=== PATIENT | male | born 1955 | race Caucasian/White ===

== ENCOUNTER → 2018-05-21 00:20 | Outpatient (CLI) | payer MEDICAID, SELFPAY ==
--- NOTE | 2018-05-21 10:00 | DI.REPORT_ITS ---
SYMPTOM/DIAGNOSIS: METATARSALGIA, RIGHT FOOT M77.41 RIGHT FOOT: Three views. No priors. Periarticular spurring is seen at the first metatarsal phalangeal joint. There do appear to be hammertoe deformities of the 2nd through 5th toes. There is periarticular spurring at the talonavicular joint and the articulation between the navicular cuneiforms. Spurs are seen at the posterior calcaneus. Vascular calcifications are seen. There does appear to be generalized soft tissue swelling of the foot. No acute fracture or dislocation is appreciated. There is joint space narrowing and periarticular spurring seen at the articulation between the medial sesamoid and the head of the first metatarsal. IMPRESSION: Mild to moderate degenerative changes seen at the right foot. 2. Generalized soft tissue swelling of the foot
== END ==
PROVIDERS: PCP Internal Medicine; Visit Provider Podiatrist Foot & Ankle Surgery
DX: M77.41 Metatarsalgia, right foot (principal); M19.071 Primary osteoarthritis, right ankle and foot; R22.41 Localized swelling, mass and lump, right lower limb; M79.89 Other specified soft tissue disorders
CPT/HCPCS: 73630

== ENCOUNTER 2018-11-20 08:49 | Outpatient (CLI) | payer MEDICAID, SELFPAY ==
[2018-11-20 09:28] LABS: HCT 36.6 % (40.0-50.0); HGB 11.1 g/dL (13.5-17.5); Mean Corp. HGB Concentration 30.3 g/dL (32.0-36.0); Mean Corpuscular Hemoglobin 24.7 pg (27.0-33.0); Mean Corpuscular Volume 81.5 fL (80-95); Mean Platelet Volume 9.1 fL (8.0-11.0); Platelet Count 296 x1000/uL (130-400); RBC 4.49 m/cumm (4.50-6.00); RBC Distribution Width 17.5 % (11.8-14.1); White Blood Cell Count 7.23 k/cumm (4.4-10.8)
[2018-11-20 09:55] LABS: COMMENT (LAB VIEW ONLY) 142.11 mg/dL; Microalb ug/mg Crea 150.4 ug/mg Cr
[2018-11-20 10:59] LABS: Anion Gap 10.6 mmol/L (3-11); BUN 16 mg/dL (7-18); CO2 29.4 mmol/L (21.0-32.0); CREATININE 1.12 mg/dL (0.70-1.30); Calcium 8.6 mg/dL (8.5-10.1); Chloride 103 mmol/L (98-107); Cholesterol 173 mg/dL (50-200); Glucose 107 mg/dL (70-100); HDL Cholesterol 52 mg/dL (40-60); LDL CHOLESTEROL 89 mg/dL (<100); Potassium 3.7 mmol/L (3.5-5.1); Sodium 143 mmol/L (136-145); TSH 2.19 uIU/mL (0.358-3.74); Triglyceride 143 mg/dL (30-150); Vitamin B12 617 pg/mL (193-986)
== END 2018-11-20 09:09 ==
PROVIDERS: PCP Internal Medicine; Visit Provider Internal Medicine
DX: E11.9 Type 2 diabetes mellitus without complications (principal); D51.9 Vitamin B12 deficiency anemia, unspecified; I10 Essential (primary) hypertension; E78.00 Pure hypercholesterolemia, unspecified; R60.9 Edema, unspecified; I50.810 Right heart failure, unspecified; N20.0 Calculus of kidney
CPT/HCPCS: 36415; 80048; 80061; 83721; 85027; 82043; 82570; 82607; 84443

== ENCOUNTER 2019-02-12 10:50 | Outpatient (CLI) | payer MEDICAID, SELFPAY ==
--- NOTE | 2019-02-12 10:36 | DI.RAD_ITS ---
SYMPTOMS/DIAGNOSIS: PAIN RIGHT HAND: Two views. No acute or healing fracture or dislocation is present. The articular surfaces are well maintained. The bones appear normally mineralized. There does appear to be some soft tissue swelling of the index finger. IMPRESSION: 1. No acute bone or joint abnormality. 2. Soft tissue swelling of the right index finger.
== END 2019-02-12 11:10 ==
PROVIDERS: PCP Internal Medicine; Visit Provider Physician Assistant Surgical
DX: M79.641 Pain in right hand (principal); M79.89 Other specified soft tissue disorders
CPT/HCPCS: 73120

== ENCOUNTER 2019-03-20 09:52 | Outpatient (CLI) | payer MEDICAID, SELFPAY ==
--- NOTE | 2019-03-20 15:00 | W.PREOPHP ---
Date of service: 03/20/19 Time of Service: 09:01 Assessment and Plan (1) Morbid obesity: Current visit: Yes Status: Chronic (2) Radial styloid tenosynovitis [de quervain]: Current visit: Yes Status: Acute First dorsal extensor compartment release hopefully to be done under IV regional anesthesia secondary to the patient's multiple medical problems to include sleep apnea cor pulmonale with massive lower leg edema hypertension with a story of ICU stay after simple outpatient procedure of a knee arthroscopy found in old charts and written notes by former anesthesiologist Dr. Kishore Gaxiola. the choice of anesthesia was discussed today with nurse multiple drum sander helper Maria Del Carmen Perkins about some of the issues regarding luls habitus with a large upper arrm with super morbid obese classification with maria del carmen feeling he can adequately do the procedure under IV regional to minimize any sleep apnea issues and chronic dyspnea issues that the patient has with no past history of ischemic cardiac disease or cerebrovascular disease reviewing his computerized chart. Patient is well aware of the surgical procedure and the need to stop his chronic anticoagulation with Coumadin for his peripheral vascular disease which he has already done at this time. History of Present Illness Chief Complaint: right thumb pain Narrative: lul is a [id number] super morbidly obese diabetic male with a past history of lower leg DVTs and acute PE maintained on chronic Coumadin who presented to orthopedics with a one-month history of atraumatic base of thumb pain not improved after 1 month trial of thumb spica splinting. With his lack of improvement with conservative measures release of first dorsal extensor compartment under IV regional anesthesia arm size permitting was recommended by Dr. De La Fuente. The patient relates a history of CPAP use for sleep apnea along with a story of a [address] De La Fuente with general anesthesia with him winding up in ICU after the procedure per the direction of anesthesiologist Dr. Kishore Gaxiola where he was discharged the next day. The patient is unaware of any difficulty during the intubation but just winding up in ICU post the simple procedure. Review of his computerized record here does show an EGD and colonoscopy performed by Dr. Marvin in 7-14under mac Because of his large size fallon stone retrieval and planned umbilical hernia are scheduled to be done down at [facility]. Dr. De La Fuente is hoping lul's surgery can be a simple procedure done under IV regional to avoid some of the aforementioned issues. Pertinent Surgical Information Denies previous medical history of: stroke, TIA, [place], use of sublingual nitroglycerin,, thyroid disease, liver disease, hepatitis, hematologic disorders Denies previous complications from surgery or anesthesic agents with respect to high fever, prolonged vomiting and difficulty waking up Review of Systems Constitutional Denies fever(s) and Denies headache(s) ENT Denies headache(s), Denies nasal congestion, Denies nasal discharge and Denies sore throat Cardiovascular Denies chest pain, Denies chest pain with activity, Denies palpitations, Reports dyspnea on exertion ( has chronic exertional dyspneaespecially with incline walking), Denies orthopnea and Denies paroxysmal nocturnal dyspnea Respiratory Reports change in phlegm color, Denies cough, Denies excessive phlegm production, Denies pain on inspiration, Reports dyspnea on exertion ( has chronic exertional dyspneaespecially with incline walking) and Denies wheezing Gastrointestinal Denies abdominal pain, Denies melena, Denies hematochezia, Denies nausea and Denies vomiting Genitourinary Denies hematuria and Denies dysuria Comments: Denies burning sensation with urination Musculoskeletal Reports as per HPI Neurologic Denies headache(s) Psychiatric Denies anxiety and Denies depression Endocrine Denies palpitations Comments: Denies any unplanned weight changes Allergic/Immunologic Denies wheezing PFSH Medical History Right-sided heart failure (Chronic) GERD (gastroesophageal reflux disease) (Chronic) Hypertension (Chronic) Umbilical hernia (Acute) Uric acid urolithiasis (Acute) Hernia (Chronic) Morbid obesity (Chronic) Diabetes mellitus (Chronic) Hyperlipidemia (Chronic) Obstructive sleep apnea (Chronic) Anticoagulation goal of INR 2 to 3 Coronary artery disease Surgical History History of extraction of renal calculus (Acute) History of colonoscopy (Chronic) History of esophagogastroduodenoscopy (EGD) (Chronic) History of trigger finger (Inactive) FORESKIN SLIT KNEE SURGERIES flexible laryngoscopy (04/12/15) Family History Mother Hypertensive disorder, systemic arterial Diabetes Personal history of malignant neoplasm Sister Diabetes Mental disorder Brother Diabetes Social History Smoking/Tobacco Use Status: Former Tobacco Use Smokeless tobacco user: chewing tobacco Alcohol Intake: never Drug use: Never Substance use type: does not use Household members: other Details: roomate Housing: apartment What type of physical activity do you participate in: none Seatbelt use: always Drive intox or ride w/intox pack train driver: No Water heater temp set <120 deg: Yes Fire extinguisher in home: Yes Carbon monox detector in home: Yes Do you feel safe at home: Yes Do you feel safe in your relationship?: Yes Meds Home Medications Medication Instructions Recorded Confirmed Type polyethylene glycol 3350 17 g PO PRN PRN packet 12/13/12 03/20/19 History ammonium lactate 1 applic TOPICAL BID PRN #1 bottle 12/01/13 03/20/19 History lancets #350 ea 03/16/14 03/18/19 History modafinil [Provigil] 200 mg PO BID 01/27/15 03/20/19 History zolpidem [Ambien CR] 12.5 mg PO HS 03/05/17 03/20/19 History pen needle, diabetic [BD #300 07/20/17 03/18/19 Rx Ultra-Fine Orig Pen Needle] diaper,brief,adult,disposable #120 ea 02/26/18 03/18/19 Rx [Brief] simvastatin 40 mg PO DAILY #90 tab-cap 05/10/18 03/20/19 Rx potassium citrate ER 10 mEq (1,080 20 meq PO BID #360 tab 06/25/18 03/20/19 Rx mg) tablet,extended release insulin glargine (U- 100) 100 See Rx Instructions SUB-Q HS #8 07/04/18 03/18/19 Rx unit/mL subcutaneous solution vial furosemide 80 mg tablet 80 mg PO DAILY #135 tab-cap 08/28/18 03/20/19 Rx cyanocobalamin (vit B-12) 1,000 1,000 mcg IJ monthly #1 vial 09/03/18 03/20/19 Rx mcg/mL injection solution syringe with cannula, disposable #12 syringe 09/03/18 03/18/19 Rx 17 x 3 mL blood sugar diagnostic strips #450 strip 09/04/18 03/18/19 Rx triamcinolone acetonide 0.5 % 1 applic TP BID PRN #15 gm 09/04/18 03/20/19 Rx topical cream insulin syringe U-100 with needle #10 each 09/06/18 03/18/19 History 0.5 mL 30 gauge x 5/16 insulin syringe U-100 with needle #400 each 09/06/18 03/18/19 Rx 1 mL 31 gauge x 5/16 omeprazole 20 mg capsule,delayed 20 mg PO HS #90 tab-cap 09/27/18 03/20/19 Rx release insulin U- 100 regular human 100 33 unit SUBCUT AC & HS #18 vial 10/31/18 03/20/19 Rx unit/mL injection solution MDD 200u lisinopril 10 mg tablet 10 mg PO DAILY #90 tab-cap 12/10/18 03/20/19 Rx warfarin 5 mg tablet See Rx Instructions PO DAILY #200 12/10/18 03/18/19 Rx tab metformin 1,000 mg tablet 1,000 mg PO BID #180 tab-cap 01/10/19 03/20/19 Rx loratadine 10 mg tablet 10 mg PO DAILY #90 tab 01/28/19 03/20/19 Rx tramadol 50 mg tablet 100 mg PO BID #360 tab 03/05/19 03/20/19 Rx atenolol 25 mg tablet 50 mg PO DAILY tab-cap 03/20/19 03/20/19 History nystatin 1 applic TP BID PRN 03/20/19 03/20/19 History Allergies Allergy/AdvReac Type Severity Reaction Status Date / Time zaleplon [From [facility]] Allergy Severe Swelling/Ed Verified 03/20/19 09:02 mark Exam Const General: cooperative HENMT Throat: posterior oropharynx normal Eyes General: appearance normal, both eyes and all related structures Conjunctivae: conjunctivae normal Sclera: sclerae normal Neck Neck: no JVD Carotids: normal carotid upstroke and no bruits Resp Effort & Inspection: normal respiratory effort and able to speak in complete sentences Auscultation: clear to auscultation bilaterally, no rales, no rhonchi and no wheezes Cardio Rate: regular rate Heart Sounds: S1 normal, S2 normal and no murmurs Bruits: no abdominal aortic bruits Pulses: normal peripheral pulses Other: No pulsatile mass noted with palpation over the abdominal aorta morbid obesity makes palpation subotimal GI Palpation: soft and no hepatosplenomegaly Auscultation: normal bowel sounds General: No CVA tenderness Extrem General: edema Right lower extremity: edema Left lower extremity: edema Other: right thumb with tenderness of distal end of first dorsal extensor compartment with +finkelsteins test. no metacarpal grind pain or cmc joint tenderness.nl sensation
--- NOTE | 2019-03-20 15:15 | HPE_ITS ---
Date of service: 03/20/19 Time of Service: 09:01 Assessment and Plan (1) Morbid obesity: Current visit: Yes Status: Chronic (2) Radial styloid tenosynovitis [de quervain]: Current visit: Yes Status: Acute First dorsal extensor compartment release hopefully to be done under IV regional anesthesia secondary to the patient's multiple medical problems to include sleep apnea cor pulmonale with massive lower leg edema hypertension with a story of ICU stay after simple outpatient procedure of a knee arthroscopy found in old charts and written notes by former anesthesiologist Dr. Kishore Gaxiola. the choice of anesthesia was discussed today with nurse electron beam welding machine operator Maria Del Carmen Perkins about some of the issues regarding luls habitus with a large upper arrm with super morbid obese classification with maria del carmen feeling he can adequately do the procedure under IV regional to minimize any sleep apnea issues and chronic dyspnea issues that the patient has with no past history of ischemic cardiac disease or cerebrovascular disease reviewing his computerized chart. Patient is well aware of the surgical procedure and the need to stop his chronic anticoagulation with Coumadin for his peripheral vascular disease which he has already done at this time. History of Present Illness Chief Complaint: right thumb pain Narrative: lul is a [id number] super morbidly obese diabetic male with a past history of lower leg DVTs and acute PE maintained on chronic Coumadin who presented to orthopedics with a one- month history of atraumatic base of thumb pain not improved after 1 month trial of thumb spica splinting. With his lack of improvement with conservative measures release of first dorsal extensor compartment under IV regional anesthesia arm size permitting was recommended by Dr. De La Fuente. The patient relates a history of CPAP use for sleep apnea along with a story of a [address] De La Fuente with general anesthesia with him winding up in ICU after the procedure per the direction of anesthesiologist Dr. Kishore Gaxiola where he was discharged the next day. The patient is unaware of any difficulty during the intubation but just winding up in ICU post the simple procedure. Review of his computerized record here does show an EGD and colonoscopy performed by Dr. Marvin in 7-14under mac Because of his large size fallon stone retrieval and planned umbilical hernia are scheduled to be done down at [facility]. Dr. De La Fuente is hoping lul's surgery can be a simple procedure done under IV regional to avoid some of the aforementioned issues. Pertinent Surgical Information Denies previous medical history of: stroke, TIA, [place], use of sublingual nitroglycerin,, thyroid disease, liver disease, hepatitis, hematologic disorders Denies previous complications from surgery or anesthesic agents with respect to high fever, prolonged vomiting and difficulty waking up Review of Systems Constitutional Denies fever(s) and Denies headache(s) ENT Denies headache(s), Denies nasal congestion, Denies nasal discharge and Denies sore throat Cardiovascular Denies chest pain, Denies chest pain with activity, Denies palpitations, Reports dyspnea on exertion ( has chronic exertional dyspneaespecially with incline walking), Denies orthopnea and Denies paroxysmal nocturnal dyspnea Respiratory Reports change in phlegm color, Denies cough, Denies excessive phlegm production, Denies pain on inspiration, Reports dyspnea on exertion ( has chronic exertional dyspneaespecially with incline walking) and Denies wheezing Gastrointestinal Denies abdominal pain, Denies melena, Denies hematochezia, Denies nausea and Denies vomiting Genitourinary Denies hematuria and Denies dysuria Comments: Denies burning sensation with urination Musculoskeletal Reports as per HPI Neurologic Denies headache(s) Psychiatric Denies anxiety and Denies depression Endocrine Denies palpitations Comments: Denies any unplanned weight changes Allergic/Immunologic Denies wheezing PFSH Medical History Right-sided heart failure (Chronic) GERD (gastroesophageal reflux disease) (Chronic) Hypertension (Chronic) Umbilical hernia (Acute) Uric acid urolithiasis (Acute) Hernia (Chronic) Morbid obesity (Chronic) Diabetes mellitus (Chronic) Hyperlipidemia (Chronic) Obstructive sleep apnea (Chronic) Anticoagulation goal of INR 2 to 3 Coronary artery disease Surgical History History of extraction of renal calculus (Acute) History of colonoscopy (Chronic) History of esophagogastroduodenoscopy (EGD) (Chronic) History of trigger finger (Inactive) FORESKIN SLIT KNEE SURGERIES flexible laryngoscopy (04/12/15) Family History Mother Hypertensive disorder, systemic arterial Diabetes Personal history of malignant neoplasm Sister Diabetes Mental disorder Brother Diabetes Social History Smoking/Tobacco Use Status: Former Tobacco Use Smokeless tobacco user: chewing tobacco Alcohol Intake: never Drug use: Never Substance use type: does not use Household members: other Details: roomate Housing: apartment What type of physical activity do you participate in: none Seatbelt use: always Drive intox or ride w/intox regional flatbed truck driver: No Water heater temp set <120 deg: Yes Fire extinguisher in home: Yes Carbon monox detector in home: Yes Do you feel safe at home: Yes Do you feel safe in your relationship?: Yes Meds Home Medications Medication Instructions Recorded Confirmed Type polyethylene glycol 3350 17 g PO PRN PRN packet 12/13/12 03/20/19 History ammonium lactate 1 applic TOPICAL BID PRN #1 bottle 12/01/13 03/20/19 History lancets #350 ea 03/16/14 03/18/19 History modafinil [Provigil] 200 mg PO BID 01/27/15 03/20/19 History zolpidem [Ambien CR] 12.5 mg PO HS 03/05/17 03/20/19 History pen needle, diabetic [BD #300 07/20/17 03/18/19 Rx Ultra-Fine Orig Pen Needle] diaper,brief,adult,disposable #120 ea 02/26/18 03/18/19 Rx [Brief] simvastatin 40 mg PO DAILY #90 tab-cap 05/10/18 03/20/19 Rx potassium citrate ER 10 mEq (1,080 20 meq PO BID #360 tab 06/25/18 03/20/19 Rx mg) tablet,extended release insulin glargine (U- 100) 100 See Rx Instructions SUB-Q HS #8 07/04/18 03/18/19 Rx unit/mL subcutaneous solution vial furosemide 80 mg tablet 80 mg PO DAILY #135 tab-cap 08/28/18 03/20/19 Rx cyanocobalamin (vit B-12) 1,000 1,000 mcg IJ monthly #1 vial 09/03/18 03/20/19 Rx mcg/mL injection solution syringe with cannula, disposable #12 syringe 09/03/18 03/18/19 Rx 17 x 3 mL blood sugar diagnostic strips #450 strip 09/04/18 03/18/19 Rx triamcinolone acetonide 0.5 % 1 applic TP BID PRN #15 gm 09/04/18 03/20/19 Rx topical cream insulin syringe U-100 with needle #10 each 09/06/18 03/18/19 History 0.5 mL 30 gauge x 5/16 insulin syringe U-100 with needle #400 each 09/06/18 03/18/19 Rx 1 mL 31 gauge x 5/16 omeprazole 20 mg capsule,delayed 20 mg PO HS #90 tab-cap 09/27/18 03/20/19 Rx release insulin U- 100 regular human 100 33 unit SUBCUT AC & HS #18 vial 10/31/18 03/20/19 Rx unit/mL injection solution MDD 200u lisinopril 10 mg tablet 10 mg PO DAILY #90 tab-cap 12/10/18 03/20/19 Rx warfarin 5 mg tablet See Rx Instructions PO DAILY #200 12/10/18 03/18/19 Rx tab metformin 1,000 mg tablet 1,000 mg PO BID #180 tab-cap 01/10/19 03/20/19 Rx loratadine 10 mg tablet 10 mg PO DAILY #90 tab 01/28/19 03/20/19 Rx tramadol 50 mg tablet 100 mg PO BID #360 tab 03/05/19 03/20/19 Rx atenolol 25 mg tablet 50 mg PO DAILY tab-cap 03/20/19 03/20/19 History nystatin 1 applic TP BID PRN 03/20/19 03/20/19 History Allergies Allergy/AdvReac Type Severity Reaction Status Date / Time zaleplon [From [facility]] Allergy Severe Swelling/Ed Verified 03/20/19 09:02 mark Exam Const General: cooperative HENMT Throat: posterior oropharynx normal Eyes General: appearance normal, both eyes and all related structures Conjunctivae: conjunctivae normal Sclera: sclerae normal Neck Neck: no JVD Carotids: normal carotid upstroke and no bruits Resp Effort & Inspection: normal respiratory effort and able to speak in complete sentences Auscultation: clear to auscultation bilaterally, no rales, no rhonchi and no wheezes Cardio Rate: regular rate Heart Sounds: S1 normal, S2 normal and no murmurs Bruits: no abdominal aortic bruits Pulses: normal peripheral pulses Other: No pulsatile mass noted with palpation over the abdominal aorta morbid obesity makes palpation subotimal GI Palpation: soft and no hepatosplenomegaly Auscultation: normal bowel sounds General: No CVA tenderness Extrem General: edema Right lower extremity: edema Left lower extremity: edema Other: right thumb with tenderness of distal end of first dorsal extensor compartment with +finkelsteins test. no metacarpal grind pain or cmc joint tenderness.nl sensation
== END 2019-03-20 10:12 ==
PROVIDERS: PCP Internal Medicine; Visit Provider Orthopaedic Surgery
DX: Z01.818 Encounter for other preprocedural examination (principal)

== ENCOUNTER 2019-03-24 11:15 | Day surgery (SDC) | payer MEDICAID, SELFPAY ==
[2019-03-24 11:32] VITALS: BP 160/81; PULSE 80; RESP 22; TEMP 36.9; O2SAT 95
[2019-03-24] MEDS: Lactated Ringers 1,000 ML 80 ML IV (12:05)
--- NOTE | 2019-03-24 12:17 | HOME_ITS ---
Home Ventilator Equipment Home care company [facility] Reason: Obstructive Sleep Apnea Make: Respironics Model: Dreamstation Mask type: Nasal mask Mask size: Mode: BiPAP Settings: PS 4.0 Oxygen bleed in (lpm): 0 Condition: Fair Date last checked: 03/24/19 Year of last sleep study: Compliance Daily Comments:
--- NOTE | 2019-03-24 14:47 | W.PM.DSUDISC ---
Discharge Plan Disposition Patient Disposition: HOME Condition: Good Discharge Details Reason For Visit: Release 1st dorsal extensor compartment R wrist Attending Provider: Rex De La Fuente Primary Care Provider: Nasra Sheehan Home Meds and New Rx's Prescriptions: New hydrocodone-acetaminophen 5-325 mg tablet 1 tab PO Q6H PRN (Reason: pain) Qty: 7 RF: 0 Continued potassium citrate 10 mEq (1,080 mg) tablet extended release 20 meq PO BID Qty: 360 RF: 2 tramadol 50 mg tablet 100 mg PO BID Qty: 360 RF: 5 atenolol 25 mg tablet 50 mg PO DAILY RF: 0 cyanocobalamin (vitamin B-12) 1,000 mcg/mL solution 1,000 mcg IJ monthly Qty: 1 RF: 11 BD Blunt Plastic Cannula 17 x 3 mL syringe 1 ea Miscellaneous monthly Qty: 12 RF: 1 triamcinolone acetonide 0.5 % cream 1 applic TP BID PRN (Reason: dyshidrotic eczema) Qty: 15 RF: 2 polyethylene glycol 3350 17 GM powder in packet 17 g PO PRN PRNRF: 0 ammonium lactate 225 GM lotion 1 applic Topical BID PRNQty: 1 RF: 11 lancets 1 EACH misc 1 ea Miscellaneous QID Qty: 350 RF: 4 modafinil [Provigil] 200 MG tablet 200 mg PO BID RF: 0 zolpidem [Ambien CR] 12.5 MG tablet,ext release multiphase 12.5 mg PO HS RF: 0 pen needle, diabetic [BD Ultra-Fine Orig Pen Needle] 1 EACH needle 1 ea Miscellaneous DAILY Qty: 300 RF: 12 Entrust Plus Briefs 1 EACH misc 1 ea Miscellaneous Q6H PRN Qty: 120 RF: 12 simvastatin 40 MG tablet 40 mg PO DAILY Qty: 90 RF: 3 Lantus U-100 Insulin 100 unit/mL solution See Rx Instructions Sub-Q HS Qty: 8 RF: 3 furosemide 80 mg tablet 80 mg PO DAILY Qty: 135 RF: 3 FreeStyle Lite Strips strip 1 ea Miscellaneous 5 X daily Qty: 450 RF: 3 insulin syringe-needle U-100 [Advocate Syringes] 0.5 mL 30 gauge x 5/16 syringe .ROUTE .MEDSUPPLY Qty: 10 RF: 0 insulin syringe-needle U-100 [Ultra-Thin II (Short) Ins Syr] 1 mL 31 gauge x 5/16 syringe 1 ea Miscellaneous QID Qty: 400 RF: 3 omeprazole 20 mg capsule,delayed release(DR/EC) 20 mg PO HS Qty: 90 RF: 3 Novolin R Regular U-100 Insuln 100 unit/mL solution 33 unit subcut AC & HS MDD 200u Qty: 18 RF: 11 lisinopril 10 mg tablet 10 mg PO DAILY Qty: 90 RF: 3 warfarin 5 mg tablet See Rx Instructions PO DAILY Qty: 200 RF: 3 metformin 1,000 mg tablet 1,000 mg PO BID Qty: 180 RF: 3 loratadine 10 mg tablet 10 mg PO DAILY Qty: 90 RF: 3 nystatin 100,000 unit/gram powder 1 applic TP BID PRNRF: 0 Discharge Instructions Additional Instructions: Elevate R hand above heart level as much as possible for next 24-48 hours. Keep dressings and splint dry and intact for 5 days. After 5 days, remove splint AND dressings and begin to move R wrist and thumb. May use R hand as much as your discomfort allows. After you remove the dressings, you may shower and get the incision wet. May leave incision uncovered when it is dry and sealed. Take tylenol or ibuprofen for mild pain. Take hydrocodone for breakthru pain, if needed. Follow up with in 2 weeks. Referrals: Rex De La Fuente MD [ [facility] STAFF PHYSICIAN] - (f/u in 2 weeks.) Equipment/Supplies: Splint Activity:: Activity as Tolerated Shower/Bathe:: Cover Diet:: As Tolerated Discharge Orders Discharge Orders: Discharge Order (Routine); Ordered 03/24/19 Ordered By: Rex De La Fuente
[2019-03-24 15:10] VITALS: BP 161/77; PULSE 75; RESP 18; TEMP 36.8; O2SAT 99
--- NOTE | 2019-03-25 06:54 | ROE_ITS ---
REPORT OF OPERATIVE PROCEDURE DATE OF SURGERY March 24, 2019 PREOPERATIVE DIAGNOSIS De Quervain's tendinitis of the first dorsal extensor compartment, right wrist. POSTOPERATIVE DIAGNOSIS De Quervain's tendinitis of the first dorsal extensor compartment, right wrist. PROCEDURES Tendon sheath incision at the radial styloid for de Quervain's disease. Application of radial thumb spica splint. SURGEON Rex De La Fuente M.D. ANESTHESIA MAC with local infiltration using 2% Xylocaine solution and 0.5% Marcaine with epinephrine solution, By Luis Enrique Webber C.R.N.A. INDICATIONS This is a morbidly obese 63-year-old white male with De Quervain's tendinitis of his right wrist. Thi s has been resistant to nonoperative treatment including prolonged splinting and antiinflammatory med ications. Because of failure of conservative treatment to alleviate his symptoms, surgery was recomme nded. The risks and complications of the procedure were explained to the patient in detail preoperati vely. DESCRIPTION OF PROCEDURE The patient was taken to the Operating Room on 03/24/19. He was placed supine on the operating table. An attempt at IV regional anesthetic was performed. Unfortunately, due to his obesity, large size, there was heavy bleeding due to venous back pressure. I infiltrated his skin and subcu over the first dorsal extensor compartment with 0.5% Marcaine with e pinephrine solution. Applied pressure to the wound and deflated the tourniquet. With simple pressure and elimination of the back pressure from the tourniquet most of the bleeding stopped. Small bleeder s were then cauterized and a dry wound was obtained. Because of his obesity, the incision was longer than usual, probably measuring about 4 inches. The first dorsal extensor compartment was identified a nd then the sheath of the first dorsal extensor compartment was longitudinally incised. There were mu ltiple tendon slips within the first dorsal extensor compartment. One tiny slip was in a separate com partment and the separate compartment was excised. Upon incising the capsule, there was a small gush of synovial fluid. There was some hypertrophic synovium, this was excised using a rongeur. The wound was irrigated with Betadine and saline solution. I further infiltrated the wound margins with 0.5% Ma rcaine with epinephrine solution. The skin and subcu was then approximated with interrupted 3-0 Nylon sutures. The wound was dressed with Xeroform gauze, sterile gauze, 4x4 with ABD Pad, wrapped with a Kerlix bandage and then a radial thumb spica fiberglass short-arm splint was applied with a 3-inch Ac e bandage. The patient tolerated the procedure well and was discharged to the Day Surgery unit in goo d condition. The patient was discharged home from the Day Surgery Unit when his sedation has worn off. He was give n instructions to keep his dressings and splint intact and dry for the next five days. He may use his right hand as much as discomfort allows. Try to elevate his right hand above heart level as much as possible for the next 24 to 48 hours. After five days, he will remove his splint and dressings. Start to move his thumb and wrist. He may shower and get his incision wet after the dressings are removed. He can leave his incision uncovered when it is dry and sealed. He will take Tylenol or ibuprofen for pain. He is given a prescription for breakthrough pain of hydro codone with APAP 5/325. He will followup with Dr. De La Fuente in two weeks.
== END 2019-03-24 15:52 | disposition home or self-care (01) ==
PROVIDERS: PCP Internal Medicine; Visit Provider Orthopaedic Surgery
PROC: (CPT 25000; principal; 2019-03-24 13:15)
DX: M65.4 Radial styloid tenosynovitis [de Quervain] (principal); E11.9 Type 2 diabetes mellitus without complications; G47.33 Obstructive sleep apnea (adult) (pediatric); Z79.4 Long term (current) use of insulin; K21.9 Gastro-esophageal reflux disease without esophagitis; E66.01 Morbid (severe) obesity due to excess calories; Z68.43 Body mass index [BMI] 50.0-59.9, adult
CPT/HCPCS: 25000; J2250; J3010

== ENCOUNTER 2019-07-29 02:00 | Outpatient (CLI) | payer MEDICAID, SELFPAY ==
--- NOTE | 2019-07-29 09:00 | DIABASSESS_ITS ---
DESCRIPTION:? Nico Moeller presents for diabetes self management support. His A1c has decreased to 9. Continues to document food, insulin dosing and blood sugars daily.? ? First meal is Meals on Wheels at 10AM; fixes supper for 5PM varying pizza, mac and cheese, or chicken and vegetables.? States he has gained weight recently.? States he watches his sodium; cant have certain foods because he needs to put salt on it, but he will eat pizza, mac and cheese and states he puts cheese in many foods.?? Monitors blood sugars and takes Novolin R insulin 2-3 hours prior to eating the meal on a correction scale starting at 24 units.? Blood sugars fasting 174-210? over the past week; pre-supper 107-308, bedtime 194-355.? He happened to test blood sugar 4:30AM at 490mg/dl. He has an appointment for sleep apnea scheduled. INTERVENTION:? Discussed carbohydrate portions; suggested no bread or pizza.? Suggested cooking regular food and adding a sprinkle of salt and cut cheese intake.? He denies eating sweets although he does still bake. Looked at insulin dosing scale and balance of basal/bolus insulin.? Suggest increase of Lantus to 90units.? Increased insulin dosing scale 1 unit every 20mg/dl.?? Instructed to take blood sugar and mealtime insulin 1/2 hour prior to eating the meal. Discussed injection sites and he will continue to use the back of his arm. He denies any skin changes; declines using stomach secondary to history of bruising. PLAN:? Nico will document food more carefully and blood sugars using increased insulin scale and follow up in 1 week.
== END 2019-07-29 02:20 ==
PROVIDERS: PCP Internal Medicine; Visit Provider Dietitian, Registered
DX: E11.9 Type 2 diabetes mellitus without complications (principal); Z79.4 Long term (current) use of insulin; Z71.3 Dietary counseling and surveillance
CPT/HCPCS: G0108

== ENCOUNTER 2019-08-19 01:58 | Outpatient (CLI) | payer MEDICAID, SELFPAY ==
--- NOTE | 2019-08-19 12:00 | DIABASSESS_ITS ---
DESCRIPTION/ASSESSMENT: Follow up visit with Nico and his daughter to assess/review the current insulin dosing regimen.We increased his Lantus dose to 96units nightly. His blood sugar/insulin/food log indicates improved fasting blood sugars now 125-180 with one outlier of 248mg/dl. Blood sugar before supper 100-200 with 2 outliers above 200. Bedtime blood sugar 140-319 with 8 out of 13 above 200mg/dl. Nico states he takes his Novolog when he ests his blood sugar in the morning; 2-3 hours before he eats his first meal. He usually injects using his arms. INTERVENTION: Blood sugars clearly highest before bed indicating inadequate insulin dosing for his supper meal. Increased his supper insulin dose by 3-5 units at each insulin correction level. Discussed weight loss by cutting portions and he agrees to try to do this. Discussed insulin administration. He agrees to take his blood sugar and insulin just before he eats his first meal of the day. ACTION PLAN: He will continue documenting using the new insulin dosing scale: Mealtime Insulin Dosing for Nico Degreenia Blood MOW Supper bedtime sugar Insulin insulin Insulin 80-100 25units 30 101-120 26 31 121-140 30 33 141-150 32 35 151-160 34 37 161-170 36 39 171-180 38 42 181-190 40 45 2 191-200 42 47 3 201-210 45 50 4 211-220 47 54 5 221-230 50 57 6 231-240 53 60 8 241-250 56 63 10 251-260 59 66 12 261-270 61 13 96 units Lantus nightly R 08/19/19 Individual DSME/T __1__ units billed for 40 minutes face to face No DM group education series being offered at this time. 02/24/19 TC to Nico. Fasting blood sugar 128, 85, 121, 136, 116, 119,106, 139 before supper 85, 99, 134, 102, 77, 124, 76, 82, 131. Bedtime blood sugars 160- 200. He is pleased with these results and is happy to continue with this insulin dosing scale at this time. PRAVEENA Quijano, CDE
== END 2019-08-19 02:18 ==
PROVIDERS: PCP Internal Medicine; Visit Provider Dietitian, Registered
DX: E11.9 Type 2 diabetes mellitus without complications (principal); Z79.84 Long term (current) use of oral hypoglycemic drugs; Z71.3 Dietary counseling and surveillance
CPT/HCPCS: G0108

== ENCOUNTER 2019-12-26 10:17 | Outpatient (REF) | payer MEDICAID, SELFPAY ==
[2019-12-26 10:55] LABS: Anion Gap 11.6 mmol/L (3-11); BUN 15 mg/dL (7-18); CO2 27.4 mmol/L (21.0-32.0); Calcium 7.8 mg/dL (8.5-10.1); Calculated LDL 84 mg/dL (<100); Chloride 104 mmol/L (98-107); Cholesterol 151 mg/dL (<200); Glucose 149 mg/dL (74-106); HDL Cholesterol 44 mg/dL (40-60); Potassium 4.1 mmol/L (3.5-5.1); Sodium 143 mmol/L (136-145); Triglyceride 118 mg/dL (<150)
[2019-12-26 11:51] LABS: COMMENT (LAB VIEW ONLY) 127.91 mg/dL; Microalb ug/mg Crea 27.4 ug/mg Cr
== END 2019-12-26 10:37 ==
LOC: LBN 10:17
PROVIDERS: PCP Internal Medicine; Visit Provider Internal Medicine
DX: I10 Essential (primary) hypertension (principal); E11.69 Type 2 diabetes mellitus with other specified complication; E78.00 Pure hypercholesterolemia, unspecified; E66.9 Obesity, unspecified
CPT/HCPCS: 80048; 80061; 82043; 82570

== ENCOUNTER 2020-03-30 11:16 | Outpatient (REF) | payer MEDICAID, SELFPAY ==
[2020-03-30 12:18] LABS: Anion Gap 10.5 mmol/L (3-11); BUN 18 mg/dL (7-18); CO2 27.5 mmol/L (21.0-32.0); CREATININE 1.22 mg/dL (0.70-1.30); Calcium 8.4 mg/dL (8.5-10.1); Chloride 103 mmol/L (98-107); Estimated GFR 59.99 (mL/min/1.73m2); Glucose 78 mg/dL (74-106); Potassium 3.9 mmol/L (3.5-5.1); Sodium 141 mmol/L (136-145)
== END 2020-03-30 11:36 ==
LOC: LBN 11:16
PROVIDERS: PCP Internal Medicine; Visit Provider Internal Medicine
DX: E11.22 Type 2 diabetes mellitus with diabetic chronic kidney disease (principal); R60.0 Localized edema; I13.0 Hypertensive heart and chronic kidney disease with heart failure and stage 1 through stage 4 chronic kidney disease, or unspecified chronic kidney disease; E66.9 Obesity, unspecified
CPT/HCPCS: 80048

== ENCOUNTER 2021-03-02 13:51 | Outpatient (REF) | payer MEDICAID, SELFPAY | END 2021-03-02 13:52 | disposition home or self-care (01) | LOC: LBN 13:51 | PROVIDERS: PCP Internal Medicine; Visit Provider Internal Medicine | DX: L02.611 Cutaneous abscess of right foot (principal); L98.8 Other specified disorders of the skin and subcutaneous tissue | CPT/HCPCS: 87077; 87070; 87186; 87205 ==

== ENCOUNTER 2021-06-03 11:02 | Emergency (ER) | payer MEDICAID, SELFPAY ==
[2021-06-03 11:05] VITALS: BP 134/71; PULSE 80; RESP 18; TEMP 36.7; O2SAT 94
--- NOTE | 2021-06-03 11:15 | DI.RAD_ITS ---
Exam(s) XR FOOT RT COMPLETE EXAM: XR FOOT RT COMPLETE CLINICAL HISTORY: right foot pain, hx of osteomyelitis. TECHNIQUE: 2D digital imaging was performed. COMPARISON: CR RIGHT FOOT COMPLETE from 05/21/2018 FINDINGS: BONES: No acute fracture is present. No bony destructive lesion is seen. The bones are osteopenic. JOINTS: No dislocation present. Degenerative changes are seen in the foot, particularly at the artic ulation of the navicular and the cuneiform. SOFT TISSUE: There are 3 linear densities, the longest measuring 7 mm, in the patient's subcutaneous tissues on the plantar surface of the foot. These are consistent with foreign bodies. There is diff use soft tissue thickening of the foot. IMPRESSION: 1. No radiographic evidence of osteomyelitis. 2. Diffuse soft tissue thickening of the foot. 3. Three linear foreign bodies in the subcutaneous tissues of the plantar surface of the foot. 4. Results of this exam have been verbally communicated with provider. DATA REPOSITORY: RADIATION DOSE DELIVERED:
--- NOTE | 2021-06-03 11:23 | W.ED.GENAD ---
Discharge Plan Disposition Patient Disposition: HOME Condition: Stable Discharge Details Clinical Impression: Acute foot pain Primary Care Provider: Nasra Sheehan ED Provider: Rebecca Elizondo Home Meds and New Rx's Prescriptions: New cephalexin 500 mg capsule 500 mg PO QID 7 Days Qty: 28 RF: 0 Saccharomyces boulardii [Florastor] 250 mg capsule 250 mg PO BID Qty: 14 RF: 0 Continued triazolam 0.25 mg tablet 0.25 mg PO QHS PRNRF: 0 doxepin 10 mg capsule 10 mg PO QHS RF: 0 potassium citrate 10 mEq (1,080 mg) tablet extended release 20 meq PO BID Qty: 360 RF: 4 Myrbetriq 50 mg tablet extended release 24 hr 50 mg PO Q24H Qty: 90 RF: 4 Humulin R U-500 (Conc) Kwikpen 500 unit/mL (3 mL) insulin pen See Rx Instructions subcut ONCE Qty: 10 RF: 3 Trulicity 1.5 mg/0.5 mL pen injector 1.5 mg subcut QWEEK Qty: 12 RF: 3 (DME) insulin syringe-needle U-100 [Ultra-Thin II (Short) Ins Syr] 1 mL 31 gauge x 5/16 syringe 1 ea Miscellaneous QID Qty: 200 RF: 3 atorvastatin 20 mg tablet 20 mg PO DAILY Qty: 90 RF: 3 lisinopril 40 mg tablet 40 mg PO DAILY Qty: 90 RF: 3 triamcinolone acetonide 0.5 % cream 1 applic TP BID PRN (Reason: dyshidrotic eczema) Qty: 15 RF: 2 furosemide 80 mg tablet 80 mg PO DAILY RF: 0 Anoro Ellipta 62.5-25 mcg/actuation blister with device 1 inh IH DAILY RF: 0 polyethylene glycol 3350 17 GM powder in packet 17 g PO PRN PRNRF: 0 ammonium lactate 225 GM lotion 1 applic Topical BID PRNQty: 1 RF: 11 (DME) lancets 1 EACH misc 1 ea Miscellaneous QID Qty: 350 RF: 4 modafinil [Provigil] 200 MG tablet 200 mg PO BID RF: 0 (DME) Entrust Plus Briefs Misc 1 ea Miscellaneous Q6H PRN Qty: 120 RF: 12 atenolol 100 mg tablet 100 mg PO DAILY Qty: 90 RF: 3 doxazosin 4 mg tablet 4 mg PO DAILY Qty: 90 RF: 3 amlodipine 5 mg tablet 5 mg PO DAILY Qty: 90 RF: 3 (DME) FreeStyle Lite Strips Strip 1 ea Miscellaneous 5 X daily Qty: 450 RF: 3 metformin 1,000 mg tablet 1,000 mg PO BID Qty: 180 RF: 3 nystatin 100,000 unit/gram powder 1 applic TP BID PRN (Reason: rash) Qty: 30 RF: 0 Lantus U-100 Insulin 100 unit/mL solution See Rx Instructions Sub-Q HS Qty: 9 RF: 3 cyanocobalamin (vitamin B-12) 1,000 mcg/mL solution 1,000 mcg IJ monthly Qty: 1 RF: 11 omeprazole 20 mg capsule,delayed release(DR/EC) 20 mg PO HS Qty: 90 RF: 3 (DME) BD Blunt Plastic Cannula 17 x 3 mL syringe 1 ea Miscellaneous monthly Qty: 12 RF: 1 warfarin 5 mg tablet See Rx Instructions mg PO DAILY Qty: 200 RF: 3 tramadol 50 mg tablet 100 mg PO BID Qty: 28 RF: 3 tramadol 50 mg tablet 100 mg PO BID Qty: 28 RF: 3 tramadol 50 mg tablet 100 mg PO BID Qty: 28 RF: 3 tramadol 50 mg tablet 100 mg PO BID Qty: 28 RF: 3 tramadol 50 mg tablet 100 mg PO BID Qty: 28 RF: 3 tramadol 50 mg tablet 100 mg PO BID Qty: 28 RF: 3 loratadine 10 mg tablet 10 mg PO DAILY Qty: 90 RF: 1 (DME) pen needle, diabetic [BD Ultra-Fine Edwige Pen Needle] 32 gauge x 5/32 needle See Rx Instructions .ROUTE .MEDSUPPLY Qty: 200 RF: 3 (DME) trapeze See Rx Instructions .Route .MEDSUPPLY Qty: 1 RF: 0 (DME) hospital bed mattress See Rx Instructions .Route .MEDSUPPLY Qty: 1 RF: 0 Discharge Instructions Instructions: Leg Pain (ED) Additional Instructions: Please take antibiotics as prescribed Take Florastor daily so you do not develop a stool infection Elevate your leg and wear compression stockings Recheck in 48 hours I am unsure as to whether or not you are developing new infection or if this is strain secondary to your fall, there is no evidence of fracture on your x-ray Please return should you have difficulty ambulating, fever, chills, spreading redness, or with any new or worsening complaints Discharge Data Discharge Date/Time-TO BE ENTERED AT DEPARTURE: 06/03/21 13:01 Medical Decision Making Patient appears well, his diagnostic labs are within normal limits He does have 3 lucencies in his right foot, there is no obvious erythema over these areas and they are not uncomfortable or patient He is aware with him that there is no need for intervention at this time He is instructed to wear shoes and socks when he is walking around his house He is placed on Keflex He will need recheck in 48 hours No clinical evidence of necrotizing fasciitis, when compared to contralateral foot, no evidence of erythema, not necessarily convinced that this is bacterial infection, however given patient's comorbidities I will trial a course of antibiotics Podiatry follow-up recommended Early return precautions discussed and patient expressed understanding, ambulatory with steady gait Feels comfortable discharge home at this time Medical Records Medical records reviewed: Yes I reviewed the patient's medical records. Lab Data Lab results reviewed: Yes I reviewed the patient's lab results. HPI General Mode of arrival: ambulatory. Date/Time Provider Initiated Documentation: 06/03/21 11:15. Limitations to Documentation: no limitations. Information obtained by: patient. HPI Narrative: 65-year-old gentleman with history of hypertension, hypercholesterolemia, chronic anticoagulation, pulmonary embolism, right-sided heart failure insulin-dependent diabetes presents with right toe pain. He states he fell 2 days ago. He was washing his floors and. He landed in a split position twisting his right knee and required some back pain with immediately thereafter. He is concerned because this was the other was being treated for infection. He states is more swollen and red. He denies any fever or chills. He states he is able to ambulate at his baseline but pain has increased. He is worried about infection. He denies any chest pain or shortness of breath. He assures me that the fall was mechanical. He denies any additional complaints this time. Related Data Home Medications Medication Instructions Recorded Confirmed polyethylene glycol 3350 17 g PO PRN PRN packet 12/13/12 06/03/21 ammonium lactate 1 applic TOPICAL BID PRN #1 bottle 12/01/13 06/03/21 lancets #350 ea 03/16/14 06/03/21 modafinil [Provigil] 200 mg PO BID 01/27/15 06/03/21 triamcinolone acetonide 0.5 % 1 applic TP BID PRN #15 gm 09/04/18 06/03/21 topical cream furosemide 80 mg tablet 80 mg PO DAILY tab-cap 09/16/19 06/03/21 umeclidinium 62.5 mcg-vilanterol 1 inh IH DAILY 09/16/19 06/03/21 25 mcg/actuation powdr for inhalation doxepin 10 mg capsule 10 mg PO QHS 09/30/19 06/03/21 triazolam 0.25 mg tablet 0.25 mg PO QHS PRN 09/30/19 06/03/21 diaper,brief,adult,disposable #120 ea 06/09/20 06/03/21 atenolol 100 mg tablet 100 mg PO DAILY #90 tab 06/11/20 06/03/21 doxazosin 4 mg tablet 4 mg PO DAILY #90 tab 06/22/20 06/03/21 potassium citrate 10 mEq (1,080 20 meq PO BID #360 tab 07/23/20 06/03/21 mg) tablet,extended release amlodipine 5 mg tablet 5 mg PO DAILY #90 tab 07/27/20 06/03/21 blood sugar diagnostic #450 strip 07/31/20 06/03/21 metformin 1,000 mg tablet 1,000 mg PO BID #180 tab-cap 08/12/20 06/03/21 mirabegron 50 mg tablet,extended 50 mg PO Q24H #90 tab 08/20/20 06/03/21 release 24 hr nystatin 100,000 unit/gram topical 1 applic TP BID PRN #30 gm 08/20/20 06/03/21 powder insulin glargine 100 unit/mL See Rx Instructions SUB-Q HS #9 08/31/20 06/03/21 subcutaneous solution vial cyanocobalamin (vitamin B-12) 1,000 mcg IJ monthly #1 vial 09/13/20 06/03/21 1,000 mcg/mL injection solution omeprazole 20 mg capsule,delayed 20 mg PO HS #90 tab-cap 09/23/20 06/03/21 release syringe with cannula,disposabl 17 #12 syringe 09/28/20 06/03/21 x 3 mL warfarin 5 mg tablet See Rx Instructions PO DAILY #200 01/27/21 06/03/21 tab tramadol 50 mg tablet 100 mg PO BID #28 tab 02/02/21 06/03/21 tramadol 50 mg tablet 100 mg PO BID #28 tab 02/02/21 06/03/21 tramadol 50 mg tablet 100 mg PO BID #28 tab 02/02/21 06/03/21 tramadol 50 mg tablet 100 mg PO BID #28 tab 02/02/21 06/03/21 tramadol 50 mg tablet 100 mg PO BID #28 tab 02/02/21 06/03/21 tramadol 50 mg tablet 100 mg PO BID #28 tab 02/02/21 06/03/21 loratadine 10 mg tablet 10 mg PO DAILY #90 tab 02/05/21 06/03/21 dulaglutide 1.5 mg/0.5 mL 1.5 mg SUBCUT QWEEK #12 syrg 03/23/21 06/03/21 subcutaneous pen injector insulin regular hum U-500 conc See Rx Instructions SUBCUT ONCE 03/23/21 06/03/21 #10 syrg pen needle, diabetic 32 gauge x #200 ea 05/03/21 06/03/21 atorvastatin 20 mg tablet 20 mg PO DAILY #90 tab-cap 05/11/21 06/03/21 insulin syringe-needle U-100 1 mL #200 ea 05/11/21 06/03/21 31 gauge x 02/27 lisinopril 40 mg tablet 40 mg PO DAILY #90 tab 05/11/21 06/03/21 trapeze #1 ea 05/11/21 06/03/21 hospital bed mattress #1 ea 05/30/21 06/03/21 Saccharomyces boulardii [Florastor] 250 mg PO BID #14 cap 06/03/21 cephalexin 500 mg PO QID 7 Days #28 cap 06/03/21 Previous Rx's Medication Instructions Recorded triamcinolone acetonide 0.5 % 1 applic TP BID PRN #15 gm 09/04/18 topical cream diaper,brief,adult,disposable #120 ea 06/09/20 atenolol 100 mg tablet 100 mg PO DAILY #90 tab 06/11/20 doxazosin 4 mg tablet 4 mg PO DAILY #90 tab 06/22/20 potassium citrate 10 mEq (1,080 20 meq PO BID #360 tab 07/23/20 mg) tablet,extended release amlodipine 5 mg tablet 5 mg PO DAILY #90 tab 07/27/20 blood sugar diagnostic #450 strip 07/31/20 metformin 1,000 mg tablet 1,000 mg PO BID #180 tab-cap 08/12/20 mirabegron 50 mg tablet,extended 50 mg PO Q24H #90 tab 08/20/20 release 24 hr nystatin 100,000 unit/gram topical 1 applic TP BID PRN #30 gm 08/20/20 powder insulin glargine 100 unit/mL See Rx Instructions SUB-Q HS #9 08/31/20 subcutaneous solution vial cyanocobalamin (vitamin B-12) 1,000 mcg IJ monthly #1 vial 09/13/20 1,000 mcg/mL injection solution omeprazole 20 mg capsule,delayed 20 mg PO HS #90 tab-cap 09/23/20 release syringe with cannula,disposabl 17 #12 syringe 09/28/20 x 3 mL warfarin 5 mg tablet See Rx Instructions PO DAILY #200 01/27/21 tab tramadol 50 mg tablet 100 mg PO BID #28 tab 02/02/21 tramadol 50 mg tablet 100 mg PO BID #28 tab 02/02/21 tramadol 50 mg tablet 100 mg PO BID #28 tab 02/02/21 tramadol 50 mg tablet 100 mg PO BID #28 tab 02/02/21 tramadol 50 mg tablet 100 mg PO BID #28 tab 02/02/21 tramadol 50 mg tablet 100 mg PO BID #28 tab 02/02/21 loratadine 10 mg tablet 10 mg PO DAILY #90 tab 02/05/21 dulaglutide 1.5 mg/0.5 mL 1.5 mg SUBCUT QWEEK #12 syrg 03/23/21 subcutaneous pen injector insulin regular hum U-500 conc See Rx Instructions SUBCUT ONCE 03/23/21 #10 syrg pen needle, diabetic 32 gauge x #200 ea 05/03/21 atorvastatin 20 mg tablet 20 mg PO DAILY #90 tab-cap 05/11/21 insulin syringe-needle U-100 1 mL #200 ea 05/11/21 31 gauge x 02/27 lisinopril 40 mg tablet 40 mg PO DAILY #90 tab 05/11/21 trapeze #1 ea 05/11/21 hospital bed mattress #1 ea 05/30/21 Saccharomyces boulardii [Florastor] 250 mg PO BID #14 cap 06/03/21 cephalexin 500 mg PO QID 7 Days #28 cap 06/03/21 Allergies Allergy/AdvReac Type Severity Reaction Status Date / Time zaleplon [From Sonata] Allergy Severe Swelling/Ed Verified 06/03/21 11:16 mark General Stated Complaint: Cellulitis RAGHAVENDRA: 3 Review of Systems All systems reviewed & are unremarkable except as noted in HPI and below PFSH Medical History (Updated 06/03/21 @ 12:39 by BRINDA Geiger) Acute meniscal tear, lateral (01/29/13) Acute meniscal tear, medial (01/29/13) Acute on chronic renal insufficiency Anticoagulation goal of INR 2 to 3 hx of lower extremity dvts andacute pe Benign gastric polyp (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) EGD 05-01-14 Coronary artery disease Diabetes mellitus relates bloodsugars in am typically [id number] ,lasts a1c 9.3 range Hernia Hyperlipidemia Kidney stones (10/19/17) Morbid obesity 50-59.9 super morbid obesity classification Obstructive sleep apnea Umbilical hernia Urgency incontinence Uric acid stone in urine Uric acid urolithiasis managed with hydration and citrates Surgical History (Updated 03/08/21 @ 18:29 by Nasra Sheehan MD) flexible laryngoscopy (04/12/15) [facility] History of colonoscopy History of esophagogastroduodenoscopy (EGD) History of extraction of renal calculus [facility] [place] 02/13/18 History of trigger finger lt thumb KNEE SURGERIES arthroscopy with documented knee djd Radial styloid tenosynovitis [de quervain] s/p release on 03/24/2019 Dr. De La Fuente Family History Mother Hypertensive disorder, systemic arterial Diabetes Personal history of malignant neoplasm BREAST Sister Diabetes Mental disorder Brother Diabetes Social History (Updated 12/24/19 @ 13:23 by Nehal Villarreal LPN) Smoking/Tobacco Use Status: Former Tobacco Use Quit Date: 03/15/09 Smokeless tobacco user: chewing tobacco Smoking risk assessment performed?: Yes Alcohol Intake: never Drug use: Never Substance use type: does not use Household members: other Details: roomate Housing: apartment Number of Children: 0 Communication Needs: Corrective Lenses current occupation: disabled Current gender identity: male How often do you talk on the phone with friends or family?: three or more times per week How often do you get together with friends or relatives?: three or more times per week Panel score (0-1 are the most socially isolated patients): 1 What type of physical activity do you participate in: none Seatbelt use: always Drive intox or ride w/intox service parts driver: No Water heater temp set <120 deg: Yes Working smoke detector in home: Yes Fire extinguisher in home: Yes Carbon monox detector in home: Yes Do you feel safe at home: Yes Do you feel safe in your relationship?: Yes Exam Const General: cooperative, comfortable and no acute distress Eyes Sclera: sclerae normal Chest Chest: normal inspection of the chest Resp Effort & Inspection: normal respiratory effort Cardio Rate: regular rate Skin Other: Mild pink discoloration to the right foot, no erythema, no tenderness, no induration, no fluctuance Neuro General: patient alert and patient oriented x3 Extrem Other: Neurovascularly intact bilateral lower extremities Course Vital Signs Vital signs: Vital Signs Temperature 36.7 C 06/03/21 11:05 Pulse 80 06/03/21 11:05 Respiratory Rate 18 06/03/21 11:05 Blood Pressure 134/71 06/03/21 11:05 Pulse Oximetry 94 06/03/21 11:05 Temperature 36.7 C 06/03/21 11:05 Temperature Source Skin 06/03/21 11:05 Pulse 80 06/03/21 11:05 Respiratory Rate 18 06/03/21 11:05 Blood Pressure 134/71 06/03/21 11:05 Blood Pressure Position Sitting 06/03/21 11:05 Pulse Oximetry 94 06/03/21 11:05 Oxygen Delivery Method Room Air 06/03/21 11:05 Oxygen Flow Rate 0 06/03/21 11:05 Pain Level 5 06/03/21 11:05
[2021-06-03 11:38] LABS: Abs Immature Grans 0.02 10^3/uL (0.0-0.06); Absolute Basophil Count 0.03 10^3/uL (0.0-0.2); Absolute Eosinophil Count 0.18 10^3/uL (0.0-0.7); Absolute Lymphocyte Count 0.91 10^3/uL (1.2-3.4); Absolute Monocyte Count 0.68 10^3/uL (0.1-0.8); Absolute Neutrophil Count 4.83 10^3/uL (1.2-6.7); Basophils % 0.5; Eosinophils % 2.7; HCT 35.3 % (40.0-50.0); HGB 10.3 g/dL (13.5-17.5); Immature Grans % 0.3; Lymphocytes % 13.7; MCH 23.4 pg (27.0-33.0); MCHC 29.2 % (32.0-36.0); Monocytes % 10.2; Neutrophils % 72.6; Nucleated RBC 0 %; Platelet Count 213 10^3/uL (130-400); RBC 4.41 10^6/uL (4.36-5.78); RDW 19.4 % (11.8-14.1); RDW-SD 56.6 fL; WBC 6.65 10^3/uL (4.4-10.8)
[2021-06-03 11:52] LABS: INR 2.6 (0.9-1.1); Prothrombin Time 25.8 sec (9.3-11.0)
[2021-06-03 11:53] LABS: ALT 25 U/L (16-63); AST 22 U/L (15-37); Albumin 3.4 g/dL (3.4-5.0); Alkaline Phosphatase 136 U/L (46-116); Anion Gap 8.8 mmol/L (3-11); BUN 17 mg/dL (7-18); Bilirubin, Total 0.2 mg/dL (0.2-1.0); C-Reactive Protein 1.89 mg/dL (0.0-0.3); CO2 31.2 mmol/L (21.0-32.0); CREATININE 1.2 mg/dL (0.70-1.30); Calcium 8.1 mg/dL (8.5-10.1); Chloride 104 mmol/L (98-107); Glucose 112 mg/dL (74-106); Potassium 3.6 mmol/L (3.5-5.1); Sodium 144 mmol/L (136-145); Total Protein 7.5 g/dL (6.4-8.2)
[2021-06-03 12:31] VITALS: BP 144/65; PULSE 73; RESP 20; TEMP 36.5; O2SAT 94
[2021-06-03 12:56] VITALS: BP 144/65; PULSE 73; RESP 20; TEMP 36.5; O2SAT 94
--- NOTE | 2021-06-05 13:04 | NUR.NOTE ---
Nursing Note: Accessed patient record to assist provider acetone recovery worker with a question in regards to the prescriptions that were prescribed. Dr. Quinn helped with this also. Kirti Garcia
== END 2021-06-03 13:01 | disposition home or self-care (01) ==
PROVIDERS: Emergency Provider Physician Assistant; PCP Internal Medicine
DX: M79.671 Pain in right foot (principal); W18.39XA Other fall on same level, initial encounter
CPT/HCPCS: 36415; 80053; 99283; 73630; 85025; 85610; 86140

== ENCOUNTER 2021-07-12 13:23 | Outpatient (CLI) | payer MEDICAID, SELFPAY ==
--- NOTE | 2021-07-12 13:15 | RT.EKG_ITS ---
APPROVED REPORT Exam: Resting ECG Reason for Exam: unusually low bp 10 lb wt gain Patient Location: O HR:80 bpm ECG Measurements Heart Rate 80 AXIS IA 194 P 11 QRSd 133 QRS 21 QT 406 T 14 QTc 468 Conclusion Sinus rhythm...normal P axis, V-rate 60- 99 IVCD, consider RBBB...QRSd>120mS, terminal axis(90,270)
== END 2021-07-12 13:24 | disposition home or self-care (01) ==
LOC: DI.KIM 13:24
PROVIDERS: PCP Internal Medicine; Visit Provider Internal Medicine
DX: I10 Essential (primary) hypertension (principal)
CPT/HCPCS: 93010

== ENCOUNTER 2021-10-21 20:00 | Outpatient (REF) | payer MEDICARE, MEDICAID, SELFPAY ==
[2021-10-23 20:12] LABS: COVID-19 RT-PCR UVMMC Result Positive (Negative)
== END 2021-10-21 20:01 | disposition home or self-care (01) ==
LOC: LBN 20:00
PROVIDERS: PCP Internal Medicine; Visit Provider Internal Medicine
DX: Z20.822 Contact with and (suspected) exposure to COVID-19 (principal); U07.1 COVID-19
CPT/HCPCS: U0003

== ENCOUNTER 2021-10-26 01:41 | Outpatient (CLI) | payer MEDICARE, MEDICAID, SELFPAY ==
[2021-10-26 12:54] VITALS: BP 122/68; PULSE 81; RESP 24; TEMP 37.1; O2SAT 96
[2021-10-26 13:10] VITALS: BP 122/54; PULSE 74; RESP 24; TEMP 36.4; O2SAT 94
[2021-10-26] MEDS: Normal Saline 250 ML 30 ML IV (13:10)
[2021-10-26] MEDS: Normal Saline Flush 10 ML SYR IVP (13:10)
[2021-10-26 14:15] VITALS: BP 132/70; PULSE 70; RESP 22; TEMP 36.8; O2SAT 93
== END 2021-10-26 01:42 | disposition home or self-care (01) ==
LOC: INF 01:42
PROVIDERS: PCP Internal Medicine; Visit Provider Family Medicine
DX: U07.1 COVID-19 (principal); R53.81 Other malaise
CPT/HCPCS: 96365; Q0047

== ENCOUNTER → 2021-12-12 13:24 | Outpatient (BNVA) | payer MEDICARE, MEDICAID, SELFPAY | PROVIDERS: PCP Internal Medicine; Visit Provider Urology | DX: E11.9 Type 2 diabetes mellitus without complications; E66.9 Obesity, unspecified; Z68.44 Body mass index [BMI] 60.0-69.9, adult; N39.41 Urge incontinence | CPT/HCPCS: 99213 ==

== ENCOUNTER 2022-05-19 16:28 | Outpatient (REF) | payer MEDICARE, MEDICAID, SELFPAY ==
[2022-05-19 10:38] LABS: HGB 9.3 g/dL (13.5-17.5); MCH 23.3 pg (27.0-33.0); MCHC 29.1 % (32.0-36.0); MCV 80 fL (80-95); MPV 10.8 fL (8.0-11.0); Platelet Count 190 10^3/uL (130-400); RBC 3.99 10^6/uL (4.36-5.78); RDW 19.3 % (11.8-14.1); RDW-SD 55.8 fL; WBC 6.78 10^3/uL (4.4-10.8)
[2022-05-19 11:26] LABS: ALT 24 U/L (16-63); AST 17 U/L (15-37); Albumin 3.3 g/dL (3.4-5.0); Alkaline Phosphatase 113 U/L (46-116); Anion Gap 7.2 mmol/L (3-11); BUN 26 mg/dL (7-18); Bilirubin, Total 0.2 mg/dL (0.2-1.0); CO2 28.8 mmol/L (21.0-32.0); Calcium 7.9 mg/dL (8.5-10.1); Calculated LDL 78 mg/dL (<100); Chloride 104 mmol/L (98-107); Cholesterol 150 mg/dL (<200); Glucose 189 mg/dL (74-106); HDL Cholesterol 42 mg/dL (40-60); Potassium 4.2 mmol/L (3.5-5.1); Sodium 140 mmol/L (136-145); TSH 2.49 uIU/mL (0.36-3.74); Total Protein 6.7 g/dL (6.4-8.2); Triglyceride 153 mg/dL (<150); Vitamin B12 1590 pg/mL (193-986)
[2022-05-19 20:17] LABS: Reticulocyte 1.6 % (0.5-2.4)
[2022-05-19 20:41] LABS: Iron 26 ug/dL (65-175); Total Iron Binding Capacity 404 ug/dL (250-450); Transferrin Sat 6 % (20-55)
[2022-05-19 20:48] LABS: Ferritin 16 ng/mL (26-388)
[2022-05-22 09:21] LABS: Transferrin 304 mg/dL (201-352)
== END 2022-05-19 16:29 | disposition home or self-care (01) ==
LOC: LBN 16:28
PROVIDERS: PCP Internal Medicine; Visit Provider Internal Medicine
DX: D64.9 Anemia, unspecified (principal); D51.9 Vitamin B12 deficiency anemia, unspecified; E78.00 Pure hypercholesterolemia, unspecified; E11.69 Type 2 diabetes mellitus with other specified complication; I10 Essential (primary) hypertension; I50.812 Chronic right heart failure; R60.0 Localized edema; E66.9 Obesity, unspecified
CPT/HCPCS: 80053; 80061; 85027; 82043; 82570; 82607; 82728; 83540; 83550; 84443; 84466; 85045

== ENCOUNTER → 2022-06-07 13:45 | Outpatient (BNVA) | payer MEDICARE, MEDICAID, SELFPAY | PROVIDERS: PCP Internal Medicine; Referring Provider Internal Medicine; Visit Provider Surgery | DX: R60.0 Localized edema (principal); R06.02 Shortness of breath; E66.01 Morbid (severe) obesity due to excess calories; E11.65 Type 2 diabetes mellitus with hyperglycemia; G47.33 Obstructive sleep apnea (adult) (pediatric); I50.810 Right heart failure, unspecified; D50.9 Iron deficiency anemia, unspecified | CPT/HCPCS: 99215 ==

== ENCOUNTER 2023-01-01 18:57 | Inpatient (IN) | payer MEDICARE, MEDICAID, SELFPAY ==
[2023-01-01] VITALS (42 sets, daily range): BP systolic 112–169; BP diastolic 24–119; PULSE 96–184; RESP 17–54; TEMP 36.7–38.3; O2SAT 84–98
--- NOTE | 2023-01-01 18:45 | RT.EKG_ITS ---
APPROVED REPORT Exam: Resting ECG Reason for Exam: short of breath Patient Location: E HR:113 bpm ECG Measurements Heart Rate 113 AXIS GA 155 P 59 QRSd 129 QRS -43 QT 345 T 82 QTc 475 Conclusion Sinus tachycardia...rate> 99 Probable lateral infarct, age indeterminate...Q >35mS, T neg, V5-V6 I aVL no stemi
--- NOTE | 2023-01-01 19:00 | DI.RAD_ITS ---
Exam(s) XR PORTABLE CHEST AP EXAM: XR PORTABLE CHEST AP CLINICAL HISTORY: cough TECHNIQUE: 2D digital imaging was performed of the chest. Two images were obtained. AP views were obtained. COMPARISON: CR PORTABLE CHEST ONE VIEW from 12/06/2015 FINDINGS: Examination limited by patient body habitus and poor inspiration. MEDIASTINUM: Normal. HEART: Normal. PULMONARY VASCULATURE: Normal. LUNGS: There is an opacity with air bronchograms in the left upper lobe. PLEURAL SPACE: No pleural effusion or pneumothorax. BONE:Within normal limits for the patient's age. OTHER FINDINGS:Normal. IMPRESSION: Opacity in the left upper lobe with air bronchograms most consistent with pneumonia. A follow-up michele st x-ray is recommended following treatment to document complete resolution and to exclude underlying mass. DATA REPOSITORY: RADIATION DOSE DELIVERED:
--- NOTE | 2023-01-01 19:11 | ED.GENADUL_ITS ---
Discharge Plan Disposition Patient Disposition: Admit to [facility] Discharge Details Clinical Impression: Sepsis, Pneumonia Primary Care Provider: aDnny Frost ED Provider: Higinio Warren Home Meds and New Rx's Prescriptions: No Action triazolam 0.25 mg tablet 0.25 mg PO QHS PRN Patient Comments: 1-[address] De La Torre doxepin 10 mg capsule 10 mg PO QHS Patient Comments: Dr Rossi Jardiance 10 mg tablet 10 mg PO DAILY Qty: 90 3RF tramadol 50 mg tablet 100 mg PO BID MDD 200 mg Qty: 28 5RF tramadol 50 mg tablet 100 mg PO BID MDD 200 mg PRN (Reason: pain) Qty: 28 5RF (DME) insulin syringe-needle U-100 [Ultra-Thin II (Short) Ins Syr] 1 mL 31 gauge x 5/16 syringe 1 ea Miscellaneous QID Qty: 200 3RF Rx Instructions: E11.9; for insulin adminstration 5x/day; AIC goal <7 triamcinolone acetonide 0.5 % cream 1 applic TP BID PRN (Reason: dyshidrotic eczema) Qty: 15 2RF Rx Instructions: Apply thin film to area between fingers of right hand twice a day as needed for rash (DME) BD Blunt Plastic Cannula 17 x 3 mL syringe 1 ea Miscellaneous monthly Qty: 12 1RF Rx Instructions: 12 needles & syringes for B12 injections. Trulicity 4.5 mg/0.5 mL pen injector 4.5 mg subcut QWEEK Qty: 2 3RF insulin glargine [Lantus U-100 Insulin] 100 unit/mL solution See Rx Instructions Sub-Q BID Qty: 9 3RF Patient Comments: 80 units every night. Rx Instructions: 60 units QAM and 50 units QHS subcutaneously twice a day; ammonium lactate 225 GM lotion 1 applic Topical BID PRNQty: 1 Rx Instructions: apply to feet BID (DME) trapeze See Rx Instructions .Route .MEDSUPPLY Qty: 1 0RF Rx Instructions: As directed (DME) hospital bed mattress See Rx Instructions .Route .MEDSUPPLY Qty: 1 0RF Rx Instructions: replace with a heavy duty mattress (DME) Entrust Plus Briefs Misc 1 ea Miscellaneous Q6H PRN Qty: 120 12RF Rx Instructions: as directed (DME) pen needle, diabetic [BD Ultra-Fine Edwige Pen Needle] 32 gauge x 5/32 needle See Rx Instructions .ROUTE .MEDSUPPLY Qty: 400 3RF Rx Instructions: Use with Soniya QID warfarin 5 mg tablet See Rx Instructions PO DAILY Qty: 200 3RF Protocol: Dose Management Condition: Sunday Dose/Route: 10 mg Instruction: 2 x 5 mg tablets Condition: Sunday Dose/Route: 10 mg Instruction: 2 x 5 mg tablets Condition: Sunday Dose/Route: 15 mg Instruction: 3 x 5 mg tablets Condition: Sunday Dose/Route: 10 mg Instruction: 2 x 5 mg tablets Condition: Dose/Route: 10 mg Instruction: 2 x 5 mg tablets Condition: Sunday Dose/Route: 10 mg Instruction: 2 x 5 mg tablets Condition: Sunday Dose/Route: 10 mg Instruction: 2 x 5 mg tablets Protocol Text: Adjustment Start Date: Sunday12/26/22 INR Value: 1.7 INR Date: 12/26/22 Recheck Date: 01/02/23 Additional Instructions: no missed doses. Had finished the Paxlovid on 12/20. Reviewed dosing/recheck instructions per TM. LH Dose Instruction: 10mg 5 days a week, 15mg & PO DAILY; Rx Instructions: 10mg 6 days a week, 5 mg once a week (DME) blood-glucose meter [Accu-Chek Guide Glucose Meter] Misc See Rx Instructions .Route Qty: 1 0RF Rx Instructions: to test blood sugars 5x's daily Dx E11.9 to maintain INR below 8. (DME) Accu-Chek Guide test strips Strip See Rx Instructions .Route Qty: 450 3RF Rx Instructions: to test blood sugars 5x's daily Dx E11.9 to maintain INR below 8. (DME) lancets [Accu-Chek Fastclix Lancet Drum] Misc See Rx Instructions .Route Qty: 200 12RF Rx Instructions: For E11.9 to maintain A1C< 7. 5X a day testing amlodipine 5 mg tablet 5 mg PO DAILY Qty: 90 3RF atenolol 100 mg tablet 100 mg PO DAILY Qty: 90 3RF atorvastatin 20 mg tablet 20 mg PO DAILY Qty: 90 3RF doxazosin 4 mg tablet 4 mg PO DAILY Qty: 90 3RF metformin 1,000 mg tablet 1,000 mg PO BID Qty: 180 3RF potassium citrate 10 mEq (1,080 mg) tablet extended release 20 meq PO BID Qty: 360 4RF lisinopril 40 mg tablet See Rx Instructions .ROUTE .COMPLEX Qty: 90 3RF Dose Instruction: TAKE ONE TABLET BY MOUTH EVERY DAY Rx Instructions: TAKE ONE TABLET BY MOUTH EVERY DAY furosemide 80 mg tablet 80 mg PO DAILY Qty: 90 1RF cyanocobalamin (vitamin B-12) 1,000 mcg/mL solution 1,000 mcg IJ monthly Qty: 1 11RF Rx Instructions: pt self injects monthly. Myrbetriq 50 mg tablet extended release 24 hr 50 mg PO Q24H Qty: 90 4RF omeprazole 20 mg capsule,delayed release(DR/EC) 20 mg PO HS Qty: 90 3RF polyethylene glycol 3350(bulk) [Base B,Polyethylene [id number]] Granules See Rx Instructions .ROUTE .COMPLEX PRN (Reason: constipation) Qty: 1 6RF Rx Instructions: 17 gm po daily PRN; Dispense one jar/bottle. loratadine 10 mg tablet 10 mg PO DAILY Qty: 90 3RF Rx Instructions: for antihistamine Paxlovid (EUA) 300 mg (150 mg x 2)-100 mg tablets,dose pack See Rx Instructions PO .COMPLEX Qty: 30 0RF Rx Instructions: follow dose-pk directions; HOLD statin; HOLD terzpm; CHECK INR DAILY. Humulin R U-500 (Conc) Kwikpen 500 unit/mL (3 mL) insulin pen See Rx Instructions subcut ONCE Qty: 10 3RF Rx Instructions: inject subcu three times a day PRN; per sliding scale: 30-50 units QAM, 50 units with lunch, 50-60 units q PM benzonatate 100 mg capsule 100 mg PO BID PRN (Reason: cough) Qty: 30 0RF Medical Decision Making 67 yo male who has a hx of pe on warfarin, htn, hld, who comes in with chief complaint of cough and shortness of breath for 2 months. He states just over 2 months ago he tested positive for covid for the 3rd time and since has had continued cough and general malaise. HE denies chest pain, abdominal pain, ra shes, vomiting, fevers/chills. HE arrives febrile and hypoxic in the high 80's with rhonchi in both lower lobes on lung exam, pitting edema of both lower extremities to the knee which he states is chronic and unchanged for him. Concern for pneumonia, sepsis, covid, will obtain cbc, cmp, procalcitonin, troponin/ekg, portable chest, vbg and trial duoneb and saline and reassess. HE does appear mildly dehydrated on exam with dry mucous membranes lab called, patient with elevated bands, will treat empirically with vanc and zosyn as procalcitonin also 2, he feels mildly better after duoneb Pt's xray shows left upper lobe consildation which fits with his clinicaly picture of pneumonia. He is hemodyncamillys stable. HE is stillr equiring 2L NC. His cmp does show anion gap of 16, glucose is over 400 but suspect anion gap is from his septic picture and less likely dka. Will discuss with hospitalist about admission pt also positive for covid, states he tested positive 2-3 months ago so unsure if this is an acute problem or if he is testing positive still from 2-3 months ago. Differential Diagnosis Differential Diagnosis: pneumonia, covid, sepsis, anemia Medical Records Medical records reviewed: Yes I reviewed the patient's medical records. Imaging Data Radiologic Study: Attestation: I personally reviewed and interpreted this imaging study as follows: Imaging: X-Ray Radiologist's impression: IMPRESSION: 1. Dense consolidation in the left upper lobe with air bronchograms consistent with pneumonia. Recommend follow-up to complete resolution to rule out an underlying mass. 2. Heart size is normal. Lab Data Lab results reviewed: Yes I reviewed the patient's lab results. ECG Data Attestation: I personally reviewed and interpreted this ECG (s) as follows: Prior ECG tracings: available for review Interpretation: sinus tachycardia, rate of 113, pr 155, no stemi HPI General Mode of arrival: EMS . Date/Time Provider Initiated Documentation: 01/01/23 19:04 . Limitations to Documentation: no limitations . Information obtained by: patient . History of Present Illness 67 year old M presents to the emergency department with the chief complaint of cough, described as moderate, Patient started experiencing this week(s) (2) and it has been constant. No relieving factors improve symptom(s), No exacerbating factors reported . Patient notes cough, shortness of breath and weakness; denies fever/chills and nausea/vomiting. Patient did receive the following treatments prior to arrival, none Related Data Home Medications Medication Instructions Recorded Confirmed ammonium lactate 12 % lotion 1 applic topical BID PRN ##1 12/01/13 08/03/22 triamcinolone acetonide 0.5 % 1 applic topical BID PRN 09/04/18 08/03/22 topical cream dyshidrotic eczema #15 grams doxepin 10 mg capsule 10 mg PO QHS 09/30/19 08/03/22 triazolam 0.25 mg tablet 0.25 mg PO QHS PRN 09/30/19 08/03/22 trapeze #1 ea 05/11/21 08/03/22 hospital bed mattress #1 ea 05/30/21 08/03/22 diaper,brief,adult,disposable #120 ea 06/14/21 08/03/22 (Entrust Plus Briefs) pen needle, diabetic 32 gauge x #400 ea 08/31/21 08/03/2232 (BD Ultra-Fine Edwige Pen Needle) dulaglutide 4.5 mg/0.5 mL 4.5 mg (0.5 mL) subcut QWEEK #2 mL 01/03/22 08/03/22 subcutaneous pen injector (MD2U) syringe with cannula,disposabl 17 #12 SYRGS 01/03/22 08/03/22 x 3 mL (BD Blunt Plastic Cannula) warfarin 5 mg tablet See Rx Instructions PO DAILY #200 02/21/22 08/03/22 tabs blood sugar diagnostic (Accu-Chek #450 ea 03/22/22 08/03/22 Guide test strips) blood-glucose meter (Accu-Chek #1 ea 03/22/22 08/03/22 Guide Glucose Meter) lancets (Accu-Chek Fastclix Lancet #200 ea 03/27/22 08/03/22 Drum) amlodipine 5 mg tablet 5 mg PO DAILY #90 tabs 05/17/22 08/03/22 atenolol 100 mg tablet 100 mg PO DAILY #90 tabs 05/17/22 08/03/22 atorvastatin 20 mg tablet 20 mg PO DAILY #90 tab-caps 05/17/22 08/03/22 doxazosin 4 mg tablet 4 mg PO DAILY #90 tabs 05/17/22 08/03/22 metformin 1,000 mg tablet 1,000 mg PO BID #180 tab-caps 05/17/22 08/03/22 potassium citrate 10 mEq (1,080 20 meq PO BID #360 tabs 05/17/22 08/03/22 mg) tablet,extended release lisinopril 40 mg tablet See Rx Instructions .Route 06/20/22 08/03/22 .COMPLEX #90 tabs insulin glargine 100 unit/mL See Rx Instructions subcut BID #9 08/03/22 08/03/22 subcutaneous solution (Lantus vials U-100 Insulin) furosemide 80 mg tablet 80 mg PO DAILY #90 tabs 08/10/22 cyanocobalamin (vitamin B-12) 1,000 mcg IJ monthly #1 vial 09/12/22 1,000 mcg/mL injection solution mirabegron 50 mg tablet,extended 50 mg PO Q24H urgency #90 tabs 10/02/22 release 24 hr (Myrbetriq) omeprazole 20 mg capsule,delayed 20 mg PO HS #90 tab-caps 10/19/22 release empagliflozin 10 mg tablet 10 mg PO DAILY #90 tabs 11/03/22 11/03/22 (Jardiance) insulin syringe-needle U-100 1 mL #200 ea 11/03/22 11/03/22 31 gauge x 5/16 (Ultra-Thin II (Short) Insulin syringe) tramadol 50 mg tablet 100 mg PO BID PRN pain #28 tabs 11/03/22 11/03/22 tramadol 50 mg tablet 100 mg PO BID pain #28 tabs 11/03/22 11/03/22 polyethylene glycol 3350(bulk) See Rx Instructions .Route 11/09/22 (Base B, Polyethylene Glycol 3350 .COMPLEX PRN constipation #1 g granules) loratadine 10 mg tablet 10 mg PO DAILY #90 tabs 11/27/22 insulin regular hum U-500 conc 500 See Rx Instructions subcut ONCE 12/15/22 unit/mL(3 mL) subcut pen (Humulin #10 SYRGS R U-500 (Conc) Insulin Kwikpen) nirmatrelvir 300 mg (150 mg See Rx Instructions PO .COMPLEX 12/15/22 x2)-ritonavir 100 mg tablet,dose #30 dose pk pack(EUA) (Paxlovid) benzonatate 100 mg capsule 100 mg PO BID PRN cough #30 caps 12/29/22 Previous Rx's Medication Instructions Recorded triamcinolone acetonide 0.5 % 1 applic topical BID PRN 09/04/18 topical cream dyshidrotic eczema #15 grams trapeze #1 ea 05/11/21 hospital bed mattress #1 ea 05/30/21 diaper,brief,adult,disposable #120 ea 06/14/21 (Entrust Plus Briefs) pen needle, diabetic 32 gauge x #400 ea 08/31/21 (BD Ultra-Fine Edwige Pen Needle) dulaglutide 4.5 mg/0.5 mL 4.5 mg (0.5 mL) subcut QWEEK #2 mL 01/03/22 subcutaneous pen injector (MD2U) syringe with cannula,disposabl 17 #12 SYRGS 01/03/22 x 3 mL (BD Blunt Plastic Cannula) warfarin 5 mg tablet See Rx Instructions PO DAILY #200 02/21/22 tabs blood sugar diagnostic (Accu-Chek #450 ea 03/22/22 Guide test strips) blood-glucose meter (Accu-Chek #1 ea 03/22/22 Guide Glucose Meter) lancets (Accu-Chek Fastclix Lancet #200 ea 03/27/22 Drum) amlodipine 5 mg tablet 5 mg PO DAILY #90 tabs 05/17/22 atenolol 100 mg tablet 100 mg PO DAILY #90 tabs 05/17/22 atorvastatin 20 mg tablet 20 mg PO DAILY #90 tab-caps 05/17/22 doxazosin 4 mg tablet 4 mg PO DAILY #90 tabs 05/17/22 metformin 1,000 mg tablet 1,000 mg PO BID #180 tab-caps 05/17/22 potassium citrate 10 mEq (1,080 20 meq PO BID #360 tabs 05/17/22 mg) tablet,extended release lisinopril 40 mg tablet See Rx Instructions .Route 06/20/22 .COMPLEX #90 tabs insulin glargine 100 unit/mL See Rx Instructions subcut BID #9 08/03/22 subcutaneous solution (Lantus vials U-100 Insulin) furosemide 80 mg tablet 80 mg PO DAILY #90 tabs 08/10/22 cyanocobalamin (vitamin B-12) 1,000 mcg IJ monthly #1 vial 09/12/22 1,000 mcg/mL injection solution mirabegron 50 mg tablet,extended 50 mg PO Q24H urgency #90 tabs 10/02/22 release 24 hr (Myrbetriq) omeprazole 20 mg capsule,delayed 20 mg PO HS #90 tab-caps 10/19/22 release empagliflozin 10 mg tablet 10 mg PO DAILY #90 tabs 11/03/22 (Jardiance) insulin syringe-needle U-100 1 mL #200 ea 11/03/22 31 gauge x 5/16 (Ultra-Thin II (Short) Insulin syringe) tramadol 50 mg tablet 100 mg PO BID PRN pain #28 tabs 11/03/22 tramadol 50 mg tablet 100 mg PO BID pain #28 tabs 11/03/22 polyethylene glycol 3350(bulk) See Rx Instructions .Route 11/09/22 (Base B, Polyethylene Glycol 3350 .COMPLEX PRN constipation #1 g granules) loratadine 10 mg tablet 10 mg PO DAILY #90 tabs 11/27/22 insulin regular hum U-500 conc 500 See Rx Instructions subcut ONCE 12/15/22 unit/mL(3 mL) subcut pen (Humulin #10 SYRGS R U-500 (Conc) Insulin Kwikpen) nirmatrelvir 300 mg (150 mg See Rx Instructions PO .COMPLEX 12/15/22 x2)-ritonavir 100 mg tablet,dose #30 dose pk pack(EUA) (Paxlovid) benzonatate 100 mg capsule 100 mg PO BID PRN cough #30 caps 12/29/22 Allergies Allergy/AdvReac Type Severity Reaction Status Date / Time zaleplon [From Sonata] Allergy Severe Swelling/Ed Verified 11/03/22 14:10 mark General Stated Complaint: SOB RAGHAVENDRA: 3 Review of Systems All systems reviewed & are unremarkable except as noted in HPI and below Constitutional Constitutional: Denies chills and Denies fever(s) Cardiovascular Cardiovascular: Denies chest pain Gastrointestinal Gastrointestinal: Denies abdominal pain, Denies nausea and Denies vomiting Genitourinary Genitourinary: Denies dysuria Musculoskeletal Musculoskeletal: Denies joint swelling Integumentary/Breasts Skin/Breast: Denies rash PFSH All Active Problems 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) Sleep apnea (Chronic 01/29/13) Mod/severe sleep apnea GERD with apnea (Chronic 04/12/15) Insomnia (Chronic 07/06/16) Restrictive lung disease (Chronic) PFT's 09/10/19 Right-sided heart failure (Chronic 01/06/15) Edema (Chronic 01/29/13) Urgency incontinence (Acute) Lower urinary tract symptoms (LUTS) (Acute 06/29/16) renal u/s: incomplete emptying Uric acid stone in urine (Acute) Bladder stones (Acute 10/29/17) Lumbar radiculopathy, right (Acute) B12 deficiency anemia (Acute 09/23/14) Osteoarthritis of knee (Acute 01/29/13) Chronic pain (Chronic) Pain medication agreement (Acute 03/25/15) Umbilical hernia without obstruction or gangrene (Acute 04/03/18) Dyshidrotic eczema (Chronic) Medical History Acute meniscal tear, lateral (01/29/13) Acute meniscal tear, medial (01/29/13) Acute on chronic renal insufficiency Anticoagulation goal of INR 2 to 3 hx of lower extremity dvts andacute pe Benign gastric polyp (05/01/14) EGD 05-01-14 Coronary artery disease Diabetes mellitus relates bloodsugars in am typically [id number] ,lasts a1c 9.3 range Hernia Hyperlipidemia Kidney stones (10/19/17) Morbid obesity 50-59.9 super morbid obesity classification MRSA cellulitis of right foot Obstructive sleep apnea Umbilical hernia Uric acid urolithiasis managed with hydration and citrates Surgical History flexible laryngoscopy (04/12/15) [facility] SLIT History of colonoscopy History of esophagogastroduodenoscopy (EGD) History of extraction of renal calculus [facility] 02/13/18 History of trigger finger lt thumb KNEE SURGERIES arthroscopy with documented knee djd Radial styloid tenosynovitis [de quervain] s/p release on 03/24/2019 Dr. De La Fuente Family History Mother Hypertensive disorder, systemic arterial Diabetes Personal history of malignant neoplasm BREAST Sister Diabetes Mental disorder Brother Diabetes Social History Smoking/Tobacco Use Status: Former Tobacco Use Quit Date: 03/15/09 Smokeless tobacco user: chewing tobacco Smoking risk assessment performed?: Yes Alcohol Intake: never Drug use: Never Substance use type: does not use Household members: other Details: roomate Housing: apartment Number of Children: 0 Communication Needs: Corrective Lenses current occupation: disabled Current gender identity: male How often do you talk on the phone with friends or family?: three or more times per week How often do you get together with friends or relatives?: three or more times per week Panel score (0-1 are the most socially isolated patients): 1 What type of physical activity do you participate in: none Seatbelt use: always Drive intox or ride w/intox hack driver: No Water heater temp set <120 deg: Yes Working smoke detector in home: Yes Fire extinguisher in home: Yes Carbon monox detector in home: Yes Do you feel safe at home: Yes Do you feel safe in your relationship?: Yes Exam Const General: no acute distress Orientation: alert HENOH Head: normal to inspection Ears: external ears normal General nose exam: external nose normal Mouth: oral mucosa abnormal (dry) Eyes General: appearance normal, both eyes and all related structures Neck Neck: normal visual inspection Resp Effort & Inspection: normal respiratory effort, able to speak in complete sentences, cough and no tracheal deviation Auscultation: wheezes Cardio Jugular venous pressure: no JVD Rate: regular rate Heart Sounds: no murmurs GI Palpation: nontender Skin General skin exam: no rashes or lesions noted Neuro General: patient alert and patient oriented x3 Extrem General: pedal edema Psych Mental Status: mental status grossly normal Course Vital Signs Vital signs: Vital Signs Temperature 38.3 C H 01/01/23 18:55 Pulse 117 H 01/01/23 18:55 Respiratory Rate 49 H 01/01/23 18:55 Blood Pressure 149/59 H 01/01/23 18:55 Pulse Oximetry 87 L 01/01/23 18:55 Temperature 38.3 C H 01/01/23 18:55 Temperature Source Oral 01/01/23 18:55 Pulse 117 H 01/01/23 18:55 Respiratory Rate 49 H 01/01/23 18:55 Respiratory Effort Short of Breath, Labored 01/01/23 19:04 Blood Pressure 149/59 H 01/01/23 18:55 Pulse Oximetry 87 L 01/01/23 18:55 Oxygen Delivery Method Room Air 01/01/23 18:55 Oxygen Flow Rate 0 01/01/23 18:55 Pain Level 0 01/01/23 18:55 Lab/Test Results Lab/Test Results: 01/01/23 19:04 Blood Blood Culture - Pending 01/01/23 19:04 Blood Blood Culture - Pending
[2023-01-01 19:17] LABS: BE (Venous) -10 mmol/L (-2-3); HCO3 (Venous) 17 mmol/L (23-28); O2 Sat (Venous) 94 %; TCO2 (Venous) 16 mmol/L (24-29); pCO2 (Venous) 36 mmHg (41-51); pH (Venous) 7.28 (7.31-7.41); pO2 (Venous) 81 mmHg
[2023-01-01 19:19] LABS: Abs Immature Grans 0.72 10^3/uL (0.0-0.06); HCT 26.3 % (40.0-50.0); HGB 8.1 g/dL (13.5-17.5); MCHC 30.8 % (32.0-36.0); MCV 88 fL (80-95); RDW 22.4 % (11.8-14.1); RDW-SD 70.8 fL; WBC 6.24 10^3/uL (4.4-10.8)
[2023-01-01] MEDS: Albuterol/Ipratropium 3 ML UPD VIAL UPD (19:20)
[2023-01-01] MEDS: Normal Saline 1,000 ML 1000 ML IV (19:20)
[2023-01-01 19:37] LABS: INR 1.4 (0.9-1.1); PTT Activated 29.9 sec (21.5-31.9)
[2023-01-01 19:46] LABS: Platelet Count 46 10^3/uL (130-400)
[2023-01-01 19:47] LABS: ALT 42 U/L (16-63); AST 42 U/L (15-37); Absolute Monocyte Count 0.06 10^3/uL (0.1-0.8); Absolute Neutrophil Count 4.74 10^3/uL (1.2-6.7); Albumin 2.7 g/dL (3.4-5.0); Alkaline Phosphatase 118 U/L (46-116); Anion Gap 16.4 mmol/L (3-11); BUN 46 mg/dL (7-18); Bands % 13; Bilirubin, Total 0.8 mg/dL (0.2-1.0); CO2 18.6 mmol/L (21.0-32.0); CREATININE 1.9 mg/dL (0.70-1.30); Calcium 8.4 mg/dL (8.5-10.1); Chloride 94 mmol/L (98-107); Estimated GFR 38.42 (mL/min/1.73m2); Glucose 425 mg/dL (74-106); Lipase 225 U/L (16-77); Magnesium 2.6 mg/dL (1.8-2.4); Metamyelocytes % 3; Myelocytes % 3; NT-proBNP 968 pg/mL (<300); Potassium 5.5 mmol/L (3.5-5.1); Sodium 129 mmol/L (136-145); TSH (W/Ref FT4) 0.58 uIU/mL (0.36-3.74); Total Protein 7.7 g/dL (6.4-8.2); Troponin I < 50 ng/L (<or=60)
[2023-01-01 19:48] LABS: Other Cells % 9
[2023-01-01 19:49] LABS: Anisocytosis 2+; Diff Comment Manual Differential; Poikilocytes 1+; Polychromasia Present
[2023-01-01] MEDS: PIPERACILLIN/TAZO 4.5 GM in Normal Saline 100 ML IVPB (20:14)
--- NOTE | 2023-01-01 20:22 | DI.VRAD_ITS ---
PROCEDURE INFORMATION: Exam: XR Chest Exam date and time: 01/01/2023 7:27 PM Age: 67 years old Clinical indication: Shortness of breath TECHNIQUE: Imaging protocol: Radiologic exam of the chest. Views: 1 view. Total images: 2 COMPARISON: CT RENAL COLIC WO CONTRAST 01/22/2018 5:53 AM FINDINGS: Lungs: Dense consolidation in the left upper lobe with air bronchograms consistent with pneumonia. Recommend follow-up to complete resolution to rule out an underlying mass. Lungs are otherwise clear. No pulmonary masses. Pulmonary vascularity is normal. Pleural spaces: No pleural effusion or pneumothorax. Heart/Mediastinum: Heart size is normal. Bones/joints: No acute osseous abnormalities. Mild degenerative change of the spine. IMPRESSION: 1. Dense consolidation in the left upper lobe with air bronchograms consistent with pneumonia. Recommend follow-up to complete resolution to rule out an underlying mass. 2. Heart size is normal. Dictated and Authenticated by: Miesha Castro MD. Ordering:RADHA Sylvester MD
[2023-01-01 20:56] LABS: Influenza A PCR Negative (Negative); Influenza B PCR Negative (Negative); RSV PCR Negative (Negative)
[2023-01-01 20:57] LABS: COVID-19 PCR Positive (Negative); Source Nasopharynx
[2023-01-01 21:04] LABS: BE (Venous) -10 mmol/L (-2-3); HCO3 (Venous) 17 mmol/L (23-28); O2 Sat (Venous) 92 %; TCO2 (Venous) 17 mmol/L (24-29); pCO2 (Venous) 40 mmHg (41-51); pH (Venous) 7.24 (7.31-7.41); pO2 (Venous) 70 mmHg
[2023-01-01 21:05] LABS: Lactate 1.1 mmol/L (0.6-1.4)
[2023-01-01] MEDS: VANCOMYCIN 1,000 MG in Normal Saline 250 ML 166.6666 MG IVPB (21:08)
--- NOTE | 2023-01-01 21:09 | HPE_ITS ---
Date of service: 01/01/23 Time of Service: 21:09 Assessment and Plan Assessment and plan (1) Pneumonia: Status: Acute Assessment and plan: Pneumonia, with multiple intersecting complicating co-conditions 1. Pneumonia: I think this is likely bacterial, not at all the presentation of COVID, which is likely residual three weeks out Continue Zosyn, add Zithro 2. COVID: as above likely residual from recent, not an acute infection. No specific treatment required 3. Metabolic acidosis, with failure of respiratory compensation (obesity;hypoventialtion): not likely DKA in type 2 diabetic, may be element of lactic acidosis from either hypoxia or perhaps has had episodes of hypotension in setting of pneumonia; also element of starvation ketosis check lactate, urinary ketones, and will begin insulin qtt regardless (see below) 4. DM: as above probably not DKA but regardless will begin insulin qtt for more acute control at least 5. Anemia: chronic but worse, r/o bleed on Coumadin. Unable to perform rectal exam secondary to body habitus, will hold Coumadin tonight and check stools. In setting of thrombocytopenia concern for DIC (but no schizocytes noted) or marrow process. check fibrinogen, check stools, trend 6. Thrombocytopenia: unknown etiology, perhaps marrow suppression to infection, 7. h/O PE with subtherapeutic INR (1.4): as above need to first rule out GI bleeding, then resume with increased dosing of Coumadin History of Present Illness History of Present Illness Chief Complaint: weakness Narrative: 67 male with multoiple problems, including type 2 DM, morbid obesity, PE, chronic anemia and recurrent COVId. States he is fully vaccinated. 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 Here with continuing cough, SOB and now more generalized weakness and lassitude, with poor PO intake, and inability to care for self with urinary and bowel incontinence. In ER findings of note for temp 38.3, white count 6.2 with 13% bands; Hct 26, platelet 46; Na 129, K 5.5, BUN 46, Cr 1.9, sugar 425, AG 16, HCO3 18 and pH 7.24. CXR shows dens KEVIN consolidation and COVID is positive. 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) Sleep apnea (Chronic 01/29/13) Mod/severe sleep apnea GERD with apnea (Chronic 04/12/15) Insomnia (Chronic 07/06/16) Restrictive lung disease (Chronic) PFT's 09/10/19 Right-sided heart failure (Chronic 01/06/15) Edema (Chronic 01/29/13) Urgency incontinence (Acute) Lower urinary tract symptoms (LUTS) (Acute 06/29/16) renal u/s: incomplete emptying Uric acid stone in urine (Acute) Bladder stones (Acute 10/29/17) Lumbar radiculopathy, right (Acute) B12 deficiency anemia (Acute 09/23/14) Osteoarthritis of knee (Acute 01/29/13) Chronic pain (Chronic) Pain medication agreement (Acute 03/25/15) Umbilical hernia without obstruction or gangrene (Acute 04/03/18) Dyshidrotic eczema (Chronic) Medical History Acute meniscal tear, lateral (01/29/13) Acute meniscal tear, medial (01/29/13) Acute on chronic renal insufficiency Anticoagulation goal of INR 2 to 3 hx of lower extremity dvts andacute pe Benign gastric polyp (05/01/14) EGD 05-01-14 Coronary artery disease Diabetes mellitus relates bloodsugars in am typically [id number] ,lasts a1c 9.3 range Hernia Hyperlipidemia Kidney stones (10/19/17) Morbid obesity 50-59.9 super morbid obesity classification MRSA cellulitis of right foot Obstructive sleep apnea Umbilical hernia Uric acid urolithiasis managed with hydration and citrates Surgical History flexible laryngoscopy (04/12/15) FORESKIN SLIT History of colonoscopy History of esophagogastroduodenoscopy (EGD) History of extraction of renal calculus [facility] [place] 02/13/18 History of trigger finger lt thumb KNEE SURGERIES arthroscopy with documented knee djd Radial styloid tenosynovitis [de quervain] s/p release on 03/24/2019 Dr. De La Fuente Family History Mother Hypertensive disorder, systemic arterial Diabetes Personal history of malignant neoplasm BREAST Sister Diabetes Mental disorder Brother Diabetes Social History Smoking/Tobacco Use Status: Former Tobacco Use Quit Date: 03/15/09 Smokeless tobacco user: chewing tobacco Smoking risk assessment performed?: Yes Alcohol Intake: never Drug use: Never Substance use type: does not use Household members: other Details: roomate Housing: apartment Number of Children: 0 Communication Needs: Corrective Lenses current occupation: disabled Current gender identity: male How often do you talk on the phone with friends or family?: three or more times per week How often do you get together with friends or relatives?: three or more times per week Panel score (0-1 are the most socially isolated patients): 1 What type of physical activity do you participate in: none Seatbelt use: always Drive intox or ride w/intox 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: No Water heater temp set <120 deg: Yes Working smoke detector in home: Yes Fire extinguisher in home: Yes Carbon monox detector in home: Yes Do you feel safe at home: Yes Do you feel safe in your relationship?: Yes Meds Allergies and Home Medications Allergies Allergy/AdvReac Type Severity Reaction Status Date / Time yobani [From Miguelina] Allergy Severe Swelling/Ed Verified 11/03/22 14:10 mark Home Medications Medication Instructions Recorded Confirmed Type ammonium lactate 12 % lotion 1 applic topical BID PRN ##1 12/01/13 08/03/22 History triamcinolone acetonide 0.5 % 1 applic topical BID PRN 09/04/18 08/03/22 Rx topical cream dyshidrotic eczema #15 grams doxepin 10 mg capsule 10 mg PO QHS 09/30/19 08/03/22 History triazolam 0.25 mg tablet 0.25 mg PO QHS PRN 09/30/19 08/03/22 History trapeze #1 ea 05/11/21 08/03/22 Rx hospital bed mattress #1 ea 05/30/21 08/03/22 Rx diaper,brief,adult,disposable #120 ea 06/14/21 08/03/22 Rx (Entrust Plus Briefs) pen needle, diabetic 32 gauge x #400 ea 08/31/21 08/03/22 Rx 5/32 (BD Ultra-Fine Edwige Pen Needle) dulaglutide 4.5 mg/0.5 mL 4.5 mg (0.5 mL) subcut QWEEK #2 mL 01/03/22 08/03/22 Rx subcutaneous pen injector (Deanslist) syringe with cannula,disposabl 17 #12 SYRGS 01/03/22 08/03/22 Rx x 3 mL (BD Blunt Plastic Cannula) warfarin 5 mg tablet See Rx Instructions PO DAILY #200 02/21/22 08/03/22 Rx tabs blood sugar diagnostic (Accu-Chek #450 ea 03/22/22 08/03/22 Rx Guide test strips) blood-glucose meter (Accu-Chek #1 ea 03/22/22 08/03/22 Rx Guide Glucose Meter) lancets (Accu-Chek Fastclix Lancet #200 ea 03/27/22 08/03/22 Rx Drum) amlodipine 5 mg tablet 5 mg PO DAILY #90 tabs 05/17/22 08/03/22 Rx atenolol 100 mg tablet 100 mg PO DAILY #90 tabs 05/17/22 08/03/22 Rx atorvastatin 20 mg tablet 20 mg PO DAILY #90 tab-caps 05/17/22 08/03/22 Rx doxazosin 4 mg tablet 4 mg PO DAILY #90 tabs 05/17/22 08/03/22 Rx metformin 1,000 mg tablet 1,000 mg PO BID #180 tab-caps 05/17/22 08/03/22 Rx potassium citrate 10 mEq (1,080 20 meq PO BID #360 tabs 05/17/22 08/03/22 Rx mg) tablet,extended release lisinopril 40 mg tablet See Rx Instructions .Route 06/20/22 08/03/22 Rx .COMPLEX #90 tabs insulin glargine 100 unit/mL See Rx Instructions subcut BID #9 08/03/22 08/03/22 Rx subcutaneous solution (Lantus vials U-100 Insulin) furosemide 80 mg tablet 80 mg PO DAILY #90 tabs 08/10/22 Rx cyanocobalamin (vitamin B-12) 1,000 mcg IJ monthly #1 vial 09/12/22 Rx 1,000 mcg/mL injection solution mirabegron 50 mg tablet,extended 50 mg PO Q24H urgency #90 tabs 10/02/22 Rx release 24 hr (Myrbetriq) omeprazole 20 mg capsule,delayed 20 mg PO HS #90 tab-caps 10/19/22 Rx release empagliflozin 10 mg tablet 10 mg PO DAILY #90 tabs 11/03/22 11/03/22 Rx (Jardiance) insulin syringe-needle U-100 1 mL #200 ea 11/03/22 11/03/22 Rx 31 gauge x 5/16 (Ultra-Thin II (Short) Insulin syringe) tramadol 50 mg tablet 100 mg PO BID PRN pain #28 tabs 11/03/22 11/03/22 Rx tramadol 50 mg tablet 100 mg PO BID pain #28 tabs 11/03/22 11/03/22 Rx polyethylene glycol 3350(bulk) See Rx Instructions .Route 11/09/22 Rx (Base B, Polyethylene Glycol 3350 .COMPLEX PRN constipation #1 g granules) loratadine 10 mg tablet 10 mg PO DAILY #90 tabs 11/27/22 Rx insulin regular hum U-500 conc 500 See Rx Instructions subcut ONCE 12/15/22 Rx unit/mL(3 mL) subcut pen (Humulin #10 SYRGS R U-500 (Conc) Insulin Kwikpen) nirmatrelvir 300 mg (150 mg See Rx Instructions PO .COMPLEX 12/15/22 Rx x2)-ritonavir 100 mg tablet,dose #30 dose pk pack(EUA) (Paxlovid) benzonatate 100 mg capsule 100 mg PO BID PRN cough #30 caps 12/29/22 Rx Exam Narrative Exam Narrative: 149/59, 117, 38.3, 49 (last recorded, 28 during visit), 87% RA. HEENT atraumayic; neck supple; lungs severely diminished; heart distant, tachy/ regular; abdomen protruberant, nontender; extremities 2-+ pedal edema; neuro Ox3, lucid, moves all 4s Results Labs 01/01/23 19:05 01/01/23 19:05 Labs: Laboratory Results - last 24 hr 01/01/23 01/01/23 01/01/23 19:05 19:05 19:05 WBC RBC Hgb Hct MCV MCH MCHC RDW Plt Count MPV Immature Gran % Neutrophils % Band Neutrophils % Lymphocytes % Monocytes % Eosinophils % Basophils % Metamyelocytes % Myelocytes % Other Cells % Nucleated RBC % Absolute Neutrophils Absolute Lymphocytes Absolute Monocytes Absolute Eosinophils Absolute Basophils RBC Morphology Polychromasia Poikilocytosis Anisocytosis PT INR APTT VBG pH VBG pCO2 VBG pO2 VBG HCO3 VBG Total CO2 VBG O2 Saturation VBG Base Excess VBG Lactate Sodium 129 L Potassium 5.5 H Chloride 94 L Carbon Dioxide 18.6 L Anion Gap 16.4 H BUN 46 H Creatinine 1.9 H Est GFR (CKD-EPI 2020) 38.42 Glucose 425 H Calcium 8.4 L Magnesium 2.6 H Total Bilirubin 0.8 AST 42 H ALT 42 Alkaline Phosphatase 118 H Troponin I < 50 NT-Pro-B Natriuret Pep 968 H Total Protein 7.7 Albumin 2.7 L Lipase 225 H Procalcitonin 2.0 TSH 0.58 COVID-19 Source Nasopharynx SARS-CoV-2 (PCR) Positive A Influenza Type A (PCR) Negative Influenza Type B (PCR) Negative RSV (PCR) Negative 01/01/23 01/01/23 01/01/23 19:05 19:05 19:05 WBC 6.24 RBC 3.00 L Hgb 8.1 L Hct 26.3 L MCV 88 MCH 27.0 MCHC 30.8 L RDW 22.4 H Plt Count 46 L MPV Immature Gran % 0.0 Neutrophils % 63.0 Band Neutrophils % 13 Lymphocytes % 8.0 Monocytes % 1.0 Eosinophils % 0.0 Basophils % 0.0 Metamyelocytes % 3 Myelocytes % 3 Other Cells % 9 Nucleated RBC % 2.0 H Absolute Neutrophils 4.74 Absolute Lymphocytes 0.50 L Absolute Monocytes 0.06 L Absolute Eosinophils 0.00 Absolute Basophils 0.00 RBC Morphology See Below Polychromasia Present Poikilocytosis 1+ Anisocytosis 2+ PT 14.0 H INR 1.4 H APTT 29.9 VBG pH 7.28 L VBG pCO2 36 L VBG pO2 81 VBG HCO3 17 L VBG Total CO2 16 L VBG O2 Saturation 94 VBG Base Excess -10 L VBG Lactate Sodium Potassium Chloride Carbon Dioxide Anion Gap BUN Creatinine Est GFR (CKD-EPI 2020) Glucose Calcium Magnesium Total Bilirubin AST ALT Alkaline Phosphatase Troponin I NT-Pro-B Natriuret Pep Total Protein Albumin Lipase Procalcitonin TSH COVID-19 Source SARS-CoV-2 (PCR) Influenza Type A (PCR) Influenza Type B (PCR) RSV (PCR) 01/01/23 01/01/23 20:55 20:55 WBC RBC Hgb Hct MCV MCH MCHC RDW Plt Count MPV Immature Gran % Neutrophils % Band Neutrophils % Lymphocytes % Monocytes % Eosinophils % Basophils % Metamyelocytes % Myelocytes % Other Cells % Nucleated RBC % Absolute Neutrophils Absolute Lymphocytes Absolute Monocytes Absolute Eosinophils Absolute Basophils RBC Morphology Polychromasia Poikilocytosis Anisocytosis PT INR APTT VBG pH 7.24 L VBG pCO2 40 L VBG pO2 70 VBG HCO3 17 L VBG Total CO2 17 L VBG O2 Saturation 92 VBG Base Excess -10 L VBG Lactate 1.1 Sodium Potassium Chloride Carbon Dioxide Anion Gap BUN Creatinine Est GFR (CKD-EPI 2020) Glucose Calcium Magnesium Total Bilirubin AST ALT Alkaline Phosphatase Troponin I NT-Pro-B Natriuret Pep Total Protein Albumin Lipase Procalcitonin TSH COVID-19 Source SARS-CoV-2 (PCR) Influenza Type A (PCR) Influenza Type B (PCR) RSV (PCR) Last Vital Signs Temp 38.3 C H 01/01/23 18:55 Pulse 117 H 01/01/23 18:55 Resp 49 H 01/01/23 18:55 BP 149/59 H 01/01/23 18:55 Pulse Ox 87 L 01/01/23 18:55 Time Spent Time spent with Patient: >75 minutes Time was spent: preparing to see the patient(eg.review tests), obtaining and/or reviewing separately otained hiistory, ordering medications,tests, procedures and indepentently interpreting results
[2023-01-01] MEDS: Insulin REGULAR-Human 100 UNITS/ML UNIT 10 UNITS IV (22:29)
[2023-01-01] MEDS: Normal Saline 1,000 ML 150 ML IV (23:08)
[2023-01-01] MEDS: INSULIN REGULAR IN 0.9 % NACL 100 UNIT/100 ML BAG IV (23:09)
[2023-01-02] VITALS (86 sets, daily range): BP systolic 111–175; BP diastolic 44–99; PULSE 66–115; RESP 0–48; TEMP 36.8–39.4; O2SAT 80–98
[2023-01-02] MEDS: AZITHROMYCIN 500 MG in Normal Saline 250 ML 250 MG IVPB (00:32)
[2023-01-02] MEDS: Normal Saline 50 ML (01:07)
[2023-01-02] MEDS: PIPERACILLIN/TAZO 3.375 GM in Normal Saline 50 ML IVPB ×4 (02:10→21:12)
[2023-01-02 02:29] LABS: BUN 43 mg/dL (7-18); CREATININE 1.8 mg/dL (0.70-1.30); Calcium 7.7 mg/dL (8.5-10.1); Chloride 101 mmol/L (98-107); Glucose 287 mg/dL (74-106); Potassium 4.4 mmol/L (3.5-5.1); Sodium 135 mmol/L (136-145)
[2023-01-02] MEDS: Benzonatate 100 MG CAP PO (03:57)
[2023-01-02] MEDS: POTASSIUM CHLORIDE/0.9% NACL 1,000 ML 125 MEQ IV (04:11)
[2023-01-02 04:45] LABS: Bilirubin Small (Negative); Blood Moderate (Negative); Clarity Clear (Clear); Glucose 500 mg/dL (Negative); Ketones 15 mg/dL (Negative); Leukocyte Esterase Negative (Negative); Nitrite Negative (Negative); pH 5.5 (5-8)
[2023-01-02 05:09] LABS: Bacteria Few HPF (Negative); C & S Indicated? No; Casts Negative LPF (Negative); Crystals Moderate Amorphous HPF (Negative); Epithelial Cells Rare HPF (Negative); Mucus Negative (Negative); RBC 0-2 HPF (0-2); WBC 0-2 HPF (0-5)
[2023-01-02 05:59] LABS: HCT 24.4 % (40.0-50.0); HGB 7.6 g/dL (13.5-17.5); MCH 27.4 pg (27.0-33.0); MCHC 31.1 % (32.0-36.0); MCV 88 fL (80-95); RDW-SD 72.4 fL; WBC 4.68 10^3/uL (4.4-10.8)
[2023-01-02 06:17] LABS: BUN 41 mg/dL (7-18); CREATININE 1.8 mg/dL (0.70-1.30); Chloride 102 mmol/L (98-107); Glucose 244 mg/dL (74-106); Potassium 4.4 mmol/L (3.5-5.1); Sodium 137 mmol/L (136-145)
[2023-01-02 06:29] LABS: INR 1.4 (0.9-1.1)
[2023-01-02 06:37] LABS: Platelet Count 44 10^3/uL (130-400)
[2023-01-02 06:38] LABS: RDW 22.5 % (11.8-14.1)
[2023-01-02 06:40] LABS: RBC 2.77 10^6/uL (4.36-5.78)
[2023-01-02 09:08] LABS: Lab Add On Test DONE
[2023-01-02 09:09] LABS: Lab Add On Test DONE
[2023-01-02] MEDS: Insulin Glargine 300 UNITS/3 ML PEN 25 UNITS SC ×2 (09:11→21:18)
[2023-01-02 09:28] LABS: BE (Venous) -2 mmol/L (-2-3); HCO3 (Venous) 24 mmol/L (23-28); O2 Sat (Venous) 94 %; TCO2 (Venous) 24 mmol/L (24-29); pCO2 (Venous) 52 mmHg (41-51); pH (Venous) 7.28 (7.31-7.41); pO2 (Venous) 71 mmHg
[2023-01-02 09:30] LABS: LDH 311 U/L (85-227)
[2023-01-02 09:31] LABS: Hemoglobin A1C 9.3 % (<5.7)
[2023-01-02 09:34] LABS: Troponin I < 50 ng/L (<or=60)
--- NOTE | 2023-01-02 09:34 | INITIAL_ITS ---
- If Service Date Differs Date of service: 01/02/23 Time of Service: 09:34 Care Management Initial Assess REASON FOR HOSPITALIZATION:: Pneumonia PAST MEDICAL HISTORY/PAST SURGICAL HISTORY:: Medical History . Acute meniscal tear, lateral (01/29/13). Acute meniscal tear, medial (01/29/13). Acute on chronic renal insufficiency. Anticoagulation goal of INR 2 to 3. hx of lower extremity dvts andacute pe. Benign gastric polyp (05/01/14). EGD 05-01-14. Coronary artery disease. Diabetes mellitus. relates bloodsugars in am typically [id number] ,lasts a1c 9.3 range. Hernia. Hyperlipidemia. Kidney stones (10/19/17). Morbid obesity. 50-59.9 super morbid obesity classification. MRSA cellulitis of right foot. Obstructive sleep apnea. Umbilical hernia. Uric acid urolithiasis. managed with hydration and citrates. Surgical History . flexible laryngoscopy (04/12/15). FORESKIN SLIT. History of colonoscopy. History of esophagogastroduodenoscopy (EGD). History of extraction of renal calculus. [facility] [place] 02/13/18. History of trigger finger. lt thumb. KNEE SURGERIES. arthroscopy with documented knee djd. Radial styloid tenosynovitis [de quervain]. s/p release on 03/24/2019. Dr. De La Fuente Has patient been provided with info about the portal/API?: Yes Did the patient sign up for the portal?: Yes CODE STATUS:: Full Code INSURANCE COVERAGE / FINANCIAL ISSUES:: UHC, Medicaid CURRENT HOME/COMMUNITY SERVICES/EQUIPMENT:: VNA SN, [employer] Moderate, Home BIPAP (daughter bringing to [facility]) PRIMARY CARE PHYSICIAN:: Danny Frost POTENTIAL DISCHARGE NEEDS:: Evaluation for increased needs-possible PT eval. PATIENT/FAMILY EDUCATION NEEDS:: Review discharge instructions, discuss Ask Me Three. ANTICIPATED BARRIERS TO DISCHARGE:: None identified at this time. TRANSPORTATION:: Via private vehicle PLAN:: Anticipate Welcome will return home when ready per MD. He will follow up with his PCP and plan of care as prescribed and transport via private vehicle with family. CM continues to follow.
[2023-01-02 10:28] LABS: Bilirubin Small (Negative); Blood Moderate (Negative); Clarity Sl Cloudy (Clear); Glucose 500 mg/dL (Negative); Ketones Negative (Negative); Leukocyte Esterase Negative (Negative); Nitrite Negative (Negative); Specific Gravity >= 1.030 (1.005-1.025); pH 5.5 (5-8)
[2023-01-02 10:42] LABS: Crystals Few Amorphous HPF (Negative)
--- NOTE | 2023-01-02 10:43 | PGE_ITS ---
Date of Service Date of service: 01/02/23 Time of Service: 10:43 Assessment and Plan Assessment and plan (1) Sepsis: Status: Acute Assessment and plan: secondary to GPC bacteremia, pneumonia (probable Strep pneumonia but awaiting culture results and urine antigen testing); Hemodynamically stable. continue supportive care. I confirmed w/ his daughter that he is a full code. His advance directive on file is from 2012 and indicatd DNR/DNI status back then but his daughter who is his DPOA indicated that he would want life support for short term if a reversible cause can be treated. I have added Vancomcyin pending his MRSA screen (which I ordered) and if BC is strep and MRSA is negative then we can dc his vancomycin. I have asked RT to put him HFNC but if his CO2 climbs then he may need BIPAP. At home his daughter says that he uses CPAP at night but lately has been using it through the day to help w/ his dyspnea. Critical care time spent interviewing and examining the patient, reviewing studies, discussing case with patient's nurse and consulting physicians was 60 minutes (2) Gram-positive bacteremia: Status: Acute Assessment and plan: On Zosyn and azithromycin. vancomycin added pending I.D. of his bacteremia and MRSA (3) Pneumonia: Status: Acute Assessment and plan: as above (4) Diabetes mellitus type 2 in obese: Status: Acute Assessment and plan: glucose changed to q6hr along w/ SSI; I added lantus 25 units q12h (half his u sual dose). he was in DKA but this has resolved. will monitor gluocse and repeat BMP to be sure he does not go back into DKA. I added D5LR w/ KCL to his IV as he is NPO and we want to avoid hyoglycemia or starvation. (5) Anticoagulation monitoring, INR range 2-3: Status: Chronic Assessment and plan: subtherapeutic INR but as he is NPO he will need heparin drip until able to transition back to warfarin. Apparently he has been chronically on warfarin for prior P.E. (6) Acute pulmonary embolism: Start date: 12/07/15 Status: Resolved Assessment and plan: hx of P.E. in 2016; chronically on warfarin; while (7) COVID: Status: Acute Assessment and plan: PCR is postive however, daughter says that he has tested on home test negative repeatedly. he did complete 5 days of Paxlovid at home two weeks ago. I think that we can take him out of postive covid status. I would still wear masks given his pneumonia. (8) Hypertension: Status: Chronic Assessment and plan: I have changed his atenolol to iv lopressor. If needed we can add vasotec IV for bp control Qualifiers: Hypertension type: essential hypertension Qualified Code(s): I10 - Essential (primary) hypertension Subjective Subjective Interval history since last seen: 67 yr old male w/ PMH of DM type II on insulin (poorly controlled w/ recent A1c of 10%), morbid obesity (BMI 55), YAMIL (wears BIPAP at home and has been using even during the day per his daughter's report) who presented w/ progressive dyspnea and cough. He tested positive for covid over 2 months and reportedly was treated w/ Paxlovid. Per his daughter she has repeatedly tested him over the past week and he has been negative on home testing. Repeat PCR last night demonstrated positive for SARS-COV2 but negative for influenza, CXR demonstrated KEVIN infiltrate w/ air bronchogram c/w pneumonia. He was admitted to ICU on Zosyn and azithromycin after getting one time dose of Vancomycin while in the ED. He was maintained on oxygen at 4 lpm w/ marginal oxygen levels in the high 80's. He was also found to have DKA w/ glucose 425, AG 16.4, HCO3 18, glycosurea 500, 15 mg/dL ketones. He was put on iv fluids and put on insulin drip per [facility] protocol and overnight his AG has normalized to 10, HCO3 25 and his repeat urinalysis did not show ketones this morning. Glucose has come down to 244 on a.m. labs and MBS have been 177 to 244. However, he is obtunded and not safe to take po fluids or meds. I have put him on basal bolus insulin w/ coverage but he may need to go back on insulin drip overnight until he is more awake and can take po meds. I did add glucose to his iv fluids and he is now on D5LR w/ 20 meq KCl/liter @ 125 mL/hr. He is being put on BIPAP to try to drive down his CO2. On his VBG his pH is 7.28 and CO2 is 52. Lactate last night was normal. Exam Narrative Exam Narrative: Morbidly bearded white male who is obtunded he does arouse to tactile stimulation does not follow commands and opens eyes but does not follow and speak with eyes. HEENT is remarkable for dry mucous membranes. He has some crusting of his eyelashes and some drainage from his conjunctiva. Neck is obese difficult to discern JVD. Lungs with coarse bilateral upper lobe rhonchi and expiratory wheezes Abdomen: obese, soft, nontender Legs: [place] on both legs. toes are pink, good capillary refill Objective Last Vital Signs Temp 38.1 C H 01/02/23 06:26 Pulse 107 H 01/02/23 10:01 Resp 27 H 01/02/23 10:01 BP 175/99 H 01/02/23 10:01 Pulse Ox 91 L 01/02/23 10:01 Laboratory Results - last 24 hr 01/01/23 01/01/23 01/01/23 19:05 19:05 19:05 WBC RBC Hgb Hct MCV MCH MCHC RDW Plt Count MPV Immature Gran % Neutrophils % Band Neutrophils % Lymphocytes % Monocytes % Eosinophils % Basophils % Metamyelocytes % Myelocytes % Other Cells % Nucleated RBC % Absolute Neutrophils Absolute Lymphocytes Absolute Monocytes Absolute Eosinophils Absolute Basophils RBC Morphology Polychromasia Poikilocytosis Anisocytosis PT INR APTT VBG pH VBG pCO2 VBG pO2 VBG HCO3 VBG Total CO2 VBG O2 Saturation VBG Base Excess VBG Lactate Sodium 129 L Potassium 5.5 H Chloride 94 L Carbon Dioxide 18.6 L Anion Gap 16.4 H BUN 46 H Creatinine 1.9 H Est GFR (CKD-EPI 2020) 38.42 Glucose 425 H Hemoglobin A1c Calcium 8.4 L Magnesium 2.6 H Total Bilirubin 0.8 AST 42 H ALT 42 Alkaline Phosphatase 118 H Lactate Dehydrogenase Troponin I < 50 NT-Pro-B Natriuret Pep 968 H Total Protein 7.7 Albumin 2.7 L Lipase 225 H Procalcitonin 2.0 TSH 0.58 Urine Color Urine Clarity Urine pH Ur Specific [place] Urine Protein Urine Ketones Urine Blood Urine Nitrite Urine Bilirubin Urine Urobilinogen Ur Leukocyte Esterase Urine RBC Urine WBC Ur Epithelial Cells Urine Crystals Urine Bacteria Urine Casts Urine Mucus Ur Culture Indicated? Urine Glucose COVID-19 Source Nasopharynx SARS-CoV-2 (PCR) Positive A Influenza Type A (PCR) Negative Influenza Type B (PCR) Negative RSV (PCR) Negative Add-On Test Request 01/01/23 01/01/23 01/01/23 19:05 19:05 19:05 WBC 6.24 RBC 3.00 L Hgb 8.1 L Hct 26.3 L MCV 88 MCH 27.0 MCHC 30.8 L RDW 22.4 H Plt Count 46 L MPV Immature Gran % 0.0 Neutrophils % 63.0 Band Neutrophils % 13 Lymphocytes % 8.0 Monocytes % 1.0 Eosinophils % 0.0 Basophils % 0.0 Metamyelocytes % 3 Myelocytes % 3 Other Cells % 9 Nucleated RBC % 2.0 H Absolute Neutrophils 4.74 Absolute Lymphocytes 0.50 L Absolute Monocytes 0.06 L Absolute Eosinophils 0.00 Absolute Basophils 0.00 RBC Morphology See Below Polychromasia Present Poikilocytosis 1+ Anisocytosis 2+ PT 14.0 H INR 1.4 H APTT 29.9 VBG pH 7.28 L VBG pCO2 36 L VBG pO2 81 VBG HCO3 17 L VBG Total CO2 16 L VBG O2 Saturation 94 VBG Base Excess -10 L VBG Lactate Sodium Potassium Chloride Carbon Dioxide Anion Gap BUN Creatinine Est GFR (CKD-EPI 2020) Glucose Hemoglobin A1c Calcium Magnesium Total Bilirubin AST ALT Alkaline Phosphatase Lactate Dehydrogenase Troponin I NT-Pro-B Natriuret Pep Total Protein Albumin Lipase Procalcitonin TSH Urine Color Urine Clarity Urine pH Ur Specific [place] Urine Protein Urine Ketones Urine Blood Urine Nitrite Urine Bilirubin Urine Urobilinogen Ur Leukocyte Esterase Urine RBC Urine WBC Ur Epithelial Cells Urine Crystals Urine Bacteria Urine Casts Urine Mucus Ur Culture Indicated? Urine Glucose COVID-19 Source SARS-CoV-2 (PCR) Influenza Type A (PCR) Influenza Type B (PCR) RSV (PCR) Add-On Test Request 01/01/23 01/01/23 01/01/23 20:55 20:55 22:04 WBC RBC Hgb Hct MCV MCH MCHC RDW Plt Count MPV Immature Gran % Neutrophils % Band Neutrophils % Lymphocytes % Monocytes % Eosinophils % Basophils % Metamyelocytes % Myelocytes % Other Cells % Nucleated RBC % Absolute Neutrophils Absolute Lymphocytes Absolute Monocytes Absolute Eosinophils Absolute Basophils RBC Morphology Polychromasia Poikilocytosis Anisocytosis PT INR APTT VBG pH 7.24 L VBG pCO2 40 L VBG pO2 70 VBG HCO3 17 L VBG Total CO2 17 L VBG O2 Saturation 92 VBG Base Excess -10 L VBG Lactate 1.1 Sodium Potassium Chloride Carbon Dioxide Anion Gap BUN Creatinine Est GFR (CKD-EPI 2020) Glucose Hemoglobin A1c Calcium Magnesium Total Bilirubin AST ALT Alkaline Phosphatase Lactate Dehydrogenase Troponin I Cancelled NT-Pro-B Natriuret Pep Total Protein Albumin Lipase Procalcitonin TSH Urine Color Urine Clarity Urine pH Ur Specific [place] Urine Protein Urine Ketones Urine Blood Urine Nitrite Urine Bilirubin Urine Urobilinogen Ur Leukocyte Esterase Urine RBC Urine WBC Ur Epithelial Cells Urine Crystals Urine Bacteria Urine Casts Urine Mucus Ur Culture Indicated? Urine Glucose COVID-19 Source SARS-CoV-2 (PCR) Influenza Type A (PCR) Influenza Type B (PCR) RSV (PCR) Add-On Test Request 01/01/23 01/02/23 01/02/23 Unknown 02:05 02:05 WBC RBC Hgb Hct MCV MCH MCHC RDW Plt Count MPV Immature Gran % Neutrophils % Band Neutrophils % Lymphocytes % Monocytes % Eosinophils % Basophils % Metamyelocytes % Myelocytes % Other Cells % Nucleated RBC % Absolute Neutrophils Absolute Lymphocytes Absolute Monocytes Absolute Eosinophils Absolute Basophils RBC Morphology Polychromasia Poikilocytosis Anisocytosis PT INR APTT VBG pH VBG pCO2 VBG pO2 VBG HCO3 VBG Total CO2 VBG O2 Saturation VBG Base Excess VBG Lactate Cancelled Sodium 135 L Potassium 4.4 D Chloride 101 Carbon Dioxide 22.0 Anion Gap 12.0 H BUN 43 H Creatinine 1.8 H Est GFR (CKD-EPI 2020) 41.00 Glucose 287 H Hemoglobin A1c Calcium 7.7 L Magnesium Total Bilirubin AST ALT Alkaline Phosphatase Lactate Dehydrogenase Troponin I NT-Pro-B Natriuret Pep Total Protein Albumin Lipase Procalcitonin TSH Urine Color Urine Clarity Urine pH Ur Specific [place] Urine Protein Urine Ketones Urine Blood Urine Nitrite Urine Bilirubin Urine Urobilinogen Ur Leukocyte Esterase Urine RBC Urine WBC Ur Epithelial Cells Urine Crystals Urine Bacteria Urine Casts Urine Mucus Ur Culture Indicated? Urine Glucose COVID-19 Source SARS-CoV-2 (PCR) Influenza Type A (PCR) Influenza Type B (PCR) RSV (PCR) Add-On Test Request DONE 01/02/23 01/02/23 01/02/23 02:05 04:37 05:35 WBC 4.68 RBC 2.77 L Hgb 7.6 L Hct 24.4 L MCV 88 MCH 27.4 MCHC 31.1 L RDW 22.5 H Plt Count 44 L MPV Immature Gran % Neutrophils % Band Neutrophils % Lymphocytes % Monocytes % Eosinophils % Basophils % Metamyelocytes % Myelocytes % Other Cells % Nucleated RBC % Absolute Neutrophils Absolute Lymphocytes Absolute Monocytes Absolute Eosinophils Absolute Basophils RBC Morphology Polychromasia Poikilocytosis Anisocytosis PT INR APTT VBG pH VBG pCO2 VBG pO2 VBG HCO3 VBG Total CO2 VBG O2 Saturation VBG Base Excess VBG Lactate Sodium Potassium Chloride Carbon Dioxide Anion Gap BUN Creatinine Est GFR (CKD-EPI 2020) Glucose Hemoglobin A1c Calcium Magnesium Total Bilirubin AST ALT Alkaline Phosphatase Lactate Dehydrogenase Troponin I < 50 NT-Pro-B Natriuret Pep Total Protein Albumin Lipase Procalcitonin TSH Urine Color Yellow Urine Clarity Clear Urine pH 5.5 Ur Specific [place] 1.020 Urine Protein 100 H Urine Ketones 15 H Urine Blood Moderate H Urine Nitrite Negative Urine Bilirubin Small H Urine Urobilinogen 1.0 H Ur Leukocyte Esterase Negative Urine RBC 0-2 Urine WBC 0-2 Ur Epithelial Cells Rare Urine Crystals Moderate Amorphous Urine Bacteria Few Urine Casts Negative Urine Mucus Negative Ur Culture Indicated? No Urine Glucose 500 H COVID-19 Source SARS-CoV-2 (PCR) Influenza Type A (PCR) Influenza Type B (PCR) RSV (PCR) Add-On Test Request 01/02/23 01/02/23 01/02/23 05:35 05:35 05:35 WBC RBC Hgb Hct MCV MCH MCHC RDW Plt Count MPV Immature Gran % Neutrophils % Band Neutrophils % Lymphocytes % Monocytes % Eosinophils % Basophils % Metamyelocytes % Myelocytes % Other Cells % Nucleated RBC % Absolute Neutrophils Absolute Lymphocytes Absolute Monocytes Absolute Eosinophils Absolute Basophils RBC Morphology Polychromasia Poikilocytosis Anisocytosis PT 14.0 H INR 1.4 H APTT VBG pH VBG pCO2 VBG pO2 VBG HCO3 VBG Total CO2 VBG O2 Saturation VBG Base Excess VBG Lactate Sodium 137 Potassium 4.4 Chloride 102 Carbon Dioxide 25.0 Anion Gap 10.0 BUN 41 H Creatinine 1.8 H Est GFR (CKD-EPI 2020) 41.00 Glucose 244 H Hemoglobin A1c Calcium 8.0 L Magnesium Total Bilirubin AST ALT Alkaline Phosphatase Lactate Dehydrogenase Troponin I NT-Pro-B Natriuret Pep Total Protein Albumin Lipase Procalcitonin TSH Urine Color Urine Clarity Urine pH Ur Specific [place] Urine Protein Urine Ketones Urine Blood Urine Nitrite Urine Bilirubin Urine Urobilinogen Ur Leukocyte Esterase Urine RBC Urine WBC Ur Epithelial Cells Urine Crystals Urine Bacteria Urine Casts Urine Mucus Ur Culture Indicated? Urine Glucose COVID-19 Source SARS-CoV-2 (PCR) Influenza Type A (PCR) Influenza Type B (PCR) RSV (PCR) Add-On Test Request DONE 01/02/23 01/02/23 01/02/23 05:35 05:35 09:19 WBC RBC Hgb Hct MCV MCH MCHC RDW Plt Count MPV Immature Gran % Neutrophils % Band Neutrophils % Lymphocytes % Monocytes % Eosinophils % Basophils % Metamyelocytes % Myelocytes % Other Cells % Nucleated RBC % Absolute Neutrophils Absolute Lymphocytes Absolute Monocytes Absolute Eosinophils Absolute Basophils RBC Morphology Polychromasia Poikilocytosis Anisocytosis PT INR APTT VBG pH 7.28 L VBG pCO2 52 H VBG pO2 71 VBG HCO3 24 VBG Total CO2 24 VBG O2 Saturation 94 VBG Base Excess -2 VBG Lactate Sodium Potassium Chloride Carbon Dioxide Anion Gap BUN Creatinine Est GFR (CKD-EPI 2020) Glucose Hemoglobin A1c 9.3 H Calcium Magnesium Total Bilirubin AST ALT Alkaline Phosphatase Lactate Dehydrogenase 311 H Troponin I NT-Pro-B Natriuret Pep Total Protein Albumin Lipase Procalcitonin TSH Urine Color Urine Clarity Urine pH Ur Specific [place] Urine Protein Urine Ketones Urine Blood Urine Nitrite Urine Bilirubin Urine Urobilinogen Ur Leukocyte Esterase Urine RBC Urine WBC Ur Epithelial Cells Urine Crystals Urine Bacteria Urine Casts Urine Mucus Ur Culture Indicated? Urine Glucose COVID-19 Source SARS-CoV-2 (PCR) Influenza Type A (PCR) Influenza Type B (PCR) RSV (PCR) Add-On Test Request 01/02/23 10:10 WBC RBC Hgb Hct MCV MCH MCHC RDW Plt Count MPV Immature Gran % Neutrophils % Band Neutrophils % Lymphocytes % Monocytes % Eosinophils % Basophils % Metamyelocytes % Myelocytes % Other Cells % Nucleated RBC % Absolute Neutrophils Absolute Lymphocytes Absolute Monocytes Absolute Eosinophils Absolute Basophils RBC Morphology Polychromasia Poikilocytosis Anisocytosis PT INR APTT VBG pH VBG pCO2 VBG pO2 VBG HCO3 VBG Total CO2 VBG O2 Saturation VBG Base Excess VBG Lactate Sodium Potassium Chloride Carbon Dioxide Anion Gap BUN Creatinine Est GFR (CKD-EPI 2020) Glucose Hemoglobin A1c Calcium Magnesium Total Bilirubin AST ALT Alkaline Phosphatase Lactate Dehydrogenase Troponin I NT-Pro-B Natriuret Pep Total Protein Albumin Lipase Procalcitonin TSH Urine Color Yellow Urine Clarity Sl Cloudy Urine pH 5.5 Ur Specific [place] >= 1.030 H Urine Protein 100 H Urine Ketones Negative Urine Blood Moderate H Urine Nitrite Negative Urine Bilirubin Small H Urine Urobilinogen 1.0 H Ur Leukocyte Esterase Negative Urine RBC Urine WBC Ur Epithelial Cells Urine Crystals Urine Bacteria Urine Casts Urine Mucus Ur Culture Indicated? Urine Glucose 500 H COVID-19 Source SARS-CoV-2 (PCR) Influenza Type A (PCR) Influenza Type B (PCR) RSV (PCR) Add-On Test Request Time Spent with Patient Time Spent with Patient: >50 minutes Time was spent: preparing to see the patient(eg.review tests), obtaining and/or reviewing separately otained hiistory, ordering medications,tests, procedures, referring, communicating with other health career developer, indepentently interpreting results, counseling the patient (counseling of patient's daughter) and care coordination
[2023-01-02 10:45] LABS: Bacteria Rare HPF (Negative); C & S Indicated? C&S Done As Ordered; Casts Negative LPF (Negative); Epithelial Cells Rare HPF (Negative); Mucus Negative (Negative); RBC 0-2 HPF (0-2); WBC Negative HPF (0-5)
[2023-01-02 13:07] LABS: Anion Gap 8.8 mmol/L (3-11); BUN 39 mg/dL (7-18); CO2 23.2 mmol/L (21.0-32.0); CREATININE 1.7 mg/dL (0.70-1.30); Calcium 8.3 mg/dL (8.5-10.1); Chloride 105 mmol/L (98-107); Estimated GFR 43.91 (mL/min/1.73m2); Glucose 229 mg/dL (74-106); Potassium 5.2 mmol/L (3.5-5.1); Sodium 137 mmol/L (136-145)
[2023-01-02] MEDS: Insulin Aspart 300 UNITS/3 ML PEN SC ×2 (13:15→17:47)
--- NOTE | 2023-01-02 13:35 | RESPIRATORY ---
RT spoke with Cony Murillo concerning bringing patient device in for us at the hospital. Patients daughter is planning to clean the device due to him having COVID and than bring it in today for use. Daughter was instructed to bring device to the main entrance and have RT paged.
[2023-01-02 13:38] LABS: BE (Venous) -4 mmol/L (-2-3); HCO3 (Venous) 22 mmol/L (23-28); O2 Sat (Venous) 98 %; TCO2 (Venous) 21 mmol/L (24-29); pCO2 (Venous) 44 mmHg (41-51); pH (Venous) 7.31 (7.31-7.41); pO2 (Venous) 109 mmHg
[2023-01-02] MEDS: Metoprolol 5 MG/5 ML VIAL IVP ×2 (13:46→21:16)
[2023-01-02] MEDS: Normal Saline Flush 10 ML SYR IVP ×3 (13:51→21:27)
[2023-01-02] MEDS: VANCOMYCIN/WATER (PEG) 1.75 GM/350 ML BAG IV (14:03)
--- NOTE | 2023-01-02 14:32 | NUR.NOTE ---
Synopsis. Remains lethargic. Answers yes or no questions with no elaboration. Declines to answer when asked where he is. Decreased O2 sats persists with O2 sats 84 to 92%. Tachypniec shallow respirations with head bobbing. Hob elevated with bed placed in semi cardiac position. Nasal tracheal suctioning done for sputum specimen. Sputum thick and tenacious. Sputum culture obtained. Dr. Haas in to discuss further respiratory interventions. Remains in sinus rhythm to sinus tachycardia. Increased BP persists. Unable to swallow pills. PO meds held. IV meds ordered. IV fluid changed to D5LR with 20 meq KCL at 125 ml/hr. Insuline drip off and replaced with q6 hr finger sticks sliding scale and bid lantus. Febrile to 39.3. Dr Haas made aware. IV Tylenol ordered. Incontinent of urine with inner thigh excoriation. Straight cathed for urine culture. Skin under breasts excoriated. Areas cleansed. Nursing Note:
[2023-01-02] MEDS: ACETAMINOPHEN 1,000 MG/100 ML BTL 400 MG IVPB (14:45)
[2023-01-02] MEDS: Albuterol/Ipratropium 3 ML UPD VIAL UPD ×2 (17:20→21:11)
[2023-01-02 17:41] LABS: Anion Gap 10.4 mmol/L (3-11); BUN 38 mg/dL (7-18); CO2 23.6 mmol/L (21.0-32.0); CREATININE 1.8 mg/dL (0.70-1.30); Calcium 8.2 mg/dL (8.5-10.1); Chloride 107 mmol/L (98-107); Glucose 306 mg/dL (74-106); Potassium 5.1 mmol/L (3.5-5.1); Sodium 141 mmol/L (136-145)
[2023-01-02] MEDS: Nystatin POWDER 60 GM JAR TP (17:47)
[2023-01-02 17:49] LABS: Fibrinogen 919 mg/dL (171-384)
[2023-01-02] MEDS: Pantoprazole 40 MG VIAL IVP (17:50)
[2023-01-02] MEDS: DEXTROSE 5%-LACTATED RINGERS 1,000 ML 80 ML IV (18:49)
[2023-01-02] MEDS: Ciprofloxacin 0.3% 2.5 ML BTL OU (21:15)
[2023-01-02] MEDS: AZITHROMYCIN 250 MG in Normal Saline 250 ML IVPB (21:26)
[2023-01-02 23:32] LABS: Legionella Ag Detection Urine Negative (Negative)
[2023-01-03] VITALS (70 sets, daily range): BP systolic 100–181; BP diastolic 40–159; PULSE 0–190; RESP 7–46; TEMP 37.3–39.2; O2SAT 81–96
[2023-01-03] MEDS: Metoprolol 5 MG/5 ML VIAL IVP ×2 (00:13→06:09)
[2023-01-03] MEDS: Insulin Aspart 300 UNITS/3 ML PEN SC ×5 (00:23→17:24)
[2023-01-03] MEDS: Ciprofloxacin 0.3% 2.5 ML BTL OU ×9 (01:07→22:00)
[2023-01-03 02:02] LABS: PTT Activated 46.3 sec (21.5-31.9)
[2023-01-03] MEDS: PIPERACILLIN/TAZO 3.375 GM in Normal Saline 50 ML IVPB ×3 (02:44→12:35)
[2023-01-03 06:50] LABS: BE (Venous) 0 mmol/L (-2-3); HCO3 (Venous) 26 mmol/L (23-28); O2 Sat (Venous) 57 %; TCO2 (Venous) 26 mmol/L (24-29); pCO2 (Venous) 51 mmHg (41-51); pH (Venous) 7.32 (7.31-7.41); pO2 (Venous) 31 mmHg
[2023-01-03 06:57] LABS: HCT 24.3 % (40.0-50.0); HGB 7.1 g/dL (13.5-17.5); MCH 26.5 pg (27.0-33.0); MCHC 29.2 % (32.0-36.0); MCV 91 fL (80-95); RBC 2.68 10^6/uL (4.36-5.78); RDW 23.4 % (11.8-14.1); RDW-SD 77.7 fL; WBC 4.34 10^3/uL (4.4-10.8)
[2023-01-03 07:05] LABS: INR 1.7 (0.9-1.1); Prothrombin Time 17.6 sec (9.3-11.0)
[2023-01-03 07:09] LABS: PTT Activated 61.6 sec (21.5-31.9)
[2023-01-03 07:10] LABS: ALT 37 U/L (16-63); AST 83 U/L (15-37); Albumin 2.1 g/dL (3.4-5.0); Alkaline Phosphatase 104 U/L (46-116); Anion Gap 5.5 mmol/L (3-11); BUN 32 mg/dL (7-18); Bilirubin, Total 0.5 mg/dL (0.2-1.0); CO2 27.5 mmol/L (21.0-32.0); CREATININE 1.5 mg/dL (0.70-1.30); Calcium 8.5 mg/dL (8.5-10.1); Chloride 111 mmol/L (98-107); Estimated GFR 51.03 (mL/min/1.73m2); Glucose 304 mg/dL (74-106); Potassium 5.1 mmol/L (3.5-5.1); Sodium 144 mmol/L (136-145); Total Protein 6.8 g/dL (6.4-8.2)
[2023-01-03] MEDS: DEXTROSE 5%-LACTATED RINGERS 1,000 ML 80 ML IV (07:23)
[2023-01-03 07:27] LABS: C-Reactive Protein > 25.00 mg/dL (0.0-0.3)
[2023-01-03 07:44] LABS: Absolute Lymphocyte Count 0.48 10^3/uL (1.2-3.4); Absolute Neutrophil Count 3.21 10^3/uL (1.2-6.7); Bands % 8
[2023-01-03 07:45] LABS: Metamyelocytes % 2; Myelocytes % 4; Other Cells % 9
[2023-01-03 07:46] LABS: Anisocytosis 3+; Diff Comment Manual Differential; Poikilocytes 1+; Polychromasia Present
[2023-01-03 07:47] LABS: Platelet Count 41 10^3/uL (130-400)
[2023-01-03] MEDS: Insulin Glargine 300 UNITS/3 ML PEN 25 UNITS SC ×2 (08:28→10:42)
[2023-01-03] MEDS: Nystatin POWDER 60 GM JAR TP ×3 (08:43→19:00)
--- NOTE | 2023-01-03 08:43 | CMPROGNOTE_ITS ---
- If Service Date Differs Date of service: 01/03/23 Time of Service: 08:43 Care Management Progress Note S/O: Nico is being closely monitored and treated in the ICU. He is awake and lying in bed, visiting with his daughter Cony and his friend. Nico's ability to engage in conversation is limited due to his respiratory status. Cony shares with CM that her Dad looks much better today. She is pleased to be able to visit and see that he is awake and talking. Nico currently requires total assistance with his ADL's and is too weak and sob to work with PT. A: 67 year old male admitted to [facility] on 12/05/22 for pneumonia P: Anticipate Nico will return home with resumption of [facility] RN (add PT, OT) and CFC Moderate when ready per MD. He will follow up with his PCP and plan of care as prescribed and transport via private vehicle with family. CM continues to follow.
[2023-01-03 09:42] LABS: Haptoglobin 480 mg/dL (32-197)
--- NOTE | 2023-01-03 09:51 | PGE_ITS ---
Date of Service Date of service: 01/03/23 Time of Service: 10:40 Assessment and Plan Assessment and plan (1) Sepsis: Status: Acute Assessment and plan: BC 1st set 01/01/23 + Strep species , 2nd set +Staph, non-aureus (2/2 bottles); sputum 01/01/23 normal kavya CXR w/ KEVIN pneumonia. His renal function and cognition are improving. He is currently on Zosyn and Vancomycin. I have changed his Zosyn to the slow infusion. I will get repeat blood cultures to see if his bacteremia is clearing. Will also get echocardiogram in light of his bactferemia. Hopefully the Staph is a contaminant Critical care time spent interviewing and examining the patient, reviewing studies, discussing case with patient's nurse and consulting physicians was 30 minutes (2) Gram-positive bacteremia: Status: Acute Assessment and plan: On Zosyn and azithromycin. vancomycin added pending I.D. of his bacteremia and MRSA (3) Pneumonia: Status: Acute Assessment and plan: as above will change his DuoNeb to scheduled every 4 hr while awake; add percussion and postural drainage (4) Acute kidney injury (nontraumatic): Status: Acute Assessment and plan: improving. BUN and creatinine down to 46>32 and 1.9>1.5 (5) DKA (diabetic ketoacidoses): Status: Resolved Assessment and plan: patient readily came out of DKA w/ hydration and insulin drip. he remains out of DKA but his glucose is rising therefore I have adjusted his insulin as noted below under DM management (6) Diabetes mellitus type 2 in obese: Status: Acute Assessment and plan: changed his insulin to ac/hs and will give him carbohydrate coverage and will increase his lantus to his prior dose of 50 units bid (7) Anticoagulation monitoring, INR range 2-3: Status: Chronic Assessment and plan: patient had subtherapeutic INR and needs lifetime anticoagulation from his prior PE. He lost his 2nd iv and therefore has been off heparin drip since 6 am. Now that he is taking PO, I will change him to apixaban 5 mg bid. (8) Acute pulmonary embolism: Start date: 12/07/15 Status: Resolved Assessment and plan: hx of P.E. in 2016; chronically on warfarin; will change to apixaban as he has been subtherapeutic anyway (9) COVID: Status: Acute Assessment and plan: PCR is postive however, daughter says that he has tested on home test negative repeatedly. he did complete 5 days of Paxlovid at home two weeks ago. I think that we can take him out of postive covid status. I would still wear masks given his pneumonia. per [facility] policy he is not considered infectious and has been taken out of isolation (10) Hypertension: Status: Chronic Assessment and plan: will resume his atenolol. will hold his amlodipine for one more day but will resume once his BP has remained stable for 24hr Qualifiers: Hypertension type: essential hypertension Qualified Code(s): I10 - Essential (primary) hypertension Subjective Subjective Interval history since last seen: Nico is more alert and interactive this morning. He knows that he is in the hospital but thinks that he is in [facility] in [place]. He does reorient. He has had a lot of coughing but unable to mobilize this. Exam Narrative Exam Narrative: Morbidly obese white male who is alert, oriented to person, knows that he is in the hospital but thought he was in [place]. He responds to directions. He is very weak and is a two person assist Lungs: w/ coarse bilateral diffuse rhonchi and wheezes Heart: regular Abdomen: obese, soft, normal bowel sounds, nontender Legs: obese, no pitting edema, skin appears to be intact, no cyanosis, good capillary refill Objective Last Vital Signs Temp 37.3 C 01/03/23 07:34 Pulse 103 H 01/03/23 06:39 Resp 20 01/03/23 07:34 BP 144/88 H 01/03/23 06:09 Pulse Ox 90 L 01/03/23 08:00 Laboratory Results - last 24 hr 01/01/23 01/01/23 01/02/23 19:05 19:05 10:10 WBC RBC Hgb Hct MCV MCH MCHC RDW Plt Count MPV Immature Gran % Neutrophils % Band Neutrophils % Lymphocytes % Monocytes % Eosinophils % Basophils % Metamyelocytes % Myelocytes % Other Cells % Nucleated RBC % Absolute Neutrophils Absolute Lymphocytes Absolute Monocytes Absolute Eosinophils Absolute Basophils RBC Morphology Polychromasia Poikilocytosis Anisocytosis PT INR APTT Fibrinogen 919 H VBG pH VBG pCO2 VBG pO2 VBG HCO3 VBG Total CO2 VBG O2 Saturation VBG Base Excess Sodium Potassium Chloride Carbon Dioxide Anion Gap BUN Creatinine Est GFR (CKD-EPI 2020) Glucose Calcium Total Bilirubin AST ALT Alkaline Phosphatase C-Reactive Protein Total Protein Albumin Urine Color Yellow Urine Clarity Sl Cloudy Urine pH 5.5 Ur Specific [place] >= 1.030 H Urine Protein 100 H Urine Ketones Negative Urine Blood Moderate H Urine Nitrite Negative Urine Bilirubin Small H Urine Urobilinogen 1.0 H Ur Leukocyte Esterase Negative Urine RBC 0-2 Urine WBC Negative Ur Epithelial Cells Rare Urine Crystals Few Amorphous Urine Bacteria Rare Urine Casts Negative Urine Mucus Negative Ur Culture Indicated? C&S Done As Ordered Urine Glucose 500 H Urine Legionella Ag Path Cons Comment SEE COMMENT 01/02/23 01/02/23 01/02/23 10:10 12:00 13:25 WBC RBC Hgb Hct MCV MCH MCHC RDW Plt Count MPV Immature Gran % Neutrophils % Band Neutrophils % Lymphocytes % Monocytes % Eosinophils % Basophils % Metamyelocytes % Myelocytes % Other Cells % Nucleated RBC % Absolute Neutrophils Absolute Lymphocytes Absolute Monocytes Absolute Eosinophils Absolute Basophils RBC Morphology Polychromasia Poikilocytosis Anisocytosis PT INR APTT Fibrinogen VBG pH 7.31 VBG pCO2 44 VBG pO2 109 VBG HCO3 22 L VBG Total CO2 21 L VBG O2 Saturation 98 VBG Base Excess -4 L Sodium 137 Potassium 5.2 H Chloride 105 Carbon Dioxide 23.2 Anion Gap 8.8 BUN 39 H Creatinine 1.7 H Est GFR (CKD-EPI 2020) 43.91 Glucose 229 H Calcium 8.3 L Total Bilirubin AST ALT Alkaline Phosphatase C-Reactive Protein Total Protein Albumin Urine Color Urine Clarity Urine pH Ur Specific [place] Urine Protein Urine Ketones Urine Blood Urine Nitrite Urine Bilirubin Urine Urobilinogen Ur Leukocyte Esterase Urine RBC Urine WBC Ur Epithelial Cells Urine Crystals Urine Bacteria Urine Casts Urine Mucus Ur Culture Indicated? Urine Glucose Urine Legionella Ag Negative Path Cons Comment 01/02/23 01/03/23 01/03/23 17:07 01:30 06:35 WBC RBC Hgb Hct MCV MCH MCHC RDW Plt Count MPV Immature Gran % Neutrophils % Band Neutrophils % Lymphocytes % Monocytes % Eosinophils % Basophils % Metamyelocytes % Myelocytes % Other Cells % Nucleated RBC % Absolute Neutrophils Absolute Lymphocytes Absolute Monocytes Absolute Eosinophils Absolute Basophils RBC Morphology Polychromasia Poikilocytosis Anisocytosis PT INR APTT 46.3 H Fibrinogen VBG pH VBG pCO2 VBG pO2 VBG HCO3 VBG Total CO2 VBG O2 Saturation VBG Base Excess Sodium 141 144 Potassium 5.1 5.1 Chloride 107 111 H Carbon Dioxide 23.6 27.5 Anion Gap 10.4 5.5 BUN 38 H 32 H Creatinine 1.8 H 1.5 H Est GFR (CKD-EPI 2020) 41.00 51.03 Glucose 306 H 304 H Calcium 8.2 L 8.5 Total Bilirubin 0.5 AST 83 H ALT 37 Alkaline Phosphatase 104 C-Reactive Protein > 25.00 H Total Protein 6.8 Albumin 2.1 L Urine Color Urine Clarity Urine pH Ur Specific [place] Urine Protein Urine Ketones Urine Blood Urine Nitrite Urine Bilirubin Urine Urobilinogen Ur Leukocyte Esterase Urine RBC Urine WBC Ur Epithelial Cells Urine Crystals Urine Bacteria Urine Casts Urine Mucus Ur Culture Indicated? Urine Glucose Urine Legionella Ag Path Cons Comment 01/03/23 01/03/23 01/03/23 06:35 06:35 06:35 WBC 4.34 L RBC 2.68 L Hgb 7.1 L Hct 24.3 L MCV 91 MCH 26.5 L MCHC 29.2 L RDW 23.4 H Plt Count 41 L MPV Immature Gran % See Differential Neutrophils % 66.0 Band Neutrophils % 8 Lymphocytes % 11.0 Monocytes % 0.0 Eosinophils % 0.0 Basophils % 0.0 Metamyelocytes % 2 Myelocytes % 4 Other Cells % 9 Nucleated RBC % 3.0 H Absolute Neutrophils 3.21 Absolute Lymphocytes 0.48 L Absolute Monocytes 0.00 L Absolute Eosinophils 0.00 Absolute Basophils 0.00 RBC Morphology See Below Polychromasia Present Poikilocytosis 1+ Anisocytosis 3+ PT 17.6 H INR 1.7 H APTT Fibrinogen VBG pH 7.32 VBG pCO2 51 VBG pO2 31 VBG HCO3 26 VBG Total CO2 26 VBG O2 Saturation 57 VBG Base Excess 0 Sodium Potassium Chloride Carbon Dioxide Anion Gap BUN Creatinine Est GFR (CKD-EPI 2020) Glucose Calcium Total Bilirubin AST ALT Alkaline Phosphatase C-Reactive Protein Total Protein Albumin Urine Color Urine Clarity Urine pH Ur Specific [place] Urine Protein Urine Ketones Urine Blood Urine Nitrite Urine Bilirubin Urine Urobilinogen Ur Leukocyte Esterase Urine RBC Urine WBC Ur Epithelial Cells Urine Crystals Urine Bacteria Urine Casts Urine Mucus Ur Culture Indicated? Urine Glucose Urine Legionella Ag Path Cons Comment 01/03/23 06:35 WBC RBC Hgb Hct MCV MCH MCHC RDW Plt Count MPV Immature Gran % Neutrophils % Band Neutrophils % Lymphocytes % Monocytes % Eosinophils % Basophils % Metamyelocytes % Myelocytes % Other Cells % Nucleated RBC % Absolute Neutrophils Absolute Lymphocytes Absolute Monocytes Absolute Eosinophils Absolute Basophils RBC Morphology Polychromasia Poikilocytosis Anisocytosis PT INR APTT 61.6 H Fibrinogen VBG pH VBG pCO2 VBG pO2 VBG HCO3 VBG Total CO2 VBG O2 Saturation VBG Base Excess Sodium Potassium Chloride Carbon Dioxide Anion Gap BUN Creatinine Est GFR (CKD-EPI 2020) Glucose Calcium Total Bilirubin AST ALT Alkaline Phosphatase C-Reactive Protein Total Protein Albumin Urine Color Urine Clarity Urine pH Ur Specific [place] Urine Protein Urine Ketones Urine Blood Urine Nitrite Urine Bilirubin Urine Urobilinogen Ur Leukocyte Esterase Urine RBC Urine WBC Ur Epithelial Cells Urine Crystals Urine Bacteria Urine Casts Urine Mucus Ur Culture Indicated? Urine Glucose Urine Legionella Ag Path Cons Comment Time Spent with Patient Time Spent with Patient: 25-34 minutes Time was spent: preparing to see the patient(eg.review tests), referring, communicating with other health career services representative, indepentently interpreting results, counseling the patient (and family, daughter and room mate) and care coordination
[2023-01-03] MEDS: Apixaban 5 MG TAB PO (11:10)
[2023-01-03] MEDS: Atorvastatin 20 MG TAB PO (11:10)
[2023-01-03] MEDS: Atenolol 50 MG TAB 100 MG PO (11:10)
[2023-01-03] MEDS: Doxazosin 2 MG TAB 4 MG PO (11:12)
[2023-01-03] MEDS: Mirabegron 50 MG TABCR PO (11:18)
[2023-01-03] MEDS: ACETAMINOPHEN 1,000 MG/100 ML BTL 400 MG IVPB (15:07)
[2023-01-03] MEDS: VANCOMYCIN/WATER (PEG) 1.75 GM/350 ML BAG IV (15:10)
--- NOTE | 2023-01-03 15:17 | PGE_ITS ---
Patient se4en for wound care only by Shiloh Rocha Date of Service Date of service: 01/03/23 Time of Service: 15:18 Assessment and Plan Assessment and plan (1) Diabetes mellitus type 2 in obese: Status: Acute Assessment and plan: 2 layer compression dressings were applied to bilateral lower extremities. Patient tolerated application well. Discussed with him that if he starts to have any lower extremity discomfort numbness tingling or feelings of constriction he should notify the nurse immediately for further evaluation if these need to be removed. (2) BMI 60.0-69.9, adult: Status: Chronic (3) Gram-positive bacteremia: Status: Acute (4) DKA (diabetic ketoacidoses): Status: Resolved Subjective Subjective Interval history since last seen: Arrived with the patient resting in bed. Patient reports that he was having home health nurses coming to his home and apply Unna boot dressings every 2 to 3 days. He states this was to manage his lower extremity swelling. Exam Const General: cooperative and comfortable Orientation: alert and awake Resp Effort & Inspection: normal respiratory effort, no audible wheezes and no cough Skin Other: Mild bilateral lower extremity swelling. Excoriations noted on the anterior thighs. No other wounds or skin lesions were noted. Objective Last Vital Signs Temp 39.1 C H 01/03/23 12:17 Pulse 112 H 01/03/23 11:26 Resp 35 H 01/03/23 11:26 BP 132/62 01/03/23 10:17 Pulse Ox 92 01/03/23 11:26 Laboratory Results - last 24 hr 01/01/23 01/02/23 01/02/23 19:05 05:35 10:10 WBC RBC Hgb Hct MCV MCH MCHC RDW Plt Count MPV Immature Gran % Neutrophils % Band Neutrophils % Lymphocytes % Monocytes % Eosinophils % Basophils % Metamyelocytes % Myelocytes % Other Cells % Nucleated RBC % Absolute Neutrophils Absolute Lymphocytes Absolute Monocytes Absolute Eosinophils Absolute Basophils RBC Morphology Polychromasia Poikilocytosis Anisocytosis Haptoglobin 480 H PT INR APTT Fibrinogen 919 H VBG pH VBG pCO2 VBG pO2 VBG HCO3 VBG Total CO2 VBG O2 Saturation VBG Base Excess Sodium Potassium Chloride Carbon Dioxide Anion Gap BUN Creatinine Est GFR (CKD-EPI 2020) Glucose Calcium Total Bilirubin AST ALT Alkaline Phosphatase C-Reactive Protein Total Protein Albumin Urine Legionella Ag Negative 0301/02/23 01/03/23 12:00 17:07 01:30 WBC RBC Hgb Hct MCV MCH MCHC RDW Plt Count MPV Immature Gran % Neutrophils % Band Neutrophils % Lymphocytes % Monocytes % Eosinophils % Basophils % Metamyelocytes % Myelocytes % Other Cells % Nucleated RBC % Absolute Neutrophils Absolute Lymphocytes Absolute Monocytes Absolute Eosinophils Absolute Basophils RBC Morphology Polychromasia Poikilocytosis Anisocytosis Haptoglobin PT INR APTT 46.3 H Fibrinogen VBG pH VBG pCO2 VBG pO2 VBG HCO3 VBG Total CO2 VBG O2 Saturation VBG Base Excess Sodium 137 141 Potassium 5.2 H 5.1 Chloride 105 107 Carbon Dioxide 23.2 23.6 Anion Gap 8.8 10.4 BUN 39 H 38 H Creatinine 1.7 H 1.8 H Est GFR (CKD-EPI 2020) 43.91 41.00 Glucose 229 H 306 H Calcium 8.3 L 8.2 L Total Bilirubin AST ALT Alkaline Phosphatase C-Reactive Protein Total Protein Albumin Urine Legionella Ag 01/03/23 01/03/23 01/03/23 06:35 06:35 06:35 WBC 4.34 L RBC 2.68 L Hgb 7.1 L Hct 24.3 L MCV 91 MCH 26.5 L MCHC 29.2 L RDW 23.4 H Plt Count 41 L MPV Immature Gran % See Differential Neutrophils % 66.0 Band Neutrophils % 8 Lymphocytes % 11.0 Monocytes % 0.0 Eosinophils % 0.0 Basophils % 0.0 Metamyelocytes % 2 Myelocytes % 4 Other Cells % 9 Nucleated RBC % 3.0 H Absolute Neutrophils 3.21 Absolute Lymphocytes 0.48 L Absolute Monocytes 0.00 L Absolute Eosinophils 0.00 Absolute Basophils 0.00 RBC Morphology See Below Polychromasia Present Poikilocytosis 1+ Anisocytosis 3+ Haptoglobin PT INR APTT Fibrinogen VBG pH 7.32 VBG pCO2 51 VBG pO2 31 VBG HCO3 26 VBG Total CO2 26 VBG O2 Saturation 57 VBG Base Excess 0 Sodium 144 Potassium 5.1 Chloride 111 H Carbon Dioxide 27.5 Anion Gap 5.5 BUN 32 H Creatinine 1.5 H Est GFR (CKD-EPI 2020) 51.03 Glucose 304 H Calcium 8.5 Total Bilirubin 0.5 AST 83 H ALT 37 Alkaline Phosphatase 104 C-Reactive Protein > 25.00 H Total Protein 6.8 Albumin 2.1 L Urine Legionella Ag 01/03/23 01/03/23 06:35 06:35 WBC RBC Hgb Hct MCV MCH MCHC RDW Plt Count MPV Immature Gran % Neutrophils % Band Neutrophils % Lymphocytes % Monocytes % Eosinophils % Basophils % Metamyelocytes % Myelocytes % Other Cells % Nucleated RBC % Absolute Neutrophils Absolute Lymphocytes Absolute Monocytes Absolute Eosinophils Absolute Basophils RBC Morphology Polychromasia Poikilocytosis Anisocytosis Haptoglobin PT 17.6 H INR 1.7 H APTT 61.6 H Fibrinogen VBG pH VBG pCO2 VBG pO2 VBG HCO3 VBG Total CO2 VBG O2 Saturation VBG Base Excess Sodium Potassium Chloride Carbon Dioxide Anion Gap BUN Creatinine Est GFR (CKD-EPI 2020) Glucose Calcium Total Bilirubin AST ALT Alkaline Phosphatase C-Reactive Protein Total Protein Albumin Urine Legionella Ag Time Spent with Patient Time Spent with Patient: 25-34 minutes Time was spent: ordering medications,tests, procedures, counseling the patient and other (applying dressings to legs)
[2023-01-03 15:19] LABS: HCO3 (Venous) 27 mmol/L (23-28); TCO2 (Venous) 27 mmol/L (24-29); pCO2 (Venous) 52 mmHg (41-51); pH (Venous) 7.33 (7.31-7.41); pO2 (Venous) 73 mmHg
[2023-01-03 15:20] LABS: BE (Venous) 1 mmol/L (-2-3); O2 Sat (Venous) 95 %
--- NOTE | 2023-01-03 15:58 | PT.INNT ---
Date of service: 01/03/23 Time of Service: 15:58 PT Notes Visit Reasons: Pneumonia Patient obtunded. Will recheck tomorrow morning and determine appropriateness for PT services.
--- NOTE | 2023-01-03 16:08 | STREC_ITS ---
Date of service: 01/03/23 Time of Service: 16:08 Speech Therapy Recommendations Report ST Recommendations: Attempting to complete Clinical Swallow Evaluation, per RN patient is obtunded and not fully rousable at this time. Will continue to follow and perform evalu ation when appropriate. Coding
--- NOTE | 2023-01-03 16:27 | W.EVENT ---
Date of service: 01/03/23 Time of Service: 16:27 Event Note: CTSP d/t acute hypoxemia (SPO2 in 70%'s), tachypnea (30-40), HR 110's, stable BP. Patient w/ severe wheezing and rales and was diaphoretic and confused. I performed quick exam and did POCUS of his lungs and heart to assess his volume status and pneumonia. I concluded that he is volume overloaded (dilated IVC, noncollapsable c/w RAP 15 cm, and IVS bows toward LV during diastole c/w volume overload. Overall LV function appears preserved and RV is dilated but seems to have adequate systolic excursion. Patient was put back on BIPAP and given lasix and continous DuoNeb treatment. Given his ISIS, I will change his Zosyn to Ceftriaxone 2 gm daily, discontinue the Vancomycin and continue the azithromycin. His blood cultures are growing both Staph non-aureus and Strep species. High dose Rocephin should cover both w/out renal implications. I will continue the azithromycin pending his atypical studies. Time Spent with Patient Time spent in critical care(minutes): 75 minutes (not counting time performing POCUS which was separate 32 minutes) Time Spent Included: Coordination of care, Documenting critically ill care, Time at immediate bedside and Discussing critically ill care with other medical staff
[2023-01-03] MEDS: Furosemide 40 MG/4 ML VIAL IVP (16:40)
[2023-01-03] MEDS: Pantoprazole 40 MG VIAL IVP (16:40)
--- NOTE | 2023-01-03 16:47 | W.POCUS ---
Pocus Exam Limited Thoracic Lung Exam DATE OF EXAM: 01/03/23 TIME OF EXAM: 15:37 PROVIDER THAT PERFORMED THE STUDY: James Haas REASON FOR EXAM: Hypoxia, Pneumonia and Shortness ofBreath PERTINENT FINDINGS/IMPRESSION: B-lines/left side thoracis location: anterior, lateral and posterior, B-lines/right side thoracis location: anterior, lateral and posterior, Pneumonia (left and right lower lobe consolidations and subpleural consolidations) and Left pleural effusion DIFFERENTIAL DIAGNOSES: pneumonia complicated by pulmonary edema
--- NOTE | 2023-01-03 16:53 | W.POCUS ---
Pocus Exam Limited Cardiac Exam DATE OF EXAM: 01/03/23 TIME OF EXAM: 15:45 PROVIDER THAT PERFORMED THE STUDY: James Haas IS THIS A REPEAT EXAM DURING THIS ENCOUNTER: no REASON FOR EXAM: Dyspnea and Hypoxia VISUALIZED STRUCTURES: four chambers, mitral valve, Interventricular septum and IVC VIEW OBTAINED: Apical 4-Chamber, Parasternal long-axis (poor images limited by body habitus, and lung shadow, inability to position patient on his side), Parasternal short-axis (poor windows, off axis but able to obtain LV at mid ventricular and mitral valve level, image degraded by lung shadows) and Subxiphoid PERTINENT FINDINGS/IMPRESSION: Plethoric IVC and RV dilation; no IVC inspiratory collapsability (IVC measures 2.55 cm max diameter w/ 16% inspiratory collapsability), No LV dysfunction (MAPSE 17.4 mm, thickened LV w/ good systolic contraction and thickening best seen in parasternal short axis and 4 chamber apical view and subxiphoid views) and No RV dysfunction (TAPSE 32 mm, good systolic excursion best seen in subxiphoid view) Did not tolerate exam
[2023-01-03] MEDS: Albuterol/Ipratropium 3 ML UPD VIAL UPD ×4 (17:33→18:25)
[2023-01-03] MEDS: cefTRIAXone 2 GM/50 ML BAG IVPB (20:00)
[2023-01-03] MEDS: Insulin Glargine 300 UNITS/3 ML PEN 50 UNITS SC (21:00)
[2023-01-03] MEDS: AZITHROMYCIN 250 MG in Normal Saline 250 ML IVPB (23:00)
[2023-01-04] VITALS (56 sets, daily range): BP systolic 95–155; BP diastolic 42–70; PULSE 68–85; RESP 5–39; TEMP 36.8–38.1; O2SAT 81–95
[2023-01-04] MEDS: Ciprofloxacin 0.3% 2.5 ML BTL OU ×10 (01:35→22:12)
[2023-01-04 06:42] LABS: INR 1.5 (0.9-1.1); Prothrombin Time 15.3 sec (9.3-11.0)
[2023-01-04] MEDS: Albuterol/Ipratropium 3 ML UPD VIAL UPD ×2 (08:20→15:54)
--- NOTE | 2023-01-04 08:36 | W.PM.PROGNOT ---
Date of Service Date of service: 01/04/23 Time of Service: 08:36 Assessment and Plan Assessment and plan (1) Sepsis: Status: Acute Assessment and plan: BC 1st set 01/01/23 + Strep species , 2nd set +Staph, non-aureus (2/2 bottles); sputum 01/01/23 normal kavya CXR w/ KEVIN pneumonia. His renal function and cognition are improving, despite his setback yesterday afternoon/evening. I dc'ed his Zosyn and vancomycin yesterday afternoon for high dose Rocephin but continued his azithromycin given he blood cultures did not demonstrate MRSA. Urine legionella antigen was negative. Strep antigen and mycoplasma studies are still pending. Continue Rocephin and azithromycin. I discussed steroids w/ Dr. Lal, I have concerns about his sepsis/bacteremia and therefore have held on steroids although this may help w/ his pneumonia inflammation. Despite his sepsis, he has not required vasopressors. Clinically he seems to be responding to antibiotic treatment. I think his ongoing resp failure is combination of his underlying YAMIL/OHS along w/ some volume overload d/t fluids given in resuscitation. He had dose of lasix yesterday when he was in acute respiratory distress and was found to have RAP and dilated RV w/ signs of fluid overload (abnormal IV septal wall motion). He remains full code per my discussion w/ his daughter yesterday who is his DPOA. Now that Welcome is more alert, and appropriate, he can participate in this discussion. Palliative care will be consulted to discuss w/ the patient and his family goals of care. Critical care time spent interviewing and examining the patient, reviewing studies, discussing case with patient's nurse and consulting physicians was 45 minutes (2) Gram-positive bacteremia: Status: Acute Assessment and plan: atypical strep; Strep mitis/oralis, repeat cultures from 01/03 are pending. His other blood cultures from admission grew Staph epidermis; both should respond to high dose Ceftriaxone. (3) Pneumonia: Status: Acute Assessment and plan: as above will change his DuoNeb to scheduled every 4 hr while awake; add percussion and postural drainage. continue antibiotics as above. (4) Pancytopenia: Status: Acute Assessment and plan: patient has pancytopenia probably d/t sepsis, DIC; however he has some blast cells on his peripheral smear (as well as ovalocytes and teardrop cells). His fibrinogen level as normal yesterday. LDH was slightly elevated. I have ordered leukemia/lymphoma panel. If his dyscrasia does not improve w/ resolution of his sepsis then he should have a bone marrow but for now will monitor his response to treatment. he is on GI protection w/ protonix. No signs of acute bleeding. He was typed an screened yesterday. (5) Acute kidney injury (nontraumatic): Status: Acute Assessment and plan: improving. BUN and creatinine down to 46>32 and 1.9>1.5, stable at 1.5 today. (6) DKA (diabetic ketoacidoses): Status: Resolved Assessment and plan: patient presented w/ mild DKA that quickly resolved. glucose being monitored q6h w/ sliding scale insulin and he remains on basal insulin Lantus. glucose readings are in the high 200's to 300's. He may need to go back on low rate insulin drip to control his glucose particularly if we can not anticipate his ability to take in po foods. I will increase his sliding scale to resistant scale, have nursing monitor and cover glucose q4h, if glucose continues to rise then will change to insulin drip. He is not currently in DKA. (7) Diabetes mellitus type 2 in obese: Status: Acute Assessment and plan: as above (8) Anticoagulation monitoring, INR range 2-3: Status: Chronic Assessment and plan: patient had subtherapeutic INR and needs lifetime anticoagulation from his prior PE. I stopped his heparin yesterday. apixaban was ordered yesterday. (9) Acute pulmonary embolism: Start date: 12/07/15 Status: Resolved Assessment and plan: hx of P.E. in 2016; chronically on warfarin; will change to apixaban as he has been subtherapeutic anyway (10) COVID: Status: Acute Assessment and plan: PCR is postive however, daughter says that he has tested on home test negative repeatedly. he did complete 5 days of Paxlovid at home two weeks ago. I think that we can take him out of postive covid status. I would still wear masks given his pneumonia. per [facility] policy he is not considered infectious and has been taken out of isolation (11) Hypertension: Status: Chronic Assessment and plan: will resume his atenolol. will hold his amlodipine for one more day but will resume once his BP has remained stable for 24hr Qualifiers: Hypertension type: essential hypertension Qualified Code(s): I10 - Essential (primary) hypertension Subjective Subjective Interval history since last seen: Nico was on BIPAP overnight but has been pulling off his mask. This morning he is more alert, answering questions appropriately and cooperating w/ wearing his BIPAP mask this morning. he has moist cough but trouble mobilizing. He lost his iv access this morning. I have asked Dr. Doss, from surgery to put in CVP. Dr. Lal saw the patient w/ me this morning Exam Narrative Exam Narrative: Morbidly obese male (BMI 54), bearded white male, he awakens easily and will engage in conversation and answers my questions appropriately He is oriented to person/place [facility], and to year but was off on the month (thought it was November) Chest barrel chested Lungs: coarse rhonchi and expiratory wheezing Heart: regular (tele review reveals sinus rhythm) Abdomen: obese, soft, nontender Legs: 1+ edema bilaterally Neuro: normal ROM and strength, no facial asymmetry, normal speech, cognition seems to be intact Objective Last Vital Signs Temp 37.5 C 01/04/23 04:45 Pulse 84 01/04/23 08:15 Resp 21 01/04/23 05:00 BP 136/68 01/04/23 06:01 Pulse Ox 94 01/04/23 08:20 Laboratory Results - last 24 hr 01/01/23 01/02/23 01/02/23 19:05 05:35 10:10 Haptoglobin 480 H PT INR Fibrinogen 919 H VBG pH VBG pCO2 VBG pO2 VBG HCO3 VBG Total CO2 VBG O2 Saturation VBG Base Excess Urine Legionella Ag Negative 01/03/23 01/04/23 15:10 05:16 Haptoglobin PT 15.3 H INR 1.5 H Fibrinogen VBG pH 7.33 VBG pCO2 52 H VBG pO2 73 VBG HCO3 27 VBG Total CO2 27 VBG O2 Saturation 95 VBG Base Excess 1 Urine Legionella Ag Time Spent with Patient Time Spent with Patient: 35-49 minutes Time was spent: preparing to see the patient(eg.review tests), ordering medications,tests, procedures, referring, communicating with other health patient care technician (Dr. Lal and Dr. Doss), indepentently interpreting results and care coordination
--- NOTE | 2023-01-04 08:43 | CMPROGNOTE_ITS ---
- If Service Date Differs Date of service: 01/04/23 Time of Service: 08:43 Care Management Progress Note S/O: Nico continues to require close monitoring and treatment in the ICU. He had a central line placed today and remains on hi flow O2. Dr. Esparza is consulted. Palliative consult is ordered to discuss goals of care, currently he is a full code. Nico requires max assist at this time and may require SNF for STR, when medically ready for discharge. A: 67 year old male admitted to [facility] on 12/05/22 for pneumonia P: Anticipate Nico will return home with resumption of [facility] RN (add PT, OT) and CFC Moderate when ready per MD. He will follow up with his PCP and plan of care as prescribed and transport via private vehicle with family. CM continues to follow.
[2023-01-04 09:03] LABS: BE (Venous) 1 mmol/L (-2-3); HCO3 (Venous) 27 mmol/L (23-28); O2 Sat (Venous) 97 %; TCO2 (Venous) 26 mmol/L (24-29); pCO2 (Venous) 48 mmHg (41-51); pH (Venous) 7.36 (7.31-7.41); pO2 (Venous) 90 mmHg
[2023-01-04 09:05] LABS: HCT 25.3 % (40.0-50.0); HGB 7.4 g/dL (13.5-17.5); MCH 26.9 pg (27.0-33.0); MCHC 29.2 % (32.0-36.0); MCV 92 fL (80-95); RBC 2.75 10^6/uL (4.36-5.78); RDW 23.9 % (11.8-14.1); RDW-SD 79.1 fL; WBC 3.23 10^3/uL (4.4-10.8)
[2023-01-04] MEDS: Benzonatate 100 MG CAP PO (09:14)
[2023-01-04] MEDS: Atenolol 50 MG TAB 100 MG PO (09:14)
[2023-01-04] MEDS: Potassium Citrate 1080 MG TABCR 2160 MG PO (09:14)
[2023-01-04] MEDS: Apixaban 5 MG TAB PO (09:14)
[2023-01-04] MEDS: Doxazosin 2 MG TAB 4 MG PO (09:15)
[2023-01-04] MEDS: Mirabegron 50 MG TABCR PO (09:15)
[2023-01-04] MEDS: Atorvastatin 20 MG TAB PO (09:15)
[2023-01-04] MEDS: Nystatin POWDER 60 GM JAR TP ×3 (09:16→20:29)
[2023-01-04] MEDS: Insulin Glargine 300 UNITS/3 ML PEN 50 UNITS SC ×2 (09:18→20:31)
[2023-01-04 09:20] LABS: ALT 41 U/L (16-63); AST 83 U/L (15-37); Alkaline Phosphatase 112 U/L (46-116); Anion Gap 6.5 mmol/L (3-11); BUN 30 mg/dL (7-18); Bilirubin, Total 0.4 mg/dL (0.2-1.0); CO2 28.5 mmol/L (21.0-32.0); CREATININE 1.5 mg/dL (0.70-1.30); Calcium 8.8 mg/dL (8.5-10.1); Chloride 114 mmol/L (98-107); Estimated GFR 51.03 (mL/min/1.73m2); Glucose 266 mg/dL (74-106); Potassium 4.5 mmol/L (3.5-5.1); Sodium 149 mmol/L (136-145); Total Protein 7.2 g/dL (6.4-8.2)
[2023-01-04] MEDS: Insulin Aspart 300 UNITS/3 ML PEN SC ×5 (09:21→22:13)
--- NOTE | 2023-01-04 09:39 | PUCC_ITS ---
General Date of Service Date of service: 01/04/23 Time of Service: 08:30 Reason for Admission to ICU: This is a chronically ill 67 yo who had COVID 3 week prior to admission (has had multiple infections) and received Paxlovid. He developed worsening cough and dyspnea. He was found to have a mild respiratory acidosis and placed on BiPAP. His CXR shows a dense KEVIN consolidation. He had a CVC placed today as he lost IV access, which does show worsening of this consolidaiton. He did not have a D- dimer on admission, but now one is pending. He does have an ISIS, but this does seem to be improving. His procalcitonin has been elevated (in the setting of renal failure). His blood cultures are significant for: one bottle staph epi, once bottle strep mitis/oralis. MRSA screen is negative. Negative legionall antigen, strep antigen is pending. His COVID PCR continues to be positive. It is challenging to interview the patient with the BiPAP mask on. He is only on 30%. Assessment and Plan Assessment and plan (1) Gram-positive bacteremia: Status: Acute (2) Sepsis: Status: Acute (3) Pneumonia: Status: Acute (4) COVID: Status: Acute (5) Acute kidney injury (nontraumatic): Status: Acute (6) Sleep apnea: Status: Chronic (7) Right-sided heart failure: Status: Chronic Qualifiers: Heart failure chronicity: chronic Qualified Code(s): I50.812 - Chronic right heart failure (8) Respiratory failure with hypoxia: Status: Acute Assessment and plan: This is a 67 yo admitted for pneumonia and bacteremia to the ICU due to necessity for BiPAP. The consolidation is very dense, and certainly a component of mucus plugging is contributing to his respiratory status. Steroids may assist with both treeatment of the pneumonia and treatment of the mucus. He has two cultures each with a different bacteria known to be contaminant. It is possible both of these are, however agree with treating them for now. There are repeat cultures pending. He is only requiring 30% FiO2 on BiPAP, ideally we could wean him to high flow nasal cannula (with a high flow rate - 60LPM) in order to work on aggressive airway clearance. He is on appropriate antibiotics. I do think a CT will be helpful. If his dimer is high then a CTPE would be appropriate, if it is low, then a normal non contrasted CT will be sufficient. Recommendations Pulmonary: Hypoxic respiratory failure - recommend BiPAP at night/naps - HFNC at 60LPM, FiO2 for sats >90% - recommend aggressive airway clearance - Acapella, IS and KEVIN percussor YAMIL - on BiPAP at home - unable to tolerate his own machine as of yet Cardiac: Right heart failure - diuresis to euvolemia Renal: ISIS - improving - continue to monitor I&O: Intake & Output 01/01/23 01/02/23 01/03/23 01/04/23 23:59 23:59 23:59 23:59 Intake Total 1350 / 1350 3968.851 / 3968.851 2895.283 / 2895.283 420 / 420 Output Total 1600 / 1975 3950 / 3950 1250 / 1250 Balance 1350 / 1350 2368.851 / 1993.851 -1054.717 / -1054.717 -830 / -830 Weight 173.9 kg 174.8 kg 173 kg 171.6 kg Daily Fluid Goal:: even to negative 1 L GI Nutrition: NPO for now Date of Last Bowel Movement: 01/02/23 Infectious Disease: KEVIN Pneumonia with sepsis - agree with ceftriaxone and azithromycin - strep urine antigen pending - aggressive airway clearance as above - recommend adjuvant steroids - recommend chest CT: CTPE is dimer high, otherwise CT without Non-resolving COVID - steroids as above - HIV and immunoglobulins ordered Bacteremia - possible contaminant? - repeat cultures pending Hematologic: Pancytopenia - no acute concerns Neurologic: No acute concerns - history of mental illness Endocrine: Diabetes - on insulin - no acute conerns Lines: CVC placed today Bello Prophylaxis: Eliquis and PPI - home meds Code Status: Resuscitation Status Full Code Exam Narrative Exam Narrative: Gen: NAD, increased respiratory effort, obese HENT: PERRL Chest: Mild respiratory distress, left sided crackles Heart: regular rate and rhythym, no murmurs, rubs or gallops Abdomen: Non-distended, soft, non tender Extremities: No clubbing, + edema, no cyanosis, no rashes Neuro: AAOx3 , non focal Psych: cooperative, appropriate mental affect Most Recent VS/Results Last Vital Signs Temp 37.5 C 01/04/23 04:45 Pulse 84 01/04/23 08:15 Resp 23 01/04/23 08:01 BP 155/60 H 01/04/23 08:01 Pulse Ox 94 01/04/23 09:01 Laboratory Results - last 24 hr 01/02/23 01/03/23 01/04/23 05:35 15:10 05:16 Haptoglobin 480 H PT 15.3 H INR 1.5 H VBG pH 7.33 VBG pCO2 52 H VBG pO2 73 VBG HCO3 27 VBG Total CO2 27 VBG O2 Saturation 95 VBG Base Excess 1 Sodium Potassium Chloride Carbon Dioxide Anion Gap BUN Creatinine Est GFR (CKD-EPI 2020) Glucose Calcium Total Bilirubin AST ALT Alkaline Phosphatase Total Protein Albumin 01/04/23 01/04/23 08:55 08:55 Haptoglobin PT INR VBG pH 7.36 VBG pCO2 48 VBG pO2 90 VBG HCO3 27 VBG Total CO2 26 VBG O2 Saturation 97 VBG Base Excess 1 Sodium 149 H Potassium 4.5 Chloride 114 H Carbon Dioxide 28.5 Anion Gap 6.5 BUN 30 H Creatinine 1.5 H Est GFR (CKD-EPI 2020) 51.03 Glucose 266 H Calcium 8.8 Total Bilirubin 0.4 AST 83 H ALT 41 Alkaline Phosphatase 112 Total Protein 7.2 Albumin 2.0 L Review of Systems Unobtainable due to (obstruction from BiPAP) Time spent with patient Time spent in Critical Care: 60 Time spent in Critical care included: Coordination of care, Chart review, Documenting critically ill care, Time at immediate bedside and Discussing critically ill care with other medical staff Multi-Disciplinary Checklist Lines/Tubes CENTRAL LINE: yes, Central Line Day#: 0 ARTERIAL LINE: no BELLO: yes, Bello Day#: 3 ENDOTRACHEAL TUBE: no ICU Maintenance GLUCOSE 140-180mg/dL: no, Reason/Intervention: hyperglycemia - on insulin NUTRITION AT GOAL: no, Reason/Intervention: on BiPAP PRESSURE ULCER: no RESTRAINTS: no ANTIBIOTICS(if yes, consider Stewardship): Yes Social Issues FAMILY UPDATED: no, PT/OT: no, 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
[2023-01-04 09:40] LABS: Procalcitonin 0.7 ng/mL
[2023-01-04 09:41] LABS: Platelet Count 41 10^3/uL (130-400)
[2023-01-04 09:42] LABS: Absolute Lymphocyte Count 0.78 10^3/uL (1.2-3.4); Absolute Monocyte Count 0.29 10^3/uL (0.1-0.8); Absolute Neutrophil Count 1.68 10^3/uL (1.2-6.7); Bands % 10; Metamyelocytes % 3
[2023-01-04 09:43] LABS: Anisocytosis 3+; Diff Comment Manual Differential; Myelocytes % 2; Other Cells % 10
[2023-01-04 09:44] LABS: C-Reactive Protein > 25.00 mg/dL (0.0-0.3); Poikilocytes 1+; Polychromasia Present
--- NOTE | 2023-01-04 10:13 | DI.RAD_ITS ---
Exam(s) XR LINE PLACEMENT PICC/CVA EXAM: XR LINE PLACEMENT PICC/CVA CLINICAL HISTORY: verify central line placement TECHNIQUE: 2D digital imaging was performed of the chest. One image was obtained. An AP view was ob tained. COMPARISON: CR,XR XR PORTABLE CHEST AP from 01/01/2023 FINDINGS: Examination limited by body habitus and poor inspiration. MEDIASTINUM: Normal. HEART: Normal. PULMONARY VASCULATURE: Normal. LUNGS: There is a persistent opacity in the left upper lobe. It is unchanged. PLEURAL SPACE: No pleural effusion or pneumothorax. BONE:Within normal limits for the patient's age. OTHER FINDINGS:The tip of the right IJ catheter is in good position at the junction of the superior v paige cava and right atrium. IMPRESSION: Tip of the right IJ catheter is in good position at the cavoatrial junction. DATA REPOSITORY: RADIATION DOSE DELIVERED:
[2023-01-04] MEDS: dexmedeTOMidine IN 0.9 % NACL 400 MCG/100 ML BTL 8.58 MCG IV (11:10)
[2023-01-04] MEDS: Normal Saline Flush 10 ML SYR IVP ×2 (11:40→15:54)
--- NOTE | 2023-01-04 12:03 | W.PM.PROGNOT ---
Date of Service Date of service: 01/04/23 Time of Service: 10:15 Subjective Subjective Interval history since last seen: I was consulted this morning for insertion of a central line because the patient lost his intravenous access and requires multiple intravenous medications. I discussed the risks and benefits of central venous insertion with Mr. Floyd, and he provided informed consent. Objective Last Vital Signs Temp 99.5 F 01/04/23 04:45 Pulse 75 01/04/23 11:08 Resp 23 01/04/23 08:01 BP 155/60 H 01/04/23 08:01 Pulse Ox 92 01/04/23 11:08 Laboratory Results - last 24 hr 01/03/23 01/04/23 01/04/23 15:10 05:16 08:55 WBC RBC Hgb Hct MCV MCH MCHC RDW Plt Count MPV Immature Gran % Neutrophils % Band Neutrophils % Lymphocytes % Monocytes % Eosinophils % Basophils % Metamyelocytes % Myelocytes % Other Cells % Nucleated RBC % Absolute Neutrophils Absolute Lymphocytes Absolute Monocytes Absolute Eosinophils Absolute Basophils RBC Morphology Polychromasia Poikilocytosis Anisocytosis PT 15.3 H INR 1.5 H VBG pH 7.33 VBG pCO2 52 H VBG pO2 73 VBG HCO3 27 VBG Total CO2 27 VBG O2 Saturation 95 VBG Base Excess 1 Sodium 149 H Potassium 4.5 Chloride 114 H Carbon Dioxide 28.5 Anion Gap 6.5 BUN 30 H Creatinine 1.5 H Est GFR (CKD-EPI 2020) 51.03 Glucose 266 H Calcium 8.8 Total Bilirubin 0.4 AST 83 H ALT 41 Alkaline Phosphatase 112 C-Reactive Protein > 25.00 H Total Protein 7.2 Albumin 2.0 L Procalcitonin 01/04/23 01/04/23 01/04/23 08:55 08:55 08:55 WBC 3.23 L RBC 2.75 L Hgb 7.4 L Hct 25.3 L MCV 92 MCH 26.9 L MCHC 29.2 L RDW 23.9 H Plt Count 41 L MPV Immature Gran % Neutrophils % 42.0 Band Neutrophils % 10 Lymphocytes % 24.0 Monocytes % 9.0 Eosinophils % 0.0 Basophils % 0.0 Metamyelocytes % 3 Myelocytes % 2 Other Cells % 10 Nucleated RBC % 2.0 H Absolute Neutrophils 1.68 Absolute Lymphocytes 0.78 L Absolute Monocytes 0.29 Absolute Eosinophils 0.00 Absolute Basophils 0.00 RBC Morphology See Below Polychromasia Present Poikilocytosis 1+ Anisocytosis 3+ PT INR VBG pH 7.36 VBG pCO2 48 VBG pO2 90 VBG HCO3 27 VBG Total CO2 26 VBG O2 Saturation 97 VBG Base Excess 1 Sodium Potassium Chloride Carbon Dioxide Anion Gap BUN Creatinine Est GFR (CKD-EPI 2020) Glucose Calcium Total Bilirubin AST ALT Alkaline Phosphatase C-Reactive Protein Total Protein Albumin Procalcitonin 0.7 Procedures Central Line Placement Right IJ: Time out performed: Yes Patient placed on monitor/pulse ox: Yes MD prep: mask, gown and gloves Central line prep: Chlorhexidine scrub Local anesthesia used: lidocaine 1% Amount of anesthesia used (ml): 3 Ultrasound used for placement: Yes Central line lumen inserted: triple Post procedure: sutured in place, good blood return, all ports aspirated, flushed, capped and sterile dressing applied Post procedure x-ray: tip of catheter in good position and no pneumothorax seen Patient tolerated procedure: well and no complications Complications: none Additional comments: Using sterile technique, and real-time ultrasound guidance, I inserted a 20 cm triple-lumen central venous catheter. I advanced over a guidewire in the usual fashion. It was secured at 16 cm at the skin. Time Spent with Patient Time Spent with Patient: 25-34 minutes Time was spent: preparing to see the patient(eg.review tests) and counseling the patient
[2023-01-04 12:15] LABS: D-Dimer 4516 ng/mlFEU (<500)
--- NOTE | 2023-01-04 12:17 | W.DIABETESNO ---
Date of service: 01/04/23 Time of Service: 12:17 Diabetes Note Reason for Visit: dm2 NOTE: Diabetes education consult received. Will provide education prn. Most recent A1C: 9.3%- not at glycemic target. Home DM meds: trulicity 4.5 mg q week, 10 mg jardiance qd, 100 u glargine q hs, 1000 mg metformin BID. Recommend concentrated basal insulin for better coverage at discharge. Would benefit from a CGM, eligible with multiple insulin injections qd. Time Spent in Nutritional Counseling and Treatment: 0
[2023-01-04 12:22] LABS: Ammonia 13 umol/L (11-32)
[2023-01-04] MEDS: dexmedeTOMidine IN 0.9 % NACL 400 MCG/100 ML BTL 21.4 MCG IV (14:04)
[2023-01-04 15:06] LABS: Streptococcus Pneumoniae Ag, U Negative (Negative)
[2023-01-04] MEDS: Pantoprazole 40 MG VIAL IVP (15:53)
[2023-01-04] MEDS: cefTRIAXone 2 GM/50 ML BAG IVPB (17:52)
[2023-01-04] MEDS: dexmedeTOMidine IN 0.9 % NACL 400 MCG/100 ML BTL 21.5 MCG IV ×2 (18:25→22:43)
--- NOTE | 2023-01-04 19:04 | PT.INNT ---
Date of service: 01/04/23 Time of Service: 08:30 PT Notes Visit Reasons: Pneumonia Hold per nursing. Will reassess tomorrow morning.
[2023-01-04] MEDS: AZITHROMYCIN 250 MG in Normal Saline 250 ML IVPB (22:02)
[2023-01-05] VITALS (68 sets, daily range): BP systolic 96–137; BP diastolic 29–87; PULSE 64–105; RESP 2–44; TEMP 30–38.6; O2SAT 86–98
--- NOTE | 2023-01-05 | DI.CT_ITS ---
Exam(s) CT CHEST PE CTA EXAM: CT CHEST PE CTA CLINICAL HISTORY: pneumonia, elevated dimer. TECHNIQUE: Imaging Protocol: Axial CT angiography was performed with multi-slice acquisition and mu lti-planar reconstructions as well as axial, coronal and sagittal MIP reconstructions. CONTRAST MATERIAL: Intravenous: Omnipaque 350 Contrast volume:100 ml COMPARISON: CT RENAL COLIC WO CONTRAST from 01/22/2018 CR XR PORTABLE CHEST AP POST LINE from 01/05/2023 FINDINGS: Exam limited by patient motion and body habitus. Pulmonary Arteries: Evaluation emboli extremely limited due to motion. No large pulmonary emboli see n prior. Question of emboli in distal segmental branches versus motion artifact. Tracheobronchial tree: Patent where visualized. Mediastinum and Barbara: No dominant adenopathy or fluid collection. Pulmonary parenchyma: Large area of dense consolidation in the left upper lobe. Left lower lobe infi ltrate and/or atelectasis. Pleura: Small left pleural effusion. Heart: Four-chamber dilatation. coronary artery calcifications are seen. Aorta: Thoracic aorta non-dilated. No aneurysm. No dissection. Upper abdomen: Degraded by motion artifact. Bones: Unremarkable for age. Tubes, Catheters, and Lines: None IMPRESSION: Exam extremely limited by motion artifact. Dense right upper lobe consolidation. Small left pleural effusion as well as left basilar infiltrates and/or atelectasis. Evaluation of pulmonary arteries limited by motion. Question of segmental pulmonary emboli in the lo wer lobes. RADIATION DOSE DELIVERED: 843.25mGy.cm Total DLP DATA REPOSITORY: All CT scans at this facility are submitted to the National Radiology Data Registry (NRDR) Dose Index Registry (DIR) with the [employer] ([employer]). RADIATION OPTIMIZATION: All CT scans at this facility use at least one of these dose optimization te chniques: automated exposure control; mA and/or kV adjustment per patient size (includes targeted exa ms where dose is matched to clinical indication); or iterative reconstruction.
[2023-01-05] MEDS: Ciprofloxacin 0.3% 2.5 ML BTL OU ×9 (00:07→21:20)
[2023-01-05] MEDS: Insulin Aspart 300 UNITS/3 ML PEN SC ×3 (01:57→21:26)
[2023-01-05] MEDS: traMADol 50 MG TAB 100 MG PO ×2 (02:19→21:18)
[2023-01-05 05:34] LABS: BE (Venous) 5 mmol/L (-2-3); HCO3 (Venous) 30 mmol/L (23-28); O2 Sat (Venous) 93 %; TCO2 (Venous) 30 mmol/L (24-29); pCO2 (Venous) 56 mmHg (41-51); pH (Venous) 7.35 (7.31-7.41); pO2 (Venous) 65 mmHg
[2023-01-05 05:51] LABS: INR 1.4 (0.9-1.1); Prothrombin Time 14.2 sec (9.3-11.0)
[2023-01-05 06:10] LABS: ALT 38 U/L (16-63); AST 97 U/L (15-37); Albumin 1.9 g/dL (3.4-5.0); Alkaline Phosphatase 102 U/L (46-116); Anion Gap 3.4 mmol/L (3-11); BUN 30 mg/dL (7-18); Bilirubin, Total 0.3 mg/dL (0.2-1.0); CO2 31.6 mmol/L (21.0-32.0); CREATININE 1.5 mg/dL (0.70-1.30); Calcium 8.5 mg/dL (8.5-10.1); Chloride 114 mmol/L (98-107); Estimated GFR 51.03 (mL/min/1.73m2); Glucose 161 mg/dL (74-106); Potassium 4.3 mmol/L (3.5-5.1); Sodium 149 mmol/L (136-145); Total Protein 6.7 g/dL (6.4-8.2)
[2023-01-05] MEDS: dexmedeTOMidine IN 0.9 % NACL 400 MCG/100 ML BTL 25.8 MCG IV (06:39)
--- NOTE | 2023-01-05 07:07 | PUCC_ITS ---
General Date of Service Date of service: 01/05/23 Time of Service: 07:07 Reason for Admission to ICU: Respiratory failure PNA Assessment and Plan Assessment and plan (1) Gram-positive bacteremia: Status: Acute (2) Sepsis: Status: Acute (3) Pneumonia: Status: Acute (4) COVID: Status: Acute (5) Acute kidney injury (nontraumatic): Status: Acute (6) Sleep apnea: Status: Chronic (7) Right-sided heart failure: Status: Chronic Qualifiers: Heart failure chronicity: chronic Qualified Code(s): I50.812 - Chronic right heart failure (8) Respiratory failure with hypoxia: Status: Acute Assessment and plan: This is a 67 yo admitted for pneumonia and bacteremia to the ICU due to necessity for BiPAP. The consolidation is very dense, and certainly a component of mucus plugging is contributing to his respiratory status. Steroids may assist with both treeatment of the pneumonia and treatment of the mucus. He has two cultures each with a different bacteria known to be contaminant. It is possible both of these are, however agree with treating them for now. There are repeat cultures with no growth to date. He is only requiring 30% FiO2 on BiPAP, ideally we could wean him to high flow nasal cannula (with a high flow rate - 60LPM) in order to work on aggressive airway clearance. He is on appropriate antibiotics. I do think a CT will be helpful. Hi D-dimer was elevated so I have ordered a CTPE. Recommendations Pulmonary: Hypoxic respiratory failure - recommend BiPAP at night/naps - if he tolerates his home unit today he can wear this overnight as well - HFNC at 60LPM, FiO2 for sats >90% - recommend aggressive airway clearance - Acapella, IS and KEVIN percussor YAMIL - on BiPAP at home - trial of home unit today Cardiac: Right heart failure - diuresis to euvolemia Renal: ISIS - improving - continue to monitor I&O: Intake & Output 01/02/23 01/03/23 01/04/23 01/05/23 23:59 23:59 23:59 23:59 Intake Total 3968.851 / 3968.851 2895.283 / 2895.283 1083.875 / 1083.875 278.858 / 278.858 Output Total 1600 / 1975 3950 / 3950 2500 / 2500 625 / 625 Balance 2368.851 / 1993.851 -1054.717 / -1054.717 -1416.125 / -1416.125 -346.142 / -346.142 Weight 174.8 kg 173 kg 171.6 kg 171.6 kg Daily Fluid Goal:: even to negative 1 L GI Nutrition: OK for diet today Date of Last Bowel Movement: 01/05/23 Infectious Disease: KEVIN Pneumonia with sepsis - agree with ceftriaxone and azithromycin - urine antigens negative - aggressive airway clearance as above - recommend adjuvant steroids - recommend chest CT: CTPE is dimer high, otherwise CT without Non-resolving COVID - steroids as above - HIV and immunoglobulins ordered - pending Bacteremia - possible contaminant? - repeat cultures pending Hematologic: Pancytopenia - no acute concerns Neurologic: No acute concerns - history of mental illness Endocrine: Diabetes - on insulin - no acute conerns Lines: CVC placed today Bello Prophylaxis: Eliquis and PPI - home meds Code Status: Resuscitation Status Full Code Subjective Critical and life-threatening events over the past 24 hours: Welcome seems to be turning a corner today. We were able to get him off BiPAP and on to HFNC. He will go for a CTPE today. He complains of a sore bottom from laying in the bed. Exam Narrative Exam Narrative: Gen: NAD, increased respiratory effort, obese HENT: PERRL Chest: Mild respiratory distress, left sided crackles Heart: regular rate and rhythym, no murmurs, rubs or gallops Abdomen: Non-distended, soft, non tender Extremities: No clubbing, + edema, no cyanosis, no rashes Neuro: AAOx3 , non focal Psych: cooperative, appropriate mental affect Most Recent VS/Results Last Vital Signs Temp 37.5 C 01/05/23 06:00 Pulse 68 01/05/23 06:01 Resp 29 H 01/05/23 06:26 BP 118/53 L 01/05/23 06:01 Pulse Ox 93 01/05/23 06:26 Laboratory Results - last 24 hr 01/02/23 01/04/23 01/04/23 10:10 08:55 08:55 WBC 3.23 L RBC 2.75 L Hgb 7.4 L Hct 25.3 L MCV 92 MCH 26.9 L MCHC 29.2 L RDW 23.9 H Plt Count 41 L MPV Immature Gran % Neutrophils % 42.0 Band Neutrophils % 10 Lymphocytes % 24.0 Monocytes % 9.0 Eosinophils % 0.0 Basophils % 0.0 Metamyelocytes % 3 Myelocytes % 2 Other Cells % 10 Nucleated RBC % 2.0 H Absolute Neutrophils 1.68 Absolute Lymphocytes 0.78 L Absolute Monocytes 0.29 Absolute Eosinophils 0.00 Absolute Basophils 0.00 RBC Morphology See Below Polychromasia Present Poikilocytosis 1+ Anisocytosis 3+ PT INR D-Dimer VBG pH VBG pCO2 VBG pO2 VBG HCO3 VBG Total CO2 VBG O2 Saturation VBG Base Excess Sodium 149 H Potassium 4.5 Chloride 114 H Carbon Dioxide 28.5 Anion Gap 6.5 BUN 30 H Creatinine 1.5 H Est GFR (CKD-EPI 2020) 51.03 Glucose 266 H Calcium 8.8 Total Bilirubin 0.4 AST 83 H ALT 41 Alkaline Phosphatase 112 Ammonia C-Reactive Protein > 25.00 H Total Protein 7.2 Albumin 2.0 L Procalcitonin Ur Strep pneumoniae Ag Negative 01/04/23 01/04/23 01/04/23 08:55 08:55 10:50 WBC RBC Hgb Hct MCV MCH MCHC RDW Plt Count MPV Immature Gran % Neutrophils % Band Neutrophils % Lymphocytes % Monocytes % Eosinophils % Basophils % Metamyelocytes % Myelocytes % Other Cells % Nucleated RBC % Absolute Neutrophils Absolute Lymphocytes Absolute Monocytes Absolute Eosinophils Absolute Basophils RBC Morphology Polychromasia Poikilocytosis Anisocytosis PT INR D-Dimer 4516 H VBG pH 7.36 VBG pCO2 48 VBG pO2 90 VBG HCO3 27 VBG Total CO2 26 VBG O2 Saturation 97 VBG Base Excess 1 Sodium Potassium Chloride Carbon Dioxide Anion Gap BUN Creatinine Est GFR (CKD-EPI 2020) Glucose Calcium Total Bilirubin AST ALT Alkaline Phosphatase Ammonia C-Reactive Protein Total Protein Albumin Procalcitonin 0.7 Ur Strep pneumoniae Ag 01/04/23 01/05/23 01/05/23 11:42 05:15 05:15 WBC RBC Hgb Hct MCV MCH MCHC RDW Plt Count MPV Immature Gran % Neutrophils % Band Neutrophils % Lymphocytes % Monocytes % Eosinophils % Basophils % Metamyelocytes % Myelocytes % Other Cells % Nucleated RBC % Absolute Neutrophils Absolute Lymphocytes Absolute Monocytes Absolute Eosinophils Absolute Basophils RBC Morphology Polychromasia Poikilocytosis Anisocytosis PT 14.2 H INR 1.4 H D-Dimer VBG pH VBG pCO2 VBG pO2 VBG HCO3 VBG Total CO2 VBG O2 Saturation VBG Base Excess Sodium 149 H Potassium 4.3 Chloride 114 H Carbon Dioxide 31.6 Anion Gap 3.4 BUN 30 H Creatinine 1.5 H Est GFR (CKD-EPI 2020) 51.03 Glucose 161 H Calcium 8.5 Total Bilirubin 0.3 AST 97 H ALT 38 Alkaline Phosphatase 102 Ammonia 13 C-Reactive Protein Total Protein 6.7 Albumin 1.9 L Procalcitonin Ur Strep pneumoniae Ag 01/05/23 05:15 WBC RBC Hgb Hct MCV MCH MCHC RDW Plt Count MPV Immature Gran % Neutrophils % Band Neutrophils % Lymphocytes % Monocytes % Eosinophils % Basophils % Metamyelocytes % Myelocytes % Other Cells % Nucleated RBC % Absolute Neutrophils Absolute Lymphocytes Absolute Monocytes Absolute Eosinophils Absolute Basophils RBC Morphology Polychromasia Poikilocytosis Anisocytosis PT INR D-Dimer VBG pH 7.35 VBG pCO2 56 H VBG pO2 65 VBG HCO3 30 H VBG Total CO2 30 H VBG O2 Saturation 93 VBG Base Excess 5 H Sodium Potassium Chloride Carbon Dioxide Anion Gap BUN Creatinine Est GFR (CKD-EPI 2020) Glucose Calcium Total Bilirubin AST ALT Alkaline Phosphatase Ammonia C-Reactive Protein Total Protein Albumin Procalcitonin Ur Strep pneumoniae Ag Review of Systems All systems reviewed & are unremarkable except as noted in HPI and below Time spent with patient Time spent in Critical Care: 45 Time spent in Critical care included: Chart review, Documenting critically ill care, Time at immediate bedside and Discussing critically ill care with other medical staff Multi-Disciplinary Checklist Lines/Tubes CENTRAL LINE: yes, Central Line Day#: 1 ARTERIAL LINE: no BELLO: yes, Bello Day#: 4 ENDOTRACHEAL TUBE: no ICU Maintenance GLUCOSE 140-180mg/dL: no, Reason/Intervention: hyperglycemia - on insulin NUTRITION AT GOAL: no, Reason/Intervention: will have diet today PRESSURE ULCER: no RESTRAINTS: no ANTIBIOTICS(if yes, consider Stewardship): Yes Social Issues FAMILY UPDATED: no, PT/OT: no, GOALS/DISPOSITION/HOME VISIT FIELD CARE MANAGER: yes CODE STATUS: Full Prophylaxis DVT PROPHYLAXIS: yes GI PROPHYLAXIS: yes, Indication: home med
[2023-01-05 07:11] LABS: HGB 7.1 g/dL (13.5-17.5); MCH 26.6 pg (27.0-33.0); MCHC 28.4 % (32.0-36.0); MCV 94 fL (80-95); RBC 2.67 10^6/uL (4.36-5.78); RDW-SD 83.5 fL
[2023-01-05] MEDS: Insulin Glargine 300 UNITS/3 ML PEN 50 UNITS SC (07:38)
[2023-01-05] MEDS: Nystatin POWDER 60 GM JAR TP ×3 (07:38→21:27)
[2023-01-05] MEDS: Normal Saline Flush 10 ML SYR IVP ×2 (07:44→12:59)
[2023-01-05 08:28] LABS: Absolute Lymphocyte Count 1.27 10^3/uL (1.2-3.4); Absolute Monocyte Count 0.11 10^3/uL (0.1-0.8); Absolute Neutrophil Count 0.81 10^3/uL (1.2-6.7); Atypical Lymphocytes % 2; Bands % 4
[2023-01-05 08:29] LABS: Metamyelocytes % 3; Myelocytes % 2; Other Cells % 14
[2023-01-05 08:30] LABS: Anisocytosis 3+; Diff Comment Manual Differential
[2023-01-05 08:33] LABS: Poikilocytes 1+; Polychromasia Present
[2023-01-05 08:38] LABS: Platelet Count 34 10^3/uL (130-400)
[2023-01-05 09:23] LABS: C-Reactive Protein 22.87 mg/dL (0.0-0.3)
[2023-01-05 09:38] LABS: IgE 6 IU/mL (<158)
[2023-01-05] MEDS: Albuterol/Ipratropium 3 ML UPD VIAL UPD ×3 (09:53→20:42)
[2023-01-05] MEDS: Doxazosin 2 MG TAB 4 MG PO (10:00)
[2023-01-05] MEDS: Benzonatate 100 MG CAP PO ×3 (10:14→21:18)
[2023-01-05] MEDS: Potassium Citrate 1080 MG TABCR 2160 MG PO ×2 (10:14→21:18)
[2023-01-05] MEDS: Atenolol 50 MG TAB 100 MG PO (10:15)
[2023-01-05] MEDS: methylPREDNISolone SUCC 40 MG VIAL IVP (10:16)
[2023-01-05] MEDS: Mirabegron 50 MG TABCR PO (10:16)
[2023-01-05] MEDS: guaiFENesin 600 MG TABCR PO ×2 (10:20→21:18)
[2023-01-05 10:35] LABS: IgA 283 mg/dL (85-499); IgG 1190 mg/dL (610-1616); IgM 138 mg/dL (35-242)
--- NOTE | 2023-01-05 10:35 | PT.INIE ---
Date of service: 01/05/23 Time of Service: 10:08 PT Notes Visit Reasons: Pneumonia Physical Therapy Inpatient Initial Evaluation Date: 01/05/2023 Referring Doctor: James Haas MD PT Orders: PT CONSULT: Limited ability Precautions: Fall. Standard. Activity as tolerated. Impaired safety awareness. No longer on COVID precautions per hospitalist. Patient Profile/Admitting Diagnosis: History 67-year-old male who presented to the ED on 01/01/2023 due to cough, shortness of breath, fever, and generalized weakness. Patient is admitted for close monitoring in the ICU and for management of pneumonia, metabolic acidosis, DKA, anemia, thrombocytopenia, sepsis, gram-positive bacteremia, acute kidney injury longstanding COVID and hypertension. PMHX: All Active Problems? 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) Sleep apnea (Chronic 01/29/13) Mod/severe sleep apnea GERD with apnea (Chronic 04/12/15) Insomnia (Chronic 07/06/16) Restrictive lung disease (Chronic) PFT's 09/10/19Right-sided heart failure (Chronic 01/06/15) Edema (Chronic 01/29/13) Urgency incontinence (Acute) Lower urinary tract symptoms (LUTS) (Acute 06/29/16) renal u/s: incomplete emptying Uric acid stone in urine (Acute) Bladder stones (Acute 10/29/17) Lumbar radiculopathy, right (Acute) B12 deficiency anemia (Acute 09/23/14) Osteoarthritis of knee (Acute 01/29/13) Chronic pain (Chronic) Pain medication agreement (Acute 03/25/15) Umbilical hernia without obstruction or gangrene (Acute 04/03/18) Dyshidrotic eczema (Chronic) Medical History? Acute meniscal tear, lateral (01/29/13) Acute meniscal tear, medial (01/29/13) Acute on chronic renal insufficiency Anticoagulation goal of INR 2 to 3 hx of lower extremity dvts andacute pe Benign gastric polyp (05/01/14) EGD 05-01-14 Coronary artery disease Diabetes mellitus relates bloodsugars in am typically [id number] ,lasts a1c 9.3 range Hernia Hyperlipidemia Kidney stones (10/19/17) Morbid obesity 50-59.9 super morbid obesity classification MRSA cellulitis of right foot Obstructive sleep apnea Umbilical hernia Uric acid urolithiasis managed with hydration and citrates Surgical History? flexible laryngoscopy (04/12/15) [facility]IT History of colonoscopy History of esophagogastroduodenoscopy (EGD) History of extraction of renal calculus [facility] [place]History of trigger finger lt thumb KNEE SURGERIES arthroscopy with documented knee djd Radial styloid tenosynovitis [de quervain] s/p release on 03/24/2019 Dr. De La Fuente Social History/Home Situation: Please see care management notes for further information. Equipment Owned/DME: FWW Subjective: Agreeable to doing some light exercise while in bed. Easily distractible, complained of too much happening all at once with PT giving instructions and nurse Stokes giving out medications. PT held off and waited until meds were done. Per Nurse Stokes, patient's Hgb is 7.1 and patient may require bllod transfusion today. Objective: General Observation: Supine in bed. On HF 60 L/min with FiO2 of 51%, saturating at 90% via NC. High BMI. Swelling in B feet, B legs in unna boot. HOB at 50 degrees. Mental Status: In and out of alertness, unable to keep eyes open. Unable to focus to task. Needed maximal verbal cueing to complete activities for today's very light session. Pain: Generalized discomfort with small tasks Vital Signs: On HF 60 L/min with FiO2 of 51%, saturating at 90% via NC ROM: Right Upper Extremity: Shoulder Flexion lacks 50% of AROM. Shoulder abduction lacks 50% of AROM. Elbow flexion WFL. Wrist flexion WFL. Functional opening and closing of hand WFL. Left Upper Extremity: Shoulder Flexion lacks 50% of AROM. Shoulder abduction lacks 50% of AROM. Elbow flexion WFL. Wrist flexion WFL. Functional opening and closing of hand WFL. Right Lower Extremity: Hip flexion unable. Hip abduction unable. Knee flexion unable. Ankle dorsiflexion 10 degrees. Ankle plantarflexion 10 degrees. Left Lower Extremity: Hip flexion unable. Hip abduction unable. Knee flexion unable. Ankle dorsiflexion 10 degrees. Ankle plantarflexion 10 degrees. Strength: Right Upper Extremity: Shoulder flexors 3-/5. Shoulder abductors 3-/5. Elbow flexors 3-/5. Elbow extensors 3-/5. Public Bath Attendant weak but functional. Left Upper Extremity: Shoulder flexors 3-/5. Shoulder abductors 3-/5. Elbow flexors 3-/5. Elbow extensors 3-/5. Public Bath Attendant weak but functional. Right Lower Extremity: Hip flexors 1/5. Hip abductors 1/5. Knee flexors 1/5. Knee extensors 1/5. Ankle dorsiflexors 2-/5. Ankle plantarflexors 2-/5. Left Lower Extremity: Hip flexors 1/5. Hip abductors 1/5. Knee flexors 1/5. Knee extensors 1/5. Ankle dorsiflexors 2-/5. Ankle plantarflexors 2-/5. Bed Mobility/Transfers: Unable. Deferred for today due to low Hgb and altered mental status. Gait: Unable. Deferred for today due to low Hgb and altered mental status. Balance: Unable. Deferred for today due to low Hgb and altered mental status. Special Tests: Mobility Limitations Standardized Measure [facility] 6 clicks Basic Mobility Inpatient Short Form: Raw Score: 6 CMS Score: 100% deficit Informed Consent/Education: Patient was instructed in purpose of PT consult and plan of care. Agreeable to proceed with established PT POC to achieve personal goals. LARA EX: L UE to R shoulder x 10 R UE to L shoulder x 10 Ankle DF/PF x 10 Unable to move at the hip and knee at this time due to fatigue and altered mental status Assessment: Needed maximal verbal cueing to stay on task for today's session. Mobility assessment deferred due to continued altered mental status, weakness, low activity tolerance, and low hemoglobin level. Planned with Nurse Stokes for the possibility of sitting patient either at edge of bed and or on a chair depending on patient's alertness level but highly doubt it will happen today in light of new finding of low hemoglobin. Will reassess as needed. Patient presents with clinical signs and symptoms consistent with current/admitting diagnoses that have resulted to mobility limitations, gait instability, generalized weakness, and overall ADL decline as demonstrated by the following impairment level findings: 1. Decreased strength to B UE/LE major muscle groups 2. Unable to tolerate bed mobility/sitting/standing tasks 3. Impaired activity tolerance 4. Limitation of joint range of motion in B shoulders, B hips and knees 5. Shortness of breath 6. Swelling in B legs 7. Altered sensorium, unable to safely follow instructions 8. Poor safety awareness Impairments are contributing to the following functional limitations: 1. Unable to safely perform bed mobility skills at this time 2. Unable to safely perform transfer skills at this time 3. Unable to safely perform ambulation at this eladio 4. Increased risk for skin breakdown 5. Increased risk for falls Patient is assessed as a [id number] high complexity based on the following: History: 67-year-old male with past medical history as indicated above Examination: Demonstrable impairment in strength, balance, and mobility level with underlying impairments and functional limitations as exhibited above as well as deficit score of 100% utilizing the [facility] Mobility Inpatient Short Form Presentation: Evolving Decision Makin high complexity Goals: Goals X1 week 1. Supine-Sit minimal assist of 2 2. Sit-Supine minimal assist of 2 3. Sit-Stand minimal assist of 2 4. Stand-Sit minimal assist of 2 with FWW 5. Bed-Chair minimal assist of 2 with FWW 6. Chair-Bed minimal assist of 2 with FWW 7. Minimal assist of 2 with gait on level surface with use of FWW for at least 15 feet without report of pain nor dyspnea 8. Minimal assist of 2 stair negotiation while holding onto [] rails for at least [] steps without report of pain nor dyspnea 9. Fair static and dynamic standing balance/tolerance Plan of Care/Treatment Plan: 1-2x/day, 7 days/week x 1 week. Plan of care has been reviewed with the MACHINE ETCHER providing the service under Physical Therapy direction. Initiate Physical Therapy intervention for pain management as needed, strengthening, bed mobility, transfers, gait, stairs, balance training, and use of assistive device. DISCHARGE RECOMMENDATIONS: [] Home with no services [] [] Home with services [specify] [] Home with outpatient PT [] [] SNF for continued rehabilitation [] [] Custodial Care [] [] SNF versus LTC based on ability to participate and progress [] [X] SNF vs LTC depending on progress towards goals TREATMENT CODE/TIME: [id number] x 23 minutes beginning to 10:08 AM. Thank you for the opportunity to participate in the care of this patient. Ericka Mayers PT, DPT, CLT [facility] [place], [place]
[2023-01-05 10:51] LABS: HIV-1/2 Ag & Ab Screen Negative (Negative)
[2023-01-05 12:01] LABS: Bilirubin Negative (Negative); Blood Large (Negative); Clarity Cloudy (Clear); Glucose 100 mg/dL (Negative); Ketones Negative (Negative); Leukocyte Esterase Negative (Negative); Nitrite Negative (Negative); Specific Gravity 1.025 (1.005-1.025); pH 5.5 (5-8)
[2023-01-05 12:14] LABS: Bacteria Rare HPF (Negative); C & S Indicated? No; Casts Negative LPF (Negative); Crystals Few Uric Acid HPF (Negative); Epithelial Cells Rare HPF (Negative); Mucus Trace (Negative); RBC >50 HPF (0-2); WBC Negative HPF (0-5)
[2023-01-05] MEDS: Atorvastatin 20 MG TAB PO (12:39)
--- NOTE | 2023-01-05 13:04 | W.SPSTE ---
Date of service: 01/05/23 Time of Service: 13:04 Subjective Clinical (Bedside) Swallow Evaluation Speech Language Pathology Patient referred for Clinical Swallow Evaluation from Dr Haas given hypoxia. Precautions: Full Code. Standard. HPI: Pt is a 67 year old male admitted with sepsis, pneumonia and gram positive bacteremia with necessity for BiPAP, weaned to HFNC this morning. Also with ISIS, pancytopenia, DM2, recent COVID infection, noting new evidence of myeloblast with consideration of possible leukemia dx. Predisposing dysphagia risk factors: GERD, YAMIL, Precipitating dysphagia risk factors / triggering event: PNA, hypoxia, need for continues BIPAP until this AM. PFSH All Active Problems? 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) Sleep apnea (Chronic 01/29/13) Mod/severe sleep apnea GERD with apnea (Chronic 04/12/15) Insomnia (Chronic 07/06/16) Restrictive lung disease (Chronic) PFT's 09/10/19Right-sided heart failure (Chronic 01/06/15) Edema (Chronic 01/29/13) Urgency incontinence (Acute) Lower urinary tract symptoms (LUTS) (Acute 06/29/16) renal u/s: incomplete emptying Uric acid stone in urine (Acute) Bladder stones (Acute 10/29/17) Lumbar radiculopathy, right (Acute) B12 deficiency anemia (Acute 09/23/14) Osteoarthritis of knee (Acute 01/29/13) Chronic pain (Chronic) Pain medication agreement (Acute 03/25/15) Umbilical hernia without obstruction or gangrene (Acute 04/03/18) Dyshidrotic eczema (Chronic) Medical History? Acute meniscal tear, lateral (01/29/13) Acute meniscal tear, medial (01/29/13) Acute on chronic renal insufficiency Anticoagulation goal of INR 2 to 3 hx of lower extremity dvts andacute peBenign gastric polyp (05/01/14) EGD 05-01-14 Coronary artery disease Diabetes mellitus relates bloodsugars in am typically [id number] ,lasts a1c 9.3 rangeHernia Hyperlipidemia Kidney stones (10/19/17) Morbid obesity 50-59.9 super morbid obesity classificationMRSA cellulitis of right foot Obstructive sleep apnea Umbilical hernia Uric acid urolithiasis managed with hydration and citrates Surgical History? flexible laryngoscopy (04/12/15) FORESKIN SLIT History of colonoscopy History of esophagogastroduodenoscopy (EGD) History of extraction of renal calculus [facility] [place]18History of trigger finger lt thumbKNEE SURGERIES arthroscopy with documented knee djdRadial styloid tenosynovitis [de quervain] s/p release on 03/24/2019 Dr. De La Fuente Subjective: Patient unable to provide subjective at this time . Per RN he was noted taking pills with thin liquids earlier this date without s/sx aspiration. He is currently on a regular diet but hasn't had food due to being on continuous BIPAP until this morning. Objective Objective Objective/Subjective Respiratory: Appearing quite out of breath, open mouth breathing/gasping with food in mouth while on high flow nasal cannula, though admittedly some of this may have been in context of what appeared to be severe pain and discomfort. Taken off BiPAP approx 4 hours ago. Speech: WFL Language: Difficult to assess - patient extremely distracted by discomfort and with limited output. Able to make simple wants/needs known and able to respond to some of my questions but with difficulty following many of my instructions. Clinical swallow exam: Limited assessment. Oral motor exam very limited due to patient difficulty following instructions. Fair oral care, mildly dry pink mucosa. Unable to easily palpate larynx in setting of obesity. PO trials: Patient seen for lunch taking single, consecutive sips of both thin and mildly thickened liquids, noted with prolonged congested coughing after puree and liquid PO trials, especially after sequential thin liquid sips. Unable to fully differentiate from reported baseline coughing per RN report, though this clinician noting no baseline coughing prior to PO trials this session. Patient very distracted by pain, discomfort, almost convulsing, according to RN he is febrile. Keeping eyes closed, able to follow simple commands only. Refuses PO trials after several bites potato. Unable to fully position upright due to patient size, discomfort. Patient then needing to have blood drawn, etc. Impressions/Plan Likely high risk of aspiration across textures at this time given HFNC and acute medical/mental status. Unclear if this risk is acute vs [id number]. Refusing more than a few bites at this time. Recommended to RN to hold all PO for several hours except free water by mouth OK, only if thorough oral care provided prior. If patient status improves and he is able to stay calm, maintain more upright position, and follow instructions, PO may be given. Recommend start with conservative puree diet/thin liquids and upgrade only if patient requests and proves tolerate over the course of 2 meals. Unable to return to re-assess patient in the afternoon due to PIC line placement, transport to radiology, etc. Contact CUSTOMER EXPERIENCE CONSULTANT via telephone if remote recommendations are needed over the weekend, otherwise will return to reevaluate patient status on Sunday. Recommendations: Give PO only if the following conditions are met: Patient consistently meeting oxygenation targets. Able to respond to 2-step instructions and participate in several conversational turns. Able to maintain eyes open and maintain focus on task at hand (e.g., not overly distracted by pain, discomfort, etc). Able to tolerate fully upright or close to it positioning during meal and for ~30 min following. 1:1 feeding assist can be provided Thorough oral care provided immediately prior to PO intake. When PO is appropriate per prerequisites above, the following recommendation should be followed: Diet Texture Modification(s): IDDSI Level(s) SOLIDS 4-Pureed Solids LIQUIDS 0-Thin Liquids - downgrade to mildly thick if he appears to tolerate this better over the weekend. Medication Intake: Whole or crushed, as able with tsp puree, Alter medications only as advised by MD or Pharmacist RISK MANAGEMENT: HOB upright as tolerated; upright for all PO intake. Q2-3hrs, before/after PO intake, using friction with toothbrush on all oral structures as tolerated, suction PRN ? Level of Assistance/Supervision: Assistive feeding only by trained staff/family PO intake only when awake/alert? Strategies/Adaptations/Assistive Equipment: Reduce auditory and/or visual distractions when eating, Provide verbal and/or visual cues to use recommended strategies, Small sips and bites when eating, (enforce single sips with straw pinch) Slow rate of intake, Swallow between bites, Small+frequent meals throughout day for energy conservation, reflux mgmt Posture/Positioning Needs: Maintain upright position at least 30 minutes after meals, Avoid meals/snacks 2-3 hours prior to reclining/sleeping, Sleep with head of bed elevated to reduce likelihood of nocturnal reflux Total time: 30 min Coding Diagnoses CPT Codes EVALUATE SWALLOWING FUNCTION - [id number] ([id number])
[2023-01-05] MEDS: ACETAMINOPHEN 1,000 MG/100 ML BTL 400 MG IVPB (13:50)
[2023-01-05] MEDS: LORazepam 2 MG/ML VIAL 0.5 MG IVP (14:10)
--- NOTE | 2023-01-05 14:19 | CMPROGNOTE_ITS ---
- If Service Date Differs Date of service: 01/05/23 Time of Service: 14:19 Care Management Progress Note S/O: Nico continues to require close monitoring and treatment in the ICU. He had a central line placed today and remains on hi flow O2. Dr. Esparza is consulted. Palliative consult is ordered to discuss goals of care, currently he is a full code. Nico requires max assist at this time and may require SNF for STR, when medically ready for discharge. A: 67 year old male admitted to [facility] on 12/05/22 for pneumonia P: Anticipate Nico will return home with resumption of [facility] RN (add PT, OT) and [facility] Moderate when ready per MD. He will follow up with his PCP and plan of care as prescribed and transport via private vehicle with family. CM continues to follow.
[2023-01-05] MEDS: LORazepam 2 MG/1 ML Oral Concentrate 1 MG PO (14:21)
--- NOTE | 2023-01-05 14:32 | UCONE_ITS ---
Date of service: 01/05/23 Time of Service: 15:30 Assessment and Plan Assessment and plan (1) Uric acid stone in urine: Status: Acute Assessment and plan: In the past, his kidney stones have been 100% uric acid. This type of stone cannot be seen on plain x-ray. They are easily seen on noncontrast CT scan. Larger stones may be seen on ultrasound. Given the patient's body habitus, it may be quite difficult to gain adequate imaging studies to assess his kidneys. To assess the bladder, we generally recommend cystoscopy. We may be able to offer a bedside cystoscopy with no anesthesia, but he certainly would not be a candidate for surgical intervention at our facility given his comorbidities. For the time being, it is reassuring that his urine culture shows no sign of infection. He is not passing clots, so I do not believe he needs continuous bladder irrigation at this point. Hopefully, he will begin to improve clinically and we may be able to do a hematuria work-up as an outpatient. I would not be able to do any type of surgical procedure on him here given his medical comorbidities. (2) Hematuria: History of Present Illness History of Present Illness Chief Complaint: Hematuria Narrative: This is a 67-year-old gentleman who is well-known to our practice. He has a history of uric acid kidney stones which were treated surgically (bilateral staged ureteroscopy) at [facility] in 2018. We have been seeing him for urinary frequency and incontinence. His symptoms have been relatively well controlled with a maximum dose of Myrbetriq. He is currently hospitalized with gram positive bacteremia and pancytopenia. He has history of an unprovoked PE and is anticoagulated. He currently has a low serum hemoglobin of 7.0. Based on a review of his medical records, he has a negative urine culture from a straight cath specimen. He currently has an indwelling Glass catheter. His mental status is currently compromised, so he is not able to provide any significant history for me right now. The staff has noticed gross hematuria in his catheter. He has not been passing any clots. Review of Systems Unobtainable due to mental status PFSH All Active Problems (Updated 01/08/23 @ 17:03 by Yeni Randall NP) Palliative care encounter (Acute) Discharge planning issues (Acute) Pulmonary hypertension (Acute) Pulmonary emboli (Chronic) Respiratory failure with hypoxia (Acute) Pancytopenia (Acute) Acute kidney injury (nontraumatic) (Acute) Gram-positive bacteremia (Acute) 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) Sleep apnea (Chronic 01/29/13) Mod/severe sleep apnea GERD with apnea (Chronic 04/12/15) Insomnia (Chronic 07/06/16) Restrictive lung disease (Chronic) PFT's 09/10/19 Right-sided heart failure (Chronic 01/06/15) Edema (Chronic 01/29/13) Urgency incontinence (Acute) Lower urinary tract symptoms (LUTS) (Acute 06/29/16) renal u/s: incomplete emptying Uric acid stone in urine (Acute) Bladder stones (Acute 10/29/17) Lumbar radiculopathy, right (Acute) B12 deficiency anemia (Acute 09/23/14) Osteoarthritis of knee (Acute 01/29/13) Chronic pain (Chronic) Pain medication agreement (Acute 03/25/15) Umbilical hernia without obstruction or gangrene (Acute 04/03/18) Dyshidrotic eczema (Chronic) Medical History Acute meniscal tear, lateral (01/29/13) Acute meniscal tear, medial (01/29/13) Acute on chronic renal insufficiency Anticoagulation goal of INR 2 to 3 hx of lower extremity dvts andacute pe Benign gastric polyp (05/01/14) EGD 05-01-14 Coronary artery disease Diabetes mellitus relates bloodsugars in am typically [id number] ,lasts a1c 9.3 range Hematuria Hernia Hyperlipidemia Kidney stones (10/19/17) Morbid obesity 50-59.9 super morbid obesity classification MRSA cellulitis of right foot Obstructive sleep apnea Umbilical hernia Uric acid urolithiasis managed with hydration and citrates Surgical History flexible laryngoscopy (04/12/15) FORESKIN SLIT History of colonoscopy History of esophagogastroduodenoscopy (EGD) History of extraction of renal calculus [facility] [place] 02/13/18 History of trigger finger lt thumb KNEE SURGERIES arthroscopy with documented knee djd Radial styloid tenosynovitis [de quervain] s/p release on 03/24/2019 Dr. De La Fuente Family History Mother Hypertensive disorder, systemic arterial Diabetes Personal history of malignant neoplasm BREAST Sister Diabetes Mental disorder Brother Diabetes Social History Smoking/Tobacco Use Status: Former Tobacco Use Quit Date: 03/15/09 Smokeless tobacco user: chewing tobacco Smoking risk assessment performed?: Yes Alcohol Intake: never Drug use: Never Substance use type: does not use Household members: other Details: roomate Housing: apartment Number of Children: 0 Communication Needs: Corrective Lenses current occupation: disabled Current gender identity: male How often do you talk on the phone with friends or family?: three or more times per week How often do you get together with friends or relatives?: three or more times per week Panel score (0-1 are the most socially isolated patients): 1 What type of physical activity do you participate in: none Seatbelt use: always Drive intox or ride w/intox commercial relief driver: No Water heater temp set <120 deg: Yes Working smoke detector in home: Yes Fire extinguisher in home: Yes Carbon monox detector in home: Yes Do you feel safe at home: Yes Do you feel safe in your relationship?: Yes Exam Narrative Exam Narrative: I reviewed his previous renal imaging studies. His last CT scan was from 2018 (when he required his surgical intervention). He had bilateral ureteral stones on our CT scan. He had a subsequent renal ultrasound after his procedure (done down at [facility]) and there was no remaining hydronephrosis. The renal ultrasound ordered during this admission has not yet been accomplished. Const General: ill appearing Nutritional Appearance: obese Other: Glass catheter with dark-tinged urine but no clots Results Last Vital Signs Temp 38.6 C H 01/05/23 12:00 Pulse 74 01/05/23 13:25 Resp 24 01/05/23 13:25 BP 96/67 L 01/05/23 12:01 Pulse Ox 92 01/05/23 13:25 Labs 01/05/23 06:55 01/05/23 05:15 Labs: Laboratory Results - last 24 hr 01/02/23 01/04/23 01/04/23 10:10 05:16 10:50 WBC RBC Hgb Hct MCV MCH MCHC RDW Plt Count MPV Immature Gran % Neutrophils % Band Neutrophils % Lymphocytes % Atypical Lymphs % Monocytes % Eosinophils % Basophils % Metamyelocytes % Myelocytes % Other Cells % Nucleated RBC % Absolute Neutrophils Absolute Lymphocytes Absolute Monocytes Absolute Eosinophils Absolute Basophils RBC Morphology Polychromasia Poikilocytosis Anisocytosis PT INR VBG pH VBG pCO2 VBG pO2 VBG HCO3 VBG Total CO2 VBG O2 Saturation VBG Base Excess Sodium Potassium Chloride Carbon Dioxide Anion Gap BUN Creatinine Est GFR (CKD-EPI 2020) Glucose Calcium Total Bilirubin AST ALT Alkaline Phosphatase C-Reactive Protein Total Protein Albumin Urine Color Urine Clarity Urine pH Ur Specific Wendell Urine Protein Urine Ketones Urine Blood Urine Nitrite Urine Bilirubin Urine Urobilinogen Ur Leukocyte Esterase Urine RBC Urine WBC Ur Epithelial Cells Urine Crystals Urine Bacteria Urine Casts Urine Mucus Ur Culture Indicated? Urine Glucose IgG 1190 IgA 283 IgM 138 IgE 6 HIV 1&2 Ag/Ab, 4th Gen Negative Ur Strep pneumoniae Ag Negative Patient ABO/Rh Antibody Screen Crossmatch 01/05/23 01/05/23 01/05/23 05:15 05:15 05:15 WBC RBC Hgb Hct MCV MCH MCHC RDW Plt Count MPV Immature Gran % Neutrophils % Band Neutrophils % Lymphocytes % Atypical Lymphs % Monocytes % Eosinophils % Basophils % Metamyelocytes % Myelocytes % Other Cells % Nucleated RBC % Absolute Neutrophils Absolute Lymphocytes Absolute Monocytes Absolute Eosinophils Absolute Basophils RBC Morphology Polychromasia Poikilocytosis Anisocytosis PT 14.2 H INR 1.4 H VBG pH 7.35 VBG pCO2 56 H VBG pO2 65 VBG HCO3 30 H VBG Total CO2 30 H VBG O2 Saturation 93 VBG Base Excess 5 H Sodium 149 H Potassium 4.3 Chloride 114 H Carbon Dioxide 31.6 Anion Gap 3.4 BUN 30 H Creatinine 1.5 H Est GFR (CKD-EPI 2020) 51.03 Glucose 161 H Calcium 8.5 Total Bilirubin 0.3 AST 97 H ALT 38 Alkaline Phosphatase 102 C-Reactive Protein 22.87 H Total Protein 6.7 Albumin 1.9 L Urine Color Urine Clarity Urine pH Ur Specific Wendell Urine Protein Urine Ketones Urine Blood Urine Nitrite Urine Bilirubin Urine Urobilinogen Ur Leukocyte Esterase Urine RBC Urine WBC Ur Epithelial Cells Urine Crystals Urine Bacteria Urine Casts Urine Mucus Ur Culture Indicated? Urine Glucose IgG IgA IgM IgE HIV 1&2 Ag/Ab, 4th Gen Ur Strep pneumoniae Ag Patient ABO/Rh Antibody Screen Crossmatch 01/05/23 01/05/23 01/05/23 06:55 10:30 11:40 WBC 2.70 L RBC 2.67 L Hgb 7.1 L Hct 25.0 L MCV 94 MCH 26.6 L MCHC 28.4 L RDW 24.0 H Plt Count 34 L MPV Immature Gran % Neutrophils % 26.0 Band Neutrophils % 4 Lymphocytes % 45.0 Atypical Lymphs % 2 Monocytes % 4.0 Eosinophils % 0.0 Basophils % 0.0 Metamyelocytes % 3 Myelocytes % 2 Other Cells % 14 Nucleated RBC % 1.0 H Absolute Neutrophils 0.81 L Absolute Lymphocytes 1.27 Absolute Monocytes 0.11 Absolute Eosinophils 0.00 Absolute Basophils 0.00 RBC Morphology See Below Polychromasia Present Poikilocytosis 1+ Anisocytosis 3+ PT INR VBG pH VBG pCO2 VBG pO2 VBG HCO3 VBG Total CO2 VBG O2 Saturation VBG Base Excess Sodium Potassium Chloride Carbon Dioxide Anion Gap BUN Creatinine Est GFR (CKD-EPI 2020) Glucose Calcium Total Bilirubin AST ALT Alkaline Phosphatase C-Reactive Protein Total Protein Albumin Urine Color Yellow Urine Clarity Cloudy Urine pH 5.5 Ur Specific Wendell 1.025 Urine Protein 100 H Urine Ketones Negative Urine Blood Large H Urine Nitrite Negative Urine Bilirubin Negative Urine Urobilinogen 1.0 H Ur Leukocyte Esterase Negative Urine RBC >50 H Urine WBC Negative Ur Epithelial Cells Rare Urine Crystals Few Uric Acid Urine Bacteria Rare Urine Casts Negative Urine Mucus Trace Ur Culture Indicated? No Urine Glucose 100 H IgG IgA IgM IgE HIV 1&2 Ag/Ab, 4th Gen Ur Strep pneumoniae Ag Patient ABO/Rh A Positive Antibody Screen NEGATIVE Crossmatch See Detail
[2023-01-05] MEDS: MORPHine 4 MG/ML SYR IVP ×2 (14:40→14:50)
--- NOTE | 2023-01-05 15:30 | DI.RAD_ITS ---
Exam(s) XR PORTABLE CHEST AP POST LINE EXAM: XR PORTABLE CHEST AP POST LINE CLINICAL HISTORY: Picc Line Insertion TECHNIQUE: 2D digital imaging was performed of the chest. Two images were obtained. AP views were obtained. COMPARISON: CR,XR XR PORTABLE CHEST AP from 01/01/2023 CR XR LINE PLACEMENT PICC/CVA from 01/04/2023 FINDINGS: MEDIASTINUM: Normal. HEART: Normal. PULMONARY VASCULATURE: Normal. LUNGS: There is a left hilar opacity again seen. This appears stable. PLEURAL SPACE: No pleural effusion or pneumothorax. BONE:Within normal limits for the patient's age. OTHER FINDINGS:There is a right PICC line. The tip is seen near the cavoatrial junction on the final film. IMPRESSION: 1. Interval placement of a right PICC line. Its tip appears just at the cavoatrial junction. 2. Stable left hilar/central opacity. DATA REPOSITORY: RADIATION DOSE DELIVERED:
--- NOTE | 2023-01-05 18:07 | DI.VRAD_ITS ---
PROCEDURE INFORMATION: Exam: CTA Chest With Contrast Exam date and time: 01/05/2023 5:07 PM Age: 67 years old Clinical indication: Other: Pneumonia, elevated dimer TECHNIQUE: Imaging protocol: Computed tomographic angiography of the chest with contrast. 3D rendering (Not supervised by radiologist): MIP and/or 3D reconstructed images were created by the technologist. Contrast material: 350; Contrast volume: 100 ml; Contrast route: INTRAVENOUS (IV); COMPARISON: CR XR PORTABLE CHEST AP POST LINE 01/05/2023 3:24 PM FINDINGS: Limitations: Motion. Pulmonary arteries: There emboli within distal segmental and subsegmental pulmonary arteries in the right lower lobe and distal subsegmental arteries in the left lower lobe. Aorta: Unremarkable. No aortic aneurysm. No aortic dissection. Lungs: Dense consolidation by motion of the left upper lobe is unchanged from prior plain film examinations. There is probable compressive atelectasis in the posteromedial aspect of the left small left pleural effusion and probable compressive atelectatic findings in the left lower lobe although these may be due to transbronchial spread of infection. Pleural spaces: Small left pleural effusion. No pneumothorax. Heart: Mild multi chamber cardiac enlargement. No pericardial effusion. No definite coronary artery calcifications. RV/LV ratio: 1. Lymph nodes: Unremarkable. No enlarged lymph nodes. Bones/joints: Mild degenerative changes of the osseous structures. No acute fracture. Soft tissues: Unremarkable. IMPRESSION: 1. Pulmonary emboli in the [id number]-[id number]-left lower lobes. 2. Left upper lobe pneumonia. 3. Small left pleural effusion with either atelectasis or transbronchial spread of pneumonia to the left lower lobe. Dictated and Authenticated by: Dio Spangler MD. Ordering:TREVIN Montiel MD
[2023-01-05] MEDS: Pantoprazole 40 MG VIAL IVP (19:35)
[2023-01-05] MEDS: cefTRIAXone 2 GM/50 ML BAG IVPB (19:35)
--- NOTE | 2023-01-05 20:25 | W.PM.PROGNOT ---
Date of Service Date of service: 01/05/23 Time of Service: 20:25 Assessment and Plan Assessment and plan (1) Sepsis: Status: Acute Assessment and plan: BC 1st set 01/01/23 + Strep species , 2nd set +Staph, non-aureus (2/2 bottles); sputum 01/01/23 normal kavya CXR w/ KEVIN pneumonia. His renal function is improving. Cognition waxing/waning but overall trajectory is improving. Cont high dose Rocephin and azithromycin. Urine legionella antigen was negative. Strep antigen neg. Mycoplasm studies pending. Despite his sepsis, he has not required vasopressors. Clinically he seems to be responding to antibiotic treatment. Ongoing resp failure is combination of his underlying YAMIL/OHS along w/ some volume overload d/t fluids given in resuscitation. He had dose of lasix on 01/04 when he was in acute respiratory distress and was found to have RAP and dilated RV w/ signs of fluid overload (abnormal IV septal wall motion). He remains full code per previous discussion w/ his daughter yesterday who is his DPOA. Now that Welcome is more alert, and appropriate, he can participate in this discussion. Palliative care consulted to discuss w/ the patient and his family goals of care. (2) Gram-positive bacteremia: Status: Acute Assessment and plan: atypical strep; Strep mitis/oralis, repeat cultures from 01/03 are pending. His other blood cultures from admission grew Staph epidermis; both should respond to high dose Ceftriaxone. (3) Pneumonia: Status: Acute Assessment and plan: as above Cont Duonebs; were recently changed to Q4H while awake. (4) Pancytopenia: Status: Acute Assessment and plan: patient has pancytopenia probably d/t sepsis, DIC and given blast cells on his peripheral smear (as well as ovalocytes and teardrop cells) likely a myelodysplastic disorder. His fibrinogen level as normal. . LDH was slightly elevated. leukemia/lymphoma panel pending. If his dyscrasia does not improve w/ resolution of his sepsis then he should have a bone marrow but for now will monitor his response to treatment. No signs of acute bleeding. Hgb did decrease to 7.1 and he was transfused 1 unit. Plts 34. (5) Acute kidney injury (nontraumatic): Status: Acute Assessment and plan: improving. BUN and creatinine down to 46>32 and 1.9>1.5, stable at 1.5 today. (6) DKA (diabetic ketoacidoses): Status: Resolved Assessment and plan: patient presented w/ mild DKA that quickly resolved. glucose being monitored q6h w/ sliding scale insulin and he remains on basal insulin Lantus. Will need adjustments as he recovers and begins to eat more. (7) Diabetes mellitus type 2 in obese: Status: Acute Assessment and plan: as above (8) Acute pulmonary embolism: Start date: 12/07/15 Status: Resolved Assessment and plan: CTA 01/05/23 shows pulmonary emboli. PreviouslP.E. in 2016 and has been on coumadin since then. Presented with subtherapeutic coumadin. Now on treatment dose of apixiban. (9) COVID: Status: Acute Assessment and plan: PCR is postive however, daughter says that he has tested on home test negative repeatedly. he did complete 5 days of Paxlovid at home two weeks ago. Now out of postive covid status. per [facility] policy he is not considered infectious and has been taken out of isolation (10) Hypertension: Status: Chronic Assessment and plan: will resume his atenolol. will hold his amlodipine until BP warrants restarting. Qualifiers: Hypertension type: essential hypertension Qualified Code(s): I10 - Essential (primary) hypertension Subjective Subjective Patient reports: shortness of breath and afebrile; denies nausea or vomiting Interval history since last seen: Pt requires significant assist to the commode. Sleeping much of the time. Exam Narrative Exam Narrative: Morbidly obese male (BMI 54), bearded white male. Lethargic. Wakens to verbal commands. Falls asleep readily. Lungs: coarse rhonchi and expiratory wheezing Heart: RRR Abdomen: obese, soft, nontender Legs: 1+ edema bilaterally Neuro: normal ROM and strength, no facial asymmetry. Objective Last Vital Signs Temp 35.5 C L 01/05/23 19:00 Pulse 66 01/05/23 19:00 Resp 24 01/05/23 19:00 BP 110/67 01/05/23 19:00 Pulse Ox 92 01/05/23 19:00 Laboratory Results - last 24 hr 01/04/23 01/04/23 01/05/23 05:16 10:50 05:15 WBC RBC Hgb Hct MCV MCH MCHC RDW Plt Count MPV Immature Gran % Neutrophils % Band Neutrophils % Lymphocytes % Atypical Lymphs % Monocytes % Eosinophils % Basophils % Metamyelocytes % Myelocytes % Other Cells % Nucleated RBC % Absolute Neutrophils Absolute Lymphocytes Absolute Monocytes Absolute Eosinophils Absolute Basophils RBC Morphology Polychromasia Poikilocytosis Anisocytosis PT INR VBG pH VBG pCO2 VBG pO2 VBG HCO3 VBG Total CO2 VBG O2 Saturation VBG Base Excess Sodium 149 H Potassium 4.3 Chloride 114 H Carbon Dioxide 31.6 Anion Gap 3.4 BUN 30 H Creatinine 1.5 H Est GFR (CKD-EPI 2020) 51.03 Glucose 161 H Calcium 8.5 Total Bilirubin 0.3 AST 97 H ALT 38 Alkaline Phosphatase 102 C-Reactive Protein 22.87 H Total Protein 6.7 Albumin 1.9 L Urine Color Urine Clarity Urine pH Ur Specific [place] Urine Protein Urine Ketones Urine Blood Urine Nitrite Urine Bilirubin Urine Urobilinogen Ur Leukocyte Esterase Urine RBC Urine WBC Ur Epithelial Cells Urine Crystals Urine Bacteria Urine Casts Urine Mucus Ur Culture Indicated? Urine Glucose IgG 1190 IgG Total 1230 IgG1 535 IgG2 464 IgG3 48.2 IgG4 82.4 IgA 283 IgM 138 IgE 6 HIV 1&2 Ag/Ab, 4th Gen Negative Patient ABO/Rh Antibody Screen Crossmatch 01/05/23 01/05/23 01/05/23 05:15 05:15 06:55 WBC 2.70 L RBC 2.67 L Hgb 7.1 L Hct 25.0 L MCV 94 MCH 26.6 L MCHC 28.4 L RDW 24.0 H Plt Count 34 L MPV Immature Gran % Neutrophils % 26.0 Band Neutrophils % 4 Lymphocytes % 45.0 Atypical Lymphs % 2 Monocytes % 4.0 Eosinophils % 0.0 Basophils % 0.0 Metamyelocytes % 3 Myelocytes % 2 Other Cells % 14 Nucleated RBC % 1.0 H Absolute Neutrophils 0.81 L Absolute Lymphocytes 1.27 Absolute Monocytes 0.11 Absolute Eosinophils 0.00 Absolute Basophils 0.00 RBC Morphology See Below Polychromasia Present Poikilocytosis 1+ Anisocytosis 3+ PT 14.2 H INR 1.4 H VBG pH 7.35 VBG pCO2 56 H VBG pO2 65 VBG HCO3 30 H VBG Total CO2 30 H VBG O2 Saturation 93 VBG Base Excess 5 H Sodium Potassium Chloride Carbon Dioxide Anion Gap BUN Creatinine Est GFR (CKD-EPI 2020) Glucose Calcium Total Bilirubin AST ALT Alkaline Phosphatase C-Reactive Protein Total Protein Albumin Urine Color Urine Clarity Urine pH Ur Specific [place] Urine Protein Urine Ketones Urine Blood Urine Nitrite Urine Bilirubin Urine Urobilinogen Ur Leukocyte Esterase Urine RBC Urine WBC Ur Epithelial Cells Urine Crystals Urine Bacteria Urine Casts Urine Mucus Ur Culture Indicated? Urine Glucose IgG IgG Total IgG1 IgG2 IgG3 IgG4 IgA IgM IgE HIV 1&2 Ag/Ab, 4th Gen Patient ABO/Rh Antibody Screen Crossmatch 01/05/23 01/05/23 10:30 11:40 WBC RBC Hgb Hct MCV MCH MCHC RDW Plt Count MPV Immature Gran % Neutrophils % Band Neutrophils % Lymphocytes % Atypical Lymphs % Monocytes % Eosinophils % Basophils % Metamyelocytes % Myelocytes % Other Cells % Nucleated RBC % Absolute Neutrophils Absolute Lymphocytes Absolute Monocytes Absolute Eosinophils Absolute Basophils RBC Morphology Polychromasia Poikilocytosis Anisocytosis PT INR VBG pH VBG pCO2 VBG pO2 VBG HCO3 VBG Total CO2 VBG O2 Saturation VBG Base Excess Sodium Potassium Chloride Carbon Dioxide Anion Gap BUN Creatinine Est GFR (CKD-EPI 2020) Glucose Calcium Total Bilirubin AST ALT Alkaline Phosphatase C-Reactive Protein Total Protein Albumin Urine Color Yellow Urine Clarity Cloudy Urine pH 5.5 Ur Specific [place] 1.025 Urine Protein 100 H Urine Ketones Negative Urine Blood Large H Urine Nitrite Negative Urine Bilirubin Negative Urine Urobilinogen 1.0 H Ur Leukocyte Esterase Negative Urine RBC >50 H Urine WBC Negative Ur Epithelial Cells Rare Urine Crystals Few Uric Acid Urine Bacteria Rare Urine Casts Negative Urine Mucus Trace Ur Culture Indicated? No Urine Glucose 100 H IgG IgG Total IgG1 IgG2 IgG3 IgG4 IgA IgM IgE HIV 1&2 Ag/Ab, 4th Gen Patient ABO/Rh A Positive Antibody Screen NEGATIVE Crossmatch See Detail Time Spent with Patient Time Spent with Patient: 25-34 minutes Time was spent: preparing to see the patient(eg.review tests), obtaining and/or reviewing separately otained hiistory, ordering medications,tests, procedures, referring, communicating with other health respiratory care practitioner and indepentently interpreting results
[2023-01-05] MEDS: Insulin Glargine 300 UNITS/3 ML PEN 25 UNITS SC (21:19)
[2023-01-05] MEDS: AZITHROMYCIN 250 MG in Normal Saline 250 ML IVPB (22:32)
[2023-01-06] VITALS (30 sets, daily range): BP systolic 103–154; BP diastolic 42–64; PULSE 57–79; RESP 4–35; TEMP 31–36.2; O2SAT 90–99
[2023-01-06] MEDS: Ciprofloxacin 0.3% 2.5 ML BTL OU ×6 (00:04→21:23)
[2023-01-06] MEDS: Insulin Aspart 300 UNITS/3 ML PEN SC ×8 (04:00→21:25)
[2023-01-06 05:30] LABS: Abs Immature Grans 0.74 10^3/uL (0.0-0.06); HCT 26.2 % (40.0-50.0); HGB 7.6 g/dL (13.5-17.5); MCH 26.6 pg (27.0-33.0); MCV 92 fL (80-95); RBC 2.86 10^6/uL (4.36-5.78); RDW 23.1 % (11.8-14.1); RDW-SD 77.4 fL; WBC 2.92 10^3/uL (4.4-10.8)
[2023-01-06 05:41] LABS: INR 1.4 (0.9-1.1); Prothrombin Time 14.3 sec (9.3-11.0)
[2023-01-06 06:12] LABS: Absolute Lymphocyte Count 0.47 10^3/uL (1.2-3.4); Absolute Monocyte Count 0.29 10^3/uL (0.1-0.8); Absolute Neutrophil Count 1.52 10^3/uL (1.2-6.7); Bands % 2
[2023-01-06 06:13] LABS: Metamyelocytes % 3; Myelocytes % 3
[2023-01-06 06:14] LABS: Anisocytosis 2+; Diff Comment Manual Differential; Hypochromasia 2+; Other Cells % 14
[2023-01-06 06:15] LABS: Platelet Count 28 10^3/uL (130-400); Poikilocytes 1+
[2023-01-06] MEDS: traMADol 50 MG TAB 100 MG PO ×2 (06:43→21:26)
[2023-01-06 07:48] LABS: Mycoplasma Pneumoniae PCR Negative; Specimen source Sputum
[2023-01-06] MEDS: Albuterol/Ipratropium 3 ML UPD VIAL UPD ×3 (07:52→20:22)
[2023-01-06] MEDS: Atenolol 50 MG TAB 100 MG PO (10:19)
[2023-01-06] MEDS: Doxazosin 2 MG TAB 4 MG PO (10:19)
[2023-01-06] MEDS: methylPREDNISolone SUCC 40 MG VIAL IVP (10:19)
[2023-01-06] MEDS: Mirabegron 50 MG TABCR PO (10:19)
[2023-01-06] MEDS: Benzonatate 100 MG CAP PO ×2 (10:19→21:26)
[2023-01-06] MEDS: Apixaban 5 MG TAB 10 MG PO (10:19)
[2023-01-06] MEDS: Nystatin POWDER 60 GM JAR TP ×3 (10:19→21:26)
[2023-01-06] MEDS: guaiFENesin 600 MG TABCR PO ×2 (10:19→21:26)
[2023-01-06] MEDS: Atorvastatin 20 MG TAB PO (10:19)
[2023-01-06] MEDS: Potassium Citrate 1080 MG TABCR 2160 MG PO ×2 (10:20→21:26)
[2023-01-06] MEDS: Insulin Glargine 300 UNITS/3 ML PEN 25 UNITS SC (10:24)
--- NOTE | 2023-01-06 11:20 | PTTR_ITS ---
PT Notes Visit Reasons: Pneumonia Date: 01/06/2023 PRECAUTIONS: Activity as tolerated, Fall SUBJECTIVE: Pt awake and alert this morning, agreed to participating with therapy OBJECTIVE:? BED MOBILITY/TRANSFERS? Sit-stand: max A with cueing for safety ? Stand-sit: max A with cueing for safety Therapeutic Activity 17319 25mins: pt chair mobility scooting forward, side to side sitting without backrest for 5mins, sit to stand from recliner to FWW max A with cue for hand placement and leaning body forward for proper leverage, static standing with trunk leaning forward on FWW 1min, stand to sit max A with cue for reaching behind to facilitate controlled descent. Patient was instructed with LE strengthening program, completed in a seated position, to include: ankle pumps, heel raises, LAQ, hip flexion and hip abduction.? Patient requires visual and verbal cueing for proper exercise performance, as well as cueing for re- orientation to task.? ASSESSMENT: Pt refused further engagement after standing activity due to fatigue. pt stayed in recliner post therapy session PLAN: Continue with global UE and LE strengthening, as tolerated, for improved safety with mobility. TREATMENT CODE/TIME: Session 1: 25 minutes; [id number] x2?(10:35-11:00am)
[2023-01-06] MEDS: cefTRIAXone 2 GM/50 ML BAG IVPB (17:45)
--- NOTE | 2023-01-06 19:15 | W.PM.PROGNOT ---
Date of Service Date of service: 01/06/23 Time of Service: 19:15 Assessment and Plan Assessment and plan (1) Sepsis: Status: Acute Assessment and plan: BC 1st set 01/01/23 + Strep species , 2nd set +Staph, non-aureus (2/2 bottles); sputum 01/01/23 normal kavya CXR w/ KEVIN pneumonia. His renal function is improving. Cognition waxing/waning but overall trajectory is improving. Cont high dose Rocephin and azithromycin. Urine legionella antigen was negative. Strep antigen neg. Mycoplasm studies pending. Despite his sepsis, he has not required vasopressors. He has responded and sepsis resolved. Ongoing resp failure is combination of his underlying YAMIL/OHS along w/ some volume overload d/t fluids given in resuscitation. He had dose of lasix on 01/04 when he was in acute respiratory distress and was found to have RAP and dilated RV w/ signs of fluid overload (abnormal IV septal wall motion). He remains full code per previous discussion w/ his daughter yesterday who is his DPOA. Now that Welcome is more alert, and appropriate, he can participate in this discussion. Palliative care consulted to discuss w/ the patient and his family goals of care. (2) Gram-positive bacteremia: Status: Acute Assessment and plan: atypical strep; Strep mitis/oralis, repeat cultures from 01/03 are pending. His other blood cultures from admission grew Staph epidermis; both should respond to high dose Ceftriaxone. (3) Pneumonia: Status: Acute Assessment and plan: as above Cont Duonebs TID. (4) Pancytopenia: Status: Acute Assessment and plan: patient has pancytopenia probably d/t sepsis, DIC and given blast cells on his peripheral smear (as well as ovalocytes and teardrop cells) likely a myelodysplastic disorder. His fibrinogen level as normal. . LDH was slightly elevated. leukemia/lymphoma panel pending. If his dyscrasia does not improve w/ resolution of his sepsis then he should have a bone marrow but for now will monitor his response to treatment. No signs of acute bleeding. Hgb did decrease to 7.1 and he was transfused 1 unit. Plts 28. Concerning combination of need for AC along with increased risk of bleeding d/t thrombocytopenia. (5) Acute kidney injury (nontraumatic): Status: Acute Assessment and plan: improving. BUN and creatinine down to 46>32 and 1.9>1.5, stable at 1.5. (6) DKA (diabetic ketoacidoses): Status: Resolved Assessment and plan: patient presented w/ mild DKA that quickly resolved. glucose being monitored q6h w/ sliding scale insulin and he remains on basal insulin Lantus. Will need adjustments as he recovers and begins to eat more. (7) Diabetes mellitus type 2 in obese: Status: Acute Assessment and plan: as above (8) Acute pulmonary embolism: Start date: 12/07/15 Status: Resolved Assessment and plan: CTA 01/05/23 shows pulmonary emboli. PreviouslP.E. in 2016 and has been on coumadin since then. Presented with subtherapeutic coumadin. Now on treatment dose of apixiban. (9) COVID: Status: Acute Assessment and plan: PCR is postive however, daughter says that he has tested on home test negative repeatedly. he did complete 5 days of Paxlovid at home two weeks ago. Now out of postive covid status. per [facility] policy he is not considered infectious and has been taken out of isolation (10) Hypertension: Status: Chronic Assessment and plan: will resume his atenolol. will hold his amlodipine until BP warrants restarting. Qualifiers: Hypertension type: essential hypertension Qualified Code(s): I10 - Essential (primary) hypertension Subjective Subjective Patient reports: no new complaints, feels better and afebrile; denies nausea or vomiting Interval history since last seen: Pt transferring to and from commode with only standby assist. More alert and conversant. Exam Narrative Exam Narrative: Morbidly obese male (BMI 54), bearded white male. Alert and conversant. NAD. Lungs: Clear with distant breath sounds. Heart: RRR Abdomen: obese, soft, nontender Legs: 1+ edema bilaterally Neuro: normal ROM and strength, no facial asymmetry. Objective Last Vital Signs Temp 36.1 C L 01/06/23 16:06 Pulse 71 01/06/23 16:06 Resp 16 01/06/23 16:06 BP 103/55 L 01/06/23 07:02 Pulse Ox 95 01/06/23 16:06 Laboratory Results - last 24 hr 01/06/23 01/06/23 05:00 05:00 WBC 2.92 L RBC 2.86 L Hgb 7.6 L Hct 26.2 L MCV 92 MCH 26.6 L MCHC 29.0 L RDW 23.1 H Plt Count 28 L* MPV Immature Gran % Neutrophils % 50.0 Band Neutrophils % 2 Lymphocytes % 16.0 Monocytes % 10.0 Eosinophils % 0.0 Basophils % 0.0 Metamyelocytes % 3 Myelocytes % 3 Other Cells % 14 Nucleated RBC % 2.0 H Absolute Neutrophils 1.52 Absolute Lymphocytes 0.47 L Absolute Monocytes 0.29 Absolute Eosinophils 0.00 Absolute Basophils 0.00 RBC Morphology See Below Hypochromasia 2+ Poikilocytosis 1+ Anisocytosis 2+ PT 14.3 H INR 1.4 H Time Spent with Patient Time Spent with Patient: 25-34 minutes Time was spent: preparing to see the patient(eg.review tests), ordering medications,tests, procedures and indepentently interpreting results
[2023-01-06] MEDS: AZITHROMYCIN 250 MG in Normal Saline 250 ML IVPB (21:22)
[2023-01-06] MEDS: Insulin Glargine 300 UNITS/3 ML PEN 40 UNITS SC (21:24)
[2023-01-06] MEDS: Omeprazole 20 MG CAPCR PO (21:26)
[2023-01-07] VITALS (34 sets, daily range): BP systolic 91–139; BP diastolic 45–68; PULSE 66–90; RESP 1–32; TEMP 36.3–36.7; O2SAT 89–97
[2023-01-07 07:10] LABS: INR 1.4 (0.9-1.1); Prothrombin Time 14.5 sec (9.3-11.0)
[2023-01-07] MEDS: Albuterol/Ipratropium 3 ML UPD VIAL UPD (08:40)
[2023-01-07] MEDS: Potassium Citrate 1080 MG TABCR 2160 MG PO ×2 (09:01→20:30)
[2023-01-07] MEDS: Mirabegron 50 MG TABCR PO (09:02)
[2023-01-07] MEDS: Atenolol 50 MG TAB 100 MG PO (09:02)
[2023-01-07] MEDS: Doxazosin 2 MG TAB 4 MG PO (09:02)
[2023-01-07] MEDS: Apixaban 5 MG TAB 10 MG PO ×2 (09:02→21:14)
[2023-01-07] MEDS: Atorvastatin 20 MG TAB PO (09:02)
[2023-01-07] MEDS: Normal Saline Flush 10 ML SYR IVP (09:03)
[2023-01-07] MEDS: methylPREDNISolone SUCC 40 MG VIAL IVP (09:03)
[2023-01-07] MEDS: Insulin Aspart 300 UNITS/3 ML PEN SC ×4 (09:05→21:16)
[2023-01-07] MEDS: Insulin Glargine 300 UNITS/3 ML PEN 40 UNITS SC (09:20)
[2023-01-07] MEDS: Benzonatate 100 MG CAP PO ×3 (09:21→20:31)
[2023-01-07] MEDS: Nystatin POWDER 60 GM JAR TP ×3 (09:22→21:16)
[2023-01-07] MEDS: guaiFENesin 600 MG TABCR PO ×2 (09:22→20:31)
[2023-01-07] MEDS: Ciprofloxacin 0.3% 2.5 ML BTL OU (10:06)
[2023-01-07 10:50] LABS: HCT 26.6 % (40.0-50.0); HGB 8.1 g/dL (13.5-17.5); MCH 26.7 pg (27.0-33.0); MCHC 30.5 % (32.0-36.0); MCV 88 fL (80-95); RBC 3.03 10^6/uL (4.36-5.78); RDW 22.5 % (11.8-14.1); RDW-SD 71.6 fL
[2023-01-07 11:21] LABS: Atypical Lymphocytes % 2; Bands % 4; Metamyelocytes % 5; Myelocytes % 3; Other Cells % 4
[2023-01-07 11:22] LABS: Anisocytosis 2+; Diff Comment Manual Differential
[2023-01-07 11:23] LABS: Platelet Count 26 10^3/uL (130-400)
--- NOTE | 2023-01-07 12:10 | PT.INTREAT ---
PT Notes Visit Reasons: Pneumonia Date: 01/07/2023 PRECAUTIONS: Activity as tolerated, Fall SUBJECTIVE: Pt sitting on the EOB when approached for therapy this morning, pt very sleepy and requested to go in bed. OBJECTIVE:? BED MOBILITY/TRANSFERS? Sit-stand: max A? with cueing for safety ? Stand-sit: max A with cueing for safety EOB to supine max A+2 Upward Movement in bed max A+2 Side to side movement max A+2 Therapeutic Activity 34012 15mins: Instruction in dynamic activities with one on one patient contact by the provider to improve functional performance?as follows: Pt cue for hand placement during transition from EOB to supine, cue for timing to allow for pt participation during transfer with pt able to provide maximum effort during pulling and pushing while using handrails, trapeze and push with LE on the bed to push upwards during bed mobility activity. ASSESSMENT: Pt refused further engagement after getting situated in bed and requested to be left alone to be able to go to sleep. PLAN: Continue with global UE and LE strengthening, as tolerated, for improved safety with mobility. TREATMENT CODE/TIME: Session 1: 15 minutes; [id number] x1?(10:40-11:55am)
--- NOTE | 2023-01-07 12:33 | PGE_ITS ---
Date of Service Date of service: 01/07/23 Time of Service: 12:33 Assessment and Plan Assessment and plan (1) Sepsis: Status: Acute Assessment and plan: BC 1st set 01/01/23 + Strep species , 2nd set +Staph, non-aureus (2/2 bottles); sputum 01/01/23 normal kavya CXR w/ KEVIN pneumonia. His renal function is improving. Cognition waxing/waning but overall trajectory is improving. Cont high dose Rocephin and azithromycin. Urine legionella antigen was negative. Strep antigen neg. Mycoplasm studies pending. Despite his sepsis, he has not required vasopressors. He has responded and sepsis resolved. Ongoing resp failure is combination of his underlying YAMIL/OHS along w/ some volume overload d/t fluids given in resuscitation. He had dose of lasix on 01/04 when he was in acute respiratory distress and was found to have RAP and dilated RV w/ signs of fluid overload (abnormal IV septal wall motion). He remains full code per previous discussion w/ his daughter yesterday who is his DPOA. Now that Welcome is more alert, and appropriate, he can participate in this discussion. Palliative care consulted to discuss w/ the patient and his family goals of care. (2) Gram-positive bacteremia: Status: Acute Assessment and plan: atypical strep; Strep mitis/oralis, repeat cultures from 01/03 are negative. His other blood cultures from admission grew Staph epidermis; both should respond to high dose Ceftriaxone. Both organisms could have been contaminants. (3) Pneumonia: Status: Acute Assessment and plan: as above Cont Duonebs TID. (4) Pancytopenia: Status: Acute Assessment and plan: patient has pancytopenia probably d/t sepsis, DIC and given blast cells on his peripheral smear (as well as ovalocytes and teardrop cells) likely a myelodysplastic disorder. His fibrinogen level as normal. . LDH was slightly elevated. leukemia/lymphoma panel pending. If his dyscrasia does not improve w/ resolution of his sepsis then he should have a bone marrow but for now will monitor his response to treatment. No signs of acute bleeding. Hgb did decrease to 7.1 and he was transfused 1 unit. Plts 26. Concerning combination of need for AC along with increased risk of bleeding d/t thrombocytopenia. (5) Acute kidney injury (nontraumatic): Status: Acute Assessment and plan: improving. BUN and creatinine down to 46>32 and 1.9>1.5, stable at 1.5. (6) DKA (diabetic ketoacidoses): Status: Resolved Assessment and plan: patient presented w/ mild DKA that quickly resolved. glucose being monitored q6h w/ sliding scale insulin and he remains on basal insulin Lantus. Adjusting insulin as needed. (7) Diabetes mellitus type 2 in obese: Status: Acute Assessment and plan: as above (8) Acute pulmonary embolism: Start date: 12/07/15 Status: Resolved Assessment and plan: CTA 01/05/23 shows pulmonary emboli. PreviouslP.E. in 2016 and has been on coumadin since then. Presented with subtherapeutic coumadin. Now on treatment dose of apixiban. (9) COVID: Status: Acute Assessment and plan: PCR is postive however, daughter says that he has tested on home test negative repeatedly. he did complete 5 days of Paxlovid at home two weeks ago. Now out of postive covid status. per [facility] policy he is not considered infectious and has been taken out of isola tion (10) Hypertension: Status: Chronic Assessment and plan: will resume his atenolol. will hold his amlodipine until BP warrants restarting. Qualifiers: Hypertension type: essential hypertension Qualified Code(s): I10 - Essential (primary) hypertension Subjective Subjective Patient reports: no new complaints, feels better, tolerating a regular diet (on pureed diet thin liquids. ) and afebrile; denies nausea or vomiting Exam Narrative Exam Narrative: Morbidly obese male (BMI 54), bearded white male. Alert and conversant. NAD. Eating breakfast. Lungs: Clear with distant breath sounds. Heart: RRR Abdomen: obese, soft, nontender Legs: 1+ edema bilaterally Neuro: normal ROM and strength, no facial asymmetry. Objective Last Vital Signs Temp 36.1 C L 01/06/23 16:06 Pulse 71 01/07/23 10:59 Resp 15 01/07/23 10:59 BP 113/66 01/07/23 10:59 Pulse Ox 97 01/07/23 10:17 Laboratory Results - last 24 hr 01/07/23 01/07/23 05:25 10:38 WBC 2.50 L RBC 3.03 L Hgb 8.1 L Hct 26.6 L MCV 88 D MCH 26.7 L MCHC 30.5 L RDW 22.5 H Plt Count 26 L* MPV Immature Gran % 0.0 Neutrophils % 48.0 Band Neutrophils % 4 Lymphocytes % 34.0 Atypical Lymphs % 2 Monocytes % 0.0 Eosinophils % 0.0 Basophils % 0.0 Metamyelocytes % 5 Myelocytes % 3 Other Cells % 4 Nucleated RBC % 2.0 H Absolute Neutrophils 1.30 Absolute Lymphocytes 0.90 L Absolute Monocytes 0.00 L Absolute Eosinophils 0.00 Absolute Basophils 0.00 RBC Morphology See Below Anisocytosis 2+ PT 14.5 H INR 1.4 H Time Spent with Patient Time Spent with Patient: 25-34 minutes Time was spent: preparing to see the patient(eg.review tests), ordering medications,tests, procedures and indepentently interpreting results
[2023-01-07] MEDS: Ipratropium 0.5 MG/2.5 ML UPD VIAL UPD ×2 (14:32→20:26)
[2023-01-07] MEDS: Albuterol 2.5 MG/3 ML INH SOLN VIAL UPD ×2 (14:33→20:25)
--- NOTE | 2023-01-07 16:15 | DI.CT_ITS ---
Exam(s) CT HEAD WO EXAM: CT HEAD WO CLINICAL HISTORY: Unwittnessed fall. TECHNIQUE: Imaging Protocol: Axial computed tomography images with coronal and sagittal reformatted images were created and reviewed COMPARISON: No exams were available for comparison FINDINGS: Ventricles and Extra axial spaces: Normal in size and morphology for the patient's age. Hemorrhage: None. Cerebral parenchyma: Mild atrophy and white matter changes of small vessel disease. Midline shift: None. Brainstem/Cerebellum: Normal. Calvarium: Normal. Visualized Paranasal sinuses/Mastoids: Clear. Soft Tissues: Unremarkable. IMPRESSION: No acute intracranial process. RADIATION DOSE DELIVERED: 912.6mGy.cm Total DLP DATA REPOSITORY: All CT scans at this facility are submitted to the National Radiology Data Registry (NRDR) Dose Index Registry (DIR) with the [employer] ([employer]). RADIATION OPTIMIZATION: All CT scans at this facility use at least one of these dose optimization te chniques: automated exposure control; mA and/or kV adjustment per patient size (includes targeted exa ms where dose is matched to clinical indication); or iterative reconstruction.
--- NOTE | 2023-01-07 17:07 | DI.VRAD_ITS ---
PROCEDURE INFORMATION: Exam: CT Head Without Contrast Exam date and time: 01/07/2023 4:49 PM Age: 67 years old Clinical indication: Other: Unwitnessed fall TECHNIQUE: Imaging protocol: Computed tomography of the head without contrast. Radiation optimization: All CT scans at this facility use at least one of these dose optimization techniques: automated exposure control; mA and/or kV adjustment per patient size (includes targeted exams where dose is matched to clinical indication); or iterative reconstruction. COMPARISON: No relevant prior studies available. FINDINGS: Brain: Diffuse cerebral atrophy concordant with patient's age. Mild chronic small vessel deep white matter ischemia. No intracranial hemorrhage. No large territory acute CVA. No cerebral edema. No mass. Cerebral ventricles: No ventriculomegaly. Paranasal sinuses: Paranasal sinuses are clear. Mastoid air cells: Visualized mastoid air cells are well aerated. Bones/joints: No skull fracture. Soft tissues: Scalp soft tissues are unremarkable. IMPRESSION: 1. Age-related atrophy and chronic small vessel deep white matter ischemic change. 2. No intracranial hemorrhage. 3. No large territory acute CVA or cerebral edema. 4. No skull fracture. Dictated and Authenticated by: Aditya Cardozo MD. Ordering:TAIWO Novak MD
[2023-01-07] MEDS: Amoxicillin 875/Clav. 125 TAB PO (20:31)
[2023-01-07] MEDS: traMADol 50 MG TAB 100 MG PO (20:31)
[2023-01-07] MEDS: Omeprazole 20 MG CAPCR PO (20:31)
[2023-01-07] MEDS: Insulin Glargine 300 UNITS/3 ML PEN 45 UNITS SC (21:14)
--- NOTE | 2023-01-07 22:29 | NUR.NOTE ---
Patient refuses to keep central monitor wires on, refused to keep telebox for telemetry too. [place] ERVIN aware.
[2023-01-08] VITALS (19 sets, daily range): BP systolic 118–148; BP diastolic 30–49; PULSE 69–75; RESP 4–24; TEMP 36.2; O2SAT 91–97
[2023-01-08 06:17] LABS: HCT 24.2 % (40.0-50.0); HGB 7.4 g/dL (13.5-17.5); MCH 26.9 pg (27.0-33.0); MCHC 30.6 % (32.0-36.0); MCV 88 fL (80-95); RBC 2.75 10^6/uL (4.36-5.78); RDW 21.9 % (11.8-14.1); RDW-SD 69.6 fL; WBC 2.47 10^3/uL (4.4-10.8)
[2023-01-08 06:25] LABS: INR 1.4 (0.9-1.1); Prothrombin Time 14.1 sec (9.3-11.0)
[2023-01-08 06:50] LABS: Anion Gap 7.2 mmol/L (3-11); BUN 26 mg/dL (7-18); CO2 28.8 mmol/L (21.0-32.0); CREATININE 1.1 mg/dL (0.70-1.30); Calcium 8.3 mg/dL (8.5-10.1); Chloride 106 mmol/L (98-107); Estimated GFR 74.04 (mL/min/1.73m2); Glucose 297 mg/dL (74-106); Potassium 4.2 mmol/L (3.5-5.1); Sodium 142 mmol/L (136-145)
--- NOTE | 2023-01-08 06:55 | W.PULMPROG ---
Assessment and Plan Assessment and plan (1) Respiratory failure with hypoxia: Status: Acute (2) Pneumonia: Status: Acute (3) Sleep apnea: Status: Chronic (4) Pulmonary emboli: Status: Chronic (5) Pulmonary hypertension: Status: Acute (6) COVID: Status: Acute Assessment and plan: This is a 67 yo admitted for pneumonia and bacteremia to the ICU due to necessity for BiPAP. The consolidation is very dense, and certainly a component of mucus plugging is contributing to his respiratory status. he has been improving with antibiotics, steroids and airway clearance and is now on nasal cannula and able to use his home BiPAP unit at night. His CTPE returned positive for PE and was started on Eliquis. His echo on admission did find a RVSP of 64mmHg. I am unclear how much of the pulmonary hypertension is from the PE's versus his RV failure. I will see him as an outpatient in 3 month time with a repeat echo to follow up both the pneumonia and the PE. 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 He should be referred to hematology for bone marrow biopsy, so will ultimately leave thoe dosing (2.5mg versus 5mg) to them. 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 - recommend heme referral for bone marrow issues as to assist with A/C dosing life long - will see in clinic in 3 months with echo prior Hypoxic respiratory failure - home BiPAP at nightl - supplemental O2, FiO2 for sats >90% - recommend aggressive airway clearance - Acapella, IS and KEVIN percussor YAMIL - on BiPAP at home - trial of home unit today KEVIN Pneumonia with sepsis - ceftriaxone and azithromycin - urine antigens negative - aggressive airway clearance as above - can stop steroids after 7 day course Non-resolving COVID - steroids as above - HIV and immunoglobulins ordered all wnl Right heart failure - diuresis to euvolemia General Date Of Service Date of service: 01/08/23 Time of Service: 06:57 Reason for Consult: Pneumonia Respiratory failure Pulmonary Emboli Subjective Note Note: Nico has continued to improve and is no on nasal cannula and on his home BiPAP unit. He is feeling better, but is still very fatigued. Exam Narrative Exam Narrative: Gen: NAD, increased respiratory effort, obese HENT: PERRL Chest: Mild respiratory distress, left sided crackles Heart: regular rate and rhythym, no murmurs, rubs or gallops Abdomen: Non-distended, soft, non tender Extremities: No clubbing, + edema, no cyanosis, no rashes Neuro: AAOx3 , non focal Psych: cooperative, appropriate mental affect Objective Last Vital Signs Temp 36.2 C L 01/08/23 05:00 Pulse 75 01/08/23 06:08 Resp 20 01/07/23 22:00 BP 148/30 H 01/08/23 06:08 Pulse Ox 91 L 01/08/23 06:08 Laboratory Results - last 24 hr 01/07/23 01/07/23 01/08/23 05:25 10:38 05:40 WBC 2.50 L RBC 3.03 L Hgb 8.1 L Hct 26.6 L MCV 88 D MCH 26.7 L MCHC 30.5 L RDW 22.5 H Plt Count 26 L* MPV Immature Gran % 0.0 Neutrophils % 48.0 Band Neutrophils % 4 Lymphocytes % 34.0 Atypical Lymphs % 2 Monocytes % 0.0 Eosinophils % 0.0 Basophils % 0.0 Metamyelocytes % 5 Myelocytes % 3 Other Cells % 4 Nucleated RBC % 2.0 H Absolute Neutrophils 1.30 Absolute Lymphocytes 0.90 L Absolute Monocytes 0.00 L Absolute Eosinophils 0.00 Absolute Basophils 0.00 RBC Morphology See Below Anisocytosis 2+ PT 14.5 H 14.1 H INR 1.4 H 1.4 H Results Medications Medications: Active Medications Generic Name Dose Route Start Last Admin Trade Name Curtis PRN Reason Stop Dose Admin Albuterol Sulfate 2.5 mg 01/07/23 14:00 01/07/23 20:25 Albuterol 2.5 Mg/3 Ml Inh Soln Vial UPD 2.5 mg TID LUCINA Administration Amoxicillin/Clavulanate Potassium 1 tab 01/07/23 20:00 01/07/23 20:31 Amoxicillin 875/Clav. 125 Tab PO 1 tab BID LUCINA Administration Apixaban 10 mg 01/05/23 20:00 01/07/23 21:14 Apixaban 5 Mg Tab PO 10 mg BID LUCINA Administration Atenolol 100 mg 01/02/23 08:30 01/07/23 09:02 Atenolol 50 Mg Tab PO 100 mg DAILY LUCINA Administration Atorvastatin Calcium 20 mg 01/02/23 08:30 01/07/23 09:02 Atorvastatin 20 Mg Tab PO 20 mg DAILY LUCINA Administration Benzonatate 100 mg 01/03/23 14:00 01/07/23 20:31 Benzonatate 100 Mg Cap PO 100 mg TID LUCINA Administration Dimethicone/Zinc Oxide 0 gm 01/01/23 21:34 01/03/23 15:08 Kiet Protect Cream 142 Gm Tube TP 1 applic PRN PRN Administration Doxazosin Mesylate 4 mg 01/02/23 08:30 01/07/23 09:02 Doxazosin 2 Mg Tab PO 4 mg DAILY LUCINA Administration Guaifenesin 600 mg 01/05/23 09:45 01/07/23 20:31 Guaifenesin 600 Mg Tabcr PO 600 mg BID LUCINA Administration Acetaminophen 1,000 mg in 100 mls @ 400 mls/hr 01/02/23 13:56 01/05/23 13:50 Ofirmev IVPB 400 mls/hr Q8H PRN PRN Administration Dexmedetomidine/Sodium Chloride 400 mcg in 100 mls @ 8.58 mls/hr 01/04/23 09:15 01/06/23 00:35 Precedex IV Infused [facility] Titration Protocol 0.2 MCG/KG/HR IV Miscellaneous Supplies 1 each 01/01/23 19:15 Iv Access IV DIRECTED [facility] Insulin Aspart 0 units 01/02/23 12:00 01/07/23 17:35 Insulin Aspart 300 Units/3 Ml Pen SC Not Given 0800,1200,1700 [facility] Insulin Aspart 0 units 01/06/23 16:30 01/07/23 21:16 Insulin Aspart 300 Units/3 Ml Pen SC 12 units AC & HS [facility] Administration Protocol Insulin Glargine 45 units 01/07/23 20:00 01/07/23 21:14 Insulin Glargine 300 Units/3 Ml Pen SC 45 units BID LUCINA Administration Ipratropium Mey[place] Chuck 0.5 mg 01/07/23 14:00 01/07/23 20:26 Ipratropium 0.5 Mg/2.5 Ml Upd Vial UPD 0.5 mg TID LUCINA Administration Methylprednisolone Sodium Succinate 40 mg 01/05/23 08:30 01/07/23 09:03 Methylprednisolone Succ 40 Mg Vial IVP 40 mg DAILY LUCINA Administration Metoprolol Tartrate 5 mg 01/05/23 00:01 Metoprolol 5 Mg/5 Ml Vial IVP Q1H PRN PRN Mirabegron 50 mg 01/02/23 08:30 01/07/23 09:02 Mirabegron 50 Mg Tabcr PO 50 mg DAILY LUCINA Administration Nystatin 0 gm 01/02/23 20:00 01/07/23 21:16 Nystatin Powder 60 Gm Jar TP 1 applic TID LUCINA Administration Omeprazole 20 mg 01/02/23 22:00 01/07/23 20:31 Omeprazole 20 Mg Capcr PO 20 mg HS LUCINA Administration Potassium Citrate 2,160 mg 01/02/23 08:30 01/07/23 20:30 Potassium Citrate 1080 Mg Tabcr PO 2,160 mg BID LUCINA Administration Sodium Chloride 0 ml 01/01/23 19:04 01/07/23 09:03 Normal Saline Flush 10 Ml Syr IVP 30 ml PRN PRN Administration Tramadol HCl 100 mg 01/02/23 07:19 01/07/23 20:31 Tramadol 50 Mg Tab PO 100 mg BID PRN PRN Administration pain Allergies zaleplon [From [facility]] Allergy (Severe, Verified 11/03/22 14:10) Swelling/Edema Labs 01/07/23 10:38 01/05/23 05:15 Labs: 01/05/23 12:50 Blood Blood Culture - Preliminary NO GROWTH 48 HOURS 01/05/23 12:47 Blood Blood Culture - Preliminary NO GROWTH 48 HOURS 01/03/23 11:40 Blood Blood Culture - Preliminary NO GROWTH 96 HOURS 01/03/23 11:20 Blood Blood Culture - Preliminary NO GROWTH 96 HOURS 01/01/23 19:32 Blood Blood Culture - Final Strep mitis/oralis 01/02/23 10:10 Sputum Sputum Culture - Final Normal Sharifa 01/02/23 10:10 Sputum Gram Stain - Final 01/02/23 10:10 Urine - Cath Straight Urine Culture - Final 01/01/23 19:40 Blood Blood Culture - Final Staphylococcus Epidermidis 01/02/23 13:15 Nose MRSA Screen - Final Laboratory Tests Range/Units 01/01/23 01/01/23 01/01/23 19:05 19:05 19:05 WBC (4.4-10.8) 10^3/uL RBC (4.36-5.78) 10^6/uL Hgb (13.5-17.5) g/dL Hct (40.0-50.0) % MCV (80-95) fL MCH (27.0-33.0) pg MCHC (32.0-36.0) % RDW (11.8-14.1) % Plt Count (130-400) 10^3/uL MPV (8.0-11.0) fL Immature Gran % Neutrophils % Band Neutrophils % Lymphocytes % Atypical Lymphs % Monocytes % Eosinophils % Basophils % Metamyelocytes % Myelocytes % Other Cells % Nucleated RBC % (0.0-0.3) % Absolute Neutrophils (1.2-6.7) 10^3/uL Absolute Lymphocytes (1.2-3.4) 10^3/uL Absolute Monocytes (0.1-0.8) 10^3/uL Absolute Eosinophils (0.0-0.7) 10^3/uL Absolute Basophils (0.0-0.2) 10^3/uL RBC Morphology Polychromasia Hypochromasia Poikilocytosis Anisocytosis Haptoglobin (32-197) mg/dL PT (9.3-11.0) sec INR (0.9-1.1) APTT (21.5-31.9) sec Fibrinogen (171-384) mg/dL D-Dimer (<500) ng/mlFEU VBG pH (7.31-7.41) VBG pCO2 (41-51) mmHg VBG pO2 mmHg VBG HCO3 (23-28) mmol/L VBG Total CO2 (24-29) mmol/L VBG O2 Saturation % VBG Base Excess (-2-3) mmol/L VBG Lactate (0.6-1.4) mmol/L Sodium (136-145) mmol/L 129 L Potassium (3.5-5.1) mmol/L 5.5 H Chloride (98-107) mmol/L 94 L Carbon Dioxide (21.0-32.0) mmol/L 18.6 L Anion Gap (3-11) mmol/L 16.4 H BUN (7-18) mg/dL 46 H Creatinine (0.70-1.30) mg/dL 1.9 H Est GFR (CKD-EPI 2020) (mL/min/1.73m2) 38.42 Glucose (74-106) mg/dL 425 H Hemoglobin A1c (<5.7) % Calcium (8.5-10.1) mg/dL 8.4 L Magnesium (1.8-2.4) mg/dL 2.6 H Total Bilirubin (0.2-1.0) mg/dL 0.8 AST (15-37) U/L 42 H ALT (16-63) U/L 42 Alkaline Phosphatase (46-116) U/L 118 H Ammonia (11-32) umol/L Lactate Dehydrogenase (85-227) U/L Troponin I (<or=60) ng/L < 50 C-Reactive Protein (0.0-0.3) mg/dL NT-Pro-B Natriuret Pep (<300) pg/mL 968 H Total Protein (6.4-8.2) g/dL 7.7 Albumin (3.4-5.0) g/dL 2.7 L Lipase (16-77) U/L 225 H Procalcitonin ng/mL 2.0 TSH (0.36-3.74) uIU/mL 0.58 Urine Color (Yellow) Urine Clarity (Clear) Urine pH (5-8) Ur Specific [place] (1.005-1.025) Urine Protein (Negative) mg/dL Urine Ketones (Negative) mg/dL Urine Blood (Negative) Urine Nitrite (Negative) Urine Bilirubin (Negative) Urine Urobilinogen (Up to 0.2) mg/dL Ur Leukocyte Esterase (Negative) Urine RBC (0-2) HPF Urine WBC (0-5) HPF Ur Epithelial Cells (Negative) HPF Urine Crystals (Negative) HPF Urine Bacteria (Negative) HPF Urine Casts (Negative) LPF Urine Mucus (Negative) Ur Culture Indicated? Urine Glucose (Negative) mg/dL IgG (610-1616) mg/dL IgG Total (767 - 1590) mg/dL IgG1 (341 - 894) mg/dL IgG2 (171 - 632) mg/dL IgG3 mg/dL IgG4 mg/dL IgA (85-499) mg/dL IgM (35-242) mg/dL IgE (<158) IU/mL COVID-19 Source Nasopharynx SARS-CoV-2 (PCR) (Negative) Positive A HIV 1&2 Ag/Ab, 4th Gen (Negative) Influenza Type A (PCR) (Negative) Negative Influenza Type B (PCR) (Negative) Negative Urine Legionella Ag (Negative) RSV (PCR) (Negative) Negative Ur Strep pneumoniae Ag (Negative) Path Cons Comment Add-On Test Request Patient ABO/Rh Antibody Screen Crossmatch Range/Units 01/01/23 01/01/23 01/01/23 19:05 19:05 19:05 WBC (4.4-10.8) 10^3/uL 6.24 RBC (4.36-5.78) 10^6/uL 3.00 L Hgb (13.5-17.5) g/dL 8.1 L Hct (40.0-50.0) % 26.3 L MCV (80-95) fL 88 MCH (27.0-33.0) pg 27.0 MCHC (32.0-36.0) % 30.8 L RDW (11.8-14.1) % 22.4 H Plt Count (130-400) 10^3/uL 46 L MPV (8.0-11.0) fL Immature Gran % 0.0 Neutrophils % 63.0 Band Neutrophils % 13 Lymphocytes % 8.0 Atypical Lymphs % Monocytes % 1.0 Eosinophils % 0.0 Basophils % 0.0 Metamyelocytes % 3 Myelocytes % 3 Other Cells % 9 Nucleated RBC % (0.0-0.3) % 2.0 H Absolute Neutrophils (1.2-6.7) 10^3/uL 4.74 Absolute Lymphocytes (1.2-3.4) 10^3/uL 0.50 L Absolute Monocytes (0.1-0.8) 10^3/uL 0.06 L Absolute Eosinophils (0.0-0.7) 10^3/uL 0.00 Absolute Basophils (0.0-0.2) 10^3/uL 0.00 RBC Morphology See Below Polychromasia Present Hypochromasia Poikilocytosis 1+ Anisocytosis 2+ Haptoglobin (32-197) mg/dL PT (9.3-11.0) sec 14.0 H INR (0.9-1.1) 1.4 H APTT (21.5-31.9) sec 29.9 Fibrinogen (171-384) mg/dL D-Dimer (<500) ng/mlFEU VBG pH (7.31-7.41) 7.28 L VBG pCO2 (41-51) mmHg 36 L VBG pO2 mmHg 81 VBG HCO3 (23-28) mmol/L 17 L VBG Total CO2 (24-29) mmol/L 16 L VBG O2 Saturation % 94 VBG Base Excess (-2-3) mmol/L -10 L VBG Lactate (0.6-1.4) mmol/L Sodium (136-145) mmol/L Potassium (3.5-5.1) mmol/L Chloride (98-107) mmol/L Carbon Dioxide (21.0-32.0) mmol/L Anion Gap (3-11) mmol/L BUN (7-18) mg/dL Creatinine (0.70-1.30) mg/dL Est GFR (CKD-EPI 2020) (mL/min/1.73m2) Glucose (74-106) mg/dL Hemoglobin A1c (<5.7) % Calcium (8.5-10.1) mg/dL Magnesium (1.8-2.4) mg/dL Total Bilirubin (0.2-1.0) mg/dL AST (15-37) U/L ALT (16-63) U/L Alkaline Phosphatase (46-116) U/L Ammonia (11-32) umol/L Lactate Dehydrogenase (85-227) U/L Troponin I (<or=60) ng/L C-Reactive Protein (0.0-0.3) mg/dL NT-Pro-B Natriuret Pep (<300) pg/mL Total Protein (6.4-8.2) g/dL Albumin (3.4-5.0) g/dL Lipase (16-77) U/L Procalcitonin ng/mL TSH (0.36-3.74) uIU/mL Urine Color (Yellow) Urine Clarity (Clear) Urine pH (5-8) Ur Specific [place] (1.005-1.025) Urine Protein (Negative) mg/dL Urine Ketones (Negative) mg/dL Urine Blood (Negative) Urine Nitrite (Negative) Urine Bilirubin (Negative) Urine Urobilinogen (Up to 0.2) mg/dL Ur Leukocyte Esterase (Negative) Urine RBC (0-2) HPF Urine WBC (0-5) HPF Ur Epithelial Cells (Negative) HPF Urine Crystals (Negative) HPF Urine Bacteria (Negative) HPF Urine Casts (Negative) LPF Urine Mucus (Negative) Ur Culture Indicated? Urine Glucose (Negative) mg/dL IgG (610-1616) mg/dL IgG Total (767 - 1590) mg/dL IgG1 (341 - 894) mg/dL IgG2 (171 - 632) mg/dL IgG3 mg/dL IgG4 mg/dL IgA (85-499) mg/dL IgM (35-242) mg/dL IgE (<158) IU/mL COVID-19 Source SARS-CoV-2 (PCR) (Negative) HIV 1&2 Ag/Ab, 4th Gen (Negative) Influenza Type A (PCR) (Negative) Influenza Type B (PCR) (Negative) Urine Legionella Ag (Negative) RSV (PCR) (Negative) Ur Strep pneumoniae Ag (Negative) Path Cons Comment SEE COMMENT Add-On Test Request Patient ABO/Rh Antibody Screen Crossmatch Range/Units 01/01/23 01/01/23 01/01/23 19:05 20:55 20:55 WBC (4.4-10.8) 10^3/uL RBC (4.36-5.78) 10^6/uL Hgb (13.5-17.5) g/dL Hct (40.0-50.0) % MCV (80-95) fL MCH (27.0-33.0) pg MCHC (32.0-36.0) % RDW (11.8-14.1) % Plt Count (130-400) 10^3/uL MPV (8.0-11.0) fL Immature Gran % Neutrophils % Band Neutrophils % Lymphocytes % Atypical Lymphs % Monocytes % Eosinophils % Basophils % Metamyelocytes % Myelocytes % Other Cells % Nucleated RBC % (0.0-0.3) % Absolute Neutrophils (1.2-6.7) 10^3/uL Absolute Lymphocytes (1.2-3.4) 10^3/uL Absolute Monocytes (0.1-0.8) 10^3/uL Absolute Eosinophils (0.0-0.7) 10^3/uL Absolute Basophils (0.0-0.2) 10^3/uL RBC Morphology Polychromasia Hypochromasia Poikilocytosis Anisocytosis Haptoglobin (32-197) mg/dL PT (9.3-11.0) sec INR (0.9-1.1) APTT (21.5-31.9) sec Fibrinogen (171-384) mg/dL 919 H D-Dimer (<500) ng/mlFEU VBG pH (7.31-7.41) 7.24 L VBG pCO2 (41-51) mmHg 40 L VBG pO2 mmHg 70 VBG HCO3 (23-28) mmol/L 17 L VBG Total CO2 (24-29) mmol/L 17 L VBG O2 Saturation % 92 VBG Base Excess (-2-3) mmol/L -10 L VBG Lactate (0.6-1.4) mmol/L 1.1 Sodium (136-145) mmol/L Potassium (3.5-5.1) mmol/L Chloride (98-107) mmol/L Carbon Dioxide (21.0-32.0) mmol/L Anion Gap (3-11) mmol/L BUN (7-18) mg/dL Creatinine (0.70-1.30) mg/dL Est GFR (CKD-EPI 2020) (mL/min/1.73m2) Glucose (74-106) mg/dL Hemoglobin A1c (<5.7) % Calcium (8.5-10.1) mg/dL Magnesium (1.8-2.4) mg/dL Total Bilirubin (0.2-1.0) mg/dL AST (15-37) U/L ALT (16-63) U/L Alkaline Phosphatase (46-116) U/L Ammonia (11-32) umol/L Lactate Dehydrogenase (85-227) U/L Troponin I (<or=60) ng/L C-Reactive Protein (0.0-0.3) mg/dL NT-Pro-B Natriuret Pep (<300) pg/mL Total Protein (6.4-8.2) g/dL Albumin (3.4-5.0) g/dL Lipase (16-77) U/L Procalcitonin ng/mL TSH (0.36-3.74) uIU/mL Urine Color (Yellow) Urine Clarity (Clear) Urine pH (5-8) Ur Specific [place] (1.005-1.025) Urine Protein (Negative) mg/dL Urine Ketones (Negative) mg/dL Urine Blood (Negative) Urine Nitrite (Negative) Urine Bilirubin (Negative) Urine Urobilinogen (Up to 0.2) mg/dL Ur Leukocyte Esterase (Negative) Urine RBC (0-2) HPF Urine WBC (0-5) HPF Ur Epithelial Cells (Negative) HPF Urine Crystals (Negative) HPF Urine Bacteria (Negative) HPF Urine Casts (Negative) LPF Urine Mucus (Negative) Ur Culture Indicated? Urine Glucose (Negative) mg/dL IgG (610-1616) mg/dL IgG Total (767 - 1590) mg/dL IgG1 (341 - 894) mg/dL IgG2 (171 - 632) mg/dL IgG3 mg/dL IgG4 mg/dL IgA (85-499) mg/dL IgM (35-242) mg/dL IgE (<158) IU/mL COVID-19 Source SARS-CoV-2 (PCR) (Negative) HIV 1&2 Ag/Ab, 4th Gen (Negative) Influenza Type A (PCR) (Negative) Influenza Type B (PCR) (Negative) Urine Legionella Ag (Negative) RSV (PCR) (Negative) Ur Strep pneumoniae Ag (Negative) Path Cons Comment Add-On Test Request Patient ABO/Rh Antibody Screen Crossmatch Range/Units 01/01/23 01/01/23 01/02/23 22:04 Unknown 02:05 WBC (4.4-10.8) 10^3/uL RBC (4.36-5.78) 10^6/uL Hgb (13.5-17.5) g/dL Hct (40.0-50.0) % MCV (80-95) fL MCH (27.0-33.0) pg MCHC (32.0-36.0) % RDW (11.8-14.1) % Plt Count (130-400) 10^3/uL MPV (8.0-11.0) fL Immature Gran % Neutrophils % Band Neutrophils % Lymphocytes % Atypical Lymphs % Monocytes % Eosinophils % Basophils % Metamyelocytes % Myelocytes % Other Cells % Nucleated RBC % (0.0-0.3) % Absolute Neutrophils (1.2-6.7) 10^3/uL Absolute Lymphocytes (1.2-3.4) 10^3/uL Absolute Monocytes (0.1-0.8) 10^3/uL Absolute Eosinophils (0.0-0.7) 10^3/uL Absolute Basophils (0.0-0.2) 10^3/uL RBC Morphology Polychromasia Hypochromasia Poikilocytosis Anisocytosis Haptoglobin (32-197) mg/dL PT (9.3-11.0) sec INR (0.9-1.1) APTT (21.5-31.9) sec Fibrinogen (171-384) mg/dL D-Dimer (<500) ng/mlFEU VBG pH (7.31-7.41) VBG pCO2 (41-51) mmHg VBG pO2 mmHg VBG HCO3 (23-28) mmol/L VBG Total CO2 (24-29) mmol/L VBG O2 Saturation % VBG Base Excess (-2-3) mmol/L VBG Lactate (0.6-1.4) mmol/L Cancelled Sodium (136-145) mmol/L 135 L Potassium (3.5-5.1) mmol/L 4.4 D Chloride (98-107) mmol/L 101 Carbon Dioxide (21.0-32.0) mmol/L 22.0 Anion Gap (3-11) mmol/L 12.0 H BUN (7-18) mg/dL 43 H Creatinine (0.70-1.30) mg/dL 1.8 H Est GFR (CKD-EPI 2020) (mL/min/1.73m2) 41.00 Glucose (74-106) mg/dL 287 H Hemoglobin A1c (<5.7) % Calcium (8.5-10.1) mg/dL 7.7 L Magnesium (1.8-2.4) mg/dL Total Bilirubin (0.2-1.0) mg/dL AST (15-37) U/L ALT (16-63) U/L Alkaline Phosphatase (46-116) U/L Ammonia (11-32) umol/L Lactate Dehydrogenase (85-227) U/L Troponin I (<or=60) ng/L Cancelled C-Reactive Protein (0.0-0.3) mg/dL NT-Pro-B Natriuret Pep (<300) pg/mL Total Protein (6.4-8.2) g/dL Albumin (3.4-5.0) g/dL Lipase (16-77) U/L Procalcitonin ng/mL TSH (0.36-3.74) uIU/mL Urine Color (Yellow) Urine Clarity (Clear) Urine pH (5-8) Ur Specific [place] (1.005-1.025) Urine Protein (Negative) mg/dL Urine Ketones (Negative) mg/dL Urine Blood (Negative) Urine Nitrite (Negative) Urine Bilirubin (Negative) Urine Urobilinogen (Up to 0.2) mg/dL Ur Leukocyte Esterase (Negative) Urine RBC (0-2) HPF Urine WBC (0-5) HPF Ur Epithelial Cells (Negative) HPF Urine Crystals (Negative) HPF Urine Bacteria (Negative) HPF Urine Casts (Negative) LPF Urine Mucus (Negative) Ur Culture Indicated? Urine Glucose (Negative) mg/dL IgG (610-1616) mg/dL IgG Total (767 - 1590) mg/dL IgG1 (341 - 894) mg/dL IgG2 (171 - 632) mg/dL IgG3 mg/dL IgG4 mg/dL IgA (85-499) mg/dL IgM (35-242) mg/dL IgE (<158) IU/mL COVID-19 Source SARS-CoV-2 (PCR) (Negative) HIV 1&2 Ag/Ab, 4th Gen (Negative) Influenza Type A (PCR) (Negative) Influenza Type B (PCR) (Negative) Urine Legionella Ag (Negative) RSV (PCR) (Negative) Ur Strep pneumoniae Ag (Negative) Path Cons Comment Add-On Test Request Patient ABO/Rh Antibody Screen Crossmatch Range/Units 01/02/23 01/02/23 01/02/23 02:05 02:05 04:37 WBC (4.4-10.8) 10^3/uL RBC (4.36-5.78) 10^6/uL Hgb (13.5-17.5) g/dL Hct (40.0-50.0) % MCV (80-95) fL MCH (27.0-33.0) pg MCHC (32.0-36.0) % RDW (11.8-14.1) % Plt Count (130-400) 10^3/uL MPV (8.0-11.0) fL Immature Gran % Neutrophils % Band Neutrophils % Lymphocytes % Atypical Lymphs % Monocytes % Eosinophils % Basophils % Metamyelocytes % Myelocytes % Other Cells % Nucleated RBC % (0.0-0.3) % Absolute Neutrophils (1.2-6.7) 10^3/uL Absolute Lymphocytes (1.2-3.4) 10^3/uL Absolute Monocytes (0.1-0.8) 10^3/uL Absolute Eosinophils (0.0-0.7) 10^3/uL Absolute Basophils (0.0-0.2) 10^3/uL RBC Morphology Polychromasia Hypochromasia Poikilocytosis Anisocytosis Haptoglobin (32-197) mg/dL PT (9.3-11.0) sec INR (0.9-1.1) APTT (21.5-31.9) sec Fibrinogen (171-384) mg/dL D-Dimer (<500) ng/mlFEU VBG pH (7.31-7.41) VBG pCO2 (41-51) mmHg VBG pO2 mmHg VBG HCO3 (23-28) mmol/L VBG Total CO2 (24-29) mmol/L VBG O2 Saturation % VBG Base Excess (-2-3) mmol/L VBG Lactate (0.6-1.4) mmol/L Sodium (136-145) mmol/L Potassium (3.5-5.1) mmol/L Chloride (98-107) mmol/L Carbon Dioxide (21.0-32.0) mmol/L Anion Gap (3-11) mmol/L BUN (7-18) mg/dL Creatinine (0.70-1.30) mg/dL Est GFR (CKD-EPI 2020) (mL/min/1.73m2) Glucose (74-106) mg/dL Hemoglobin A1c (<5.7) % Calcium (8.5-10.1) mg/dL Magnesium (1.8-2.4) mg/dL Total Bilirubin (0.2-1.0) mg/dL AST (15-37) U/L ALT (16-63) U/L Alkaline Phosphatase (46-116) U/L Ammonia (11-32) umol/L Lactate Dehydrogenase (85-227) U/L Troponin I (<or=60) ng/L < 50 C-Reactive Protein (0.0-0.3) mg/dL NT-Pro-B Natriuret Pep (<300) pg/mL Total Protein (6.4-8.2) g/dL Albumin (3.4-5.0) g/dL Lipase (16-77) U/L Procalcitonin ng/mL TSH (0.36-3.74) uIU/mL Urine Color (Yellow) Yellow Urine Clarity (Clear) Clear Urine pH (5-8) 5.5 Ur Specific [place] (1.005-1.025) 1.020 Urine Protein (Negative) mg/dL 100 H Urine Ketones (Negative) mg/dL 15 H Urine Blood (Negative) Moderate H Urine Nitrite (Negative) Negative Urine Bilirubin (Negative) Small H Urine Urobilinogen (Up to 0.2) mg/dL 1.0 H Ur Leukocyte Esterase (Negative) Negative Urine RBC (0-2) HPF 0-2 Urine WBC (0-5) HPF 0-2 Ur Epithelial Cells (Negative) HPF Rare Urine Crystals (Negative) HPF Moderate Amorphous Urine Bacteria (Negative) HPF Few Urine Casts (Negative) LPF Negative Urine Mucus (Negative) Negative Ur Culture Indicated? No Urine Glucose (Negative) mg/dL 500 H IgG (610-1616) mg/dL IgG Total (767 - 1590) mg/dL IgG1 (341 - 894) mg/dL IgG2 (171 - 632) mg/dL IgG3 mg/dL IgG4 mg/dL IgA (85-499) mg/dL IgM (35-242) mg/dL IgE (<158) IU/mL COVID-19 Source SARS-CoV-2 (PCR) (Negative) HIV 1&2 Ag/Ab, 4th Gen (Negative) Influenza Type A (PCR) (Negative) Influenza Type B (PCR) (Negative) Urine Legionella Ag (Negative) RSV (PCR) (Negative) Ur Strep pneumoniae Ag (Negative) Path Cons Comment Add-On Test Request DONE Patient ABO/Rh Antibody Screen Crossmatch Range/Units 01/02/23 01/02/23 01/02/23 05:35 05:35 05:35 WBC (4.4-10.8) 10^3/uL 4.68 RBC (4.36-5.78) 10^6/uL 2.77 L Hgb (13.5-17.5) g/dL 7.6 L Hct (40.0-50.0) % 24.4 L MCV (80-95) fL 88 MCH (27.0-33.0) pg 27.4 MCHC (32.0-36.0) % 31.1 L RDW (11.8-14.1) % 22.5 H Plt Count (130-400) 10^3/uL 44 L MPV (8.0-11.0) fL Immature Gran % Neutrophils % Band Neutrophils % Lymphocytes % Atypical Lymphs % Monocytes % Eosinophils % Basophils % Metamyelocytes % Myelocytes % Other Cells % Nucleated RBC % (0.0-0.3) % Absolute Neutrophils (1.2-6.7) 10^3/uL Absolute Lymphocytes (1.2-3.4) 10^3/uL Absolute Monocytes (0.1-0.8) 10^3/uL Absolute Eosinophils (0.0-0.7) 10^3/uL Absolute Basophils (0.0-0.2) 10^3/uL RBC Morphology Polychromasia Hypochromasia Poikilocytosis Anisocytosis Haptoglobin (32-197) mg/dL PT (9.3-11.0) sec 14.0 H INR (0.9-1.1) 1.4 H APTT (21.5-31.9) sec Fibrinogen (171-384) mg/dL D-Dimer (<500) ng/mlFEU VBG pH (7.31-7.41) VBG pCO2 (41-51) mmHg VBG pO2 mmHg VBG HCO3 (23-28) mmol/L VBG Total CO2 (24-29) mmol/L VBG O2 Saturation % VBG Base Excess (-2-3) mmol/L VBG Lactate (0.6-1.4) mmol/L Sodium (136-145) mmol/L 137 Potassium (3.5-5.1) mmol/L 4.4 Chloride (98-107) mmol/L 102 Carbon Dioxide (21.0-32.0) mmol/L 25.0 Anion Gap (3-11) mmol/L 10.0 BUN (7-18) mg/dL 41 H Creatinine (0.70-1.30) mg/dL 1.8 H Est GFR (CKD-EPI 2020) (mL/min/1.73m2) 41.00 Glucose (74-106) mg/dL 244 H Hemoglobin A1c (<5.7) % Calcium (8.5-10.1) mg/dL 8.0 L Magnesium (1.8-2.4) mg/dL Total Bilirubin (0.2-1.0) mg/dL AST (15-37) U/L ALT (16-63) U/L Alkaline Phosphatase (46-116) U/L Ammonia (11-32) umol/L Lactate Dehydrogenase (85-227) U/L Troponin I (<or=60) ng/L C-Reactive Protein (0.0-0.3) mg/dL NT-Pro-B Natriuret Pep (<300) pg/mL Total Protein (6.4-8.2) g/dL Albumin (3.4-5.0) g/dL Lipase (16-77) U/L Procalcitonin ng/mL TSH (0.36-3.74) uIU/mL Urine Color (Yellow) Urine Clarity (Clear) Urine pH (5-8) Ur Specific [place] (1.005-1.025) Urine Protein (Negative) mg/dL Urine Ketones (Negative) mg/dL Urine Blood (Negative) Urine Nitrite (Negative) Urine Bilirubin (Negative) Urine Urobilinogen (Up to 0.2) mg/dL Ur Leukocyte Esterase (Negative) Urine RBC (0-2) HPF Urine WBC (0-5) HPF Ur Epithelial Cells (Negative) HPF Urine Crystals (Negative) HPF Urine Bacteria (Negative) HPF Urine Casts (Negative) LPF Urine Mucus (Negative) Ur Culture Indicated? Urine Glucose (Negative) mg/dL IgG (610-1616) mg/dL IgG Total (767 - 1590) mg/dL IgG1 (341 - 894) mg/dL IgG2 (171 - 632) mg/dL IgG3 mg/dL IgG4 mg/dL IgA (85-499) mg/dL IgM (35-242) mg/dL IgE (<158) IU/mL COVID-19 Source SARS-CoV-2 (PCR) (Negative) HIV 1&2 Ag/Ab, 4th Gen (Negative) Influenza Type A (PCR) (Negative) Influenza Type B (PCR) (Negative) Urine Legionella Ag (Negative) RSV (PCR) (Negative) Ur Strep pneumoniae Ag (Negative) Path Cons Comment Add-On Test Request Patient ABO/Rh Antibody Screen Crossmatch Range/Units 01/02/23 01/02/23 01/02/23 05:35 05:35 05:35 WBC (4.4-10.8) 10^3/uL RBC (4.36-5.78) 10^6/uL Hgb (13.5-17.5) g/dL Hct (40.0-50.0) % MCV (80-95) fL MCH (27.0-33.0) pg MCHC (32.0-36.0) % RDW (11.8-14.1) % Plt Count (130-400) 10^3/uL MPV (8.0-11.0) fL Immature Gran % Neutrophils % Band Neutrophils % Lymphocytes % Atypical Lymphs % Monocytes % Eosinophils % Basophils % Metamyelocytes % Myelocytes % Other Cells % Nucleated RBC % (0.0-0.3) % Absolute Neutrophils (1.2-6.7) 10^3/uL Absolute Lymphocytes (1.2-3.4) 10^3/uL Absolute Monocytes (0.1-0.8) 10^3/uL Absolute Eosinophils (0.0-0.7) 10^3/uL Absolute Basophils (0.0-0.2) 10^3/uL RBC Morphology Polychromasia Hypochromasia Poikilocytosis Anisocytosis Haptoglobin (32-197) mg/dL 480 H PT (9.3-11.0) sec INR (0.9-1.1) APTT (21.5-31.9) sec Fibrinogen (171-384) mg/dL D-Dimer (<500) ng/mlFEU VBG pH (7.31-7.41) VBG pCO2 (41-51) mmHg VBG pO2 mmHg VBG HCO3 (23-28) mmol/L VBG Total CO2 (24-29) mmol/L VBG O2 Saturation % VBG Base Excess (-2-3) mmol/L VBG Lactate (0.6-1.4) mmol/L Sodium (136-145) mmol/L Potassium (3.5-5.1) mmol/L Chloride (98-107) mmol/L Carbon Dioxide (21.0-32.0) mmol/L Anion Gap (3-11) mmol/L BUN (7-18) mg/dL Creatinine (0.70-1.30) mg/dL Est GFR (CKD-EPI 2020) (mL/min/1.73m2) Glucose (74-106) mg/dL Hemoglobin A1c (<5.7) % Calcium (8.5-10.1) mg/dL Magnesium (1.8-2.4) mg/dL Total Bilirubin (0.2-1.0) mg/dL AST (15-37) U/L ALT (16-63) U/L Alkaline Phosphatase (46-116) U/L Ammonia (11-32) umol/L Lactate Dehydrogenase (85-227) U/L 311 H Troponin I (<or=60) ng/L C-Reactive Protein (0.0-0.3) mg/dL NT-Pro-B Natriuret Pep (<300) pg/mL Total Protein (6.4-8.2) g/dL Albumin (3.4-5.0) g/dL Lipase (16-77) U/L Procalcitonin ng/mL TSH (0.36-3.74) uIU/mL Urine Color (Yellow) Urine Clarity (Clear) Urine pH (5-8) Ur Specific [place] (1.005-1.025) Urine Protein (Negative) mg/dL Urine Ketones (Negative) mg/dL Urine Blood (Negative) Urine Nitrite (Negative) Urine Bilirubin (Negative) Urine Urobilinogen (Up to 0.2) mg/dL Ur Leukocyte Esterase (Negative) Urine RBC (0-2) HPF Urine WBC (0-5) HPF Ur Epithelial Cells (Negative) HPF Urine Crystals (Negative) HPF Urine Bacteria (Negative) HPF Urine Casts (Negative) LPF Urine Mucus (Negative) Ur Culture Indicated? Urine Glucose (Negative) mg/dL IgG (610-1616) mg/dL IgG Total (767 - 1590) mg/dL IgG1 (341 - 894) mg/dL IgG2 (171 - 632) mg/dL IgG3 mg/dL IgG4 mg/dL IgA (85-499) mg/dL IgM (35-242) mg/dL IgE (<158) IU/mL COVID-19 Source SARS-CoV-2 (PCR) (Negative) HIV 1&2 Ag/Ab, 4th Gen (Negative) Influenza Type A (PCR) (Negative) Influenza Type B (PCR) (Negative) Urine Legionella Ag (Negative) RSV (PCR) (Negative) Ur Strep pneumoniae Ag (Negative) Path Cons Comment Add-On Test Request DONE Patient ABO/Rh Antibody Screen Crossmatch Range/Units 01/02/23 01/02/23 01/02/23 05:35 09:19 10:10 WBC (4.4-10.8) 10^3/uL RBC (4.36-5.78) 10^6/uL Hgb (13.5-17.5) g/dL Hct (40.0-50.0) % MCV (80-95) fL MCH (27.0-33.0) pg MCHC (32.0-36.0) % RDW (11.8-14.1) % Plt Count (130-400) 10^3/uL MPV (8.0-11.0) fL Immature Gran % Neutrophils % Band Neutrophils % Lymphocytes % Atypical Lymphs % Monocytes % Eosinophils % Basophils % Metamyelocytes % Myelocytes % Other Cells % Nucleated RBC % (0.0-0.3) % Absolute Neutrophils (1.2-6.7) 10^3/uL Absolute Lymphocytes (1.2-3.4) 10^3/uL Absolute Monocytes (0.1-0.8) 10^3/uL Absolute Eosinophils (0.0-0.7) 10^3/uL Absolute Basophils (0.0-0.2) 10^3/uL RBC Morphology Polychromasia Hypochromasia Poikilocytosis Anisocytosis Haptoglobin (32-197) mg/dL PT (9.3-11.0) sec INR (0.9-1.1) APTT (21.5-31.9) sec Fibrinogen (171-384) mg/dL D-Dimer (<500) ng/mlFEU VBG pH (7.31-7.41) 7.28 L VBG pCO2 (41-51) mmHg 52 H VBG pO2 mmHg 71 VBG HCO3 (23-28) mmol/L 24 VBG Total CO2 (24-29) mmol/L 24 VBG O2 Saturation % 94 VBG Base Excess (-2-3) mmol/L -2 VBG Lactate (0.6-1.4) mmol/L Sodium (136-145) mmol/L Potassium (3.5-5.1) mmol/L Chloride (98-107) mmol/L Carbon Dioxide (21.0-32.0) mmol/L Anion Gap (3-11) mmol/L BUN (7-18) mg/dL Creatinine (0.70-1.30) mg/dL Est GFR (CKD-EPI 2020) (mL/min/1.73m2) Glucose (74-106) mg/dL Hemoglobin A1c (<5.7) % 9.3 H Calcium (8.5-10.1) mg/dL Magnesium (1.8-2.4) mg/dL Total Bilirubin (0.2-1.0) mg/dL AST (15-37) U/L ALT (16-63) U/L Alkaline Phosphatase (46-116) U/L Ammonia (11-32) umol/L Lactate Dehydrogenase (85-227) U/L Troponin I (<or=60) ng/L C-Reactive Protein (0.0-0.3) mg/dL NT-Pro-B Natriuret Pep (<300) pg/mL Total Protein (6.4-8.2) g/dL Albumin (3.4-5.0) g/dL Lipase (16-77) U/L Procalcitonin ng/mL TSH (0.36-3.74) uIU/mL Urine Color (Yellow) Yellow Urine Clarity (Clear) Sl Cloudy Urine pH (5-8) 5.5 Ur Specific [place] (1.005-1.025) >= 1.030 H Urine Protein (Negative) mg/dL 100 H Urine Ketones (Negative) mg/dL Negative Urine Blood (Negative) Moderate H Urine Nitrite (Negative) Negative Urine Bilirubin (Negative) Small H Urine Urobilinogen (Up to 0.2) mg/dL 1.0 H Ur Leukocyte Esterase (Negative) Negative Urine RBC (0-2) HPF 0-2 Urine WBC (0-5) HPF Negative Ur Epithelial Cells (Negative) HPF Rare Urine Crystals (Negative) HPF Few Amorphous Urine Bacteria (Negative) HPF Rare Urine Casts (Negative) LPF Negative Urine Mucus (Negative) Negative Ur Culture Indicated? C&S Done As Ordered Urine Glucose (Negative) mg/dL 500 H IgG (610-1616) mg/dL IgG Total (767 - 1590) mg/dL IgG1 (341 - 894) mg/dL IgG2 (171 - 632) mg/dL IgG3 mg/dL IgG4 mg/dL IgA (85-499) mg/dL IgM (35-242) mg/dL IgE (<158) IU/mL COVID-19 Source SARS-CoV-2 (PCR) (Negative) HIV 1&2 Ag/Ab, 4th Gen (Negative) Influenza Type A (PCR) (Negative) Influenza Type B (PCR) (Negative) Urine Legionella Ag (Negative) RSV (PCR) (Negative) Ur Strep pneumoniae Ag (Negative) Path Cons Comment Add-On Test Request Patient ABO/Rh Antibody Screen Crossmatch Range/Units 01/02/23 01/02/23 01/02/23 10:10 12:00 13:25 WBC (4.4-10.8) 10^3/uL RBC (4.36-5.78) 10^6/uL Hgb (13.5-17.5) g/dL Hct (40.0-50.0) % MCV (80-95) fL MCH (27.0-33.0) pg MCHC (32.0-36.0) % RDW (11.8-14.1) % Plt Count (130-400) 10^3/uL MPV (8.0-11.0) fL Immature Gran % Neutrophils % Band Neutrophils % Lymphocytes % Atypical Lymphs % Monocytes % Eosinophils % Basophils % Metamyelocytes % Myelocytes % Other Cells % Nucleated RBC % (0.0-0.3) % Absolute Neutrophils (1.2-6.7) 10^3/uL Absolute Lymphocytes (1.2-3.4) 10^3/uL Absolute Monocytes (0.1-0.8) 10^3/uL Absolute Eosinophils (0.0-0.7) 10^3/uL Absolute Basophils (0.0-0.2) 10^3/uL RBC Morphology Polychromasia Hypochromasia Poikilocytosis Anisocytosis Haptoglobin (32-197) mg/dL PT (9.3-11.0) sec INR (0.9-1.1) APTT (21.5-31.9) sec Fibrinogen (171-384) mg/dL D-Dimer (<500) ng/mlFEU VBG pH (7.31-7.41) 7.31 VBG pCO2 (41-51) mmHg 44 VBG pO2 mmHg 109 VBG HCO3 (23-28) mmol/L 22 L VBG Total CO2 (24-29) mmol/L 21 L VBG O2 Saturation % 98 VBG Base Excess (-2-3) mmol/L -4 L VBG Lactate (0.6-1.4) mmol/L Sodium (136-145) mmol/L 137 Potassium (3.5-5.1) mmol/L 5.2 H Chloride (98-107) mmol/L 105 Carbon Dioxide (21.0-32.0) mmol/L 23.2 Anion Gap (3-11) mmol/L 8.8 BUN (7-18) mg/dL 39 H Creatinine (0.70-1.30) mg/dL 1.7 H Est GFR (CKD-EPI 2020) (mL/min/1.73m2) 43.91 Glucose (74-106) mg/dL 229 H Hemoglobin A1c (<5.7) % Calcium (8.5-10.1) mg/dL 8.3 L Magnesium (1.8-2.4) mg/dL Total Bilirubin (0.2-1.0) mg/dL AST (15-37) U/L ALT (16-63) U/L Alkaline Phosphatase (46-116) U/L Ammonia (11-32) umol/L Lactate Dehydrogenase (85-227) U/L Troponin I (<or=60) ng/L C-Reactive Protein (0.0-0.3) mg/dL NT-Pro-B Natriuret Pep (<300) pg/mL Total Protein (6.4-8.2) g/dL Albumin (3.4-5.0) g/dL Lipase (16-77) U/L Procalcitonin ng/mL TSH (0.36-3.74) uIU/mL Urine Color (Yellow) Urine Clarity (Clear) Urine pH (5-8) Ur Specific [place] (1.005-1.025) Urine Protein (Negative) mg/dL Urine Ketones (Negative) mg/dL Urine Blood (Negative) Urine Nitrite (Negative) Urine Bilirubin (Negative) Urine Urobilinogen (Up to 0.2) mg/dL Ur Leukocyte Esterase (Negative) Urine RBC (0-2) HPF Urine WBC (0-5) HPF Ur Epithelial Cells (Negative) HPF Urine Crystals (Negative) HPF Urine Bacteria (Negative) HPF Urine Casts (Negative) LPF Urine Mucus (Negative) Ur Culture Indicated? Urine Glucose (Negative) mg/dL IgG (610-1616) mg/dL IgG Total (767 - 1590) mg/dL IgG1 (341 - 894) mg/dL IgG2 (171 - 632) mg/dL IgG3 mg/dL IgG4 mg/dL IgA (85-499) mg/dL IgM (35-242) mg/dL IgE (<158) IU/mL COVID-19 Source SARS-CoV-2 (PCR) (Negative) HIV 1&2 Ag/Ab, 4th Gen (Negative) Influenza Type A (PCR) (Negative) Influenza Type B (PCR) (Negative) Urine Legionella Ag (Negative) Negative RSV (PCR) (Negative) Ur Strep pneumoniae Ag (Negative) Negative Path Cons Comment Add-On Test Request Patient ABO/Rh Antibody Screen Crossmatch Range/Units 01/02/23 01/03/23 01/03/23 17:07 01:30 06:35 WBC (4.4-10.8) 10^3/uL RBC (4.36-5.78) 10^6/uL Hgb (13.5-17.5) g/dL Hct (40.0-50.0) % MCV (80-95) fL MCH (27.0-33.0) pg MCHC (32.0-36.0) % RDW (11.8-14.1) % Plt Count (130-400) 10^3/uL MPV (8.0-11.0) fL Immature Gran % Neutrophils % Band Neutrophils % Lymphocytes % Atypical Lymphs % Monocytes % Eosinophils % Basophils % Metamyelocytes % Myelocytes % Other Cells % Nucleated RBC % (0.0-0.3) % Absolute Neutrophils (1.2-6.7) 10^3/uL Absolute Lymphocytes (1.2-3.4) 10^3/uL Absolute Monocytes (0.1-0.8) 10^3/uL Absolute Eosinophils (0.0-0.7) 10^3/uL Absolute Basophils (0.0-0.2) 10^3/uL RBC Morphology Polychromasia Hypochromasia Poikilocytosis Anisocytosis Haptoglobin (32-197) mg/dL PT (9.3-11.0) sec INR (0.9-1.1) APTT (21.5-31.9) sec 46.3 H Fibrinogen (171-384) mg/dL D-Dimer (<500) ng/mlFEU VBG pH (7.31-7.41) VBG pCO2 (41-51) mmHg VBG pO2 mmHg VBG HCO3 (23-28) mmol/L VBG Total CO2 (24-29) mmol/L VBG O2 Saturation % VBG Base Excess (-2-3) mmol/L VBG Lactate (0.6-1.4) mmol/L Sodium (136-145) mmol/L 141 144 Potassium (3.5-5.1) mmol/L 5.1 5.1 Chloride (98-107) mmol/L 107 111 H Carbon Dioxide (21.0-32.0) mmol/L 23.6 27.5 Anion Gap (3-11) mmol/L 10.4 5.5 BUN (7-18) mg/dL 38 H 32 H Creatinine (0.70-1.30) mg/dL 1.8 H 1.5 H Est GFR (CKD-EPI 2020) (mL/min/1.73m2) 41.00 51.03 Glucose (74-106) mg/dL 306 H 304 H Hemoglobin A1c (<5.7) % Calcium (8.5-10.1) mg/dL 8.2 L 8.5 Magnesium (1.8-2.4) mg/dL Total Bilirubin (0.2-1.0) mg/dL 0.5 AST (15-37) U/L 83 H ALT (16-63) U/L 37 Alkaline Phosphatase (46-116) U/L 104 Ammonia (11-32) umol/L Lactate Dehydrogenase (85-227) U/L Troponin I (<or=60) ng/L C-Reactive Protein (0.0-0.3) mg/dL > 25.00 H NT-Pro-B Natriuret Pep (<300) pg/mL Total Protein (6.4-8.2) g/dL 6.8 Albumin (3.4-5.0) g/dL 2.1 L Lipase (16-77) U/L Procalcitonin ng/mL TSH (0.36-3.74) uIU/mL Urine Color (Yellow) Urine Clarity (Clear) Urine pH (5-8) Ur Specific [place] (1.005-1.025) Urine Protein (Negative) mg/dL Urine Ketones (Negative) mg/dL Urine Blood (Negative) Urine Nitrite (Negative) Urine Bilirubin (Negative) Urine Urobilinogen (Up to 0.2) mg/dL Ur Leukocyte Esterase (Negative) Urine RBC (0-2) HPF Urine WBC (0-5) HPF Ur Epithelial Cells (Negative) HPF Urine Crystals (Negative) HPF Urine Bacteria (Negative) HPF Urine Casts (Negative) LPF Urine Mucus (Negative) Ur Culture Indicated? Urine Glucose (Negative) mg/dL IgG (610-1616) mg/dL IgG Total (767 - 1590) mg/dL IgG1 (341 - 894) mg/dL IgG2 (171 - 632) mg/dL IgG3 mg/dL IgG4 mg/dL IgA (85-499) mg/dL IgM (35-242) mg/dL IgE (<158) IU/mL COVID-19 Source SARS-CoV-2 (PCR) (Negative) HIV 1&2 Ag/Ab, 4th Gen (Negative) Influenza Type A (PCR) (Negative) Influenza Type B (PCR) (Negative) Urine Legionella Ag (Negative) RSV (PCR) (Negative) Ur Strep pneumoniae Ag (Negative) Path Cons Comment Add-On Test Request Patient ABO/Rh Antibody Screen Crossmatch Range/Units 01/03/23 01/03/23 01/03/23 06:35 06:35 06:35 WBC (4.4-10.8) 10^3/uL 4.34 L RBC (4.36-5.78) 10^6/uL 2.68 L Hgb (13.5-17.5) g/dL 7.1 L Hct (40.0-50.0) % 24.3 L MCV (80-95) fL 91 MCH (27.0-33.0) pg 26.5 L MCHC (32.0-36.0) % 29.2 L RDW (11.8-14.1) % 23.4 H Plt Count (130-400) 10^3/uL 41 L MPV (8.0-11.0) fL Immature Gran % See Differential Neutrophils % 66.0 Band Neutrophils % 8 Lymphocytes % 11.0 Atypical Lymphs % Monocytes % 0.0 Eosinophils % 0.0 Basophils % 0.0 Metamyelocytes % 2 Myelocytes % 4 Other Cells % 9 Nucleated RBC % (0.0-0.3) % 3.0 H Absolute Neutrophils (1.2-6.7) 10^3/uL 3.21 Absolute Lymphocytes (1.2-3.4) 10^3/uL 0.48 L Absolute Monocytes (0.1-0.8) 10^3/uL 0.00 L Absolute Eosinophils (0.0-0.7) 10^3/uL 0.00 Absolute Basophils (0.0-0.2) 10^3/uL 0.00 RBC Morphology See Below Polychromasia Present Hypochromasia Poikilocytosis 1+ Anisocytosis 3+ Haptoglobin (32-197) mg/dL PT (9.3-11.0) sec 17.6 H INR (0.9-1.1) 1.7 H APTT (21.5-31.9) sec Fibrinogen (171-384) mg/dL D-Dimer (<500) ng/mlFEU VBG pH (7.31-7.41) 7.32 VBG pCO2 (41-51) mmHg 51 VBG pO2 mmHg 31 VBG HCO3 (23-28) mmol/L 26 VBG Total CO2 (24-29) mmol/L 26 VBG O2 Saturation % 57 VBG Base Excess (-2-3) mmol/L 0 VBG Lactate (0.6-1.4) mmol/L Sodium (136-145) mmol/L Potassium (3.5-5.1) mmol/L Chloride (98-107) mmol/L Carbon Dioxide (21.0-32.0) mmol/L Anion Gap (3-11) mmol/L BUN (7-18) mg/dL Creatinine (0.70-1.30) mg/dL Est GFR (CKD-EPI 2020) (mL/min/1.73m2) Glucose (74-106) mg/dL Hemoglobin A1c (<5.7) % Calcium (8.5-10.1) mg/dL Magnesium (1.8-2.4) mg/dL Total Bilirubin (0.2-1.0) mg/dL AST (15-37) U/L ALT (16-63) U/L Alkaline Phosphatase (46-116) U/L Ammonia (11-32) umol/L Lactate Dehydrogenase (85-227) U/L Troponin I (<or=60) ng/L C-Reactive Protein (0.0-0.3) mg/dL NT-Pro-B Natriuret Pep (<300) pg/mL Total Protein (6.4-8.2) g/dL Albumin (3.4-5.0) g/dL Lipase (16-77) U/L Procalcitonin ng/mL TSH (0.36-3.74) uIU/mL Urine Color (Yellow) Urine Clarity (Clear) Urine pH (5-8) Ur Specific [place] (1.005-1.025) Urine Protein (Negative) mg/dL Urine Ketones (Negative) mg/dL Urine Blood (Negative) Urine Nitrite (Negative) Urine Bilirubin (Negative) Urine Urobilinogen (Up to 0.2) mg/dL Ur Leukocyte Esterase (Negative) Urine RBC (0-2) HPF Urine WBC (0-5) HPF Ur Epithelial Cells (Negative) HPF Urine Crystals (Negative) HPF Urine Bacteria (Negative) HPF Urine Casts (Negative) LPF Urine Mucus (Negative) Ur Culture Indicated? Urine Glucose (Negative) mg/dL IgG (610-1616) mg/dL IgG Total (767 - 1590) mg/dL IgG1 (341 - 894) mg/dL IgG2 (171 - 632) mg/dL IgG3 mg/dL IgG4 mg/dL IgA (85-499) mg/dL IgM (35-242) mg/dL IgE (<158) IU/mL COVID-19 Source SARS-CoV-2 (PCR) (Negative) HIV 1&2 Ag/Ab, 4th Gen (Negative) Influenza Type A (PCR) (Negative) Influenza Type B (PCR) (Negative) Urine Legionella Ag (Negative) RSV (PCR) (Negative) Ur Strep pneumoniae Ag (Negative) Path Cons Comment Add-On Test Request Patient ABO/Rh Antibody Screen Crossmatch Range/Units 01/03/23 01/03/2323 06:35 15:10 05:16 WBC (4.4-10.8) 10^3/uL RBC (4.36-5.78) 10^6/uL Hgb (13.5-17.5) g/dL Hct (40.0-50.0) % MCV (80-95) fL MCH (27.0-33.0) pg MCHC (32.0-36.0) % RDW (11.8-14.1) % Plt Count (130-400) 10^3/uL MPV (8.0-11.0) fL Immature Gran % Neutrophils % Band Neutrophils % Lymphocytes % Atypical Lymphs % Monocytes % Eosinophils % Basophils % Metamyelocytes % Myelocytes % Other Cells % Nucleated RBC % (0.0-0.3) % Absolute Neutrophils (1.2-6.7) 10^3/uL Absolute Lymphocytes (1.2-3.4) 10^3/uL Absolute Monocytes (0.1-0.8) 10^3/uL Absolute Eosinophils (0.0-0.7) 10^3/uL Absolute Basophils (0.0-0.2) 10^3/uL RBC Morphology Polychromasia Hypochromasia Poikilocytosis Anisocytosis Haptoglobin (32-197) mg/dL PT (9.3-11.0) sec 15.3 H INR (0.9-1.1) 1.5 H APTT (21.5-31.9) sec 61.6 H Fibrinogen (171-384) mg/dL D-Dimer (<500) ng/mlFEU VBG pH (7.31-7.41) 7.33 VBG pCO2 (41-51) mmHg 52 H VBG pO2 mmHg 73 VBG HCO3 (23-28) mmol/L 27 VBG Total CO2 (24-29) mmol/L 27 VBG O2 Saturation % 95 VBG Base Excess (-2-3) mmol/L 1 VBG Lactate (0.6-1.4) mmol/L Sodium (136-145) mmol/L Potassium (3.5-5.1) mmol/L Chloride (98-107) mmol/L Carbon Dioxide (21.0-32.0) mmol/L Anion Gap (3-11) mmol/L BUN (7-18) mg/dL Creatinine (0.70-1.30) mg/dL Est GFR (CKD-EPI 2020) (mL/min/1.73m2) Glucose (74-106) mg/dL Hemoglobin A1c (<5.7) % Calcium (8.5-10.1) mg/dL Magnesium (1.8-2.4) mg/dL Total Bilirubin (0.2-1.0) mg/dL AST (15-37) U/L ALT (16-63) U/L Alkaline Phosphatase (46-116) U/L Ammonia (11-32) umol/L Lactate Dehydrogenase (85-227) U/L Troponin I (<or=60) ng/L C-Reactive Protein (0.0-0.3) mg/dL NT-Pro-B Natriuret Pep (<300) pg/mL Total Protein (6.4-8.2) g/dL Albumin (3.4-5.0) g/dL Lipase (16-77) U/L Procalcitonin ng/mL TSH (0.36-3.74) uIU/mL Urine Color (Yellow) Urine Clarity (Clear) Urine pH (5-8) Ur Specific [place] (1.005-1.025) Urine Protein (Negative) mg/dL Urine Ketones (Negative) mg/dL Urine Blood (Negative) Urine Nitrite (Negative) Urine Bilirubin (Negative) Urine Urobilinogen (Up to 0.2) mg/dL Ur Leukocyte Esterase (Negative) Urine RBC (0-2) HPF Urine WBC (0-5) HPF Ur Epithelial Cells (Negative) HPF Urine Crystals (Negative) HPF Urine Bacteria (Negative) HPF Urine Casts (Negative) LPF Urine Mucus (Negative) Ur Culture Indicated? Urine Glucose (Negative) mg/dL IgG (610-1616) mg/dL IgG Total (767 - 1590) mg/dL IgG1 (341 - 894) mg/dL IgG2 (171 - 632) mg/dL IgG3 mg/dL IgG4 mg/dL IgA (85-499) mg/dL IgM (35-242) mg/dL IgE (<158) IU/mL COVID-19 Source SARS-CoV-2 (PCR) (Negative) HIV 1&2 Ag/Ab, 4th Gen (Negative) Influenza Type A (PCR) (Negative) Influenza Type B (PCR) (Negative) Urine Legionella Ag (Negative) RSV (PCR) (Negative) Ur Strep pneumoniae Ag (Negative) Path Cons Comment Add-On Test Request Patient ABO/Rh Antibody Screen Crossmatch Range/Units 01/04/23 01/04/23 01/04/23 05:16 08:55 08:55 WBC (4.4-10.8) 10^3/uL 3.23 L RBC (4.36-5.78) 10^6/uL 2.75 L Hgb (13.5-17.5) g/dL 7.4 L Hct (40.0-50.0) % 25.3 L MCV (80-95) fL 92 MCH (27.0-33.0) pg 26.9 L MCHC (32.0-36.0) % 29.2 L RDW (11.8-14.1) % 23.9 H Plt Count (130-400) 10^3/uL 41 L MPV (8.0-11.0) fL Immature Gran % Neutrophils % 42.0 Band Neutrophils % 10 Lymphocytes % 24.0 Atypical Lymphs % Monocytes % 9.0 Eosinophils % 0.0 Basophils % 0.0 Metamyelocytes % 3 Myelocytes % 2 Other Cells % 10 Nucleated RBC % (0.0-0.3) % 2.0 H Absolute Neutrophils (1.2-6.7) 10^3/uL 1.68 Absolute Lymphocytes (1.2-3.4) 10^3/uL 0.78 L Absolute Monocytes (0.1-0.8) 10^3/uL 0.29 Absolute Eosinophils (0.0-0.7) 10^3/uL 0.00 Absolute Basophils (0.0-0.2) 10^3/uL 0.00 RBC Morphology See Below Polychromasia Present Hypochromasia Poikilocytosis 1+ Anisocytosis 3+ Haptoglobin (32-197) mg/dL PT (9.3-11.0) sec INR (0.9-1.1) APTT (21.5-31.9) sec Fibrinogen (171-384) mg/dL D-Dimer (<500) ng/mlFEU VBG pH (7.31-7.41) VBG pCO2 (41-51) mmHg VBG pO2 mmHg VBG HCO3 (23-28) mmol/L VBG Total CO2 (24-29) mmol/L VBG O2 Saturation % VBG Base Excess (-2-3) mmol/L VBG Lactate (0.6-1.4) mmol/L Sodium (136-145) mmol/L 149 H Potassium (3.5-5.1) mmol/L 4.5 Chloride (98-107) mmol/L 114 H Carbon Dioxide (21.0-32.0) mmol/L 28.5 Anion Gap (3-11) mmol/L 6.5 BUN (7-18) mg/dL 30 H Creatinine (0.70-1.30) mg/dL 1.5 H Est GFR (CKD-EPI 2020) (mL/min/1.73m2) 51.03 Glucose (74-106) mg/dL 266 H Hemoglobin A1c (<5.7) % Calcium (8.5-10.1) mg/dL 8.8 Magnesium (1.8-2.4) mg/dL Total Bilirubin (0.2-1.0) mg/dL 0.4 AST (15-37) U/L 83 H ALT (16-63) U/L 41 Alkaline Phosphatase (46-116) U/L 112 Ammonia (11-32) umol/L Lactate Dehydrogenase (85-227) U/L Troponin I (<or=60) ng/L C-Reactive Protein (0.0-0.3) mg/dL > 25.00 H NT-Pro-B Natriuret Pep (<300) pg/mL Total Protein (6.4-8.2) g/dL 7.2 Albumin (3.4-5.0) g/dL 2.0 L Lipase (16-77) U/L Procalcitonin ng/mL TSH (0.36-3.74) uIU/mL Urine Color (Yellow) Urine Clarity (Clear) Urine pH (5-8) Ur Specific [place] (1.005-1.025) Urine Protein (Negative) mg/dL Urine Ketones (Negative) mg/dL Urine Blood (Negative) Urine Nitrite (Negative) Urine Bilirubin (Negative) Urine Urobilinogen (Up to 0.2) mg/dL Ur Leukocyte Esterase (Negative) Urine RBC (0-2) HPF Urine WBC (0-5) HPF Ur Epithelial Cells (Negative) HPF Urine Crystals (Negative) HPF Urine Bacteria (Negative) HPF Urine Casts (Negative) LPF Urine Mucus (Negative) Ur Culture Indicated? Urine Glucose (Negative) mg/dL IgG (610-1616) mg/dL 1190 IgG Total (767 - 1590) mg/dL 1230 IgG1 (341 - 894) mg/dL 535 IgG2 (171 - 632) mg/dL 464 IgG3 mg/dL 48.2 IgG4 mg/dL 82.4 IgA (85-499) mg/dL 283 IgM (35-242) mg/dL 138 IgE (<158) IU/mL 6 COVID-19 Source SARS-CoV-2 (PCR) (Negative) HIV 1&2 Ag/Ab, 4th Gen (Negative) Influenza Type A (PCR) (Negative) Influenza Type B (PCR) (Negative) Urine Legionella Ag (Negative) RSV (PCR) (Negative) Ur Strep pneumoniae Ag (Negative) Path Cons Comment Add-On Test Request Patient ABO/Rh Antibody Screen Crossmatch Range/Units 01/04/23 01/04/23 01/04/23 08:55 08:55 10:50 WBC (4.4-10.8) 10^3/uL RBC (4.36-5.78) 10^6/uL Hgb (13.5-17.5) g/dL Hct (40.0-50.0) % MCV (80-95) fL MCH (27.0-33.0) pg MCHC (32.0-36.0) % RDW (11.8-14.1) % Plt Count (130-400) 10^3/uL MPV (8.0-11.0) fL Immature Gran % Neutrophils % Band Neutrophils % Lymphocytes % Atypical Lymphs % Monocytes % Eosinophils % Basophils % Metamyelocytes % Myelocytes % Other Cells % Nucleated RBC % (0.0-0.3) % Absolute Neutrophils (1.2-6.7) 10^3/uL Absolute Lymphocytes (1.2-3.4) 10^3/uL Absolute Monocytes (0.1-0.8) 10^3/uL Absolute Eosinophils (0.0-0.7) 10^3/uL Absolute Basophils (0.0-0.2) 10^3/uL RBC Morphology Polychromasia Hypochromasia Poikilocytosis Anisocytosis Haptoglobin (32-197) mg/dL PT (9.3-11.0) sec INR (0.9-1.1) APTT (21.5-31.9) sec Fibrinogen (171-384) mg/dL D-Dimer (<500) ng/mlFEU 4516 H VBG pH (7.31-7.41) 7.36 VBG pCO2 (41-51) mmHg 48 VBG pO2 mmHg 90 VBG HCO3 (23-28) mmol/L 27 VBG Total CO2 (24-29) mmol/L 26 VBG O2 Saturation % 97 VBG Base Excess (-2-3) mmol/L 1 VBG Lactate (0.6-1.4) mmol/L Sodium (136-145) mmol/L Potassium (3.5-5.1) mmol/L Chloride (98-107) mmol/L Carbon Dioxide (21.0-32.0) mmol/L Anion Gap (3-11) mmol/L BUN (7-18) mg/dL Creatinine (0.70-1.30) mg/dL Est GFR (CKD-EPI 2020) (mL/min/1.73m2) Glucose (74-106) mg/dL Hemoglobin A1c (<5.7) % Calcium (8.5-10.1) mg/dL Magnesium (1.8-2.4) mg/dL Total Bilirubin (0.2-1.0) mg/dL AST (15-37) U/L ALT (16-63) U/L Alkaline Phosphatase (46-116) U/L Ammonia (11-32) umol/L Lactate Dehydrogenase (85-227) U/L Troponin I (<or=60) ng/L C-Reactive Protein (0.0-0.3) mg/dL NT-Pro-B Natriuret Pep (<300) pg/mL Total Protein (6.4-8.2) g/dL Albumin (3.4-5.0) g/dL Lipase (16-77) U/L Procalcitonin ng/mL 0.7 TSH (0.36-3.74) uIU/mL Urine Color (Yellow) Urine Clarity (Clear) Urine pH (5-8) Ur Specific [place] (1.005-1.025) Urine Protein (Negative) mg/dL Urine Ketones (Negative) mg/dL Urine Blood (Negative) Urine Nitrite (Negative) Urine Bilirubin (Negative) Urine Urobilinogen (Up to 0.2) mg/dL Ur Leukocyte Esterase (Negative) Urine RBC (0-2) HPF Urine WBC (0-5) HPF Ur Epithelial Cells (Negative) HPF Urine Crystals (Negative) HPF Urine Bacteria (Negative) HPF Urine Casts (Negative) LPF Urine Mucus (Negative) Ur Culture Indicated? Urine Glucose (Negative) mg/dL IgG (610-1616) mg/dL IgG Total (767 - 1590) mg/dL IgG1 (341 - 894) mg/dL IgG2 (171 - 632) mg/dL IgG3 mg/dL IgG4 mg/dL IgA (85-499) mg/dL IgM (35-242) mg/dL IgE (<158) IU/mL COVID-19 Source SARS-CoV-2 (PCR) (Negative) HIV 1&2 Ag/Ab, 4th Gen (Negative) Influenza Type A (PCR) (Negative) Influenza Type B (PCR) (Negative) Urine Legionella Ag (Negative) RSV (PCR) (Negative) Ur Strep pneumoniae Ag (Negative) Path Cons Comment Add-On Test Request Patient ABO/Rh Antibody Screen Crossmatch Range/Units 01/04/23 01/04/23 01/05/23 10:50 11:42 05:15 WBC (4.4-10.8) 10^3/uL RBC (4.36-5.78) 10^6/uL Hgb (13.5-17.5) g/dL Hct (40.0-50.0) % MCV (80-95) fL MCH (27.0-33.0) pg MCHC (32.0-36.0) % RDW (11.8-14.1) % Plt Count (130-400) 10^3/uL MPV (8.0-11.0) fL Immature Gran % Neutrophils % Band Neutrophils % Lymphocytes % Atypical Lymphs % Monocytes % Eosinophils % Basophils % Metamyelocytes % Myelocytes % Other Cells % Nucleated RBC % (0.0-0.3) % Absolute Neutrophils (1.2-6.7) 10^3/uL Absolute Lymphocytes (1.2-3.4) 10^3/uL Absolute Monocytes (0.1-0.8) 10^3/uL Absolute Eosinophils (0.0-0.7) 10^3/uL Absolute Basophils (0.0-0.2) 10^3/uL RBC Morphology Polychromasia Hypochromasia Poikilocytosis Anisocytosis Haptoglobin (32-197) mg/dL PT (9.3-11.0) sec INR (0.9-1.1) APTT (21.5-31.9) sec Fibrinogen (171-384) mg/dL D-Dimer (<500) ng/mlFEU VBG pH (7.31-7.41) VBG pCO2 (41-51) mmHg VBG pO2 mmHg VBG HCO3 (23-28) mmol/L VBG Total CO2 (24-29) mmol/L VBG O2 Saturation % VBG Base Excess (-2-3) mmol/L VBG Lactate (0.6-1.4) mmol/L Sodium (136-145) mmol/L 149 H Potassium (3.5-5.1) mmol/L 4.3 Chloride (98-107) mmol/L 114 H Carbon Dioxide (21.0-32.0) mmol/L 31.6 Anion Gap (3-11) mmol/L 3.4 BUN (7-18) mg/dL 30 H Creatinine (0.70-1.30) mg/dL 1.5 H Est GFR (CKD-EPI 2020) (mL/min/1.73m2) 51.03 Glucose (74-106) mg/dL 161 H Hemoglobin A1c (<5.7) % Calcium (8.5-10.1) mg/dL 8.5 Magnesium (1.8-2.4) mg/dL Total Bilirubin (0.2-1.0) mg/dL 0.3 AST (15-37) U/L 97 H ALT (16-63) U/L 38 Alkaline Phosphatase (46-116) U/L 102 Ammonia (11-32) umol/L 13 Lactate Dehydrogenase (85-227) U/L Troponin I (<or=60) ng/L C-Reactive Protein (0.0-0.3) mg/dL 22.87 H NT-Pro-B Natriuret Pep (<300) pg/mL Total Protein (6.4-8.2) g/dL 6.7 Albumin (3.4-5.0) g/dL 1.9 L Lipase (16-77) U/L Procalcitonin ng/mL TSH (0.36-3.74) uIU/mL Urine Color (Yellow) Urine Clarity (Clear) Urine pH (5-8) Ur Specific [place] (1.005-1.025) Urine Protein (Negative) mg/dL Urine Ketones (Negative) mg/dL Urine Blood (Negative) Urine Nitrite (Negative) Urine Bilirubin (Negative) Urine Urobilinogen (Up to 0.2) mg/dL Ur Leukocyte Esterase (Negative) Urine RBC (0-2) HPF Urine WBC (0-5) HPF Ur Epithelial Cells (Negative) HPF Urine Crystals (Negative) HPF Urine Bacteria (Negative) HPF Urine Casts (Negative) LPF Urine Mucus (Negative) Ur Culture Indicated? Urine Glucose (Negative) mg/dL IgG (610-1616) mg/dL IgG Total (767 - 1590) mg/dL IgG1 (341 - 894) mg/dL IgG2 (171 - 632) mg/dL IgG3 mg/dL IgG4 mg/dL IgA (85-499) mg/dL IgM (35-242) mg/dL IgE (<158) IU/mL COVID-19 Source SARS-CoV-2 (PCR) (Negative) HIV 1&2 Ag/Ab, 4th Gen (Negative) Negative Influenza Type A (PCR) (Negative) Influenza Type B (PCR) (Negative) Urine Legionella Ag (Negative) RSV (PCR) (Negative) Ur Strep pneumoniae Ag (Negative) Path Cons Comment Add-On Test Request Patient ABO/Rh Antibody Screen Crossmatch Range/Units 01/05/23 01/05/23 01/05/23 05:15 05:15 06:55 WBC (4.4-10.8) 10^3/uL 2.70 L RBC (4.36-5.78) 10^6/uL 2.67 L Hgb (13.5-17.5) g/dL 7.1 L Hct (40.0-50.0) % 25.0 L MCV (80-95) fL 94 MCH (27.0-33.0) pg 26.6 L MCHC (32.0-36.0) % 28.4 L RDW (11.8-14.1) % 24.0 H Plt Count (130-400) 10^3/uL 34 L MPV (8.0-11.0) fL Immature Gran % Neutrophils % 26.0 Band Neutrophils % 4 Lymphocytes % 45.0 Atypical Lymphs % 2 Monocytes % 4.0 Eosinophils % 0.0 Basophils % 0.0 Metamyelocytes % 3 Myelocytes % 2 Other Cells % 14 Nucleated RBC % (0.0-0.3) % 1.0 H Absolute Neutrophils (1.2-6.7) 10^3/uL 0.81 L Absolute Lymphocytes (1.2-3.4) 10^3/uL 1.27 Absolute Monocytes (0.1-0.8) 10^3/uL 0.11 Absolute Eosinophils (0.0-0.7) 10^3/uL 0.00 Absolute Basophils (0.0-0.2) 10^3/uL 0.00 RBC Morphology See Below Polychromasia Present Hypochromasia Poikilocytosis 1+ Anisocytosis 3+ Haptoglobin (32-197) mg/dL PT (9.3-11.0) sec 14.2 H INR (0.9-1.1) 1.4 H APTT (21.5-31.9) sec Fibrinogen (171-384) mg/dL D-Dimer (<500) ng/mlFEU VBG pH (7.31-7.41) 7.35 VBG pCO2 (41-51) mmHg 56 H VBG pO2 mmHg 65 VBG HCO3 (23-28) mmol/L 30 H VBG Total CO2 (24-29) mmol/L 30 H VBG O2 Saturation % 93 VBG Base Excess (-2-3) mmol/L 5 H VBG Lactate (0.6-1.4) mmol/L Sodium (136-145) mmol/L Potassium (3.5-5.1) mmol/L Chloride (98-107) mmol/L Carbon Dioxide (21.0-32.0) mmol/L Anion Gap (3-11) mmol/L BUN (7-18) mg/dL Creatinine (0.70-1.30) mg/dL Est GFR (CKD-EPI 2020) (mL/min/1.73m2) Glucose (74-106) mg/dL Hemoglobin A1c (<5.7) % Calcium (8.5-10.1) mg/dL Magnesium (1.8-2.4) mg/dL Total Bilirubin (0.2-1.0) mg/dL AST (15-37) U/L ALT (16-63) U/L Alkaline Phosphatase (46-116) U/L Ammonia (11-32) umol/L Lactate Dehydrogenase (85-227) U/L Troponin I (<or=60) ng/L C-Reactive Protein (0.0-0.3) mg/dL NT-Pro-B Natriuret Pep (<300) pg/mL Total Protein (6.4-8.2) g/dL Albumin (3.4-5.0) g/dL Lipase (16-77) U/L Procalcitonin ng/mL TSH (0.36-3.74) uIU/mL Urine Color (Yellow) Urine Clarity (Clear) Urine pH (5-8) Ur Specific [place] (1.005-1.025) Urine Protein (Negative) mg/dL Urine Ketones (Negative) mg/dL Urine Blood (Negative) Urine Nitrite (Negative) Urine Bilirubin (Negative) Urine Urobilinogen (Up to 0.2) mg/dL Ur Leukocyte Esterase (Negative) Urine RBC (0-2) HPF Urine WBC (0-5) HPF Ur Epithelial Cells (Negative) HPF Urine Crystals (Negative) HPF Urine Bacteria (Negative) HPF Urine Casts (Negative) LPF Urine Mucus (Negative) Ur Culture Indicated? Urine Glucose (Negative) mg/dL IgG (610-1616) mg/dL IgG Total (767 - 1590) mg/dL IgG1 (341 - 894) mg/dL IgG2 (171 - 632) mg/dL IgG3 mg/dL IgG4 mg/dL IgA (85-499) mg/dL IgM (35-242) mg/dL IgE (<158) IU/mL COVID-19 Source SARS-CoV-2 (PCR) (Negative) HIV 1&2 Ag/Ab, 4th Gen (Negative) Influenza Type A (PCR) (Negative) Influenza Type B (PCR) (Negative) Urine Legionella Ag (Negative) RSV (PCR) (Negative) Ur Strep pneumoniae Ag (Negative) Path Cons Comment Add-On Test Request Patient ABO/Rh Antibody Screen Crossmatch Range/Units 01/05/23 01/05/23 01/06/23 10:30 11:40 05:00 WBC (4.4-10.8) 10^3/uL RBC (4.36-5.78) 10^6/uL Hgb (13.5-17.5) g/dL Hct (40.0-50.0) % MCV (80-95) fL MCH (27.0-33.0) pg MCHC (32.0-36.0) % RDW (11.8-14.1) % Plt Count (130-400) 10^3/uL MPV (8.0-11.0) fL Immature Gran % Neutrophils % Band Neutrophils % Lymphocytes % Atypical Lymphs % Monocytes % Eosinophils % Basophils % Metamyelocytes % Myelocytes % Other Cells % Nucleated RBC % (0.0-0.3) % Absolute Neutrophils (1.2-6.7) 10^3/uL Absolute Lymphocytes (1.2-3.4) 10^3/uL Absolute Monocytes (0.1-0.8) 10^3/uL Absolute Eosinophils (0.0-0.7) 10^3/uL Absolute Basophils (0.0-0.2) 10^3/uL RBC Morphology Polychromasia Hypochromasia Poikilocytosis Anisocytosis Haptoglobin (32-197) mg/dL PT (9.3-11.0) sec 14.3 H INR (0.9-1.1) 1.4 H APTT (21.5-31.9) sec Fibrinogen (171-384) mg/dL D-Dimer (<500) ng/mlFEU VBG pH (7.31-7.41) VBG pCO2 (41-51) mmHg VBG pO2 mmHg VBG HCO3 (23-28) mmol/L VBG Total CO2 (24-29) mmol/L VBG O2 Saturation % VBG Base Excess (-2-3) mmol/L VBG Lactate (0.6-1.4) mmol/L Sodium (136-145) mmol/L Potassium (3.5-5.1) mmol/L Chloride (98-107) mmol/L Carbon Dioxide (21.0-32.0) mmol/L Anion Gap (3-11) mmol/L BUN (7-18) mg/dL Creatinine (0.70-1.30) mg/dL Est GFR (CKD-EPI 2020) (mL/min/1.73m2) Glucose (74-106) mg/dL Hemoglobin A1c (<5.7) % Calcium (8.5-10.1) mg/dL Magnesium (1.8-2.4) mg/dL Total Bilirubin (0.2-1.0) mg/dL AST (15-37) U/L ALT (16-63) U/L Alkaline Phosphatase (46-116) U/L Ammonia (11-32) umol/L Lactate Dehydrogenase (85-227) U/L Troponin I (<or=60) ng/L C-Reactive Protein (0.0-0.3) mg/dL NT-Pro-B Natriuret Pep (<300) pg/mL Total Protein (6.4-8.2) g/dL Albumin (3.4-5.0) g/dL Lipase (16-77) U/L Procalcitonin ng/mL TSH (0.36-3.74) uIU/mL Urine Color (Yellow) Yellow Urine Clarity (Clear) Cloudy Urine pH (5-8) 5.5 Ur Specific [place] (1.005-1.025) 1.025 Urine Protein (Negative) mg/dL 100 H Urine Ketones (Negative) mg/dL Negative Urine Blood (Negative) Large H Urine Nitrite (Negative) Negative Urine Bilirubin (Negative) Negative Urine Urobilinogen (Up to 0.2) mg/dL 1.0 H Ur Leukocyte Esterase (Negative) Negative Urine RBC (0-2) HPF >50 H Urine WBC (0-5) HPF Negative Ur Epithelial Cells (Negative) HPF Rare Urine Crystals (Negative) HPF Few Uric Acid Urine Bacteria (Negative) HPF Rare Urine Casts (Negative) LPF Negative Urine Mucus (Negative) Trace Ur Culture Indicated? No Urine Glucose (Negative) mg/dL 100 H IgG (610-1616) mg/dL IgG Total (767 - 1590) mg/dL IgG1 (341 - 894) mg/dL IgG2 (171 - 632) mg/dL IgG3 mg/dL IgG4 mg/dL IgA (85-499) mg/dL IgM (35-242) mg/dL IgE (<158) IU/mL COVID-19 Source SARS-CoV-2 (PCR) (Negative) HIV 1&2 Ag/Ab, 4th Gen (Negative) Influenza Type A (PCR) (Negative) Influenza Type B (PCR) (Negative) Urine Legionella Ag (Negative) RSV (PCR) (Negative) Ur Strep pneumoniae Ag (Negative) Path Cons Comment Add-On Test Request Patient ABO/Rh A Positive Antibody Screen NEGATIVE Crossmatch See Detail Range/Units 01/06/23 01/07/23 01/07/23 05:00 05:25 10:38 WBC (4.4-10.8) 10^3/uL 2.92 L 2.50 L RBC (4.36-5.78) 10^6/uL 2.86 L 3.03 L Hgb (13.5-17.5) g/dL 7.6 L 8.1 L Hct (40.0-50.0) % 26.2 L 26.6 L MCV (80-95) fL 92 88 D MCH (27.0-33.0) pg 26.6 L 26.7 L MCHC (32.0-36.0) % 29.0 L 30.5 L RDW (11.8-14.1) % 23.1 H 22.5 H Plt Count (130-400) 10^3/uL 28 L* 26 L* MPV (8.0-11.0) fL Immature Gran % 0.0 Neutrophils % 50.0 48.0 Band Neutrophils % 2 4 Lymphocytes % 16.0 34.0 Atypical Lymphs % 2 Monocytes % 10.0 0.0 Eosinophils % 0.0 0.0 Basophils % 0.0 0.0 Metamyelocytes % 3 5 Myelocytes % 3 3 Other Cells % 14 4 Nucleated RBC % (0.0-0.3) % 2.0 H 2.0 H Absolute Neutrophils (1.2-6.7) 10^3/uL 1.52 1.30 Absolute Lymphocytes (1.2-3.4) 10^3/uL 0.47 L 0.90 L Absolute Monocytes (0.1-0.8) 10^3/uL 0.29 0.00 L Absolute Eosinophils (0.0-0.7) 10^3/uL 0.00 0.00 Absolute Basophils (0.0-0.2) 10^3/uL 0.00 0.00 RBC Morphology See Below See Below Polychromasia Hypochromasia 2+ Poikilocytosis 1+ Anisocytosis 2+ 2+ Haptoglobin (32-197) mg/dL PT (9.3-11.0) sec 14.5 H INR (0.9-1.1) 1.4 H APTT (21.5-31.9) sec Fibrinogen (171-384) mg/dL D-Dimer (<500) ng/mlFEU VBG pH (7.31-7.41) VBG pCO2 (41-51) mmHg VBG pO2 mmHg VBG HCO3 (23-28) mmol/L VBG Total CO2 (24-29) mmol/L VBG O2 Saturation % VBG Base Excess (-2-3) mmol/L VBG Lactate (0.6-1.4) mmol/L Sodium (136-145) mmol/L Potassium (3.5-5.1) mmol/L Chloride (98-107) mmol/L Carbon Dioxide (21.0-32.0) mmol/L Anion Gap (3-11) mmol/L BUN (7-18) mg/dL Creatinine (0.70-1.30) mg/dL Est GFR (CKD-EPI 2020) (mL/min/1.73m2) Glucose (74-106) mg/dL Hemoglobin A1c (<5.7) % Calcium (8.5-10.1) mg/dL Magnesium (1.8-2.4) mg/dL Total Bilirubin (0.2-1.0) mg/dL AST (15-37) U/L ALT (16-63) U/L Alkaline Phosphatase (46-116) U/L Ammonia (11-32) umol/L Lactate Dehydrogenase (85-227) U/L Troponin I (<or=60) ng/L C-Reactive Protein (0.0-0.3) mg/dL NT-Pro-B Natriuret Pep (<300) pg/mL Total Protein (6.4-8.2) g/dL Albumin (3.4-5.0) g/dL Lipase (16-77) U/L Procalcitonin ng/mL TSH (0.36-3.74) uIU/mL Urine Color (Yellow) Urine Clarity (Clear) Urine pH (5-8) Ur Specific [place] (1.005-1.025) Urine Protein (Negative) mg/dL Urine Ketones (Negative) mg/dL Urine Blood (Negative) Urine Nitrite (Negative) Urine Bilirubin (Negative) Urine Urobilinogen (Up to 0.2) mg/dL Ur Leukocyte Esterase (Negative) Urine RBC (0-2) HPF Urine WBC (0-5) HPF Ur Epithelial Cells (Negative) HPF Urine Crystals (Negative) HPF Urine Bacteria (Negative) HPF Urine Casts (Negative) LPF Urine Mucus (Negative) Ur Culture Indicated? Urine Glucose (Negative) mg/dL IgG (610-1616) mg/dL IgG Total (767 - 1590) mg/dL IgG1 (341 - 894) mg/dL IgG2 (171 - 632) mg/dL IgG3 mg/dL IgG4 mg/dL IgA (85-499) mg/dL IgM (35-242) mg/dL IgE (<158) IU/mL COVID-19 Source SARS-CoV-2 (PCR) (Negative) HIV 1&2 Ag/Ab, 4th Gen (Negative) Influenza Type A (PCR) (Negative) Influenza Type B (PCR) (Negative) Urine Legionella Ag (Negative) RSV (PCR) (Negative) Ur Strep pneumoniae Ag (Negative) Path Cons Comment Add-On Test Request Patient ABO/Rh Antibody Screen Crossmatch Range/Units 01/08/23 05:40 WBC (4.4-10.8) 10^3/uL RBC (4.36-5.78) 10^6/uL Hgb (13.5-17.5) g/dL Hct (40.0-50.0) % MCV (80-95) fL MCH (27.0-33.0) pg MCHC (32.0-36.0) % RDW (11.8-14.1) % Plt Count (130-400) 10^3/uL MPV (8.0-11.0) fL Immature Gran % Neutrophils % Band Neutrophils % Lymphocytes % Atypical Lymphs % Monocytes % Eosinophils % Basophils % Metamyelocytes % Myelocytes % Other Cells % Nucleated RBC % (0.0-0.3) % Absolute Neutrophils (1.2-6.7) 10^3/uL Absolute Lymphocytes (1.2-3.4) 10^3/uL Absolute Monocytes (0.1-0.8) 10^3/uL Absolute Eosinophils (0.0-0.7) 10^3/uL Absolute Basophils (0.0-0.2) 10^3/uL RBC Morphology Polychromasia Hypochromasia Poikilocytosis Anisocytosis Haptoglobin (32-197) mg/dL PT (9.3-11.0) sec 14.1 H INR (0.9-1.1) 1.4 H APTT (21.5-31.9) sec Fibrinogen (171-384) mg/dL D-Dimer (<500) ng/mlFEU VBG pH (7.31-7.41) VBG pCO2 (41-51) mmHg VBG pO2 mmHg VBG HCO3 (23-28) mmol/L VBG Total CO2 (24-29) mmol/L VBG O2 Saturation % VBG Base Excess (-2-3) mmol/L VBG Lactate (0.6-1.4) mmol/L Sodium (136-145) mmol/L Potassium (3.5-5.1) mmol/L Chloride (98-107) mmol/L Carbon Dioxide (21.0-32.0) mmol/L Anion Gap (3-11) mmol/L BUN (7-18) mg/dL Creatinine (0.70-1.30) mg/dL Est GFR (CKD-EPI 2020) (mL/min/1.73m2) Glucose (74-106) mg/dL Hemoglobin A1c (<5.7) % Calcium (8.5-10.1) mg/dL Magnesium (1.8-2.4) mg/dL Total Bilirubin (0.2-1.0) mg/dL AST (15-37) U/L ALT (16-63) U/L Alkaline Phosphatase (46-116) U/L Ammonia (11-32) umol/L Lactate Dehydrogenase (85-227) U/L Troponin I (<or=60) ng/L C-Reactive Protein (0.0-0.3) mg/dL NT-Pro-B Natriuret Pep (<300) pg/mL Total Protein (6.4-8.2) g/dL Albumin (3.4-5.0) g/dL Lipase (16-77) U/L Procalcitonin ng/mL TSH (0.36-3.74) uIU/mL Urine Color (Yellow) Urine Clarity (Clear) Urine pH (5-8) Ur Specific [place] (1.005-1.025) Urine Protein (Negative) mg/dL Urine Ketones (Negative) mg/dL Urine Blood (Negative) Urine Nitrite (Negative) Urine Bilirubin (Negative) Urine Urobilinogen (Up to 0.2) mg/dL Ur Leukocyte Esterase (Negative) Urine RBC (0-2) HPF Urine WBC (0-5) HPF Ur Epithelial Cells (Negative) HPF Urine Crystals (Negative) HPF Urine Bacteria (Negative) HPF Urine Casts (Negative) LPF Urine Mucus (Negative) Ur Culture Indicated? Urine Glucose (Negative) mg/dL IgG (610-1616) mg/dL IgG Total (767 - 1590) mg/dL IgG1 (341 - 894) mg/dL IgG2 (171 - 632) mg/dL IgG3 mg/dL IgG4 mg/dL IgA (85-499) mg/dL IgM (35-242) mg/dL IgE (<158) IU/mL COVID-19 Source SARS-CoV-2 (PCR) (Negative) HIV 1&2 Ag/Ab, 4th Gen (Negative) Influenza Type A (PCR) (Negative) Influenza Type B (PCR) (Negative) Urine Legionella Ag (Negative) RSV (PCR) (Negative) Ur Strep pneumoniae Ag (Negative) Path Cons Comment Add-On Test Request Patient ABO/Rh Antibody Screen Crossmatch
[2023-01-08 07:14] LABS: Absolute Lymphocyte Count 1.06 10^3/uL (1.2-3.4); Absolute Monocyte Count 0.15 10^3/uL (0.1-0.8); Absolute Neutrophil Count 0.79 10^3/uL (1.2-6.7); Atypical Lymphocytes % 2; Bands % 7; Metamyelocytes % 6; Myelocytes % 4; Other Cells % 9; Platelet Count 25 10^3/uL (130-400)
[2023-01-08 07:15] LABS: Anisocytosis 2+; Diff Comment Manual Differential
[2023-01-08 07:38] LABS: Leukemia/Lymphoma by FC (Blood (See below)
[2023-01-08] MEDS: Nystatin POWDER 60 GM JAR TP ×3 (08:00→21:12)
[2023-01-08] MEDS: Atenolol 50 MG TAB 100 MG PO (08:31)
[2023-01-08] MEDS: Potassium Citrate 1080 MG TABCR 2160 MG PO ×2 (08:31→21:11)
[2023-01-08] MEDS: guaiFENesin 600 MG TABCR PO ×2 (08:32→21:10)
[2023-01-08] MEDS: Doxazosin 2 MG TAB 4 MG PO (08:32)
[2023-01-08] MEDS: Amoxicillin 875/Clav. 125 TAB PO ×2 (08:32→21:11)
[2023-01-08] MEDS: Apixaban 5 MG TAB 10 MG PO ×2 (08:32→21:11)
[2023-01-08] MEDS: Mirabegron 50 MG TABCR PO (08:32)
[2023-01-08] MEDS: Atorvastatin 20 MG TAB PO (08:32)
[2023-01-08] MEDS: Benzonatate 100 MG CAP PO ×3 (08:32→21:11)
[2023-01-08] MEDS: Insulin Aspart 300 UNITS/3 ML PEN SC ×7 (08:34→21:09)
[2023-01-08] MEDS: Insulin Glargine 300 UNITS/3 ML PEN 45 UNITS SC (09:17)
--- NOTE | 2023-01-08 09:17 | PTTR_ITS ---
Date of service: 01/08/23 Time of Service: 08:26 PT Notes Visit Reasons: Pneumonia Inpatient Physical Therapy Treatment Note [facility] Date: 01/08/2023 PRECAUTIONS: Fall, activity as tolerated, morbid obesity SUBJECTIVE: Welcome is agreeable to participating in PT. He reports seeing a bat in the corner of his room that has been there all night. He reports that he is mobile at home and utilizes an SPC for support. OBJECTIVE: PAIN: Patient reports pain over dorsal aspect of B feet R>L with ankle pumps BED MOBILITY/TRANSFERS Rolling L/R: [] Supine-sit: SBA with HOB at 50 degrees Sit-supine: Max A x3 with HOB flat Sit-stand: CGA x2 from bed-level surface in a.m.; Min A x3 from recliner surface in p.m. Stand-sit: CGA x2 Bed-Chair: CGA x2 Chair-bed: [] GAIT Assistive Device: FWW Weight bearing: Full Assist: CGA x2 Distance: 4 steps in a.m.; 6 steps in p.m. Deviation: Slow pacing THEREX: Patient was instructed in a LE strengthening program, completed in a seated position, to include: ankle pumps, LAQ, hip flexion and hip abduction. H e was also instructed in modified pull ups using B chair arms. ASSESSMENT: Patient tolerated session with c/o global fatigue with all activity. He demonstrates limited activity tolerance and general deconditioning. PLAN: Continue with global strengthening and general conditioning for improved activity tolerance and mobility. Recommend discharge to SNF-level rehab due to current functional mobility limitations. TREATMENT CODE/TIME: Session 1: 36 minutes; [id number], [id number] (08:26) Session 2: 10 minutes; [id number] (12:35)
--- NOTE | 2023-01-08 09:55 | PDOC.CMPRO ---
- If Service Date Differs Date of service: 01/08/23 Time of Service: 09:55 Care Management Progress Note S/O: Nico is sitting up in his chair when CM met with him. He is awake and engages in conversation. Per PT, patient is making slow improvement and SNF for STR, prior to discharging home is recommended, when he is medically ready for discharge. At this time, Nico does not want a STR referral but agrees to think about it. CM will follow. A: 67 year old male admitted to [facility] on 12/05/22 for pneumonia P: Anticipate Nico will discharge to SNF for STR vs. return home with resumption of [facility] RN (add PT, OT) and CFC Moderate when ready per MD. He will follow up with his PCP and plan of care as prescribed and transport via private vehicle with family. CM continues to follow.
[2023-01-08] MEDS: Ipratropium 0.5 MG/2.5 ML UPD VIAL UPD (13:27)
--- NOTE | 2023-01-08 13:27 | DI.US_ITS ---
Exam(s) US RENAL EXAM: US RENAL CLINICAL HISTORY: hematuria, anemia. TECHNIQUE: [place] scale, color and spectral Doppler were used. COMPARISON: CT CT CHEST PE CTA from 01/05/2023 FINDINGS: Exam limited by patient body habitus inability to breath hold Renal size in cm: Right: 13 left: 13.9 Echogenicity: Normal Hydronephrosis: No Cyst or mass: No Nephrolithiasis: No Liver shows hepatic steatosis. Bladder:Grossly normal Prevoid vol:600 Postvoid vol:Patient states unable to void IMPRESSION: Limited exam due to patient body habitus. distended urinary bladder. No evidence of hydronephrosis . DATA REPOSITORY:
[2023-01-08] MEDS: Albuterol 2.5 MG/3 ML INH SOLN VIAL UPD (13:28)
--- NOTE | 2023-01-08 16:13 | PCNE_ITS ---
Date of service: 01/08/23 Time of Service: 14:15 History of Present Illness Narrative: Mr. Walsh is a 67 y/o M currently inpatient in ICU (on MS status) at [facility] 2/2 sepsis/PNA; PMHx sig for T2DM, pancytopenia, YAMIL, CAD, HLD, recurrent COVID; in current work up for MDS vs leukemia/lymphoma, pending outpatient bone biopsy Hospital course: Nico presented to [facility] ED on 01/01 r/t sepsis/PLNA 2/2 GPC bacteremia; admitted to ICU, did clinically improve, pt self-removed PICC lines, currently has no IV access, has been successfully transitioned to PO abx w/no plans to place a line; total care assist; on 01/07 attempted to get OOB unassisted which l/t a fall; pancytopenia w/leuk/lymphoma panel myeloid leukemia w/blast cells,, outpatient bone biopsy to be scheduled at [facility]; PT recomm endation d/c to SNF for rehab per staff: Nico is the best he has been today, he is mentally and physically stronger, thinking clearer; his safety awareness today is improved compared to yesterday s/p fall; respiratory status continues to improve, now on continuous O2 throughout day at 3L, O2 levels remaining 90% plus; use of BiPAP overnight; appetite improving, ate nothing yesterday, eating all today, BS remain high; denies pain - remains total care assist w/dressing, bathing, incontinent of urine/bowels, max transfer assist w/moderate assist stand/pivot; no discharge plans at this time, hopefully soon; - thus far Nico has not agreed to d/c to SNF w/preference to return home where his roommate can help Nico is agreeable to palliative visit, however he reports he is fatigued t zuleika; he feels the mornings are better and he is more engaged at that time Lives in [facility] w/roommate; says that everything he needs in his home is closer at home compared to here, when asked how close the bathroom is, he states its 30ft he gets SOB w/minimal exertion, chronic; is not on continuous O2 during daytime at home, feels he could benefit from this, feels he breaths better w/O2 on, has never had order for daytime use he has 3 daughters, daughter Cony most local, she is his [employer] computer trainer comes 1x/wk; able to prepare food for meals independently AD completed 2012 Assessment and Plan Assessment and plan (1) Discharge planning issues: Status: Acute (2) Pulmonary emboli: Status: Chronic (3) Respiratory failure with hypoxia: Status: Acute (4) Pancytopenia: Status: Acute (5) Gram-positive bacteremia: Status: Acute (6) Sepsis: Status: Acute (7) Pneumonia: Status: Acute (8) Diabetes mellitus type 2 in obese: Status: Acute (9) Sleep apnea: Status: Chronic (10) Edema: Status: Chronic Qualifiers: Edema type: localized Qualified Code(s): R60.0 - Localized edema (11) Right-sided heart failure: Status: Chronic Qualifiers: Heart failure chronicity: chronic Qualified Code(s): I50.812 - Chronic right heart failure (12) Osteoarthritis of knee: Status: Acute Qualifiers: Laterality: bilateral Osteoarthritis type: primary Qualified Code(s): M17.0 - Bilateral primary osteoarthritis of knee (13) Morbid obesity: (14) Fall: Status: Resolved (15) Palliative care encounter: Status: Acute Assessment and plan: Mr. Walsh is a 67 y/o M currently inpatient in ICU on MS status at [facility]; PMHx sig for T2DM, pancytopenia, YAMIL, CAD, HLD, recurrent COVID; in current work up for MDS vs leukemia/lymphoma, pending outpatient bone biopsy - palliative care to continue to follow through inpatient stay, preference for AM visit later this week as PC available; to follow up on Code status, remains FULL CODE, [facility] reviewed and confirmed at [facility] as per AD completed 2012; need for ongoing conversations regarding code status; need to review GOC for safe discharge plans; has CFC moderate needs - 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, bone biopsy to be scheduled outpatient w/[facility] - remains total care assist w/recent fall, unobserved PT recommendations for discharge to SNF for ongoing rehab, not safe to return home at this time - abx transitioned d/t PO d/t no IV access at this time; sepsis resolved; continue Rocephin and azithromycin - resp status still requiring continuous O2 at 3L, continue to monitor; potential source is combo of YAMIL/OHS w/hypervolemia, continue to monitor; continue BiPAP overnight Review of Systems Narrative: as per HPI PFSH All Active Problems (Updated 01/08/23 @ 17:03 by Yeni Randall NP) Palliative care encounter (Acute) Discharge planning issues (Acute) Pulmonary hypertension (Acute) Pulmonary emboli (Chronic) Respiratory failure with hypoxia (Acute) Pancytopenia (Acute) Acute kidney injury (nontraumatic) (Acute) Gram-positive bacteremia (Acute) 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) Sleep apnea (Chronic 01/29/13) Mod/severe sleep apnea GERD with apnea (Chronic 04/12/15) Insomnia (Chronic 07/06/16) Restrictive lung disease (Chronic) PFT's 09/10/19 Right-sided heart failure (Chronic 01/06/15) Edema (Chronic 01/29/13) Urgency incontinence (Acute) Lower urinary tract symptoms (LUTS) (Acute 06/29/16) renal u/s: incomplete emptying Uric acid stone in urine (Acute) Bladder stones (Acute 10/29/17) Lumbar radiculopathy, right (Acute) B12 deficiency anemia (Acute 09/23/14) Osteoarthritis of knee (Acute 01/29/13) Chronic pain (Chronic) Pain medication agreement (Acute 03/25/15) Umbilical hernia without obstruction or gangrene (Acute 04/03/18) Dyshidrotic eczema (Chronic) Medical History Acute meniscal tear, lateral (01/29/13) Acute meniscal tear, medial (01/29/13) Acute on chronic renal insufficiency Anticoagulation goal of INR 2 to 3 hx of lower extremity dvts andacute pe Benign gastric polyp (05/01/14) EGD 05-01-14 Coronary artery disease Diabetes mellitus relates bloodsugars in am typically [id number] ,lasts a1c 9.3 range Hematuria Hernia Hyperlipidemia Kidney stones (10/19/17) Morbid obesity 50-59.9 super morbid obesity classification MRSA cellulitis of right foot Obstructive sleep apnea Umbilical hernia Uric acid urolithiasis managed with hydration and citrates Surgical History flexible laryngoscopy (04/12/15) FORESKIN SLIT History of colonoscopy History of esophagogastroduodenoscopy (EGD) History of extraction of renal calculus [facility] 02/13/18 History of trigger finger lt thumb KNEE SURGERIES arthroscopy with documented knee djd Radial styloid tenosynovitis [de quervain] s/p release on 03/24/2019 Dr. De La Fuente Family History Mother Hypertensive disorder, systemic arterial Diabetes Personal history of malignant neoplasm BREAST Sister Diabetes Mental disorder Brother Diabetes Social History Smoking/Tobacco Use Status: Former Tobacco Use Quit Date: 03/15/09 Smokeless tobacco user: chewing tobacco Smoking risk assessment performed?: Yes Alcohol Intake: never Drug use: Never Substance use type: does not use Household members: other Details: roomate Housing: apartment Number of Children: 0 Communication Needs: Corrective Lenses current occupation: disabled Current gender identity: male How often do you talk on the phone with friends or family?: three or more times per week How often do you get together with friends or relatives?: three or more times per week Panel score (0-1 are the most socially isolated patients): 1 What type of physical activity do you participate in: none Seatbelt use: always Drive intox or ride w/intox compactor driver: No Water heater temp set <120 deg: Yes Working smoke detector in home: Yes Fire extinguisher in home: Yes Carbon monox detector in home: Yes Do you feel safe at home: Yes Do you feel safe in your relationship?: Yes Exam Narrative Exam Narrative: General: morbidly obese male; awake and alert, NAD Resp: RR even and unlabored, NC on 3L in place, speaks limited sentences Extremities: 1+ BLE edema Psych: cooperative, fatigued, avoids eye contact; guarded, thought process impoverished; judgment poor wakes/wanes to participating in conversation and closing eyes/drifting off Results Last Vital Signs Temp 97.2 F L 01/08/23 05:00 Pulse 69 01/08/23 14:03 Resp 24 01/08/23 13:40 BP 121/43 L 01/08/23 07:40 Pulse Ox 95 01/08/23 14:03 Labs 01/08/23 05:40 01/08/23 05:40 Labs: Laboratory Results - last 24 hr 01/02/23 01/04/23 01/08/23 10:10 10:50 05:40 WBC RBC Hgb Hct MCV MCH MCHC RDW Plt Count MPV Immature Gran % Neutrophils % Band Neutrophils % Lymphocytes % Atypical Lymphs % Monocytes % Eosinophils % Basophils % Metamyelocytes % Myelocytes % Other Cells % Nucleated RBC % Absolute Neutrophils Absolute Lymphocytes Absolute Monocytes Absolute Eosinophils Absolute Basophils RBC Morphology Anisocytosis PT INR Sodium 142 Potassium 4.2 Chloride 106 Carbon Dioxide 28.8 Anion Gap 7.2 BUN 26 H Creatinine 1.1 Est GFR (CKD-EPI 2020) 74.04 Glucose 297 H Calcium 8.3 L Lymph/Leukemia Panel (See below) M. pneumoniae Source Sputum M. pneumoniae (PCR) Negative 01/08/23 01/08/23 05:40 05:40 WBC 2.47 L RBC 2.75 L Hgb 7.4 L Hct 24.2 L MCV 88 MCH 26.9 L MCHC 30.6 L RDW 21.9 H Plt Count 25 L* MPV Immature Gran % 0.0 Neutrophils % 25.0 Band Neutrophils % 7 Lymphocytes % 41.0 Atypical Lymphs % 2 Monocytes % 6.0 Eosinophils % 0.0 Basophils % 0.0 Metamyelocytes % 6 Myelocytes % 4 Other Cells % 9 Nucleated RBC % 2.0 H Absolute Neutrophils 0.79 L Absolute Lymphocytes 1.06 L Absolute Monocytes 0.15 Absolute Eosinophils 0.00 Absolute Basophils 0.00 RBC Morphology See Below Anisocytosis 2+ PT 14.1 H INR 1.4 H Sodium Potassium Chloride Carbon Dioxide Anion Gap BUN Creatinine Est GFR (CKD-EPI 2020) Glucose Calcium Lymph/Leukemia Panel M. pneumoniae Source M. pneumoniae (PCR)
--- NOTE | 2023-01-08 16:27 | PGE_ITS ---
Date of Service Date of service: 01/08/23 Time of Service: 16:27 Assessment and Plan Assessment and plan (1) Sepsis: Status: Acute Assessment and plan: Resolved; see pneumonia. (2) Gram-positive bacteremia: Status: Acute Assessment and plan: atypical strep; Strep mitis/oralis, repeat cultures from 01/03 are negative. His other blood cultures from admission grew Staph epidermis; both should respond to high dose Ceftriaxone. Both organisms could have been contaminants. (3) Pneumonia: Status: Acute Assessment and plan: BC 1st set 01/01/23 + Strep species , 2nd set +Staph, non-aureus (2/2 bottles); sputum 01/01/23 normal kavya CXR w/ KEVIN pneumonia. His renal function is improving. Cognition waxing/waning but overall trajectory is improving. Cont high dose Rocephin and azithromycin. Urine legionella antigen was negative. Strep antigen neg. Mycoplasm studies pending. Ongoing resp failure is combination of his underlying YAMIL/OHS along w/ some volume overload d/t fluids given in resuscitation. He had dose of lasix on 01/04 when he was in acute respiratory distress and was found to have RAP and dilated RV w/ signs of fluid overload (abnormal IV septal wall motion). Cont home BiPAP at night. He remains full code per previous discussion w/ his daughter who is his DPOA. Now that Welcome is more alert, and appropriate, he can participate in this discussion. Palliative care consulted to discuss w/ the patient and his family goals of care. 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 Will need to plan bone marrow bx; either down and back to [facility] or as outpt. No signs of acute bleeding. Hgb did decrease to 7.1 and he was transfused 1 unit. Plts 25. Concerning combination of need for AC along with increased risk of bleeding d/t thrombocytopenia. (5) Acute kidney injury (nontraumatic): Status: Acute Assessment and plan: Improved. Cr now 1.1. (6) DKA (diabetic ketoacidoses): Status: Resolved Assessment and plan: Resolved after insulin drip. (7) Diabetes mellitus type 2 in obese: Status: Acute Assessment and plan: Adjusting basal/bolus insulin; currently poorly controlled. (8) Acute pulmonary embolism: Start date: 12/07/15 Status: Resolved Assessment and plan: CTA 01/05/23 shows pulmonary emboli. Previous P.E. in 2016 and has been on coumadin since then. Presented with subtherapeutic coumadin. Now on treatment dose of apixiban. (9) COVID: Status: Acute Assessment and plan: PCR is postive however, daughter says that he has tested on home test negative repeatedly. he did complete 5 days of Paxlovid at home two weeks ago. Now out of postive covid status. per [facility] policy he is not considered infectious and has been taken out of isolation (10) Hypertension: Status: Chronic Assessment and plan: Cont his atenolol. Cont holding amlodipine until BP warrants restarting. Qualifiers: Hypertension type: essential hypertension Qualified Code(s): I10 - Essential (primary) hypertension (11) Discharge planning issues: Status: Acute Assessment and plan: Will require further rehab efforts once discharged. Full Code. Palliative seeing patient. Subjective Subjective Patient reports: feels better and afebrile; denies nausea or vomiting Interval history since last seen: More alert today than yesterday afternoon. Exam Narrative Exam Narrative: Morbidly obese male (BMI 54), bearded white male. Alert and conversant. NAD. Lungs: Clear with distant breath sounds. Heart: RRR Abdomen: obese, soft, nontender Legs: 1+ edema bilaterally Neuro: normal ROM and strength, no facial asymmetry. Psych: affect appropriate. Objective Last Vital Signs Temp 36.2 C L 01/08/23 05:00 Pulse 69 01/08/23 14:03 Resp 24 01/08/23 13:40 BP 121/43 L 01/08/23 07:40 Pulse Ox 95 01/08/23 14:03 Laboratory Results - last 24 hr 01/02/23 01/04/23 01/08/23 10:10 10:50 05:40 WBC RBC Hgb Hct MCV MCH MCHC RDW Plt Count MPV Immature Gran % Neutrophils % Band Neutrophils % Lymphocytes % Atypical Lymphs % Monocytes % Eosinophils % Basophils % Metamyelocytes % Myelocytes % Other Cells % Nucleated RBC % Absolute Neutrophils Absolute Lymphocytes Absolute Monocytes Absolute Eosinophils Absolute Basophils RBC Morphology Anisocytosis PT INR Sodium 142 Potassium 4.2 Chloride 106 Carbon Dioxide 28.8 Anion Gap 7.2 BUN 26 H Creatinine 1.1 Est GFR (CKD-EPI 2020) 74.04 Glucose 297 H Calcium 8.3 L Lymph/Leukemia Panel (See below) M. pneumoniae Source Sputum M. pneumoniae (PCR) Negative 01/08/23 01/08/23 05:40 05:40 WBC 2.47 L RBC 2.75 L Hgb 7.4 L Hct 24.2 L MCV 88 MCH 26.9 L MCHC 30.6 L RDW 21.9 H Plt Count 25 L* MPV Immature Gran % 0.0 Neutrophils % 25.0 Band Neutrophils % 7 Lymphocytes % 41.0 Atypical Lymphs % 2 Monocytes % 6.0 Eosinophils % 0.0 Basophils % 0.0 Metamyelocytes % 6 Myelocytes % 4 Other Cells % 9 Nucleated RBC % 2.0 H Absolute Neutrophils 0.79 L Absolute Lymphocytes 1.06 L Absolute Monocytes 0.15 Absolute Eosinophils 0.00 Absolute Basophils 0.00 RBC Morphology See Below Anisocytosis 2+ PT 14.1 H INR 1.4 H Sodium Potassium Chloride Carbon Dioxide Anion Gap BUN Creatinine Est GFR (CKD-EPI 2020) Glucose Calcium Lymph/Leukemia Panel M. pneumoniae Source M. pneumoniae (PCR) Time Spent with Patient Time Spent with Patient: 25-34 minutes Time was spent: preparing to see the patient(eg.review tests), ordering medications,tests, procedures, referring, communicating with other health child care group leader and indepentently interpreting results
[2023-01-08] MEDS: Insulin Glargine 300 UNITS/3 ML PEN 55 UNITS SC (21:10)
[2023-01-08] MEDS: Omeprazole 20 MG CAPCR PO (21:10)
[2023-01-09] VITALS (8 sets, daily range): BP systolic 115–120; BP diastolic 41–44; PULSE 66–73; RESP 8–24; TEMP 36.2–36.6; O2SAT 93–95
[2023-01-09] MEDS: guaiFENesin 600 MG TABCR PO ×2 (07:43→21:22)
[2023-01-09] MEDS: Potassium Citrate 1080 MG TABCR 2160 MG PO ×2 (07:43→21:22)
[2023-01-09] MEDS: Mirabegron 50 MG TABCR PO (07:44)
[2023-01-09] MEDS: Atenolol 50 MG TAB 100 MG PO (07:44)
[2023-01-09] MEDS: Amoxicillin 875/Clav. 125 TAB PO ×2 (07:44→21:23)
[2023-01-09] MEDS: Doxazosin 2 MG TAB 4 MG PO (07:44)
[2023-01-09] MEDS: Apixaban 5 MG TAB 10 MG PO ×2 (07:44→21:23)
[2023-01-09] MEDS: Atorvastatin 20 MG TAB PO (07:45)
[2023-01-09] MEDS: Benzonatate 100 MG CAP PO ×3 (07:45→21:23)
[2023-01-09] MEDS: Insulin Aspart 300 UNITS/3 ML PEN SC ×7 (07:46→21:40)
[2023-01-09] MEDS: Insulin Glargine 300 UNITS/3 ML PEN 55 UNITS SC (07:48)
[2023-01-09] MEDS: Ipratropium 0.5 MG/2.5 ML UPD VIAL UPD ×3 (08:04→20:06)
[2023-01-09] MEDS: Albuterol 2.5 MG/3 ML INH SOLN VIAL UPD ×3 (08:04→20:06)
--- NOTE | 2023-01-09 08:23 | PDOC.CMPRO ---
- If Service Date Differs Date of service: 01/09/23 Time of Service: 08:23 Care Management Progress Note S/O: Nico was awake and lying in bed, watching TV when CM met with him. He agrees that he needs to be stronger before he can safely return home and agrees to SNF for STR. Nico lives in an apartment complex with his lifelong friend and roommate Abdi. His daughter lives next door and their apartments connect. Nico has [facility] Moderate needs and may be able to get increased services when he is able to discharge home. In the meantime, PT recommends SNF for STR. CM sent a referral to the [facility] at pts request and will send more referrals tomorrow. A: 67 year old male admitted to [facility] on 12/05/22 for pneumonia P: PT recommends SNF for STR, prior to discharging home. Nico is agreeable to STR referral to [facility]. Nico currently has [facility] RN, [facility] Moderate needs and homemaker services twice weekly. CM continues to follow.
--- NOTE | 2023-01-09 09:01 | OTIE_ITS ---
Occupational Therapy Notes Inpatient Occupational Therapy Evaluation Date: 01/09/23 Referring Doctor:Dr. Balderas OT Orders: Non Urgent Precautions: Fall, standard, full PATIENT PROFILE/ADMITTING DIAGNOSIS: Pt is a 67 year old male who was admitted for a dx of cough, shortness of breath, fever, and generalized weakness.? Patient is admitted for close monitoring in the ICU and for management of pneumonia, metabolic acidosis, DKA, anemia, thrombocytopenia, sepsis, gram- positive bacteremia, acute kidney injury longstanding COVID and hypertension. Past Medical History: All Active Problems? 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) Sleep apnea (Chronic 01/29/13) Mod/severe sleep apnea GERD with apnea (Chronic 04/12/15) Insomnia (Chronic 07/06/16) Restrictive lung disease (Chronic) PFT's 09/10/19Right-sided heart failure (Chronic 01/06/15) Edema (Chronic 01/29/13) Urgency incontinence (Acute) Lower urinary tract symptoms (LUTS) (Acute 06/29/16) renal u/s: incomplete emptying Uric acid stone in urine (Acute) Bladder stones (Acute 10/29/17) Lumbar radiculopathy, right (Acute) B12 deficiency anemia (Acute 09/23/14) Osteoarthritis of knee (Acute 01/29/13) Chronic pain (Chronic) Pain medication agreement (Acute 03/25/15) Umbilical hernia without obstruction or gangrene (Acute 04/03/18) Dyshidrotic eczema (Chronic) Medical History? Acute meniscal tear, lateral (01/29/13) Acute meniscal tear, medial (01/29/13) Acute on chronic renal insufficiency Anticoagulation goal of INR 2 to 3 hx of lower extremity dvts andacute peBenign gastric polyp (05/01/14) EGD 05-01-14 Coronary artery disease Diabetes mellitus relates bloodsugars in am typically [id number] ,lasts a1c 9.3 rangeHernia Hyperlipidemia Kidney stones (10/19/17) Morbid obesity 50-59.9 super morbid obesity classificationMRSA cellulitis of right foot Obstructive sleep apnea Umbilical hernia Uric acid urolithiasis managed with hydration and citrates Surgical History? flexible laryngoscopy (04/12/15) FORESKIN SLIT History of colonoscopy History of esophagogastroduodenoscopy (EGD) History of extraction of renal calculus [facility] [place]/13[place]History of trigger finger lt thumbKNEE SURGERIES arthroscopy with documented knee djdRadial styloid tenosynovitis [de quervain] s/p release on 03/24/2019 Dr. De La Fuente Social History/Home Situation: Pt states that he lives in an apartment with a roommate. He notes that he utilizes adaptive equipment at his baseline for performance of his ADLs. He has meals on wheels to (A) with his eating routines. He performed his bathing in a claw foot tub with a non stick mat but notes that he has to stand for performance of this decreasing his safety with this. He gets (A) With washing his folds by his aid that comes in 2x per week. He performs his dressing seated and has a sock aid but his uni boots limit his use of socks. He notes that he has someone come in to change these every couple days. Toileting he performs on the toilet he notes that he has a wand to (A) with toileting [place]. He notes that he is able to perform this (I) with his wand. He does not drive. His cleaning lady drives him to and from appts which he says is helpful. He reports that he has stairs in his home and refers to himself as homebound. He notes that his daughter lives next door. He states that she is a support and so is his roommate. He is receptive to services if he returns home. Given his cu rrent level of function getting in and out of his bath tub seems like a challenge. Equipment owned/DME: FWW, cane, sock aid, dressing stick, grab bars, non slip mat SUBJECTIVE: Pt states that he is doing well. He notes that he fell the other day but notes that he doesn't remember it. OBJECTIVE: General Observation: Pleasant, telemetry, BP cuff on (L) UE Mental Status: A&Ox4 Pain: no c/o pain ROM: RUE AROM WFL L UE AROM WFL STRENGTH: RUE 4/5 throughout LUE 3+/5 throughout SENSATION: intact (B) UE FUNCTIONAL MOBILITY/ADLS: DRESSING NT in todays session pt does note that he requires (A) with LE dressing but with his (B) LE wrapped he does not wear socks at all times. GROOMING NT TOILETING pt is utilizing commode. He does need slight (A) with toileting hygiene but has adaptive equipment at home for (I) EATING sitting in chair (I) with eating routines. BALANCE: Static sitting Good Dynamic Sitting Good SPECIAL TESTS: Daily Activity Limitations Standardized Measure [facility] AM -PAC ?6 clicks? Daily Activity Inpatient Short Form: Raw score: 16 Standardized score: 35.96 CMS score: 53.32% INFORMED CONSENT/EDUCATION: Pt instructed in purpose of OT Consult and plan of care. ASSESSMENT: Patient is a 67-year-old male referred to occupational therapy services with diagnosis of cough, shortness of breath, fever, and generalized weakness.? Patient is admitted for close monitoring in the ICU and for management of pneumonia, metabolic acidosis, DKA, anemia, thrombocytopenia, sepsis, gram-positive bacteremia, acute kidney injury longstanding COVID and hypertension. Patient presents with clinical signs and symptoms consistent with dx, as demonstrated by the following impairment level findings/functional limitations: Impairments in ADL/IADL and leisure activities, decreased functional mobility, decreased LE dressing and bathing, decreased standing tolerance required for his baseline bathing routine, decreased safety with functional mobility placing pt at risk for re-admission. AMPAC score 16 Patient is assessed as a high 10970 complexity based on the following: History: see above Examination: see functional limitations as noted above Presentation: evolving Decision Making: AMPAC score 16 GOALS Goals x1 week 1. Oral hygiene sitting (I) 2. Dressing seated mod (I) for LE and (I) UE 3. Bathing max (A) set up but (I) in standing at sink 4. Toileting on commode (I) 5. Eating (I) PLAN OF CARE/TREATMENT PLAN: 1x/day, 5 days/ week x 1week Initiate Occupational Therapy Services for bathing, dressing, grooming, toileting, eating, transfer training. DISCHARGE RECOMMENDATIONS SNF due to pts decreased functional mobility required for ADL performance. TREATMENT TIME/MINUTES/CODES [id number], 25 minutes (08:35) Bella Dave OTR/L [facility]
[2023-01-09] MEDS: Nystatin POWDER 60 GM JAR TP ×2 (10:34→22:26)
--- NOTE | 2023-01-09 10:46 | PT.INTREAT ---
Date of service: 01/09/23 Time of Service: 07:40 PT Notes Visit Reasons: Pneumonia Inpatient Physical Therapy Treatment Note [facility] Date: 01/08/2023 PRECAUTIONS: Fall, activity as tolerated, morbid obesity SUBJECTIVE: Welcome is agreeable to participating in PT. He reports that he continues to see a bat in the corner of his room. He also reports sensations for cats rubbing on his legs, but that he hasn't seen a cat. He reports that he has been up and down from the commode and has been sitting in his recliner chair since midnight. OBJECTIVE: PAIN: Patient reports pain over dorsal aspect of B feet R>L with ankle pumps BED MOBILITY/TRANSFERS Sit-stand: Mod A Stand-sit: CGA GAIT (in p.m., patient transferred back to bed by nursing staff) Assistive Device: FWW Weight bearing: Full Assist: SBA x2 Distance: 20' in a.m.; held in p.m. Deviation: Slow pacing, standing rest x1, cueing for FWW management for safety THEREX: Patient was instructed in an UE and LE strengthening program, completed in a seated position, to include: ankle pumps, quad sets, heel slides, hip abduction, shoulder flexion, bicep curls and isometric abdominal crunch. ASSESSMENT: Patient tolerated session with c/o global fatigue with all activity. He demonstrates limited activity tolerance and general deconditioning. PLAN: Continue with global strengthening and general conditioning for improved activity tolerance and mobility. Recommend discharge to SNF-level rehab due to current functional mobility limitations. TREATMENT CODE/TIME: Session 1: 25 minutes; 63158 x2 (07:40) Session 2: 15 minutes; 50238 (13:00)
--- NOTE | 2023-01-09 13:02 | NUR.NOTE ---
3x3 inch irregularly shaped echimotic area with skin torn center. 4x4 Mepelex dressing applied. Nursing Note:
--- NOTE | 2023-01-09 13:26 | PGE_ITS ---
Date of Service Date of service: 01/09/23 Time of Service: 13:42 Assessment and Plan Assessment and plan (1) Sepsis: Status: Acute Assessment and plan: Resolved; see pneumonia. (2) Gram-positive bacteremia: Status: Acute Assessment and plan: atypical strep; Strep mitis/oralis, repeat cultures from 01/03 are negative. His other blood cultures from admission grew Staph epidermis; both should respond to high dose Ceftriaxone. Both organisms could have been contaminants. (3) Pneumonia: Status: Acute Assessment and plan: BC 1st set 01/01/23 + Strep species , 2nd set +Staph, non-aureus (2/2 bottles); sputum 01/01/23 normal kavya CXR w/ KEVIN pneumonia. His renal function is improving. Cognition waxing/waning but overall trajectory is improving. Cont high dose Rocephin and azithromycin. Urine legionella antigen was negative. Strep antigen neg. Mycoplasm studies pending. Ongoing resp failure is combination of his underlying YAMIL/OHS along w/ some volume overload d/t fluids given in resuscitation. He had dose of lasix on 01/04 when he was in acute respiratory distress and was found to have RAP and dilated RV w/ signs of fluid overload (abnormal IV septal wall motion). Cont home BiPAP at night. He remains full code per previous discussion w/ his daughter who is his DPOA. Now that Welcome is more alert, and appropriate, he can participate in this discussion. Palliative care consulted to discuss w/ the patient and his family goals of care. Working with PT. 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 Will need to plan bone marrow bx; either down and back to [facility] or as outpt. No signs of acute bleeding. Hgb did decrease to 7.1 and he was transfused 1 unit. Plts 25. Concerning combination of need for AC along with increased risk of bleeding d/t thrombocytopenia. (5) Acute kidney injury (nontraumatic): Status: Acute Assessment and plan: Improved. Cr now 1.1. (6) DKA (diabetic ketoacidoses): Status: Resolved Assessment and plan: Resolved after insulin drip. (7) Diabetes mellitus type 2 in obese: Status: Acute Assessment and plan: Adjusting basal/bolus insulin; currently poorly controlled. (8) Acute pulmonary embolism: Start date: 12/07/15 Status: Resolved Assessment and plan: CTA 01/05/23 shows pulmonary emboli. Previous P.E. in 2016 and has been on coumadin since then. Presented with subtherapeutic coumadin. Now on treatment dose of apixiban. (9) COVID: Status: Acute Assessment and plan: PCR is postive however, daughter says that he has tested on home test negative repeatedly. he did complete 5 days of Paxlovid at home two weeks ago. Now out of postive covid status. per [facility] policy he is not considered infectious and has been taken out of isolation (10) Hypertension: Status: Chronic Assessment and plan: Cont his atenolol. Cont holding amlodipine until BP warrants restarting. Qualifiers: Hypertension type: essential hypertension Qualified Code(s): I10 - Essential (primary) hypertension (11) Discharge planning issues: Status: Acute Assessment and plan: Will require further rehab efforts once discharged. Full Code. Palliative seeing patient. Subjective Subjective Patient reports: no new complaints, feels better and afebrile; denies nausea or vomiting Exam Narrative Exam Narrative: Morbidly obese male (BMI 54), bearded white male. Alert and conversant. NAD. Lungs: Clear with distant breath sounds. Heart: RRR Abdomen: obese, soft, nontender Legs: Unna Boots in place. Neuro: normal ROM and strength, no facial asymmetry. Psych: affect appropriate. Objective Last Vital Signs Temp 36.2 C L 01/09/23 10:48 Pulse 73 01/09/23 10:48 Resp 24 01/09/23 10:48 BP 115/41 L 01/09/23 10:48 Pulse Ox 94 01/09/23 10:48 Time Spent with Patient Time Spent with Patient: 25-34 minutes Time was spent: preparing to see the patient(eg.review tests), ordering medications,tests, procedures, referring, communicating with other health care asst and indepentently interpreting results
--- NOTE | 2023-01-09 13:50 | NUR.NOTE ---
Nathalie boots removed. Skin integrity normal. No open areas noted. Dr. Balderas made aware. Nathalie boots discontinued. XXL EDWIGE hose applied. Nursing Note:
[2023-01-09] MEDS: traMADol 50 MG TAB 100 MG PO (21:23)
[2023-01-09] MEDS: Omeprazole 20 MG CAPCR PO (21:23)
[2023-01-09] MEDS: Insulin Glargine 300 UNITS/3 ML PEN 60 UNITS SC (21:24)
[2023-01-10] VITALS (14 sets, daily range): BP systolic 110–154; BP diastolic 63–69; PULSE 70–80; RESP 2–24; TEMP 36.4–37; O2SAT 91–96
[2023-01-10 06:03] LABS: HCT 23.7 % (40.0-50.0); HGB 7.2 g/dL (13.5-17.5); MCHC 30.4 % (32.0-36.0); MCV 89 fL (80-95); RBC 2.67 10^6/uL (4.36-5.78); WBC 3.54 10^3/uL (4.4-10.8)
[2023-01-10 06:09] LABS: Anion Gap 6.5 mmol/L (3-11); BUN 17 mg/dL (7-18); CO2 29.5 mmol/L (21.0-32.0); CREATININE 1.1 mg/dL (0.70-1.30); Calcium 7.8 mg/dL (8.5-10.1); Chloride 104 mmol/L (98-107); Estimated GFR 74.04 (mL/min/1.73m2); Glucose 185 mg/dL (74-106); Potassium 3.6 mmol/L (3.5-5.1); Sodium 140 mmol/L (136-145)
[2023-01-10 06:39] LABS: Platelet Count 22 10^3/uL (130-400)
[2023-01-10 06:40] LABS: RDW 21.8 % (11.8-14.1)
[2023-01-10] MEDS: Mirabegron 50 MG TABCR PO (08:53)
[2023-01-10] MEDS: Potassium Citrate 1080 MG TABCR 2160 MG PO ×2 (08:53→19:54)
[2023-01-10] MEDS: Atorvastatin 20 MG TAB PO (08:53)
[2023-01-10] MEDS: Doxazosin 2 MG TAB 4 MG PO (08:53)
[2023-01-10] MEDS: Amoxicillin 875/Clav. 125 TAB PO (08:53)
[2023-01-10] MEDS: Benzonatate 100 MG CAP PO ×3 (08:53→19:54)
[2023-01-10] MEDS: guaiFENesin 600 MG TABCR PO ×2 (08:54→19:54)
[2023-01-10] MEDS: Atenolol 50 MG TAB 100 MG PO (08:54)
[2023-01-10] MEDS: Insulin Aspart 300 UNITS/3 ML PEN SC ×7 (08:54→21:54)
[2023-01-10] MEDS: Apixaban 5 MG TAB 10 MG PO ×2 (08:54→19:54)
[2023-01-10] MEDS: Insulin Glargine 300 UNITS/3 ML PEN 60 UNITS SC ×2 (08:55→19:56)
[2023-01-10] MEDS: Nystatin POWDER 60 GM JAR TP ×3 (09:03→20:02)
--- NOTE | 2023-01-10 09:12 | OT.INNT ---
Occupational Therapy Notes 01/10/23 OT attempted to work with pt who had already performed his ADLs with nursing. OT will attempt to resume services tomorrow. Bella Dave, OTR/L
[2023-01-10] MEDS: Ipratropium 0.5 MG/2.5 ML UPD VIAL UPD ×2 (09:25→14:50)
[2023-01-10] MEDS: Albuterol 2.5 MG/3 ML INH SOLN VIAL UPD ×2 (09:25→14:50)
[2023-01-10] MEDS: cefTRIAXone 2 GM/50 ML BAG IVPB (12:21)
[2023-01-10] MEDS: Normal Saline Flush 10 ML SYR IVP (12:22)
--- NOTE | 2023-01-10 13:53 | CHAPLAIN ---
Nico was up in a chair when I visited. He was moved to Med/Surg from the ICU earlier this morning. Nico said he's comfortable. He's in touch with his daughter who lives nearby. Yesterday, Yeni Randall NP, from Palliative Care was in to see Nico for a Palliative Consult. I will continue to visit.
--- NOTE | 2023-01-10 14:35 | CMPROGNOTE_ITS ---
- If Service Date Differs Date of service: 01/10/23 Time of Service: 14:35 Care Management Progress Note S/O: Per provider, Nico will need a down and back or full transfer for a LEISA and further medical workup with [facility] Hem[facility] with treatment options if he is a candidate for treatment. Dr. Balderas has been in contact with [facility] and a full transfer was discussed pending bed availability. CM will continue to follow. Referral's are still pending at the [facility], but STR may no longer be an option if he requires fdc IV ABX. Nico has [facility] Moderate needs and may be able to get increased services when medically ready to discharge home. A: 67 year old male admitted to [facility] on 12/05/22 for pneumonia P: Anticipate, Nico will transfer to [facility] for a LEISA and bone biopsy. PT recommends SNF for STR, prior to discharging home. Nico is agreeable to STR referral to [facility]. Nico currently has [facility] Moderate needs and homemaker services twice weekly. CM continues to follow.
--- NOTE | 2023-01-10 14:35 | PDOC.CMPRO ---
- If Service Date Differs Date of service: 01/10/23 Time of Service: 14:35 Care Management Progress Note S/O: Per provider, Nico will need a down and back or full transfer for a LEISA and further medical workup with [facility] with treatment options if he is a candidate for treatment. Dr. Baldersa has been in contact with [facility] and a full transfer was discussed pending bed availability. CM will continue to follow. Referral's are still pending at the [facility], but STR may no longer be an option if he requires alf IV ABX. Nico has [facility] Moderate needs and may be able to get increased services when medically ready to discharge home. A: 67 year old male admitted to [facility] on 12/05/22 for pneumonia P: Anticipate, Nico will transfer to [facility] for a LEISA and bone biopsy. PT recommends SNF for STR, prior to discharging home. Nico is agreeable to STR referral to [facility]. Nico currently has [facility] Moderate needs and homemaker services twice weekly. CM continues to follow.
--- NOTE | 2023-01-10 15:22 | NT_ITS ---
Date of service: 01/10/23 Time of Service: 15:22 PT Notes Visit Reasons: Pneumonia 01/10/2023 Hold PT today due to potential transfer to [facility], per provider.
--- NOTE | 2023-01-10 17:54 | DSE_ITS ---
Date of service: 01/12/23 Time of Service: 17:09 DS: Diagnosis Discharge Diagnosis (1) Gram-positive bacteremia: Status: Acute Asessment and Plan: Initial blood cultures grew Staph Epidermididis and Strep mitis/oralis. He was initally on Zosyn and Azithromycin. Vancomycin had been added prior to culture results. He was subsequently changed to Rocephin 2g Daily. Echocardiogram was suboptimal d/t his large body habitus but there was the finding suggestive of a vegetation on a mitral leaflet best seen on parasternal long axis view 2 sets of repeat blood cultures were negative from 01/03 and 01/05/23 showed no growth. Patient needs follow up LEISA. (2) Pneumonia: Status: Acute Asessment and Plan: Improving and on Rocephin 2g daily only. Supplemental O2 demands have decreased. At discharge he was not requiring supplemental oxygen during the day but continues to need supplemental oxygen at night. (3) Pancytopenia: Status: Acute Asessment and Plan: Now dxd with Myeloid leukemia after flow cytometry was obtained to evaluate his pancytopenia when his CBC demonstrated 55% lymphocytes w/ 19% blasts. Platelets of 22. No significant bleeding notes. Patient is being transferred to [facility] [place] for heme/onc management/bone marrow bx (4) Acute myeloid leukemia: Status: Acute (5) Acute kidney injury (nontraumatic): Status: Acute Asessment and Plan: He presented with a creatinine of 1.9. Now resolved with a creatinine of 1.1. renal US 01/08 showed no hydronephrosis but distended bladder (6) Diabetes mellitus type 2 in obese: Status: Acute Asessment and Plan: patient was treated w/ basal bolus insulin. glucose was running 136 to 194 on the day of discharge. (7) Acute pulmonary embolism: Status: Resolved Asessment and Plan: patient has remote hx of PE and had been on warfarin on admission but was sub therapeutic. D-dimer was elevated 4500 on 01/04 and subsequent CTA of chest demonstrated questionable bilateral distal segmental pulmonary emboli. Patient's warfarin was switched to apixaban 10 mg bid (has been on this since 01/06. Dose will need to be decreased to 5 mg bid tomorrow; however, he will need to be bridged to heparin drip while he is off the apixaban for bone marrow biopsy to evaluate his leukemia (8) COVID: Status: Acute Asessment and Plan: Dxd 3 weeks prior to admission. Treated with Paxlovid. (9) Hypertension: Status: Chronic Asessment and Plan: His Atenolol was continued but lisinopril held until later when his renal function recovered. lisinopril home dose of 40 mg was resumed at 20 mg daily but his BP could not tolerate and therefore lisinopril was stopped. atenolol dose had to be decreased to 50 mg daily from 100 mg daily. He was put on midodrine for orthostatic hypotension. (10) Discharge planning issues: Status: Acute Asessment and Plan: Full Code. Palliative did visit with patient. Transferring to [facility] for further Heme/Onc evaluation and tx. Discharge Plan Disposition Patient Disposition: Transfer-Acute Inpatient Care Specific Acute Inpt Facility: [facility] Condition: Stable Discharge Details Reason For Visit: Pneumonia Admit Date/Time: 01/01/23 21:34 Admit Provider: Luis Enrique Barton Attending Provider: Luis Enrique Barton Primary Care Provider: Danny Frost [facility] Course Hospital Course: This is a 67 yo male with multiple problems, including type 2 DM, morbid obesity, PE, chronic anemia and COVID-19. States he is fully vaccinated. Reports COVID approx 3 weeks [employer], treated with paxlovid. Here with continuing cough, SOB and now more generalized weakness and lassitude, with poor PO intake, and inability to care for self with urinary and bowel incontinence. In? ER findings of note for temp 38.3, white count 6.2 with 13% bands; Hct 26, platelet 46; Na 129, K 5.5, BUN 46, Cr 1.9, sugar 425, AG 16, HCO3 18 and pH 7.24. CXR shows dens KEVIN consolidation and COVID is positive. Patient given Vanco and Zosyn, Pneumonia: is likely bacterial, not at all the presentation of COVID, which is likely residual three weeks out. Zosyn and Azithromycin initiated. COVID: as above likely residual from recent, not an acute infection. No specific treatment required Metabolic acidosis, with failure of respiratory compensation (obesity;hypoventialtion): not likely DKA in type 2 diabetic, may be element of lactic acidosis from either hypoxia or perhaps has had episodes of hypotension in setting of pneumonia; also element of starvation ketosis DM: as above probably not DKA but regardless did begin insulin qtt for more acute control at least Anemia: chronic but worse, r/o bleed on Coumadin. Unable to perform rectal exam secondary to body habitus. Held Coumadin initially and checked stools. In setting of thrombocytopenia concern for DIC (but no schizocytes noted) or marrow process. Thrombocytopenia: unknown etiology, perhaps marrow suppression to infection, History of PE with subtherapeutic INR (1.4): as above need to first rule out GI bleeding, then resume with increased dosing of Coumadin See Diagnosis? Home Meds and New Rx's Prescriptions: No Action triazolam 0.25 mg tablet 0.25 mg PO QHS PRN Patient Comments: 1-[address] De La Torre doxepin 10 mg capsule 10 mg PO QHS Patient Comments: Dr Rossi Jardiance 10 mg tablet 10 mg PO DAILY Qty: 90 3RF tramadol 50 mg tablet 100 mg PO BID MDD 200 mg Qty: 28 5RF tramadol 50 mg tablet 100 mg PO BID MDD 200 mg PRN (Reason: pain) Qty: 28 5RF (DME) insulin syringe-needle U-100 [Ultra-Thin II (Short) Ins Syr] 1 mL 31 gauge x 5/16 syringe 1 ea Miscellaneous QID Qty: 200 3RF Rx Instructions: E11.9; for insulin adminstration 5x/day; AIC goal <7 triamcinolone acetonide 0.5 % cream 1 applic TP BID PRN (Reason: dyshidrotic eczema) Qty: 15 2RF Rx Instructions: Apply thin film to area between fingers of right hand twice a day as needed for rash (DME) BD Blunt Plastic Cannula 17 x 3 mL syringe 1 ea Miscellaneous monthly Qty: 12 1RF Rx Instructions: 12 needles & syringes for B12 injections. Trulicity 4.5 mg/0.5 mL pen injector 4.5 mg subcut QWEEK Qty: 2 3RF insulin glargine [Lantus U-100 Insulin] 100 unit/mL solution See Rx Instructions Sub-Q BID Qty: 9 3RF Patient Comments: 80 units every night. Rx Instructions: 60 units QAM and 50 units QHS subcutaneously twice a day; ammonium lactate 225 GM lotion 1 applic Topical BID PRNQty: 1 Rx Instructions: apply to feet BID (DME) trapeze See Rx Instructions .Route .MEDSUPPLY Qty: 1 0RF Rx Instructions: As directed ([facility]) hospital bed mattress See Rx Instructions .Route .MEDSUPPLY Qty: 1 0RF Rx Instructions: replace with a heavy duty mattress (DME) Entrust Plus Briefs Misc 1 ea Miscellaneous Q6H PRN Qty: 120 12RF Rx Instructions: as directed (DME) pen needle, diabetic [BD Ultra-Fine Edwige Pen Needle] 32 gauge x 5/32 needle See Rx Instructions .ROUTE .MEDSUPPLY Qty: 400 3RF Rx Instructions: Use with Kwikpen QID warfarin 5 mg tablet See Rx Instructions PO DAILY Qty: 200 3RF Protocol: Dose Management Condition: Sunday Dose/Route: 10 mg Instruction: 2 x 5 mg tablets Condition: Sunday Dose/Route: 10 mg Instruction: 2 x 5 mg tablets Condition: Sunday Dose/Route: 15 mg Instruction: 3 x 5 mg tablets Condition: Sunday Dose/Route: 10 mg Instruction: 2 x 5 mg tablets Condition: Dose/Route: 10 mg Instruction: 2 x 5 mg tablets Condition: Sunday Dose/Route: 10 mg Instruction: 2 x 5 mg tablets Condition: Sunday Dose/Route: 10 mg Instruction: 2 x 5 mg tablets Protocol Text: Adjustment Start Date: Sunday12/26/22 INR Value: 1.7 INR Date: 12/26/22 Recheck Date: 01/02/23 Additional Instructions: no missed doses. Had finished the Paxlovid on 12/20. Reviewed dosing/recheck instructions per TM. LH Dose Instruction: 10mg 5 days a week, 15mg & PO DAILY; Rx Instructions: 10mg 6 days a week, 5 mg once a week (DME) blood-glucose meter [Accu-Chek Guide Glucose Meter] [facility] See Rx Instructions .Route Qty: 1 0RF Rx Instructions: to test blood sugars 5x's daily Dx E11.9 to maintain INR below 8. (DME) Accu-Chek Guide test strips Strip See Rx Instructions .Route Qty: 450 3RF Rx Instructions: to test blood sugars 5x's daily Dx E11.9 to maintain INR below 8. (DME) lancets [Accu-Chek Fastclix Lancet Drum] [facility] See Rx Instructions .Route Qty: 200 12RF Rx Instructions: For E11.9 to maintain A1C< 7. 5X a day testing amlodipine 5 mg tablet 5 mg PO DAILY Qty: 90 3RF atenolol 100 mg tablet 100 mg PO DAILY Qty: 90 3RF atorvastatin 20 mg tablet 20 mg PO DAILY Qty: 90 3RF doxazosin 4 mg tablet 4 mg PO DAILY Qty: 90 3RF metformin 1,000 mg tablet 1,000 mg PO BID Qty: 180 3RF potassium citrate 10 mEq (1,080 mg) tablet extended release 20 meq PO BID Qty: 360 4RF lisinopril 40 mg tablet See Rx Instructions .ROUTE .COMPLEX Qty: 90 3RF Dose Instruction: TAKE ONE TABLET BY MOUTH EVERY DAY Rx Instructions: TAKE ONE TABLET BY MOUTH EVERY DAY furosemide 80 mg tablet 80 mg PO DAILY Qty: 90 1RF cyanocobalamin (vitamin B-12) 1,000 mcg/mL solution 1,000 mcg IJ monthly Qty: 1 11RF Rx Instructions: pt self injects monthly. Myrbetriq 50 mg tablet extended release 24 hr 50 mg PO Q24H Qty: 90 4RF omeprazole 20 mg capsule,delayed release(DR/EC) 20 mg PO HS Qty: 90 3RF polyethylene glycol 3350(bulk) [Base B,Polyethylene [id number]] Granules See Rx Instructions .ROUTE .COMPLEX PRN (Reason: constipation) Qty: 1 6RF Rx Instructions: 17 gm po daily PRN; Dispense one jar/bottle. loratadine 10 mg tablet 10 mg PO DAILY Qty: 90 3RF Rx Instructions: for antihistamine Humulin R U-500 (Conc) Kwikpen 500 unit/mL (3 mL) insulin pen See Rx Instructions subcut ONCE Qty: 10 3RF Rx Instructions: inject subcu three times a day PRN; per sliding scale: 30-50 units QAM, 50 units with lunch, 50-60 units q PM benzonatate 100 mg capsule 100 mg PO BID PRN (Reason: cough) Qty: 30 0RF Discharge Instructions Referrals: [facility] Radiology [Other] - 03/29/23 1:45 pm (Follow up appointment for ECHO in Radiology Arrival at 1:45 for 2:00 appointment) Tiana Lal MD [ [facility] STAFF PHYSICIAN] - 04/03/23 10:45 am (Note: Echocardiogram will need to be done prior to seeing Dr. Lal on April 03. Radiology will call you to make an appointment.) Activity:: Activity as Tolerated Equipment/Supplies:: No Equipment Needed Diet:: Diabetic, low Na Discharge Orders Discharge Orders: Discharge Order (Routine); Ordered 01/12/23 Ordered By: James Haas DS: Summary Time Spent with Patient providing and/or coordinating discharge services: Greater than 30 minutes Status at Discharge Functional status at discharge: uses cane/walker Overall status at discharge: patient is not back to baseline Mental Status: mental status grossly normal Speech and Movement: speech clear Mood: congruent mood Affect: sad Exam Narrative Exam Narrative: Morbidly obese male (BMI 54), bearded white male. Alert and conversant. NAD. Sitting in recliner. Lungs: Clear with distant breath sounds. Heart: RRR Abdomen: obese, soft, nontender Legs: Compression stockings in place. Neuro: normal ROM and strength, no facial asymmetry. Psych: affect appropriate. Psych Mental Status: mental status grossly normal Speech and Movement: speech clear Mood: congruent mood Affect: sad DS: Data Vitals/I&O Vitals and I&O: Vital Signs Temperature 36.8 C 01/10/23 14:12 Temperature Source Tympanic 01/10/23 14:12 Pulse 74 01/10/23 15:20 Pulse Rhythm Regular 01/10/23 15:27 Pulse 71 01/07/23 17:43 Respiratory Rate 17 01/10/23 15:20 Respiratory Effort Normal, Non-Labored 01/10/23 15:27 Respiratory Depth Normal 01/10/23 15:27 Respiratory Pattern Normal 01/10/23 15:27 Blood Pressure 129/67 01/10/23 14:12 Blood Pressure Mean 65 01/08/23 14:57 Blood Pressure Position Supine 01/06/23 16:06 Pulse Oximetry 96 01/10/23 15:20 Oxygen Delivery Method Room Air 01/10/23 14:50 Oxygen Flow Rate 0 01/10/23 14:50 Fraction of Inspired Oxygen (FIO2) 30 01/07/23 08:27 Pain Level 0 01/09/23 17:18 Comment RN notified 01/06/23 03:30 Intake & Output 01/09/23 01/10/23 01/10/23 23:59 11:59 23:59 Intake Total 650 / 2234 180 / 410 230 / 410 Output Total 800 / 1700 900 / 1600 700 / 1600 Balance -150 / 534 -720 / -1190 -470 / -1190 Intake: IV 300 / 300 50 / 50 Oral 180 / 360 180 / 360 Blood Product 350 / 350 Rbc Leuko Reduced Unit 350 / 350 [id number] Output: Urine 650 / 1550 900 / 1600 700 / 1600 Stool 150 / 150 Other: Urine Color Yellow Yellow Straw Urine Appearance Clear Clear Clear Urine Odor Normal Normal None Comment mixed in with stool. Stool Size Moderate Moderate Stool Characteristics Soft Soft Formed Voiding Methods Bedside Commode Bedside Commode Bedside Commode Data Completed and Pending Labs on day of discharge: Labs from last 24 hours 01/10/23 01/10/23 05:40 05:40 WBC 3.54 L RBC 2.67 L Hgb 7.2 L Hct 23.7 L MCV 89 MCH 27.0 MCHC 30.4 L RDW 21.8 H Plt Count 22 L* MPV Sodium 140 Potassium 3.6 Chloride 104 Carbon Dioxide 29.5 Anion Gap 6.5 BUN 17 Creatinine 1.1 Est GFR (CKD-EPI 2020) 74.04 Glucose 185 H Calcium 7.8 L Preliminary micro results at discharge 01/09/23 03:28 Sputum Culture - Preliminary Sputum - Expectorated Gram Positive Sharifa PFSH All Active Problems (Updated 01/12/23 @ 17:29 by James Haas MD) Acute myeloid leukemia (Acute) Palliative care encounter (Acute) Discharge planning issues (Acute) Pulmonary hypertension (Acute) Pulmonary emboli (Chronic) Respiratory failure with hypoxia (Acute) Pancytopenia (Acute) Acute kidney injury (nontraumatic) (Acute) Gram-positive bacteremia (Acute) 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) Sleep apnea (Chronic 01/29/13) Mod/severe sleep apnea GERD with apnea (Chronic 04/12/15) Insomnia (Chronic 07/06/16) Restrictive lung disease (Chronic) PFT's 09/10/19 Right-sided heart failure (Chronic 01/06/15) Edema (Chronic 01/29/13) Urgency incontinence (Acute) Lower urinary tract symptoms (LUTS) (Acute 06/29/16) renal u/s: incomplete emptying Uric acid stone in urine (Acute) Bladder stones (Acute 10/29/17) Lumbar radiculopathy, right (Acute) B12 deficiency anemia (Acute 09/23/14) Osteoarthritis of knee (Acute 01/29/13) Chronic pain (Chronic) Pain medication agreement (Acute 03/25/15) Umbilical hernia without obstruction or gangrene (Acute 04/03/18) Dyshidrotic eczema (Chronic) Medical History Acute meniscal tear, lateral (01/29/13) Acute meniscal tear, medial (01/29/13) Acute on chronic renal insufficiency Anticoagulation goal of INR 2 to 3 hx of lower extremity dvts andacute pe Benign gastric polyp (05/01/14) EGD 05-01-14 Coronary artery disease Diabetes mellitus relates bloodsugars in am typically [id number] ,lasts a1c 9.3 range Hematuria Hernia Hyperlipidemia Kidney stones (10/19/17) Morbid obesity 50-59.9 super morbid obesity classification MRSA cellulitis of right foot Obstructive sleep apnea Umbilical hernia Uric acid urolithiasis managed with hydration and citrates Surgical History flexible laryngoscopy (04/12/15) FORESKIN SLIT History of colonoscopy History of esophagogastroduodenoscopy (EGD) History of extraction of renal calculus [facility] [place] 02/13/18 History of trigger finger lt thumb KNEE SURGERIES arthroscopy with documented knee djd Radial styloid tenosynovitis [de quervain] s/p release on 03/24/2019 Dr. De La Fuente Family History Mother Hypertensive disorder, systemic arterial Diabetes Personal history of malignant neoplasm BREAST Sister Diabetes Mental disorder Brother Diabetes Social History Smoking/Tobacco Use Status: Former Tobacco Use Quit Date: 03/15/09 Smokeless tobacco user: chewing tobacco Smoking risk assessment performed?: Yes Alcohol Intake: never Drug use: Never Substance use type: does not use Household members: other Details: roomate Housing: apartment Number of Children: 0 Communication Needs: Corrective Lenses current occupation: disabled Current gender identity: male How often do you talk on the phone with friends or family?: three or more times per week How often do you get together with friends or relatives?: three or more times per week Panel score (0-1 are the most socially isolated patients): 1 What type of physical activity do you participate in: none Seatbelt use: always Drive intox or ride w/intox hog driver: No Water heater temp set <120 deg: Yes Working smoke detector in home: Yes Fire extinguisher in home: Yes Carbon monox detector in home: Yes Do you feel safe at home: Yes Do you feel safe in your relationship?: Yes Time Spent with Patient Time Spent with Patient: <45 minutes Time was spent: preparing to see the patient(eg.review tests), indepentently interpreting results, counseling the patient and care coordination
[2023-01-10] MEDS: Omeprazole 20 MG CAPCR PO (21:53)
[2023-01-11] VITALS (7 sets, daily range): BP systolic 93–144; BP diastolic 53–71; PULSE 61–78; RESP 18–22; TEMP 36.7–37.2; O2SAT 91–96
--- NOTE | 2023-01-11 08:13 | OTDS_ITS ---
Occupational Therapy Notes Occupational Therapy Inpatient Discharge Summary Date: 01/11/23 Dates of Service: 01/09/23-01/11/23 Referring Doctor:Dr. Balderas OT Orders: Non Urgent Precautions: Fall, standard, full PATIENT PROFILE/ADMITTING DIAGNOSIS: Pt is a 67 year old male who was admitted for a dx of cough, shortness of breath, fever, and generalized weakness.? Patient is admitted for close monitoring in the ICU and for management of pneumonia, metabolic acidosis, DKA, anemia, thrombocytopenia, sepsis, gram- positive bacteremia, acute kidney injury longstanding COVID and hypertension. Past Medical History: All Active Problems? 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) Sleep apnea (Chronic 01/29/13) Mod/severe sleep apnea GERD with apnea (Chronic 04/12/15) Insomnia (Chronic 07/06/16) Restrictive lung disease (Chronic) PFT's 09/10/19Right-sided heart failure (Chronic 01/06/15) Edema (Chronic 01/29/13) Urgency incontinence (Acute) Lower urinary tract symptoms (LUTS) (Acute 06/29/16) renal u/s: incomplete emptying Uric acid stone in urine (Acute) Bladder stones (Acute 10/29/17) Lumbar radiculopathy, right (Acute) B12 deficiency anemia (Acute 09/23/14) Osteoarthritis of knee (Acute 01/29/13) Chronic pain (Chronic) Pain medication agreement (Acute 03/25/15) Umbilical hernia without obstruction or gangrene (Acute 04/03/18) Dyshidrotic eczema (Chronic) Medical History? Acute meniscal tear, lateral (01/29/13) Acute meniscal tear, medial (01/29/13) Acute on chronic renal insufficiency Anticoagulation goal of INR 2 to 3 hx of lower extremity dvts andacute peBenign gastric polyp (05/01/14) EGD 05-01-14 Coronary artery disease Diabetes mellitus relates bloodsugars in am typically [id number] ,lasts a1c 9.3 rangeHernia Hyperlipidemia Kidney stones (10/19/17) Morbid obesity 50-59.9 super morbid obesity classificationMRSA cellulitis of right foot Obstructive sleep apnea Umbilical hernia Uric acid urolithiasis managed with hydration and citrates Surgical History? flexible laryngoscopy (04/12/15) FORESKIN SLIT History of colonoscopy History of esophagogastroduodenoscopy (EGD) History of extraction of renal calculus [facility] 02/13/18History of trigger finger lt thumbKNEE SURGERIES arthroscopy with documented knee djdRadial styloid tenosynovitis [de quervain] s/p release on 03/24/2019 Dr. De La Fuente Social History/Home Situation: Pt states that he lives in an apartment with a roommate. He notes that he utilizes adaptive equipment at his baseline for performance of his ADLs. He has meals on wheels to (A) with his eating routines. He performed his bathing in a claw foot tub with a non stick mat but notes that he has to stand for performance of this decreasing his safety with this. He gets (A) With washing his folds by his aid that comes in 2x per week. He performs his dressing seated and has a sock aid but his uni boots limit his use of socks. He notes that he has someone come in to change these every couple days. Toileting he performs on the toilet he notes that he has a wand to (A) with toileting hygiene. He notes that he is able to perform this (I) with his wand. He does not drive. His cleaning lady drives him to and from appts which he says is helpful. He reports that he has stairs in his home and refers to himself as homebound. He notes that his daughter lives next door. He states that she is a support and so is his roommate. He is receptive to services if he returns home. Given his current level of function getting in and out of his bath tub seems like a challenge. Equipment owned/DME: FWW, cane, sock aid, dressing stick, grab bars, non slip mat SUBJECTIVE:?NT OBJECTIVE:? FUNCTIONAL MOBILITY/ADLS *Based on assessment in initial evaluation* DRESSING pt notes that he requires (A) with LE dressing but with his (B) LE wrapped he does not wear socks at all times. GROOMING (I) with max (A) Set up TOILETING pt is utilizing commode. He does need slight (A) with toileting hygiene but has adaptive equipment at home for (I) EATING sitting in chair (I) with eating routines. ASSESSMENT:?? Patient is a 67-year-old male referred to occupational therapy services with diagnosis of cough, shortness of breath, fever, and generalized weakness.? Patient is admitted for close monitoring in the ICU and for management of pneumonia, metabolic acidosis, DKA, anemia, thrombocytopenia, sepsis, gram-positive bacteremia, acute kidney injury longstanding COVID and hypertension. Patient was seen for initial evaluation and plan was decided that he will transfer to [facility] at this time. GOALS- not met seen for OT consult only Goals x1 week 1.? Oral hygiene sitting (I) 2.? Dressing seated mod (I) for LE and (I) UE 3.? Bathing max (A) set up but (I) in standing at sink 4.? Toileting on commode (I) 5.? Eating (I) PLAN OF CARE/TREATMENT PLAN: Pt is being discharged today to [facility] DISCHARGE RECOMMENDATIONS SNF due to pts decreased functional? mobility required for ADL performance. TREATMENT TIME/MINUTES/CODES N/A Andrea Dave OTR/L [facility]
[2023-01-11] MEDS: Apixaban 5 MG TAB 10 MG PO ×2 (08:54→20:30)
[2023-01-11] MEDS: Atenolol 50 MG TAB 100 MG PO (08:54)
[2023-01-11] MEDS: Mirabegron 50 MG TABCR PO (08:54)
[2023-01-11] MEDS: Doxazosin 2 MG TAB 4 MG PO (08:54)
[2023-01-11] MEDS: Insulin Glargine 300 UNITS/3 ML PEN 60 UNITS SC (08:55)
[2023-01-11] MEDS: Lisinopril 20 MG TAB PO (08:55)
[2023-01-11] MEDS: Atorvastatin 20 MG TAB PO (08:55)
[2023-01-11] MEDS: Benzonatate 100 MG CAP PO ×3 (08:55→20:31)
[2023-01-11] MEDS: Insulin Aspart 300 UNITS/3 ML PEN SC ×7 (08:55→20:34)
[2023-01-11] MEDS: guaiFENesin 600 MG TABCR PO ×2 (08:55→20:31)
[2023-01-11] MEDS: Potassium Citrate 1080 MG TABCR 2160 MG PO ×2 (08:55→20:31)
[2023-01-11] MEDS: Nystatin POWDER 60 GM JAR TP ×2 (08:57→13:46)
[2023-01-11] MEDS: cefTRIAXone 2 GM/50 ML BAG IVPB (12:25)
--- NOTE | 2023-01-11 13:36 | PGE_ITS ---
Date of Service Date of service: 01/11/23 Time of Service: 13:36 Assessment and Plan Assessment and plan (1) Gram-positive bacteremia: Status: Acute Assessment and plan: atypical strep; Strep mitis/oralis, repeat cultures from 01/03 are negative. His other blood cultures from admission grew Staph epidermis; both should respond to high dose Ceftriaxone. Both organisms could have been contaminants. Patient should have LEISA while he is at [facility] Professional time spent interviewing and examining patient, discussion of goals of care with hospital team (care management, nursing and consulting professionals) was 30 minutes. (2) Pneumonia: Status: Acute Assessment and plan: BC 1st set 01/01/23 + Strep species , 2nd set +Staph, non-aureus (2/2 bottles); sputum 01/01/23 normal kavya CXR w/ KEVIN pneumonia. His renal function is improving. Cognition waxing/waning but overall trajectory is improving. Cont high dose Rocephin and azithromycin. Urine legionella antigen was negative. Strep antigen neg. Mycoplasm studies pending. Ongoing resp failure is combination of his underlying YAMIL/OHS along w/ some volume overload d/t fluids given in resuscitation. He had dose of lasix on 01/04 when he was in acute respiratory distress and was found to have RAP and dilated RV w/ signs of fluid overload (abnormal IV septal wall motion). Cont home BiPAP at night. He remains full code per previous discussion w/ his daughter who is his DPOA. Now that Welcome is more alert, and appropriate, he can participate in this discussion. Palliative care consulted to discuss w/ the patient and his family goals of care. Working with PT. (3) Sepsis: Status: Acute Assessment and plan: Resolved; see pneumonia. 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 Will need to plan bone marrow bx;plan is for transfer to [facility]. This was set up by Dr. Balderas No signs of acute bleeding. Hgb did decrease to 7.1 and he was transfused 1 unit. Plts 25. Concerning combination of need for AC along with increased risk of bleeding d/t thrombocytopenia. (5) Acute pulmonary embolism: Start date: 12/07/15 Status: Resolved Assessment and plan: CTA 01/05/23 shows pulmonary emboli. Previous P.E. in 2016 and has been on coumadin since then. Presented with subtherapeutic coumadin. Now on treatment dose of apixiban. (6) Acute kidney injury (nontraumatic): Status: Acute Assessment and plan: Improved. Cr now 1.1. (7) DKA (diabetic ketoacidoses): Status: Resolved Assessment and plan: Resolved after insulin drip. (8) Diabetes mellitus type 2 in obese: Status: Acute Assessment and plan: Adjusting basal/bolus insulin; currently poorly controlled. glucose running 213 to 225 today. Was 192 to 273 yesterday. Currently on lantus 60 units bid along w/ insulin resistant corrective sliding scale and 2:10 insulin:CHO meal coverage. I will increase his Lantus to 65 units bid along w/ increase his insulin:CHO coverage to 3:15. The insulin resistant scale seems to be adequate to bring his glucose levels back down, therefore I have not changed the insulin scale (9) COVID: Status: Acute Assessment and plan: PCR is postive however, daughter says that he has tested on home test negative repeatedly. he did complete 5 days of Paxlovid at home two weeks ago. Now out of postive covid status. per [facility] policy he is not considered infectious and has been taken out of isolation (10) Hypertension: Status: Chronic Assessment and plan: Cont his atenolol. BP was decreased this moring and he was symptomatic w/ standing he felt dizzy w/ low BP. Patient was given NS bolus. He did receive his lisinopril 20 mg this morning. I have put this on hold. I will also reduce his atenolol dose. Qualifiers: Hypertension type: essential hypertension Qualified Code(s): I10 - Essential (primary) hypertension (11) Discharge planning issues: Status: Acute Assessment and plan: Will require further rehab efforts once discharged. Full Code. Palliative seeing patient. Subjective Subjective Interval history since last seen: Nico has no new complaints. He is still awaiting transfer to [facility] heme/onc who has accepted him to work him up w/ bone marrow for evaluation for leukemia/lymphoma. Exam Narrative Exam Narrative: Morbidly obese white male sitting up in his chair watching TV acute distress he is alert and oriented Chest is barrel chested Lungs are clear to auscultation anteriorly posteriorly has some diminished breath sounds at the bases no rhonchi or wheezes. Heart RRR Abdomen: obese, soft, nontender Legs: bilateral edema; he has TEDS on Objective Last Vital Signs Temp 36.7 C 01/11/23 11:06 Pulse 69 01/11/23 11:06 Resp 18 01/11/23 11:06 BP 134/67 01/11/23 11:06 Pulse Ox 96 01/11/23 11:06 Time Spent with Patient Time Spent with Patient: 25-34 minutes Time was spent: preparing to see the patient(eg.review tests), ordering medications,tests, procedures, referring, communicating with other health progressive care nurse (Nursing), indepentently interpreting results, counseling the patient and care coordination
--- NOTE | 2023-01-11 13:53 | CMPROGNOTE_ITS ---
- If Service Date Differs Date of service: 01/11/23 Time of Service: 13:53 Care Management Progress Note S/O: Nico was sitting up in his recliner when CM met with him. He is awake and engages in conversation. He is waiting to transfer to [facility] for a bone marrow biospy and LEISA. Nico has [employer] Moderate needs and may be able to get increased services when medically ready to discharge home. Nico thinks that he submitted an application for LTM in the past and didn't qualify. CM left a message for Lily Fleming at [facility] and is awaiting a return call. Referral's are still pending at the [facility] and [facility]. [facility]DC IV ABX course is unknown at this time and may be a barrier to SNF placement. A: 67 year old male admitted to [facility] on 12/05/22 for pneumonia P: Anticipate, Nico will transfer to [facility] for a LEISA and bone biopsy. PT recommends SNF for STR, prior to discharging home. Nico is agreeable to STR referral to [facility]. Nico currently has [facility] RN, [employer] Moderate needs and homemaker services twice weekly. CM continues to follow.
--- NOTE | 2023-01-11 13:53 | PDOC.CMPRO ---
- If Service Date Differs Date of service: 01/11/23 Time of Service: 13:53 Care Management Progress Note S/O: Nico was sitting up in his recliner when CM met with him. He is awake and engages in conversation. He is waiting to transfer to [facility]. for a bone marrow biospy and LEISA. Nico has C[employer] Moderate needs and may be able to get increased services when medically ready to discharge home. Nico thinks that he submitted an application for LTM in the past and didn't qualify. CM left a message for Lily Fleming at [facility] and is awaiting a return call. Referral's are still pending at the [facility] and [facility]. group home IV ABX course is unknown at this time and may be a barrier to SNF placement. A: 67 year old male admitted to [facility] on 12/05/22 for pneumonia P: Anticipate, Nico will transfer to [facility] for a LEISA and bone biopsy. PT recommends SNF for STR, prior to discharging home. Nico is agreeable to STR referral to [facility]. Nico currently has [facility] RN, C[employer] Moderate needs and homemaker services twice weekly. CM continues to follow.
--- NOTE | 2023-01-11 13:54 | PDOC.STREC ---
Date of service: 01/11/23 Time of Service: 13:55 Speech Therapy Recommendations Report ST Recommendations: NON TREATMENT NOTE: Per RN report, patient is now tolerating room air without s/sx dyspnea, as well as improved pain and mental status. Recently tolerated chicken salad sandwich without difficulty or s/sx aspiration or SOB. Patient is now awaiting bed at [facility] for further workup. Patient would like to upgrade diet at this time. Given his improved respiratory and overall medical status, this is reasonable, as primary rationale for downgraded diet is no longer applicable. If patient shows s/sx aspiration, stop PO intake, downgrade diet, and re-consult MARKETING AUTOMATION ANALYST. The following aspiration precautions and safety recommendations should be followed: Diet Texture Modification(s): IDDSI Level(s) SOLIDS 6-Soft/Bite Size Solids LIQUIDS 0-Thin Liquids Medication Intake: Whole or crushed, as able with tsp puree, Alter medications only as advised by MD or Pharmacist RISK MANAGEMENT: HOB upright as tolerated; upright for all PO intake. Oral care BID and before/after PO intake, using friction with toothbrush on all oral structures as tolerated ? Level of Assistance/Supervision: 1:1 Close supervision or intermittent supervision pending fluctuations in mental status PO intake only when awake/alert? Strategies/Adaptations/Assistive Equipment: Reduce auditory and/or visual distractions when eating, Provide verbal and/or visual cues to use recommended strategies, Small sips and bites when eating, (enforce single sips with straw pinch) Slow rate of intake, Swallow between bites, Small+frequent meals throughout day for energy conservation, reflux mgmt Posture/Positioning Needs: Maintain upright position at least 30 minutes after meals, Avoid meals/snacks 2-3 hours prior to reclining/sleeping, Sleep with head of bed elevated to reduce likelihood of nocturnal reflux Coding
--- NOTE | 2023-01-11 14:09 | NUR.NOTE ---
Nursing Note: At this time this RN entered the room to administer medication. The patient is awake in the chair stating I am not comfortable. This RN and WEST Ramriez stood next to the patient to help him reposition. Patient stood up out of the chair using the walker and sat back down after this RN fixed the sheet covering the chair. The patient then states I am dizzy the whole room is spinning. This RN took blood pressure of 93/53. This RN left the room to get a manual blood pressure cuff. Upon entering the room again, the patient was difficult to arouse, requiring sternal rub with imitate response. This RN got the manual blood pressure of 105/48. The patient reports feeling better. When asked if he was still dizzy he states No, not nearly as bad as before. The charge nurse notified of situation.
[2023-01-11] MEDS: Normal Saline Flush 10 ML SYR IVP (14:38)
[2023-01-11] MEDS: Normal Saline 250 ML IV (14:38)
[2023-01-11] MEDS: Omeprazole 20 MG CAPCR PO (20:31)
[2023-01-11] MEDS: Insulin Glargine 300 UNITS/3 ML PEN 65 UNITS SC (20:33)
[2023-01-12 03:12] VITALS: BP 100/50; PULSE 64; RESP 20; TEMP 36.1; O2SAT 98
[2023-01-12] MEDS: traMADol 50 MG TAB 100 MG PO (05:36)
[2023-01-12 07:31] VITALS: BP 125/64; PULSE 68; RESP 20; TEMP 35.9; O2SAT 91
[2023-01-12 08:23] VITALS: RESP 22; O2SAT 92
[2023-01-12] MEDS: Atorvastatin 20 MG TAB PO (09:08)
[2023-01-12] MEDS: Apixaban 5 MG TAB 10 MG PO (09:08)
[2023-01-12] MEDS: Benzonatate 100 MG CAP PO ×2 (09:08→13:19)
[2023-01-12] MEDS: Atenolol 50 MG TAB PO (09:09)
[2023-01-12] MEDS: Doxazosin 2 MG TAB 4 MG PO (09:09)
[2023-01-12] MEDS: Potassium Citrate 1080 MG TABCR 2160 MG PO (09:09)
[2023-01-12] MEDS: guaiFENesin 600 MG TABCR PO (09:09)
[2023-01-12] MEDS: Mirabegron 50 MG TABCR PO (09:09)
[2023-01-12] MEDS: Nystatin POWDER 60 GM JAR TP ×2 (09:10→13:19)
[2023-01-12] MEDS: Insulin Glargine 300 UNITS/3 ML PEN 65 UNITS SC (09:14)
--- NOTE | 2023-01-12 09:30 | CMPROGNOTE_ITS ---
- If Service Date Differs Date of service: 01/12/23 Time of Service: 09:30 Care Management Progress Note S/O: Nico continues to await transfer to [facility] for a bone marrow biospy and LEISA. He is accepted in transfer by Hem/Onc [facility], pending bed availability. Nico has C Moderate needs and may be able to get increased services when medically ready to discharge home. Nico thinks that he submitted an application for LTM in the past and didn't qualify. CM left a message for Lily Fleming at [facility] and is awaiting a return call. Referral's are still pending at the [facility]. ad terminal makeup operator IV ABX course is unknown at this time and may be a barrier to SNF placement. A: 67 year old male admitted to [facility] on 12/05/22 for pneumonia P: Nico will transfer to [facility] for a LEISA and bone biopsy. He is accepted in transfer by Hem[facility]Onc [facility], pending bed availability. He will transfer via EMS, coordinated by RN Informatica Developer. CM continues to follow.
[2023-01-12 09:52] VITALS: PULSE 79; RESP 18; O2SAT 93
--- NOTE | 2023-01-12 10:19 | W.PM.PROGNOT ---
Date of Service Date of service: 01/12/23 Time of Service: 10:19 Assessment and Plan Assessment and plan (1) Gram-positive bacteremia: Status: Acute Assessment and plan: atypical strep; Strep mitis/oralis, repeat cultures from 01/03 are negative. His other blood cultures from admission grew Staph epidermis; both should respond to high dose Ceftriaxone. Both organisms could have been contaminants. Patient should have LEISA while he is at [facility] Professional time spent interviewing and examining patient, discussion of goals of care with hospital team (care management, nursing and consulting professionals) was 30 minutes. (2) Pneumonia: Status: Acute Assessment and plan: BC 1st set 01/01/23 + Strep species , 2nd set +Staph, non-aureus (2/2 bottles); sputum 01/01/23 normal kavya CXR w/ KEVIN pneumonia. He still requires supplemental oxygen at 1 to 2 LPM Cont high dose Rocephin Urine legionella antigen neg., Strep antigen neg. Mycoplasm PCR also neg. Patient has underlying YAMIL and OHS in addition to his pneumonia. He also has cor pulmonale based on his echocardiogram (01/01/23: mod. RV dilatation, mod. RV systolic dysfunction, mod. TR w/ PHTN 64 mm), but normal LV systolic fxn. He initially was over resuscitated w/ iv fluids and did require diuretics. His diuretics have been held in light of his orthostatic changes. He actually needs a small fluid bolus yesterday. I think he is euvolemic. he has chronic bilateral leg edema d/t his right heart failure. He also has superimposed PE for which he is anticoagulated. Cont home BiPAP at night. He remains full code per previous discussion w/ his daughter who is his DPOA. Now that Welcome is more alert, and appropriate, he can participate in this discussion. Palliative care consulted to discuss w/ the patient and his family goals of care. Working with PT. 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 Will need to plan bone marrow bx;plan is for transfer [place] [facility] This was set up by Dr. Balderas and we are still awaiting a bed. No signs of acute bleeding. Hgb did decrease to 7.1 and he was transfused 1 unit. Plts 25. Concerning combination of need for AC along with increased risk of bleeding d/t thrombocytopenia. Patient needs updated labs. Last labs were on 01/10. I have ordered follow up CBC and CMP for today. (4) Acute pulmonary embolism: Start date: 12/07/15 Status: Resolved Assessment and plan: CTA 01/05/23 shows pulmonary emboli. Previous P.E. in 2016 and has been on coumadin since then. Presented with subtherapeutic coumadin. Now on treatment dose of apixiban. (5) Acute kidney injury (nontraumatic): Status: Acute Assessment and plan: Improved. Cr now 1.1. (6) Diabetes mellitus type 2 in obese: Status: Acute Assessment and plan: Blood glucoses are running better today. Fasting glucose 136. Bedtime glucose was 203. Currently on 65 units of Lantus twice daily meal coverage at a ratio of 3:15 as well as insulin resistant sliding scale. Patient originally presented in sepsis and w/ DKA on admission. (7) COVID: Status: Acute Assessment and plan: PCR is postive however, daughter says that he has tested on home test negative repeatedly. he did complete 5 days of Paxlovid at home two weeks ago. Now out of postive covid status. per [facility] policy he is not considered infectious and has been taken out of isolation (8) Hypertension: Status: Chronic Assessment and plan: BP is better since holding his lisinopril and reducing his dose of atenolol. continue to monitor. Qualifiers: Hypertension type: essential hypertension Qualified Code(s): I10 - Essential (primary) hypertension (9) Discharge planning issues: Status: Acute Assessment and plan: Will require further rehab efforts once discharged. however for now we are awaiting transfer to [facility] Full Code. Palliative seeing patient. Subjective Subjective Interval history since last seen: Patient had issues w/ orthostatic hypotension yesterday associated w/ dizziness. He is no longer dizzy but has had some nausea this morning, not associated w/ any CP or abdominal pains. BP is better today (lisinopril was held and atenolol dose was decreased w/ holding parameters. We are still awaiting transfer to [facility] to evaluate and begin treatment of his AML Exam Narrative Exam Narrative: Pale, morbidly obese white male, lying in bed, alert and oriented. no distress Lungs: clear Heart: RRR Abdomen: obese, soft, nontender Legs: edematous, has TEDS on his legs Objective Last Vital Signs Temp 35.9 C L 01/12/23 07:31 Pulse 68 01/12/23 07:31 Resp 20 01/12/23 07:31 BP 125/64 01/12/23 07:31 Pulse Ox 92 01/12/23 08:23 Time Spent with Patient Time Spent with Patient: 25-34 minutes Time was spent: preparing to see the patient(eg.review tests), ordering medications,tests, procedures, indepentently interpreting results, counseling the patient and care coordination
[2023-01-12 11:15] VITALS: BP 94/58; PULSE 75; RESP 18; TEMP 36.4; O2SAT 96
[2023-01-12 12:10] LABS: HCT 24.7 % (40.0-50.0); HGB 7.5 g/dL (13.5-17.5); MCH 27.3 pg (27.0-33.0); MCHC 30.4 % (32.0-36.0); MCV 90 fL (80-95); RBC 2.75 10^6/uL (4.36-5.78); RDW 22.2 % (11.8-14.1); RDW-SD 70.9 fL; WBC 6.06 10^3/uL (4.4-10.8)
[2023-01-12] MEDS: cefTRIAXone 2 GM/50 ML BAG IVPB (12:16)
[2023-01-12] MEDS: Insulin Aspart 300 UNITS/3 ML PEN SC ×4 (12:17→17:14)
[2023-01-12 12:25] LABS: ALT 30 U/L (16-63); AST 27 U/L (15-37); Albumin 2.3 g/dL (3.4-5.0); Alkaline Phosphatase 114 U/L (46-116); Anion Gap 5.8 mmol/L (3-11); BUN 13 mg/dL (7-18); Bilirubin, Total 0.5 mg/dL (0.2-1.0); CO2 30.2 mmol/L (21.0-32.0); CREATININE 1.3 mg/dL (0.70-1.30); Chloride 103 mmol/L (98-107); Estimated GFR 60.59 (mL/min/1.73m2); Glucose 153 mg/dL (74-106); Potassium 3.9 mmol/L (3.5-5.1); Sodium 139 mmol/L (136-145); Total Protein 6.4 g/dL (6.4-8.2)
[2023-01-12 12:26] LABS: Absolute Lymphocyte Count 3.27 10^3/uL (1.2-3.4); Absolute Monocyte Count 0.42 10^3/uL (0.1-0.8); Absolute Neutrophil Count 0.85 10^3/uL (1.2-6.7); Atypical Lymphocytes % 2; Bands % 4
[2023-01-12 12:27] LABS: Anisocytosis 2+; Diff Comment Manual Differential; Metamyelocytes % 3; Myelocytes % 3; Other Cells % 19
[2023-01-12 12:28] LABS: Platelet Count 30 10^3/uL (130-400)
[2023-01-12 15:06] VITALS: BP 103/58; PULSE 78; RESP 20; TEMP 36.9; O2SAT 96
--- NOTE | 2023-01-12 17:50 | NUR.NOTE ---
Called Lg @ [phone] to give report on patient. Spoke with Jayne at [phone] & Cata @ [phone]. Report was given, All questions & or concerns were addressed. Nursing Note:
== END 2023-01-12 17:44 | disposition short-term general hospital (02) | DRG 871 ==
LOC: ER 22:42 → ICU 23:15 → MS 01-10 02:10
PROVIDERS: Family Medicine; Internal Medicine; Student in an Organized Health Care Education/Training Program; Admitting Provider General Practice; Emergency Provider Emergency Medicine; PCP Family Medicine; Visit Provider General Practice
DX: A41.9 Sepsis, unspecified organism; E11.10 Type 2 diabetes mellitus with ketoacidosis without coma; J15.9 Unspecified bacterial pneumonia; U07.1 COVID-19; J96.01 Acute respiratory failure with hypoxia; N17.9 Acute kidney failure, unspecified; D61.818 Other pancytopenia; C92.90 Myeloid leukemia, unspecified, not having achieved remission; Z79.01 Long term (current) use of anticoagulants; I50.812 Chronic right heart failure; I27.20 Pulmonary hypertension, unspecified; E66.01 Morbid (severe) obesity due to excess calories; Z79.4 Long term (current) use of insulin; Z79.85 Long-term (current) use of injectable non-insulin antidiabetic drugs; Z79.84 Long term (current) use of oral hypoglycemic drugs; Z86.711 Personal history of pulmonary embolism; M17.0 Bilateral primary osteoarthritis of knee; D50.9 Iron deficiency anemia, unspecified; E78.00 Pure hypercholesterolemia, unspecified; K21.9 Gastro-esophageal reflux disease without esophagitis; G47.00 Insomnia, unspecified; R40.0 Somnolence; J98.8 Other specified respiratory disorders; R33.9 Retention of urine, unspecified; N39.41 Urge incontinence; G89.29 Other chronic pain; K42.9 Umbilical hernia without obstruction or gangrene; D51.9 Vitamin B12 deficiency anemia, unspecified; I11.0 Hypertensive heart disease with heart failure; L30.1 Dyshidrosis [pompholyx]; I25.10 Atherosclerotic heart disease of native coronary artery without angina pectoris; E78.5 Hyperlipidemia, unspecified; N20.0 Calculus of kidney; G47.33 Obstructive sleep apnea (adult) (pediatric); R31.9 Hematuria, unspecified; E87.79 Other fluid overload; W18.39XA Other fall on same level, initial encounter
CPT/HCPCS: 36410; 36415; 36416; 36569; 36591; 36592; 51702; 71045; 71275; 76770; 77001; 80048; 80053; 82784; 82805; 82962; 83690; 84145; 85027; 85384; 86850; 86900; 86901; 86920; 87040; 87077; 87081; 87389; 87449; 87637; 88185; 92610; 93005; 94640; 96361; 96365; 96366; 96367; 96375; 97110; 97163; 97167; 97530; 99222; 99231; 99232; 99285; 70450; 81003; 81015; 82140; 82785; 82787; 83010; 83036; 83605; 83615; 83735; 83880; 84443; 84484; 85025; 85379; 85610; 85730; 86140; 87070; 87086; 87205; 87581; 87899; 88184; 88189; 93010; 93306; 94660; 94667; 94668; 94760; 99223; 99233; 99239; 99291; 99292; J0131; J0456; J1940; J2060; J2270; J2543; J3490; J7613; J7620; J7644; P9016

== ENCOUNTER → 2023-01-05 11:29 | Outpatient (BNVA) | payer MEDICARE, MEDICAID, SELFPAY | PROVIDERS: PCP Family Medicine; Referring Provider Family Medicine; Visit Provider Urology ==